=== PATIENT | female | born 1955 | race African-American/Black ===

== ENCOUNTER 2017-06-26 08:49 | Emergency (ER) | payer MEDICAID, OTHER ==
[~2017-06-26] VITALS: Ht 165.1 cm; Wt 100.0 kg
[2017-06-26] MEDS ORDERED: PREM625 PO (09:13)
[2017-06-26] MEDS ORDERED: ZOLP10 PO (09:13)
[2017-06-26] MEDS ORDERED: LORA2TAB2 PO (09:13)
[2017-06-26] MEDS ORDERED: RISP.5 PO (09:13)
[2017-06-26] MEDS ORDERED: FAMO20 PO (09:13)
[2017-06-26] MEDS ORDERED: METO25 PO (09:13)
[2017-06-26] MEDS ORDERED: TRAM50TA4 PO (09:13)
[2017-06-26] MEDS ORDERED: MET500 PO (09:13)
[2017-06-26] MEDS ORDERED: VERA80 PO (09:13)
[2017-06-26] MEDS ORDERED: GABA-529 PO (09:13)
[2017-06-26] MEDS ORDERED: ALBU8HFA4 IH (09:13)
[2017-06-26] MEDS ORDERED: CETI-260 PO (09:13)
[2017-06-26] MEDS ORDERED: FLUT16H NASAL (09:13)
[2017-06-26] MEDS ORDERED: CLON.1 PO (09:13)
[2017-06-26 10:01] LABS: BASOPHILS % (AUTO) 0.8 % (0.0-2.0); EOSINOPHILS % (AUTO) 2.3 % (1.0-6.0); HEMATOCRIT 42.9 % (36-46); HEMOGLOBIN 14.6 g/dL (12.0-16.0); LYMPHOCYTES # (AUTO) 1.9 K/uL (1.0-4.8); LYMPHOCYTES % (AUTO) 43.4 % (22.0-44.0); MEAN CORPUSCULAR HEMOGLOBIN 28.7 pg (26.0-34.0); MEAN CORPUSCULAR HGB CONC 33.9 G/dL (31.0-37.0); MEAN CORPUSCULAR VOLUME 85 fL (80-100); MONOCYTES # (AUTO) 0.6 K/uL (0.1-1.0); MONOCYTES % (AUTO) 13.7 % (2.0-9.0); NEUTROPHILS # (AUTO) 1.8 K/uL (1.8-7.7); NEUTROPHILS % (AUTO) 39.8 % (40.0-70.0); PLATELET COUNT (AUTO) 212 K/uL (150-450); RED BLOOD CELL COUNT(AUTO) 5.07 MIL/uL (4.00-5.20); RED CELL DISTRIBUTION WIDTH 15.1 % (11.5-14.5); WHITE BLOOD COUNT (AUTO) 4.5 K/uL (4.5-11.0)
[2017-06-26 10:13] LABS: ANION GAP 10 mmol/L (8-16); CALCIUM, TOTAL 9.4 mg/dL (8.8-10.5); CARBON DIOXIDE 27 mmol/L (22-29); CHLORIDE 107 mmol/L (98-107); CREATININE 0.69 mg/dL (0.60-1.30); GLOMERULAR FILTR. RATE CALC > 60 mL/min (>60); POTASSIUM 3.5 mmol/L (3.5-5.1); SODIUM SERUM 144 mmol/L (136-145); UREA NITROGEN, BLOOD 9 mg/dL (7-18)
[2017-06-26 10:17] LABS: ALANINE AMINOTRANSFERASE 70 U/L (12-78); ALBUMIN 3.3 g/dL (3.4-5.0); ASPARTATE AMINOTRANSFERASE 53 U/L (15-37); BILIRUBIN,TOTAL 0.9 mg/dL (0.1-1.0); TOTAL PROTEIN, SERUM 7.9 g/dL (6.4-8.2)
[2017-06-26] MEDS ORDERED: LORazepam 1 MG TABLET PO ONE ×2 (11:00→12:00)
[2017-06-26 12:17] VITALS: BP 142/81
== END 2017-06-26 13:11 | disposition home or self-care (01) ==
LOC: EMS 08:52
DX: F41.9 Anxiety disorder, unspecified (principal); K21.9 Gastro-esophageal reflux disease without esophagitis; I10 Essential (primary) hypertension; Z88.6 Allergy status to analgesic agent; Z88.1 Allergy status to other antibiotic agents; Z88.5 Allergy status to narcotic agent; Z88.8 Allergy status to other drugs, medicaments and biological substances
CPT/HCPCS: 36415; 80053; 80307; 85025; 99284; G0480

== ENCOUNTER 2017-10-21 17:40 | Inpatient (IN) | payer MEDICAID, OTHER ==
[~2017-10-21] VITALS: Ht 152.4 cm; Wt 101.6 kg
[~2017-10-21 17:40] MED LIST: ALBU8HFA4 IH; CETI-290 PO; CLON-570 PO; FAMO20 PO; FLUT16H NASAL; GABA-529 PO; LORA2TAB2 PO; MET500 PO; METO25 PO; PREM625 PO; RISP.5 PO; TRAM50TA4 PO; VERA80 PO; ZOLP10TA7 PO
[2017-10-21 18:35] LABS: BASOPHILS % (AUTO) 0.6 % (0.0-2.0); EOSINOPHILS % (AUTO) 1.4 % (1.0-6.0); HEMATOCRIT 43.7 % (36-46); HEMOGLOBIN 14.8 g/dL (12.0-16.0); LYMPHOCYTES # (AUTO) 3.9 K/uL (1.0-4.8); LYMPHOCYTES % (AUTO) 46.3 % (22.0-44.0); MEAN CORPUSCULAR HEMOGLOBIN 29.3 pg (26.0-34.0); MEAN CORPUSCULAR HGB CONC 33.7 G/dL (31.0-37.0); MEAN CORPUSCULAR VOLUME 87 fL (80-100); MONOCYTES # (AUTO) 0.9 K/uL (0.1-1.0); MONOCYTES % (AUTO) 10.3 % (2.0-9.0); NEUTROPHILS # (AUTO) 3.5 K/uL (1.8-7.7); NEUTROPHILS % (AUTO) 41.4 % (40.0-70.0); PLATELET COUNT (AUTO) 278 K/uL (150-450); RED BLOOD CELL COUNT(AUTO) 5.04 MIL/uL (4.00-5.20); RED CELL DISTRIBUTION WIDTH 13.7 % (11.5-14.5); WHITE BLOOD COUNT (AUTO) 8.4 K/uL (4.5-11.0)
[2017-10-21 18:51] LABS: ANION GAP 10 mmol/L (8-16); CALCIUM, TOTAL 9.3 mg/dL (8.8-10.5); CARBON DIOXIDE 29 mmol/L (22-29); CHLORIDE 97 mmol/L (98-107); CREATININE 0.87 mg/dL (0.60-1.30); GLOMERULAR FILTR. RATE CALC > 60 mL/min (>60); POTASSIUM 3.1 mmol/L (3.5-5.1); SODIUM SERUM 136 mmol/L (136-145); UREA NITROGEN, BLOOD 14 mg/dL (7-18)
[2017-10-21 18:57] LABS: ALANINE AMINOTRANSFERASE 72 U/L (12-78); ALBUMIN 3.7 g/dL (3.4-5.0); ASPARTATE AMINOTRANSFERASE 57 U/L (15-37); BILIRUBIN,TOTAL 0.6 mg/dL (0.1-1.0); TOTAL PROTEIN, SERUM 8.9 g/dL (6.4-8.2)
[2017-10-21] MEDS ORDERED: HydrOXYzine PAMOATE 50 MG CAPSULE PO ONE (19:00)
[2017-10-21] MEDS: LORazepam 2 MG TABLET PO PRN (20:23)
[2017-10-21] MEDS ORDERED: OLANZapine 10 MG TABLET PO SCH (21:00)
[2017-10-21] MEDS ORDERED: POTASSIUM CHLORIDE 20 MEQ ER TABLET PO ONE (21:15)
[2017-10-21 21:32] VITALS: BP 114/59
[2017-10-21 21:35] VITALS: BP 114/59
[2017-10-21] MEDS: ZOLPIDEM TARTRATE 10 MG TABLET PO PRN (21:57)
[2017-10-21] MEDS: OLANZapine 5 MG RAPDIS TABLET PO PRN (21:57)
[2017-10-21 22:35] VITALS: BP 122/73
[2017-10-21] MEDS ORDERED: PNEUMOCOCCAL VACCINE POLYVALENT 0.5 ML VIAL [PPSV23] IM ONE (23:00)
[2017-10-21] MEDS ORDERED: INFLUENZA VIRUS VACCINE QVS 2017-18 (3YR+)/PF 60 MCG/0.5 ML SYRINGE IM ONE (23:00)
[2017-10-21 23:39] VITALS: BP 108/63
[2017-10-22] VITALS (9 sets, daily range): BP systolic 93–127; BP diastolic 58–68
[2017-10-22] MEDS: LORazepam 2 MG TABLET PO PRN (01:51)
[2017-10-22 05:23] LABS: CHOL/HDL RATIO 2.8 (3.9-5.7)
[2017-10-22] MEDS ORDERED: LORazepam 2 MG TABLET PO PRN (07:00)
[2017-10-22] MEDS: OLANZapine 5 MG RAPDIS TABLET PO PRN ×2 (08:40→13:40)
[2017-10-22] MEDS ORDERED: LORazepam 2 MG TABLET PO SCH (09:00)
[2017-10-22] MEDS ORDERED: CYANOCOBALAMIN 1,000 MCG/ML VIAL IM ONE (13:30)
[2017-10-22] MEDS ORDERED: GuaiFENesin/D-METHORPHAN [SUGAR-FREE] 200-20MG/10 ML SYRUP UDCUP PO PRN (13:30)
[2017-10-22] MEDS ORDERED: HydrOXYzine PAMOATE 50 MG CAPSULE PO PRN (13:30)
[2017-10-22] MEDS ORDERED: MAGNESIUM HYDROXIDE SUSPENSION 30 ML UDCUP PO PRN (13:30)
[2017-10-22] MEDS ORDERED: PROMETHAZINE HCL 25 MG TABLET PO PRN (13:30)
[2017-10-22] MEDS ORDERED: TUBERCULIN, PURIFIED PROTEIN DERIVATIVE 5 TU/0.1 ML SYG ID ONE (13:30)
[2017-10-22] MEDS ORDERED: LOPERAMIDE HCL 2 MG CAPSULE PO PRN (13:30)
[2017-10-22] MEDS: DIAZEPAM 10 MG TABLET PO PRN ×3 (13:40→20:17)
[2017-10-22] MEDS: GABAPENTIN 100 MG CAPSULE PO SCH ×2 (15:41→21:55)
[2017-10-22] MEDS ORDERED: OLANZapine 10 MG TABLET PO SCH (21:00)
[2017-10-22] MEDS: ZOLPIDEM TARTRATE 10 MG TABLET PO PRN (21:55)
[2017-10-22] MEDS: THIAMINE HCL 100 MG TABLET PO SCH (21:55)
[2017-10-23] MEDS ORDERED: DIAZEPAM 10 MG TABLET PO PRN (07:00)
[2017-10-23] MEDS: FLUoxetine HCL 20 MG CAPSULE PO SCH ×2 (09:00→09:39)
[2017-10-23] MEDS: FLUTICASONE PROPIONATE 50 MCG/SPRAY 16 GM NASAL SPRAY NASAL SCH (09:00)
[2017-10-23] MEDS: THIAMINE HCL 100 MG TABLET PO SCH (09:38)
[2017-10-23] MEDS: DIAZEPAM 10 MG TABLET PO SCH ×4 (09:39→21:17)
[2017-10-23] MEDS: MULTIVITAMINS WITH MINERALS, THERAPEUTIC TABLET PO SCH (09:39)
[2017-10-23] MEDS: GABAPENTIN 100 MG CAPSULE PO SCH (09:40)
[2017-10-23] MEDS: FOLIC ACID 1 MG TABLET PO SCH (09:40)
[2017-10-23] MEDS ORDERED: QUEtiapine FUMARATE 100 MG TABLET PO PRN (12:30)
[2017-10-23 12:51] VITALS: BP 152/95
[2017-10-23] MEDS: AmLODIPine BESYLATE 5 MG TABLET PO SCH (13:58)
[2017-10-23] MEDS: GABAPENTIN 300 MG CAPSULE PO SCH ×3 (14:02→21:16)
[2017-10-23] MEDS: QUEtiapine FUMARATE 25 MG TABLET PO SCH (17:42)
[2017-10-23 18:30] VITALS: BP 156/94
[2017-10-23] MEDS ORDERED: QUEtiapine FUMARATE 100 MG TABLET PO SCH (21:00)
[2017-10-23] MEDS: ZOLPIDEM TARTRATE 10 MG TABLET PO PRN (23:49)
[2017-10-24 03:33] VITALS: BP 141/83
[2017-10-24] MEDS ORDERED: LORazepam 1 MG TABLET PO PRN (07:00)
[2017-10-24 08:00] VITALS: BP 142/85
[2017-10-24] MEDS: DIAZEPAM 10 MG TABLET PO SCH ×2 (09:00→13:00)
[2017-10-24] MEDS: FOLIC ACID 1 MG TABLET PO SCH (09:00)
[2017-10-24] MEDS ORDERED: LORazepam 1 MG TABLET PO SCH (09:00)
[2017-10-24] MEDS: THIAMINE HCL 100 MG TABLET PO SCH ×2 (09:00→16:28)
[2017-10-24] MEDS: MULTIVITAMINS WITH MINERALS, THERAPEUTIC TABLET PO SCH (09:00)
[2017-10-24] MEDS: AmLODIPine BESYLATE 5 MG TABLET PO SCH (10:39)
[2017-10-24] MEDS: GABAPENTIN 300 MG CAPSULE PO SCH ×2 (10:39→14:05)
[2017-10-24] MEDS: FLUTICASONE PROPIONATE 50 MCG/SPRAY 16 GM NASAL SPRAY NASAL SCH ×2 (10:39→16:29)
[2017-10-24] MEDS: QUEtiapine FUMARATE 25 MG TABLET PO SCH ×3 (10:39→16:28)
[2017-10-24] MEDS: LORazepam 2 MG TABLET PO PRN (16:32)
[2017-10-24] MEDS ORDERED: GABAPENTIN 300 MG CAPSULE PO SCH (17:00)
[2017-10-24 17:12] VITALS: BP 145/94
[2017-10-24] MEDS: GABAPENTIN 400 MG CAPSULE PO SCH (21:17)
[2017-10-24] MEDS: QUEtiapine FUMARATE 100 MG TABLET PO SCH (21:19)
[2017-10-24] MEDS ORDERED: ALBUTEROL SULFATE HFA 90 MCG/PUFF 8 GM INHALER IH PRN (21:30)
[2017-10-24] MEDS: ZOLPIDEM TARTRATE 10 MG TABLET PO PRN (21:33)
[2017-10-25] VITALS: BP 116/72
[2017-10-25 04:00] VITALS: BP 113/62
[2017-10-25] MEDS: LORazepam 2 MG TABLET PO PRN (04:50)
[2017-10-25] MEDS ORDERED: LORazepam 1 MG TABLET PO PRN (07:00)
[2017-10-25] MEDS ORDERED: DIAZEPAM 5 MG TABLET PO PRN (07:00)
[2017-10-25 08:00] VITALS: BP_SYST 111; BP_SYST 118; BP_DIAS 77
[2017-10-25] MEDS: THIAMINE HCL 100 MG TABLET PO SCH ×2 (09:00→16:12)
[2017-10-25] MEDS: FOLIC ACID 1 MG TABLET PO SCH (09:00)
[2017-10-25] MEDS: MULTIVITAMINS WITH MINERALS, THERAPEUTIC TABLET PO SCH (09:00)
[2017-10-25] MEDS ORDERED: DIAZEPAM 5 MG TABLET PO SCH (09:00)
[2017-10-25] MEDS: LORazepam 2 MG TABLET PO SCH ×4 (10:00→22:27)
[2017-10-25] MEDS: AmLODIPine BESYLATE 10 MG TABLET PO SCH (10:01)
[2017-10-25] MEDS: GABAPENTIN 400 MG CAPSULE PO SCH ×2 (10:01→13:50)
[2017-10-25] MEDS: FLUTICASONE PROPIONATE 50 MCG/SPRAY 16 GM NASAL SPRAY NASAL SCH ×2 (10:01→16:15)
[2017-10-25] MEDS: QUEtiapine FUMARATE 25 MG TABLET PO SCH ×3 (10:01→16:12)
[2017-10-25 12:00] VITALS: BP 130/75
[2017-10-25] MEDS ORDERED: LOPERAMIDE HCL 2 MG CAPSULE PO PRN (13:30)
[2017-10-25] MEDS: GABAPENTIN 300 MG CAPSULE PO SCH (17:10)
[2017-10-25 17:11] VITALS: BP 137/90
[2017-10-25] MEDS: HYPROMELLOSE 0.5% 15 ML OPHTHALMIC SOLUTION OU PRN (17:11)
[2017-10-25] MEDS: MAG HYDROX/AL HYDROX/SIMETH ES 30 ML SUSPENSION UDCUP PO PRN (20:39)
[2017-10-25] MEDS: QUEtiapine FUMARATE 100 MG TABLET PO SCH (22:27)
[2017-10-25 22:29] VITALS: BP 139/68
[2017-10-26 02:45] VITALS: BP 134/98
[2017-10-26] MEDS: LORazepam 2 MG TABLET PO PRN (02:50)
[2017-10-26] MEDS: HYPROMELLOSE 0.5% 15 ML OPHTHALMIC SOLUTION OU PRN (02:50)
[2017-10-26 04:30] VITALS: BP 127/74
[2017-10-26] MEDS ORDERED: DIAZEPAM 5 MG TABLET PO PRN (07:00)
[2017-10-26 08:30] VITALS: BP 157/78
[2017-10-26] MEDS: MULTIVITAMINS WITH MINERALS, THERAPEUTIC TABLET PO SCH (09:00)
[2017-10-26] MEDS: LORazepam 2 MG TABLET PO SCH ×4 (09:31→22:01)
[2017-10-26] MEDS: FOLIC ACID 1 MG TABLET PO SCH (09:31)
[2017-10-26] MEDS: AmLODIPine BESYLATE 10 MG TABLET PO SCH (09:31)
[2017-10-26] MEDS: QUEtiapine FUMARATE 25 MG TABLET PO SCH ×3 (09:31→16:25)
[2017-10-26] MEDS: GABAPENTIN 300 MG CAPSULE PO SCH ×3 (09:31→16:25)
[2017-10-26] MEDS: THIAMINE HCL 100 MG TABLET PO SCH ×2 (09:33→16:25)
[2017-10-26] MEDS: FLUTICASONE PROPIONATE 50 MCG/SPRAY 16 GM NASAL SPRAY NASAL SCH ×2 (09:36→16:24)
[2017-10-26 12:00] VITALS: BP 132/84
[2017-10-26] MEDS: CIPROFLOXACIN HCL 0.3% 3.5 GM OPHTHALMIC OINTMENT OU SCH ×2 (13:15→16:26)
[2017-10-26 16:00] VITALS: BP 118/69
[2017-10-26 20:05] VITALS: BP 115/63
[2017-10-26] MEDS: QUEtiapine FUMARATE 100 MG TABLET PO SCH (21:55)
[2017-10-27 00:10] VITALS: BP 122/92
[2017-10-27] MEDS: ZOLPIDEM TARTRATE 10 MG TABLET PO PRN ×2 (00:52→21:57)
[2017-10-27] MEDS: LORazepam 2 MG TABLET PO PRN (00:53)
[2017-10-27] MEDS: HYPROMELLOSE 0.5% 15 ML OPHTHALMIC SOLUTION OU PRN (00:55)
[2017-10-27 04:10] VITALS: BP 120/72
[2017-10-27] MEDS ORDERED: LORazepam 1 MG TABLET PO PRN (07:00)
[2017-10-27 08:30] VITALS: BP 134/81
[2017-10-27] MEDS: MULTIVITAMINS WITH MINERALS, THERAPEUTIC TABLET PO SCH ×2 (09:00→09:07)
[2017-10-27] MEDS: QUEtiapine FUMARATE 25 MG TABLET PO SCH ×3 (09:07→16:47)
[2017-10-27] MEDS: LORazepam 1 MG TABLET PO SCH ×4 (09:07→21:57)
[2017-10-27] MEDS: AmLODIPine BESYLATE 10 MG TABLET PO SCH (09:07)
[2017-10-27] MEDS: THIAMINE HCL 100 MG TABLET PO SCH ×2 (09:07→16:47)
[2017-10-27] MEDS: GABAPENTIN 300 MG CAPSULE PO SCH ×3 (09:08→16:47)
[2017-10-27] MEDS: CIPROFLOXACIN HCL 0.3% 3.5 GM OPHTHALMIC OINTMENT OU SCH ×2 (09:08→16:51)
[2017-10-27] MEDS: FLUTICASONE PROPIONATE 50 MCG/SPRAY 16 GM NASAL SPRAY NASAL SCH ×2 (09:08→16:51)
[2017-10-27] MEDS: FOLIC ACID 1 MG TABLET PO SCH (09:08)
[2017-10-27] MEDS: MAG HYDROX/AL HYDROX/SIMETH ES 30 ML SUSPENSION UDCUP PO PRN (11:49)
[2017-10-27 12:00] VITALS: BP 136/82
[2017-10-27 17:03] VITALS: BP 142/89
[2017-10-27 17:05] VITALS: BP 142/89
[2017-10-27] MEDS: QUEtiapine FUMARATE 100 MG TABLET PO SCH (21:57)
[2017-10-28 06:05] VITALS: BP 107/66
[2017-10-28] MEDS ORDERED: LORazepam 1 MG TABLET PO PRN (07:00)
[2017-10-28 08:45] VITALS: BP 145/95
[2017-10-28] MEDS: GABAPENTIN 300 MG CAPSULE PO SCH ×3 (09:05→16:16)
[2017-10-28] MEDS: FLUTICASONE PROPIONATE 50 MCG/SPRAY 16 GM NASAL SPRAY NASAL SCH ×2 (09:05→16:12)
[2017-10-28] MEDS: MULTIVITAMINS WITH MINERALS, THERAPEUTIC TABLET PO SCH (09:06)
[2017-10-28] MEDS: AmLODIPine BESYLATE 10 MG TABLET PO SCH (09:06)
[2017-10-28] MEDS: CIPROFLOXACIN HCL 0.3% 3.5 GM OPHTHALMIC OINTMENT OU SCH ×2 (09:06→16:18)
[2017-10-28] MEDS: QUEtiapine FUMARATE 25 MG TABLET PO SCH ×3 (09:06→16:15)
[2017-10-28] MEDS: THIAMINE HCL 100 MG TABLET PO SCH ×2 (09:06→16:15)
[2017-10-28] MEDS: FOLIC ACID 1 MG TABLET PO SCH (09:06)
[2017-10-28] MEDS: HYPROMELLOSE 0.5% 15 ML OPHTHALMIC SOLUTION OU PRN (09:07)
[2017-10-28] MEDS: MAG HYDROX/AL HYDROX/SIMETH ES 30 ML SUSPENSION UDCUP PO PRN (14:40)
[2017-10-28] MEDS ORDERED: GABA-531 PO (16:26)
[2017-10-28] MEDS ORDERED: QUET100T33 PO (16:26)
[2017-10-28] MEDS ORDERED: QUET25TA34 PO (16:26)
[2017-10-28] MEDS ORDERED: FLUT16H NASAL (17:50)
[2017-10-28] MEDS ORDERED: AMLO-512 PO (17:59)
[2017-10-28] MEDS ORDERED: CILOOO OU (18:01)
== END 2017-10-28 19:15 | disposition home or self-care (01) | DRG 750 ==
LOC: EMS 17:51 → AHU 21:14 → 3EI 10-23 17:06
PROVIDERS: ADMIT Psychiatry & Neurology Psychiatry; ATTEND Psychiatry & Neurology Psychiatry
DX: F25.0 Schizoaffective disorder, bipolar type (principal); R45.851 Suicidal ideations; K73.9 Chronic hepatitis, unspecified; F13.20 Sedative, hypnotic or anxiolytic dependence, uncomplicated; Z68.41 Body mass index [BMI] 40.0-44.9, adult; E66.9 Obesity, unspecified; J45.909 Unspecified asthma, uncomplicated; F17.200 Nicotine dependence, unspecified, uncomplicated; F41.9 Anxiety disorder, unspecified; F32.9 Major depressive disorder, single episode, unspecified; K21.9 Gastro-esophageal reflux disease without esophagitis; I10 Essential (primary) hypertension; F29 Unspecified psychosis not due to a substance or known physiological condition; Z88.5 Allergy status to narcotic agent; Z88.1 Allergy status to other antibiotic agents; Z88.8 Allergy status to other drugs, medicaments and biological substances; Z79.899 Other long term (current) drug therapy; Z65.3 Problems related to other legal circumstances; Z90.710 Acquired absence of both cervix and uterus
CPT/HCPCS: 84132; 99285; G0480; J3420

== ENCOUNTER 2018-07-11 18:49 | Emergency (ER) | payer SELFPAY ==
[~2018-07-11] VITALS: Ht 165.1 cm; Wt 88.6 kg
[~2018-07-11 18:49] MED LIST changes: -ALBU8HFA4 IH; +AMLO-512 PO; +ARIP15TA2 PO; +BUSP10TA23 PO; -CETI-290 PO; -CLON-570 PO; -FAMO20 PO; -GABA-529 PO; -LORA2TAB2 PO; -MET500 PO; -METO25 PO; -RISP.5 PO; +SERT50TA12 PO; -TRAM50TA4 PO; -VERA80 PO; -ZOLP10TA7 PO
[2018-07-11 18:59] VITALS: BP 86/63
== END 2018-07-11 20:32 | disposition left against medical advice (07) ==
LOC: EMS 18:50
DX: R06.02 Shortness of breath (principal); Z53.21 Procedure and treatment not carried out due to patient leaving prior to being seen by health care provider

== ENCOUNTER 2018-07-12 21:34 | Emergency (ER) | payer OTHER ==
[~2018-07-12] VITALS: Ht 170.2 cm; Wt 90.9 kg
[2018-07-13] MEDS ORDERED: LORazepam 1 MG TABLET PO ONE (00:45)
[2018-07-13 00:50] VITALS: BP 138/81
== END 2018-07-13 00:52 | disposition home or self-care (01) ==
LOC: EMS 21:35
DX: F41.9 Anxiety disorder, unspecified (principal); I10 Essential (primary) hypertension; F20.9 Schizophrenia, unspecified; F13.20 Sedative, hypnotic or anxiolytic dependence, uncomplicated; Z88.1 Allergy status to other antibiotic agents; Z88.6 Allergy status to analgesic agent; Z79.899 Other long term (current) drug therapy
CPT/HCPCS: 99284

== ENCOUNTER 2018-10-12 08:13 | Inpatient (IN) | payer MEDICARE, MEDICAID ==
[~2018-10-12] VITALS: Ht 165.1 cm; Wt 94.3 kg
[2018-10-12] MEDS ORDERED: LISI-662 PO (08:35)
[2018-10-12] MEDS ORDERED: LORA0.5T2 PO (08:35)
[2018-10-12] MEDS ORDERED: VERA240SR PO (08:35)
[2018-10-12] MEDS ORDERED: PROP10TA73 PO (08:35)
[2018-10-12] MEDS ORDERED: LORazepam 1 MG TABLET PO ONE (08:45)
[2018-10-12 09:02] LABS: BASOPHILS % (AUTO) 1.1 % (0.0-2.0); EOSINOPHILS % (AUTO) 0.7 % (1.0-6.0); HEMATOCRIT 37.1 % (36-46); HEMOGLOBIN 12.6 g/dL (12.0-16.0); LYMPHOCYTES # (AUTO) 1.9 K/uL (1.0-4.8); LYMPHOCYTES % (AUTO) 34.8 % (22.0-44.0); MEAN CORPUSCULAR HEMOGLOBIN 29.6 pg (26.0-34.0); MEAN CORPUSCULAR HGB CONC 34.1 G/dL (31.0-37.0); MEAN CORPUSCULAR VOLUME 87 fL (80-100); MONOCYTES # (AUTO) 0.6 K/uL (0.1-1.0); MONOCYTES % (AUTO) 11.7 % (2.0-9.0); NEUTROPHILS # (AUTO) 2.8 K/uL (1.8-7.7); NEUTROPHILS % (AUTO) 51.7 % (40.0-70.0); PLATELET COUNT (AUTO) 277 K/uL (150-450); RED BLOOD CELL COUNT(AUTO) 4.27 MIL/uL (4.00-5.20)
[2018-10-12 09:11] LABS: ANION GAP 7 mmol/L (8-16); CARBON DIOXIDE 29 mmol/L (22-29); CHLORIDE 103 mmol/L (98-107); CREATININE 0.71 mg/dL (0.60-1.30); GLOMERULAR FILTR. RATE CALC > 60 mL/min (>60); GLUCOSE,RANDOM 109 mg/dL (70-110); POTASSIUM 3.1 mmol/L (3.5-5.1); SODIUM SERUM 139 mmol/L (136-145); UREA NITROGEN, BLOOD 12 mg/dL (7-18)
[2018-10-12 09:17] LABS: ALANINE AMINOTRANSFERASE 50 U/L (12-78); ALBUMIN 3.2 g/dL (3.4-5.0); ALKALINE PHOSPHATASE 97 U/L (46-116); ASPARTATE AMINOTRANSFERASE 42 U/L (15-37); BILIRUBIN,TOTAL 0.6 mg/dL (0.1-1.0); TOTAL PROTEIN, SERUM 7.5 g/dL (6.4-8.2)
[2018-10-12] MEDS ORDERED: HALOPERIDOL 5 MG TABLET PO PRN (09:45)
[2018-10-12] MEDS ORDERED: POTASSIUM CHLORIDE 20 MEQ ER TABLET PO ONE (10:00)
[2018-10-12] MEDS ORDERED: DOCUSATE SODIUM 100 MG CAPSULE PO PRN (12:30)
[2018-10-12] MEDS ORDERED: LOPERAMIDE HCL 2 MG CAPSULE PO PRN (12:30)
[2018-10-12] MEDS ORDERED: MAG HYDROX/AL HYDROX/SIMETH ES 30 ML SUSPENSION UDCUP PO PRN (12:30)
[2018-10-12] MEDS ORDERED: ALBUTEROL SULFATE HFA 90 MCG/PUFF 8 GM INHALER IH PRN (12:30)
[2018-10-12] MEDS ORDERED: PETROLATUM,WHITE 71 GM JELLY TP PRN (12:30)
[2018-10-12] MEDS ORDERED: GuaiFENesin/D-METHORPHAN [SUGAR-FREE] 200-20MG/10 ML SYRUP UDCUP PO PRN (12:30)
[2018-10-12] MEDS ORDERED: ONDANSETRON HCL 4 MG TABLET PO PRN (12:30)
[2018-10-12] MEDS ORDERED: NICOTINE 14 MG/24 HOUR PATCH TD PRN (12:30)
[2018-10-12] MEDS ORDERED: MAGNESIUM HYDROXIDE SUSPENSION 30 ML UDCUP PO PRN (12:30)
[2018-10-12 13:02] VITALS: BP 128/77
[2018-10-12] MEDS: SERTRALINE HCL 50 MG TABLET PO SCH (15:45)
[2018-10-12] MEDS: FLUTICASONE PROPIONATE 50 MCG/SPRAY 16 GM NASAL SPRAY NASAL SCH (16:36)
[2018-10-12] MEDS: LORazepam 2 MG TABLET PO PRN (16:39)
[2018-10-12 16:56] VITALS: BP 127/72
[2018-10-12] MEDS: RisperiDONE 1 MG TABLET PO SCH (21:09)
[2018-10-12] MEDS: ZOLPIDEM TARTRATE 10 MG TABLET PO PRN (21:12)
[2018-10-13 04:05] VITALS: BP 143/81
[2018-10-13] MEDS: LORazepam 2 MG TABLET PO PRN ×4 (04:14→21:11)
[2018-10-13 08:00] VITALS: BP 158/100
[2018-10-13] MEDS: RisperiDONE 1 MG TABLET PO SCH ×2 (09:02→21:11)
[2018-10-13] MEDS: ESTROGENS,CONJUGATED 0.625 MG TABLET PO SCH (09:02)
[2018-10-13] MEDS: PROPRANOLOL HCL 10 MG TABLET PO SCH (09:02)
[2018-10-13] MEDS: SERTRALINE HCL 50 MG TABLET PO SCH (09:02)
[2018-10-13] MEDS: FLUTICASONE PROPIONATE 50 MCG/SPRAY 16 GM NASAL SPRAY NASAL SCH ×2 (09:02→17:25)
[2018-10-13] MEDS: VERAPAMIL HCL 240 MG ER TABLET PO SCH (09:02)
[2018-10-13 10:03] LABS: CHOL/HDL RATIO 2.5 (3.9-5.7); FREE T4 (FREE THYROXINE) 0.91 ng/dL (0.76-1.46); THYROID STIMULATING HORMONE 0.79 uIU/mL (0.36-3.74)
[2018-10-13 18:48] VITALS: BP 131/78
[2018-10-13] MEDS: ZOLPIDEM TARTRATE 10 MG TABLET PO PRN (21:11)
[2018-10-14 04:11] VITALS: BP 132/75
[2018-10-14] MEDS: IBUPROFEN 400 MG TABLET PO PRN ×2 (04:19→23:02)
[2018-10-14] MEDS: SERTRALINE HCL 50 MG TABLET PO SCH (08:11)
[2018-10-14] MEDS: ESTROGENS,CONJUGATED 0.625 MG TABLET PO SCH (08:11)
[2018-10-14] MEDS: VERAPAMIL HCL 240 MG ER TABLET PO SCH (08:11)
[2018-10-14] MEDS: RisperiDONE 1 MG TABLET PO SCH ×2 (08:11→21:17)
[2018-10-14] MEDS: PROPRANOLOL HCL 10 MG TABLET PO SCH (08:11)
[2018-10-14] MEDS: FLUTICASONE PROPIONATE 50 MCG/SPRAY 16 GM NASAL SPRAY NASAL SCH ×2 (08:11→17:24)
[2018-10-14] MEDS: LORazepam 2 MG TABLET PO PRN ×3 (08:30→23:01)
[2018-10-14 08:44] VITALS: BP 161/94
[2018-10-14 19:50] VITALS: BP 141/81
[2018-10-14 23:00] VITALS: BP 137/90
[2018-10-15] MEDS: ZOLPIDEM TARTRATE 10 MG TABLET PO PRN ×2 (01:05→23:05)
[2018-10-15 01:06] VITALS: BP 142/62
[2018-10-15 08:00] VITALS: BP 158/95
[2018-10-15] MEDS: VERAPAMIL HCL 240 MG ER TABLET PO SCH (08:27)
[2018-10-15] MEDS: ESTROGENS,CONJUGATED 0.625 MG TABLET PO SCH (08:28)
[2018-10-15] MEDS: SERTRALINE HCL 50 MG TABLET PO SCH (08:28)
[2018-10-15] MEDS: RisperiDONE 1 MG TABLET PO SCH ×2 (08:28→21:18)
[2018-10-15] MEDS: PROPRANOLOL HCL 10 MG TABLET PO SCH (08:28)
[2018-10-15] MEDS: LORazepam 2 MG TABLET PO PRN ×2 (08:31→13:55)
[2018-10-15] MEDS: FLUTICASONE PROPIONATE 50 MCG/SPRAY 16 GM NASAL SPRAY NASAL SCH ×2 (08:31→16:48)
[2018-10-15 09:30] VITALS: BP 142/86
[2018-10-15 17:08] VITALS: BP 133/72
[2018-10-16 00:35] VITALS: BP_SYST 130; BP_SYST 152; BP_DIAS 93; BP_DIAS 97
[2018-10-16] MEDS: LORazepam 2 MG TABLET PO PRN ×3 (00:41→10:59)
[2018-10-16 06:35] VITALS: BP 151/102
[2018-10-16 07:46] LABS: ALANINE AMINOTRANSFERASE 49 U/L (12-78); ALKALINE PHOSPHATASE 92 U/L (46-116); ANION GAP 9 mmol/L (8-16); ASPARTATE AMINOTRANSFERASE 43 U/L (15-37); BILIRUBIN,TOTAL 0.5 mg/dL (0.1-1.0); CALCIUM, TOTAL 8.8 mg/dL (8.8-10.5); CARBON DIOXIDE 27 mmol/L (22-29); CHLORIDE 107 mmol/L (98-107); CREATININE 0.52 mg/dL (0.60-1.30); GLOMERULAR FILTR. RATE CALC > 60 mL/min (>60); GLUCOSE,RANDOM 91 mg/dL (70-110); POTASSIUM 3.7 mmol/L (3.5-5.1); SODIUM SERUM 143 mmol/L (136-145); TOTAL PROTEIN, SERUM 7.6 g/dL (6.4-8.2); UREA NITROGEN, BLOOD 9 mg/dL (7-18)
[2018-10-16] MEDS: PROPRANOLOL HCL 10 MG TABLET PO SCH (08:35)
[2018-10-16] MEDS: VERAPAMIL HCL 240 MG ER TABLET PO SCH (08:36)
[2018-10-16] MEDS: ESTROGENS,CONJUGATED 0.625 MG TABLET PO SCH (08:36)
[2018-10-16] MEDS: RisperiDONE 1 MG TABLET PO SCH (08:36)
[2018-10-16] MEDS: SERTRALINE HCL 50 MG TABLET PO SCH (08:36)
[2018-10-16] MEDS: FLUTICASONE PROPIONATE 50 MCG/SPRAY 16 GM NASAL SPRAY NASAL SCH (08:38)
[2018-10-16 09:50] VITALS: BP 151/93
[2018-10-16] MEDS ORDERED: RISP1 PO (14:10)
[2018-10-16] MEDS ORDERED: SERT50TA12 PO (14:10)
== END 2018-10-16 14:55 | disposition home or self-care (01) | DRG 750 ==
LOC: EMS 08:14 → 3EI 10:18
DX: F25.1 Schizoaffective disorder, depressive type (principal); K75.9 Inflammatory liver disease, unspecified; R74.0 Nonspecific elevation of levels of transaminase and lactic acid dehydrogenase [LDH]; E87.6 Hypokalemia; F41.9 Anxiety disorder, unspecified; F11.90 Opioid use, unspecified, uncomplicated; Z60.2 Problems related to living alone; I10 Essential (primary) hypertension; Z79.899 Other long term (current) drug therapy; J45.909 Unspecified asthma, uncomplicated; K21.9 Gastro-esophageal reflux disease without esophagitis; Z91.5 Personal history of self-harm; Z88.6 Allergy status to analgesic agent; Z88.8 Allergy status to other drugs, medicaments and biological substances; Z88.1 Allergy status to other antibiotic agents; Z28.21 Immunization not carried out because of patient refusal
CPT/HCPCS: 83036; 84132; 84439; 84443; 93005; G0480

== ENCOUNTER 2018-10-26 13:02 | Emergency (ER) | payer MEDICARE, MEDICAID ==
[~2018-10-26] VITALS: Ht 165.1 cm; Wt 93.2 kg
[~2018-10-26 13:02] MED LIST changes: -AMLO-512 PO; -ARIP15TA2 PO; -BUSP10TA23 PO; +PROP10TA73 PO; +RISP1 PO; +VERA240SR PO
[2018-10-26] MEDS ORDERED: LORazepam 2 MG TABLET PO ONE (14:30)
[2018-10-26] MEDS ORDERED: LORazepam 1 MG TABLET PO ONE (14:30)
[2018-10-26 15:00] VITALS: BP 169/96
== END 2018-10-26 15:04 | disposition home or self-care (01) ==
LOC: EMS 13:03
DX: F41.9 Anxiety disorder, unspecified (principal); F20.9 Schizophrenia, unspecified; I10 Essential (primary) hypertension; F13.90 Sedative, hypnotic, or anxiolytic use, unspecified, uncomplicated; Z88.5 Allergy status to narcotic agent; Z88.6 Allergy status to analgesic agent; Z88.8 Allergy status to other drugs, medicaments and biological substances; Z79.899 Other long term (current) drug therapy

== ENCOUNTER 2018-10-28 04:16 | Emergency (ER) | payer MEDICARE, OTHER ==
[~2018-10-28] VITALS: Ht 165.1 cm; Wt 93.6 kg
[2018-10-28] MEDS ORDERED: LORA1TAB3 PO (04:29)
[2018-10-28] MEDS ORDERED: ZOLP10TA7 PO (04:29)
[2018-10-28 05:07] VITALS: BP 164/98
[2018-10-28] MEDS ORDERED: LORazepam 1 MG TABLET PO ONE (05:30)
== END 2018-10-28 05:52 | disposition home or self-care (01) ==
LOC: EMS 04:18
DX: F41.9 Anxiety disorder, unspecified (principal); G47.00 Insomnia, unspecified; F13.90 Sedative, hypnotic, or anxiolytic use, unspecified, uncomplicated; I10 Essential (primary) hypertension; F20.9 Schizophrenia, unspecified; Z79.899 Other long term (current) drug therapy; Z88.5 Allergy status to narcotic agent

== ENCOUNTER 2018-11-02 21:22 | Emergency (ER) | payer MEDICARE, OTHER ==
[~2018-11-02] VITALS: Ht 165.1 cm; Wt 93.6 kg
[~2018-11-02 21:22] MED LIST changes: +LORA1TAB3 PO; +ZOLP10TA7 PO
[2018-11-02] MEDS ORDERED: LORazepam 1 MG TABLET PO ONE (22:00)
[2018-11-02 22:39] VITALS: BP 139/75
== END 2018-11-02 23:10 | disposition home or self-care (01) ==
LOC: EMS 21:23
DX: F41.9 Anxiety disorder, unspecified (principal); F20.9 Schizophrenia, unspecified; I10 Essential (primary) hypertension; F13.90 Sedative, hypnotic, or anxiolytic use, unspecified, uncomplicated; Z88.6 Allergy status to analgesic agent; Z88.5 Allergy status to narcotic agent; Z88.1 Allergy status to other antibiotic agents; Z88.8 Allergy status to other drugs, medicaments and biological substances

== ENCOUNTER 2018-11-03 05:40 | Emergency (ER) | payer MEDICARE, OTHER ==
[~2018-11-03] VITALS: Ht 165.1 cm; Wt 104.5 kg
[2018-11-03 06:10] LABS: BASOPHILS % (AUTO) 0.9 % (0.0-2.0); EOSINOPHILS % (AUTO) 2.7 % (1.0-6.0); HEMATOCRIT 42.2 % (36-46); HEMOGLOBIN 14.1 g/dL (12.0-16.0); LYMPHOCYTES # (AUTO) 3.7 K/uL (1.0-4.8); LYMPHOCYTES % (AUTO) 54.6 % (22.0-44.0); MEAN CORPUSCULAR HEMOGLOBIN 29.3 pg (26.0-34.0); MEAN CORPUSCULAR HGB CONC 33.5 G/dL (31.0-37.0); MEAN CORPUSCULAR VOLUME 88 fL (80-100); MONOCYTES # (AUTO) 0.8 K/uL (0.1-1.0); MONOCYTES % (AUTO) 11.4 % (2.0-9.0); NEUTROPHILS # (AUTO) 2.1 K/uL (1.8-7.7); NEUTROPHILS % (AUTO) 30.4 % (40.0-70.0); PLATELET COUNT (AUTO) 277 K/uL (150-450); RED BLOOD CELL COUNT(AUTO) 4.82 MIL/uL (4.00-5.20); RED CELL DISTRIBUTION WIDTH 13.8 % (11.5-14.5)
[2018-11-03 06:19] LABS: ANION GAP 7 mmol/L (8-16); CALCIUM, TOTAL 9.1 mg/dL (8.8-10.5); CARBON DIOXIDE 30 mmol/L (22-29); CHLORIDE 105 mmol/L (98-107); CREATININE 0.64 mg/dL (0.60-1.30); GLOMERULAR FILTR. RATE CALC > 60 mL/min (>60); GLUCOSE,RANDOM 94 mg/dL (70-110); POTASSIUM 3.1 mmol/L (3.5-5.1); SODIUM SERUM 142 mmol/L (136-145); UREA NITROGEN, BLOOD 11 mg/dL (7-18)
[2018-11-03 06:25] LABS: ALANINE AMINOTRANSFERASE 59 U/L (12-78); ALBUMIN 3.5 g/dL (3.4-5.0); ALKALINE PHOSPHATASE 84 U/L (46-116); ASPARTATE AMINOTRANSFERASE 50 U/L (15-37); BILIRUBIN,TOTAL 0.6 mg/dL (0.1-1.0); TOTAL PROTEIN, SERUM 7.7 g/dL (6.4-8.2)
[2018-11-03 07:00] VITALS: BP 146/79
[2018-11-03] MEDS: LORazepam 1 MG TABLET PO ONE (08:03)
[2018-11-03] MEDS: POTASSIUM CHLORIDE 20 MEQ ER TABLET PO ONE (08:32)
== END 2018-11-03 10:12 | disposition home or self-care (01) ==
LOC: EMS 05:41
DX: F41.9 Anxiety disorder, unspecified (principal); E87.6 Hypokalemia; F20.9 Schizophrenia, unspecified; I10 Essential (primary) hypertension; F19.90 Other psychoactive substance use, unspecified, uncomplicated; Z88.1 Allergy status to other antibiotic agents; Z88.5 Allergy status to narcotic agent; Z88.8 Allergy status to other drugs, medicaments and biological substances; Z79.899 Other long term (current) drug therapy
CPT/HCPCS: 36415; 80053; 85025; 99284; G0480

== ENCOUNTER 2018-11-20 10:58 | Emergency (ER) | payer MEDICARE, OTHER ==
[~2018-11-20] VITALS: Ht 165.1 cm; Wt 90.9 kg
[~2018-11-20 10:58] MED LIST changes: +AMLO2.5T4 PO; +BUSP5TAB20 PO; +DOXE10 PO; -LORA1TAB3 PO; -ZOLP10TA7 PO
[2018-11-20] MEDS: HydrOXYzine PAMOATE 50 MG CAPSULE PO ONE ×2 (12:25→12:35)
[2018-11-20 13:12] VITALS: BP 139/56
== END 2018-11-20 13:12 | disposition home or self-care (01) ==
LOC: EMS 10:59
DX: F41.9 Anxiety disorder, unspecified (principal); G47.00 Insomnia, unspecified; R07.89 Other chest pain; F32.9 Major depressive disorder, single episode, unspecified; I10 Essential (primary) hypertension; F20.9 Schizophrenia, unspecified; F13.90 Sedative, hypnotic, or anxiolytic use, unspecified, uncomplicated; Z88.6 Allergy status to analgesic agent; Z88.1 Allergy status to other antibiotic agents; Z88.5 Allergy status to narcotic agent; Z88.8 Allergy status to other drugs, medicaments and biological substances

== ENCOUNTER 2018-11-23 09:18 | Emergency (ER) | payer MEDICARE, OTHER ==
[~2018-11-23] VITALS: Ht 165.1 cm; Wt 90.9 kg
[~2018-11-23 09:18] MED LIST changes: -FLUT16H NASAL
[2018-11-23] MEDS ORDERED: HydrOXYzine PAMOATE 50 MG CAPSULE PO ONE (10:00)
[2018-11-23 10:33] VITALS: BP 117/67
== END 2018-11-23 11:07 | disposition home or self-care (01) ==
LOC: EMS 09:19
DX: F41.9 Anxiety disorder, unspecified (principal); G47.00 Insomnia, unspecified; F32.9 Major depressive disorder, single episode, unspecified; I10 Essential (primary) hypertension; F20.9 Schizophrenia, unspecified; F13.90 Sedative, hypnotic, or anxiolytic use, unspecified, uncomplicated; Z88.6 Allergy status to analgesic agent; Z88.5 Allergy status to narcotic agent; Z88.1 Allergy status to other antibiotic agents; Z88.8 Allergy status to other drugs, medicaments and biological substances

== ENCOUNTER 2018-12-09 13:59 | Inpatient (IN) | payer MEDICARE, MEDICAID ==
[~2018-12-09] VITALS: Ht 152.4 cm; Wt 89.4 kg
[2018-12-09] MEDS ORDERED: HALOPERIDOL 5 MG TABLET PO PRN (16:45)
[2018-12-09] MEDS ORDERED: PNEUMOCOCCAL VACCINE POLYVALENT 0.5 ML VIAL [PPSV23] IM ONE (17:00)
[2018-12-09 17:56] VITALS: BP 121/79
[2018-12-09] MEDS ORDERED: DOCUSATE SODIUM 100 MG CAPSULE PO PRN (20:00)
[2018-12-09] MEDS ORDERED: LOPERAMIDE HCL 2 MG CAPSULE PO PRN (20:00)
[2018-12-09] MEDS ORDERED: NICOTINE 14 MG/24 HOUR PATCH TD PRN (20:00)
[2018-12-09] MEDS ORDERED: CloNIDine HCL 0.1 MG TABLET PO PRN (20:00)
[2018-12-09] MEDS ORDERED: PETROLATUM,WHITE 71 GM JELLY TP PRN (20:00)
[2018-12-09] MEDS ORDERED: ALBUTEROL SULFATE HFA 90 MCG/PUFF 8 GM INHALER IH PRN (20:00)
[2018-12-09] MEDS ORDERED: MAGNESIUM HYDROXIDE SUSPENSION 30 ML UDCUP PO PRN (20:00)
[2018-12-09] MEDS ORDERED: GuaiFENesin/D-METHORPHAN [SUGAR-FREE] 200-20MG/10 ML SYRUP UDCUP PO PRN (20:00)
[2018-12-09] MEDS ORDERED: ACETAMINOPHEN 325 MG TABLET PO PRN (20:00)
[2018-12-09] MEDS ORDERED: ONDANSETRON HCL 4 MG TABLET PO PRN (20:00)
[2018-12-09] MEDS: ZOLPIDEM TARTRATE 10 MG TABLET PO PRN (21:29)
[2018-12-10 00:21] VITALS: BP 122/68
[2018-12-10] MEDS ORDERED: VERAPAMIL HCL 120 MG ER TABLET PO SCH (05:00)
[2018-12-10] MEDS: ESTROGENS,CONJUGATED 0.625 MG TABLET PO SCH (09:05)
[2018-12-10 09:10] VITALS: BP 128/70
[2018-12-10] MEDS: LORazepam 2 MG TABLET PO PRN (09:17)
[2018-12-10 09:49] VITALS: BP 129/75
[2018-12-10] MEDS: VERAPAMIL HCL 120 MG ER TABLET PO SCH (09:49)
[2018-12-10] MEDS: AmLODIPine BESYLATE 2.5 MG TABLET PO SCH (09:50)
[2018-12-10] MEDS: PROPRANOLOL HCL 20 MG TABLET PO SCH (09:50)
[2018-12-10] MEDS: SERTRALINE HCL 50 MG TABLET PO SCH (12:42)
[2018-12-10] MEDS: BusPIRone HCL 5 MG TABLET PO SCH (16:25)
[2018-12-10] MEDS: DOXEPIN HCL 10 MG CAPSULE PO SCH (20:22)
[2018-12-10] MEDS: ZOLPIDEM TARTRATE 10 MG TABLET PO PRN (20:22)
[2018-12-10] MEDS: RisperiDONE 1 MG TABLET PO SCH (20:22)
[2018-12-11 00:40] VITALS: BP 134/74
[2018-12-11] MEDS: LORazepam 2 MG TABLET PO PRN ×2 (07:01→17:12)
[2018-12-11 08:15] LABS: BASOPHILS % (AUTO) 0.4 % (0.0-2.0); EOSINOPHILS % (AUTO) 2.2 % (1.0-6.0); HEMATOCRIT 39.2 % (36-46); HEMOGLOBIN 12.9 g/dL (12.0-16.0); LYMPHOCYTES # (AUTO) 3.5 K/uL (1.0-4.8); MEAN CORPUSCULAR HEMOGLOBIN 28.8 pg (26.0-34.0); MEAN CORPUSCULAR VOLUME 87 fL (80-100); MONOCYTES # (AUTO) 0.7 K/uL (0.1-1.0); MONOCYTES % (AUTO) 10.4 % (2.0-9.0); NEUTROPHILS # (AUTO) 1.9 K/uL (1.8-7.7); PLATELET COUNT (AUTO) 283 K/uL (150-450); RED BLOOD CELL COUNT(AUTO) 4.49 MIL/uL (4.00-5.20); RED CELL DISTRIBUTION WIDTH 13.6 % (11.5-14.5)
[2018-12-11 08:40] VITALS: BP 104/65
[2018-12-11 08:47] LABS: ALANINE AMINOTRANSFERASE 48 U/L (12-78); ALBUMIN 2.8 g/dL (3.4-5.0); ALKALINE PHOSPHATASE 79 U/L (46-116); ANION GAP 5 mmol/L (8-16); ASPARTATE AMINOTRANSFERASE 40 U/L (15-37); BILIRUBIN,TOTAL 0.5 mg/dL (0.1-1.0); CALCIUM, TOTAL 8.3 mg/dL (8.8-10.5); CARBON DIOXIDE 27 mmol/L (22-29); CHLORIDE 107 mmol/L (98-107); CHOL/HDL RATIO 2.8 (3.9-5.7); CHOLESTEROL 90 mg/dL (131-200); CREATININE 0.52 mg/dL (0.60-1.30); FREE T4 (FREE THYROXINE) 0.82 ng/dL (0.76-1.46); GLOMERULAR FILTR. RATE CALC > 60 mL/min (>60); GLUCOSE,RANDOM 86 mg/dL (70-110); HDL CHOLESTEROL 32 mg/dL (40-60); LDL CHOL (CALC.) 45 mg/dL (0-130); POTASSIUM 3.5 mmol/L (3.5-5.1); SODIUM SERUM 139 mmol/L (136-145); THYROID STIMULATING HORMONE 0.85 uIU/mL (0.36-3.74); TOTAL PROTEIN, SERUM 6.8 g/dL (6.4-8.2); TRIGLYCERIDES 67 mg/dL (15-150); UREA NITROGEN, BLOOD 13 mg/dL (7-18)
[2018-12-11] MEDS ORDERED: VERAPAMIL HCL 240 MG ER TABLET PO SCH (09:00)
[2018-12-11] MEDS ORDERED: PROPRANOLOL HCL 10 MG TABLET PO SCH (09:00)
[2018-12-11] MEDS ORDERED: ESTROGENS,CONJUGATED 0.625 MG TABLET PO SCH (09:00)
[2018-12-11] MEDS ORDERED: AmLODIPine BESYLATE 2.5 MG TABLET PO SCH (09:00)
[2018-12-11] MEDS: AmLODIPine BESYLATE 2.5 MG TABLET PO SCH (10:24)
[2018-12-11] MEDS: RisperiDONE 1 MG TABLET PO SCH ×2 (10:24→21:45)
[2018-12-11] MEDS: SERTRALINE HCL 50 MG TABLET PO SCH (10:24)
[2018-12-11] MEDS: VERAPAMIL HCL 120 MG ER TABLET PO SCH (10:25)
[2018-12-11] MEDS: BusPIRone HCL 5 MG TABLET PO SCH ×2 (10:25→16:59)
[2018-12-11] MEDS: PROPRANOLOL HCL 20 MG TABLET PO SCH (10:25)
[2018-12-11] MEDS: ESTROGENS,CONJUGATED 0.625 MG TABLET PO SCH (10:25)
[2018-12-11 16:24] VITALS: BP 121/71
[2018-12-11] MEDS: DOXEPIN HCL 10 MG CAPSULE PO SCH (21:00)
[2018-12-11] MEDS: ZOLPIDEM TARTRATE 10 MG TABLET PO PRN (22:23)
[2018-12-12 06:36] VITALS: BP 118/68
[2018-12-12 08:32] VITALS: BP 114/66
[2018-12-12 08:43] VITALS: BP 128/77
[2018-12-12] MEDS: RisperiDONE 1 MG TABLET PO SCH ×2 (08:43→20:25)
[2018-12-12] MEDS: SERTRALINE HCL 50 MG TABLET PO SCH (08:43)
[2018-12-12] MEDS: BusPIRone HCL 5 MG TABLET PO SCH ×2 (08:43→16:27)
[2018-12-12] MEDS: ESTROGENS,CONJUGATED 0.625 MG TABLET PO SCH (08:44)
[2018-12-12] MEDS: VERAPAMIL HCL 120 MG ER TABLET PO SCH (08:44)
[2018-12-12] MEDS: PROPRANOLOL HCL 20 MG TABLET PO SCH (08:44)
[2018-12-12] MEDS: AmLODIPine BESYLATE 2.5 MG TABLET PO SCH (08:44)
[2018-12-12] MEDS: IBUPROFEN 400 MG TABLET PO PRN (08:51)
[2018-12-12] MEDS: LORazepam 2 MG TABLET PO PRN ×2 (10:00→15:59)
[2018-12-12 16:19] VITALS: BP 105/63
[2018-12-12] MEDS: ZOLPIDEM TARTRATE 10 MG TABLET PO PRN (20:25)
[2018-12-12] MEDS: DOXEPIN HCL 10 MG CAPSULE PO SCH (20:25)
[2018-12-13 00:49] VITALS: BP 117/64
[2018-12-13 08:45] VITALS: BP 121/76
[2018-12-13] MEDS: SERTRALINE HCL 50 MG TABLET PO SCH (09:07)
[2018-12-13] MEDS: BusPIRone HCL 5 MG TABLET PO SCH ×2 (09:07→16:51)
[2018-12-13] MEDS: RisperiDONE 1 MG TABLET PO SCH ×2 (09:07→20:23)
[2018-12-13] MEDS: PROPRANOLOL HCL 20 MG TABLET PO SCH (09:07)
[2018-12-13] MEDS: VERAPAMIL HCL 120 MG ER TABLET PO SCH (09:07)
[2018-12-13] MEDS: AmLODIPine BESYLATE 2.5 MG TABLET PO SCH (09:08)
[2018-12-13] MEDS: ESTROGENS,CONJUGATED 0.625 MG TABLET PO SCH (09:08)
[2018-12-13] MEDS: LORazepam 2 MG TABLET PO PRN ×2 (10:20→17:14)
[2018-12-13 10:28] VITALS: BP 125/69
[2018-12-13] MEDS: IBUPROFEN 400 MG TABLET PO PRN (10:30)
[2018-12-13 16:19] VITALS: BP 106/54
[2018-12-13] MEDS: DOXEPIN HCL 10 MG CAPSULE PO SCH (20:23)
[2018-12-13] MEDS: ZOLPIDEM TARTRATE 10 MG TABLET PO PRN (20:23)
[2018-12-14 06:23] VITALS: BP 110/68
[2018-12-14 08:56] VITALS: BP 117/60
[2018-12-14] MEDS: BusPIRone HCL 5 MG TABLET PO SCH ×2 (09:15→16:29)
[2018-12-14] MEDS: RisperiDONE 1 MG TABLET PO SCH ×2 (09:15→21:01)
[2018-12-14] MEDS: SERTRALINE HCL 50 MG TABLET PO SCH (09:15)
[2018-12-14] MEDS: PROPRANOLOL HCL 20 MG TABLET PO SCH (09:15)
[2018-12-14 09:16] VITALS: BP 135/86
[2018-12-14] MEDS: AmLODIPine BESYLATE 2.5 MG TABLET PO SCH (09:16)
[2018-12-14] MEDS: ESTROGENS,CONJUGATED 0.625 MG TABLET PO SCH (09:16)
[2018-12-14] MEDS: VERAPAMIL HCL 120 MG ER TABLET PO SCH (09:16)
[2018-12-14] MEDS: IBUPROFEN 400 MG TABLET PO PRN (09:34)
[2018-12-14] MEDS: LORazepam 2 MG TABLET PO PRN (12:16)
[2018-12-14 18:03] VITALS: BP 102/65
[2018-12-14] MEDS: MAG HYDROX/AL HYDROX/SIMETH ES 30 ML SUSPENSION UDCUP PO PRN (19:28)
[2018-12-14] MEDS: DOXEPIN HCL 10 MG CAPSULE PO SCH (21:02)
[2018-12-14] MEDS: ZOLPIDEM TARTRATE 10 MG TABLET PO PRN (21:16)
[2018-12-15 05:41] VITALS: BP 110/71
[2018-12-15 08:30] VITALS: BP 148/79
[2018-12-15] MEDS: AmLODIPine BESYLATE 2.5 MG TABLET PO SCH (09:31)
[2018-12-15] MEDS: PROPRANOLOL HCL 20 MG TABLET PO SCH (09:31)
[2018-12-15] MEDS: LORazepam 2 MG TABLET PO PRN (09:32)
[2018-12-15] MEDS: RisperiDONE 1 MG TABLET PO SCH ×2 (09:33→20:40)
[2018-12-15] MEDS: ESTROGENS,CONJUGATED 0.625 MG TABLET PO SCH (09:33)
[2018-12-15] MEDS: VERAPAMIL HCL 120 MG ER TABLET PO SCH (09:33)
[2018-12-15] MEDS: SERTRALINE HCL 50 MG TABLET PO SCH (09:34)
[2018-12-15] MEDS: BusPIRone HCL 5 MG TABLET PO SCH ×2 (09:34→16:18)
[2018-12-15 16:23] VITALS: BP 130/76
[2018-12-15] MEDS: MAG HYDROX/AL HYDROX/SIMETH ES 30 ML SUSPENSION UDCUP PO PRN (17:29)
[2018-12-15] MEDS: DOXEPIN HCL 10 MG CAPSULE PO SCH (21:00)
[2018-12-15] MEDS: ZOLPIDEM TARTRATE 10 MG TABLET PO PRN (21:27)
[2018-12-16 05:43] VITALS: BP 126/68
[2018-12-16 09:25] VITALS: BP 123/76
[2018-12-16] MEDS: VERAPAMIL HCL 120 MG ER TABLET PO SCH (10:02)
[2018-12-16] MEDS: RisperiDONE 1 MG TABLET PO SCH ×2 (10:02→20:45)
[2018-12-16] MEDS: ESTROGENS,CONJUGATED 0.625 MG TABLET PO SCH (10:02)
[2018-12-16] MEDS: BusPIRone HCL 5 MG TABLET PO SCH ×2 (10:02→17:47)
[2018-12-16] MEDS: SERTRALINE HCL 50 MG TABLET PO SCH (10:02)
[2018-12-16] MEDS: PROPRANOLOL HCL 20 MG TABLET PO SCH (10:03)
[2018-12-16] MEDS: AmLODIPine BESYLATE 2.5 MG TABLET PO SCH (10:03)
[2018-12-16] MEDS: LORazepam 2 MG TABLET PO PRN ×2 (12:05→21:04)
[2018-12-16 16:56] VITALS: BP 94/51
[2018-12-16] MEDS: DOXEPIN HCL 10 MG CAPSULE PO SCH (20:45)
[2018-12-17 02:56] VITALS: BP 136/84
[2018-12-17] MEDS: ZOLPIDEM TARTRATE 10 MG TABLET PO PRN ×2 (03:00→22:11)
[2018-12-17 08:29] VITALS: BP 139/87
[2018-12-17 08:30] VITALS: BP 139/87
[2018-12-17] MEDS: BusPIRone HCL 5 MG TABLET PO SCH ×2 (08:45→16:57)
[2018-12-17] MEDS: PROPRANOLOL HCL 20 MG TABLET PO SCH (08:45)
[2018-12-17] MEDS: RisperiDONE 1 MG TABLET PO SCH ×2 (08:45→20:38)
[2018-12-17] MEDS: AmLODIPine BESYLATE 2.5 MG TABLET PO SCH (08:45)
[2018-12-17] MEDS: SERTRALINE HCL 50 MG TABLET PO SCH (08:45)
[2018-12-17] MEDS: VERAPAMIL HCL 120 MG ER TABLET PO SCH (08:45)
[2018-12-17] MEDS: ESTROGENS,CONJUGATED 0.625 MG TABLET PO SCH (08:45)
[2018-12-17] MEDS: LORazepam 2 MG TABLET PO PRN (09:31)
[2018-12-17 17:48] VITALS: BP 106/60
[2018-12-17] MEDS: DOXEPIN HCL 10 MG CAPSULE PO SCH (20:38)
[2018-12-18 00:10] VITALS: BP 108/64
[2018-12-18 08:39] VITALS: BP 111/62
[2018-12-18] MEDS: ESTROGENS,CONJUGATED 0.625 MG TABLET PO SCH (09:02)
[2018-12-18] MEDS: PROPRANOLOL HCL 20 MG TABLET PO SCH (09:02)
[2018-12-18] MEDS: RisperiDONE 1 MG TABLET PO SCH (09:02)
[2018-12-18] MEDS: SERTRALINE HCL 50 MG TABLET PO SCH (09:02)
[2018-12-18] MEDS: VERAPAMIL HCL 120 MG ER TABLET PO SCH (09:02)
[2018-12-18] MEDS: BusPIRone HCL 5 MG TABLET PO SCH (09:02)
[2018-12-18] MEDS: AmLODIPine BESYLATE 2.5 MG TABLET PO SCH (09:03)
[2018-12-18] MEDS: LORazepam 2 MG TABLET PO PRN (12:29)
== END 2018-12-18 13:00 | disposition home or self-care (01) | DRG 750 ==
LOC: B2S 16:48
PROVIDERS: ADMIT Psychiatry & Neurology Child & Adolescent Psychiatry
DX: F25.1 Schizoaffective disorder, depressive type (principal); R45.851 Suicidal ideations; B19.20 Unspecified viral hepatitis C without hepatic coma; I10 Essential (primary) hypertension; J45.909 Unspecified asthma, uncomplicated; K21.9 Gastro-esophageal reflux disease without esophagitis; F41.9 Anxiety disorder, unspecified; Z88.5 Allergy status to narcotic agent; Z88.8 Allergy status to other drugs, medicaments and biological substances; Z88.1 Allergy status to other antibiotic agents; Z91.012 Allergy to eggs; Z79.899 Other long term (current) drug therapy
CPT/HCPCS: 83036; 84439; 84443; 87081

== ENCOUNTER 2018-12-22 13:28 | Emergency (ER) | payer MEDICARE, OTHER ==
[~2018-12-22] VITALS: Ht 165.1 cm; Wt 90.9 kg
[2018-12-22 13:44] VITALS: BP 169/88
[2018-12-22] MEDS ORDERED: LORazepam 0.5 MG TABLET PO ONE (16:15)
== END 2018-12-22 18:17 | disposition home or self-care (01) ==
LOC: EMS 13:28
DX: F41.9 Anxiety disorder, unspecified (principal); I10 Essential (primary) hypertension; F32.9 Major depressive disorder, single episode, unspecified; F20.9 Schizophrenia, unspecified; F13.20 Sedative, hypnotic or anxiolytic dependence, uncomplicated; Z88.8 Allergy status to other drugs, medicaments and biological substances; Z79.899 Other long term (current) drug therapy; Z88.6 Allergy status to analgesic agent; Z88.5 Allergy status to narcotic agent; Z88.1 Allergy status to other antibiotic agents; Z91.012 Allergy to eggs
CPT/HCPCS: 93005

== ENCOUNTER 2018-12-22 22:09 | Emergency (ER) | payer MEDICARE, OTHER | END 2018-12-22 23:20 | disposition left against medical advice (07) | LOC: EMS 22:10 | DX: F41.9 Anxiety disorder, unspecified (principal); Z53.21 Procedure and treatment not carried out due to patient leaving prior to being seen by health care provider ==

== ENCOUNTER 2019-01-11 12:20 | Emergency (ER) | payer MEDICARE, OTHER ==
[~2019-01-11] VITALS: Ht 165.1 cm; Wt 90.9 kg
[2019-01-11] MEDS ORDERED: SODIUM CHLORIDE 0.9% 1,000 ML IV ONE (13:00)
[2019-01-11 13:30] LABS: BASOPHILS % (AUTO) 0.7 % (0.0-2.0); EOSINOPHILS % (AUTO) 3.5 % (1.0-6.0); HEMATOCRIT 42.9 % (36-46); HEMOGLOBIN 13.9 g/dL (12.0-16.0); LYMPHOCYTES # (AUTO) 2.5 K/uL (1.0-4.8); LYMPHOCYTES % (AUTO) 38.9 % (22.0-44.0); MEAN CORPUSCULAR HEMOGLOBIN 28.2 pg (26.0-34.0); MEAN CORPUSCULAR HGB CONC 32.5 G/dL (31.0-37.0); MEAN CORPUSCULAR VOLUME 87 fL (80-100); MONOCYTES # (AUTO) 0.6 K/uL (0.1-1.0); NEUTROPHILS # (AUTO) 3.1 K/uL (1.8-7.7); NEUTROPHILS % (AUTO) 47.9 % (40.0-70.0); PLATELET COUNT (AUTO) 275 K/uL (150-450); RED BLOOD CELL COUNT(AUTO) 4.95 MIL/uL (4.00-5.20); RED CELL DISTRIBUTION WIDTH 13.7 % (11.5-14.5)
[2019-01-11 13:40] LABS: ANION GAP 7 mmol/L (8-16); CALCIUM, TOTAL 9.1 mg/dL (8.8-10.5); CARBON DIOXIDE 27 mmol/L (22-29); CHLORIDE 104 mmol/L (98-107); GLOMERULAR FILTR. RATE CALC > 60 mL/min (>60); GLUCOSE,RANDOM 98 mg/dL (70-110); POTASSIUM 3.8 mmol/L (3.5-5.1); SODIUM SERUM 138 mmol/L (136-145); UREA NITROGEN, BLOOD 16 mg/dL (7-18)
[2019-01-11 13:54] LABS: ALANINE AMINOTRANSFERASE 67 U/L (12-78); ALKALINE PHOSPHATASE 106 U/L (46-116); ASPARTATE AMINOTRANSFERASE 63 U/L (15-37); BILIRUBIN,TOTAL 0.6 mg/dL (0.1-1.0); THYROID STIMULATING HORMONE 0.69 uIU/mL (0.36-3.74); TOTAL PROTEIN, SERUM 7.6 g/dL (6.4-8.2)
[2019-01-11 13:56] LABS: APPEARANCE,URINE CLEAR (CLEAR); BILIRUBIN,URINE NEGATIVE (NEGATIVE); GLUCOSE, URINE (UA) NEGATIVE (NEGATIVE); KETONES,URINE NEGATIVE (NEGATIVE); LEUKOCYTE ESTERASE ,URINE TRACE (NEGATIVE); NITRATE,URINE NEGATIVE (NEGATIVE); OCCULT BLOOD,URINE NEGATIVE (NEGATIVE); PH,URINE 6.5 (5.0-8.0); PROTEIN,URINE NEGATIVE (NEGATIVE); UROBILINOGEN,URINE 0.2 mg/dL (<=1.0)
[2019-01-11 13:59] LABS: AMPHET/METH SCREEN,URINE NEGATIVE (NEGATIVE); BARBITURATE SCREEN, URINE NEGATIVE (NEGATIVE); BENZODIAZEPINES SCREEN,URINE NEGATIVE (NEGATIVE); CANNABINOID SCREEN,URINE NEGATIVE (NEGATIVE); COCAINE SCREEN,URINE NEGATIVE (NEGATIVE); METHADONE SCREEN, URINE NEGATIVE (NEGATIVE); OPIATE SCREEN,URINE NEGATIVE (NEGATIVE); PHENCYCLIDINE SCREEN,URINE NEGATIVE (NEGATIVE)
[2019-01-11 14:09] LABS: BACTERIA,URINE Rare /HPF (None Seen); RBC,URINE None Seen /HPF (0-2); SQUAMOUS EPITHELIAL CELL,UR Few /LPF (None Seen)
[2019-01-11] MEDS ORDERED: HydrOXYzine PAMOATE 25 MG CAPSULE PO ONE (16:00)
[2019-01-11 17:30] VITALS: BP 147/81
== END 2019-01-11 17:30 | disposition home or self-care (01) ==
LOC: EMS 12:53
DX: S80.211A Abrasion, right knee, initial encounter (principal); S80.212A Abrasion, left knee, initial encounter; F41.9 Anxiety disorder, unspecified; F32.9 Major depressive disorder, single episode, unspecified; F20.9 Schizophrenia, unspecified; I10 Essential (primary) hypertension; F13.10 Sedative, hypnotic or anxiolytic abuse, uncomplicated; Z88.6 Allergy status to analgesic agent; Z91.012 Allergy to eggs; Z88.5 Allergy status to narcotic agent; Z88.8 Allergy status to other drugs, medicaments and biological substances; Z91.018 Allergy to other foods; Z79.899 Other long term (current) drug therapy; W19.XXXA Unspecified fall, initial encounter; Y93.89 Activity, other specified; Y92.89 Other specified places as the place of occurrence of the external cause; Y99.8 Other external cause status
CPT/HCPCS: 36415; 80053; 80307; 81001; 84443; 84484; 85025; 93005; 96360; 99285; J7030

== ENCOUNTER 2019-04-16 14:08 | Inpatient (IN) | payer MEDICARE, MEDICAID ==
[~2019-04-16] VITALS: Ht 165.1 cm; Wt 89.4 kg
[~2019-04-16 14:08] MED LIST changes: -BUSP5TAB20 PO; -DOXE10 PO; -PREM625 PO; -PROP10TA73 PO; -RISP1 PO; -SERT50TA12 PO; -VERA240SR PO
[2019-04-16] MEDS ORDERED: VERA80 PO (14:36)
[2019-04-16] MEDS ORDERED: PROP10TA73 PO (14:36)
[2019-04-16] MEDS ORDERED: LISI-660 PO (14:36)
[2019-04-16 16:51] LABS: BASOPHILS % (AUTO) 1.3 % (0.0-2.0); EOSINOPHILS % (AUTO) 2.6 % (1.0-6.0); HEMATOCRIT 40.6 % (36-46); HEMOGLOBIN 13.4 g/dL (12.0-16.0); LYMPHOCYTES # (AUTO) 3.1 K/uL (1.0-4.8); LYMPHOCYTES % (AUTO) 51.6 % (22.0-44.0); MEAN CORPUSCULAR HEMOGLOBIN 27.8 pg (26.0-34.0); MEAN CORPUSCULAR HGB CONC 33.1 G/dL (31.0-37.0); MEAN CORPUSCULAR VOLUME 84 fL (80-100); MONOCYTES # (AUTO) 0.6 K/uL (0.1-1.0); MONOCYTES % (AUTO) 9.7 % (2.0-9.0); NEUTROPHILS # (AUTO) 2.1 K/uL (1.8-7.7); NEUTROPHILS % (AUTO) 34.8 % (40.0-70.0); PLATELET COUNT (AUTO) 302 K/uL (150-450); RED BLOOD CELL COUNT(AUTO) 4.83 MIL/uL (4.00-5.20); RED CELL DISTRIBUTION WIDTH 15.1 % (11.5-14.5)
[2019-04-16 17:08] LABS: ANION GAP 11 mmol/L (8-16); CALCIUM, TOTAL 9.2 mg/dL (8.8-10.5); CARBON DIOXIDE 27 mmol/L (22-29); CHLORIDE 106 mmol/L (98-107); CREATININE 0.84 mg/dL (0.60-1.30); GLOMERULAR FILTR. RATE CALC > 60 mL/min (>60); GLUCOSE,RANDOM 83 mg/dL (70-110); POTASSIUM 4.1 mmol/L (3.5-5.1); SODIUM SERUM 144 mmol/L (136-145); UREA NITROGEN, BLOOD 15 mg/dL (7-18)
[2019-04-16 17:13] LABS: ALANINE AMINOTRANSFERASE 45 U/L (12-78); ALBUMIN 3.3 g/dL (3.4-5.0); ALKALINE PHOSPHATASE 93 U/L (46-116); ASPARTATE AMINOTRANSFERASE 42 U/L (15-37); BILIRUBIN,TOTAL 0.5 mg/dL (0.1-1.0); TOTAL PROTEIN, SERUM 7.8 g/dL (6.4-8.2)
[2019-04-16] MEDS ORDERED: LORazepam 2 MG TABLET PO ONE (17:45)
[2019-04-16 19:04] LABS: APPEARANCE,URINE CLOUDY (CLEAR); BILIRUBIN,URINE NEGATIVE (NEGATIVE); GLUCOSE, URINE (UA) NEGATIVE (NEGATIVE); KETONES,URINE NEGATIVE (NEGATIVE); LEUKOCYTE ESTERASE ,URINE MODERATE (NEGATIVE); NITRATE,URINE NEGATIVE (NEGATIVE); OCCULT BLOOD,URINE NEGATIVE (NEGATIVE); PROTEIN,URINE NEGATIVE (NEGATIVE)
[2019-04-16 19:08] LABS: AMPHET/METH SCREEN,URINE NEGATIVE (NEGATIVE); BARBITURATE SCREEN, URINE NEGATIVE (NEGATIVE); BENZODIAZEPINES SCREEN,URINE NEGATIVE (NEGATIVE); CANNABINOID SCREEN,URINE NEGATIVE (NEGATIVE); COCAINE SCREEN,URINE NEGATIVE (NEGATIVE); METHADONE SCREEN, URINE NEGATIVE (NEGATIVE); OPIATE SCREEN,URINE NEGATIVE (NEGATIVE)
[2019-04-16 19:12] LABS: PHENCYCLIDINE SCREEN,URINE NEGATIVE (NEGATIVE)
[2019-04-16 19:15] LABS: RBC,URINE None Seen /HPF (0-2)
[2019-04-16 19:16] LABS: BACTERIA,URINE Few /HPF (None Seen); SQUAMOUS EPITHELIAL CELL,UR Many /LPF (None Seen); TRANSITIONAL EPI CELLS,URINE Few /LPF (None Seen)
[2019-04-16 19:17] LABS: RENAL EPITHELIAL CELLS,URINE Few /LPF (None Seen)
[2019-04-16] MEDS ORDERED: HALOPERIDOL 5 MG TABLET PO PRN (19:30)
[2019-04-16 22:29] VITALS: BP 101/60
[2019-04-16 22:49] VITALS: BP 135/79
[2019-04-17 04:10] VITALS: BP 130/92
[2019-04-17] MEDS: LORazepam 2 MG TABLET PO PRN ×3 (05:13→18:28)
[2019-04-17] MEDS ORDERED: ALBUTEROL SULFATE HFA 90 MCG/PUFF 8 GM INHALER IH PRN (09:15)
[2019-04-17] MEDS ORDERED: BENZOCAINE/MENTHOL LOZENGE MM PRN (09:15)
[2019-04-17] MEDS ORDERED: BACITRACIN 28.4 GM OINTMENT TP PRN (09:15)
[2019-04-17] MEDS ORDERED: IBUPROFEN 600 MG TABLET PO PRN (09:15)
[2019-04-17] MEDS ORDERED: MAG HYDROX/AL HYDROX/SIMETH ES 30 ML SUSPENSION UDCUP PO PRN (09:15)
[2019-04-17] MEDS ORDERED: PETROLATUM,WHITE 28 GM JELLY TP PRN (09:15)
[2019-04-17] MEDS: VERAPAMIL HCL 80 MG TABLET PO SCH ×2 (10:19→18:18)
[2019-04-17] MEDS: PROPRANOLOL HCL 10 MG TABLET PO SCH (10:19)
[2019-04-17] MEDS: LISINOPRIL 5 MG TABLET PO SCH (10:19)
[2019-04-17 10:21] VITALS: BP 128/74
[2019-04-17 16:04] VITALS: BP 131/77
[2019-04-17] MEDS: QUEtiapine FUMARATE 200 MG TABLET PO SCH (21:00)
[2019-04-17] MEDS: ZOLPIDEM TARTRATE 10 MG TABLET PO PRN (22:58)
[2019-04-18 01:12] VITALS: BP 140/85
[2019-04-18] MEDS: LORazepam 2 MG TABLET PO PRN ×4 (01:17→20:29)
[2019-04-18 08:15] VITALS: BP 133/74
[2019-04-18] MEDS: PROPRANOLOL HCL 10 MG TABLET PO SCH (09:12)
[2019-04-18] MEDS: DOCUSATE SODIUM 100 MG CAPSULE PO SCH (09:12)
[2019-04-18] MEDS: LISINOPRIL 5 MG TABLET PO SCH (09:13)
[2019-04-18] MEDS: VERAPAMIL HCL 80 MG TABLET PO SCH ×2 (09:15→16:48)
[2019-04-18] MEDS: OMEPRAZOLE 20 MG CAPSULE PO SCH (09:17)
[2019-04-18] MEDS: METHYL SALICYLATE/MENTHOL 85 GM CREAM TP PRN ×2 (09:18→18:37)
[2019-04-18 09:20] VITALS: BP 123/62
[2019-04-18 16:30] VITALS: BP 138/87
[2019-04-18] MEDS: QUEtiapine FUMARATE 200 MG TABLET PO SCH (20:09)
[2019-04-18] MEDS: DiphenhydrAMINE HCL 25 MG CAPSULE PO PRN (20:29)
[2019-04-19 06:58] VITALS: BP 127/74
[2019-04-19 08:38] VITALS: BP 130/72
[2019-04-19] MEDS: VERAPAMIL HCL 80 MG TABLET PO SCH ×2 (09:55→16:41)
[2019-04-19] MEDS: LISINOPRIL 5 MG TABLET PO SCH (09:55)
[2019-04-19] MEDS: PROPRANOLOL HCL 10 MG TABLET PO SCH (09:56)
[2019-04-19] MEDS: DOCUSATE SODIUM 100 MG CAPSULE PO SCH (09:56)
[2019-04-19] MEDS: OMEPRAZOLE 20 MG CAPSULE PO SCH (09:56)
[2019-04-19 16:24] VITALS: BP 101/60
[2019-04-19 16:30] VITALS: BP 125/83
[2019-04-19] MEDS: LORazepam 2 MG TABLET PO PRN (16:58)
[2019-04-19] MEDS: QUEtiapine FUMARATE 200 MG TABLET PO SCH (20:37)
[2019-04-19] MEDS: DiphenhydrAMINE HCL 25 MG CAPSULE PO PRN (20:42)
[2019-04-19] MEDS: METHYL SALICYLATE/MENTHOL 85 GM CREAM TP PRN (20:58)
[2019-04-19] MEDS: ZOLPIDEM TARTRATE 10 MG TABLET PO PRN (23:41)
[2019-04-20 00:05] VITALS: BP 132/75
[2019-04-20 08:21] VITALS: BP 137/82
[2019-04-20] MEDS: VERAPAMIL HCL 80 MG TABLET PO SCH ×2 (08:56→16:38)
[2019-04-20] MEDS: PROPRANOLOL HCL 10 MG TABLET PO SCH (08:57)
[2019-04-20] MEDS: DOCUSATE SODIUM 100 MG CAPSULE PO SCH (08:57)
[2019-04-20] MEDS: OMEPRAZOLE 20 MG CAPSULE PO SCH (08:57)
[2019-04-20] MEDS: LISINOPRIL 5 MG TABLET PO SCH (08:57)
[2019-04-20 16:38] VITALS: BP 146/91
[2019-04-20] MEDS: LORazepam 2 MG TABLET PO PRN (16:38)
[2019-04-20] MEDS: ZOLPIDEM TARTRATE 10 MG TABLET PO PRN (20:37)
[2019-04-20] MEDS: QUEtiapine FUMARATE 200 MG TABLET PO SCH (20:37)
[2019-04-21 01:17] VITALS: BP 111/72
[2019-04-21 08:16] VITALS: BP 115/70
[2019-04-21] MEDS: LORazepam 2 MG TABLET PO PRN ×3 (09:06→22:44)
[2019-04-21] MEDS: OMEPRAZOLE 20 MG CAPSULE PO SCH (09:07)
[2019-04-21] MEDS: DOCUSATE SODIUM 100 MG CAPSULE PO SCH (09:07)
[2019-04-21] MEDS: VERAPAMIL HCL 80 MG TABLET PO SCH ×2 (09:08→16:41)
[2019-04-21] MEDS: PROPRANOLOL HCL 10 MG TABLET PO SCH (09:08)
[2019-04-21] MEDS: LISINOPRIL 5 MG TABLET PO SCH (09:11)
[2019-04-21 16:16] VITALS: BP 131/93
[2019-04-21] MEDS: ZOLPIDEM TARTRATE 10 MG TABLET PO PRN (20:39)
[2019-04-21] MEDS: QUEtiapine FUMARATE 200 MG TABLET PO SCH (20:39)
[2019-04-21] MEDS: METHYL SALICYLATE/MENTHOL 85 GM CREAM TP PRN (20:39)
[2019-04-22 00:17] VITALS: BP 102/69
[2019-04-22] MEDS: DiphenhydrAMINE HCL 25 MG CAPSULE PO PRN (00:40)
[2019-04-22 09:15] VITALS: BP 152/121
[2019-04-22] MEDS: DOCUSATE SODIUM 100 MG CAPSULE PO SCH (09:22)
[2019-04-22] MEDS: LISINOPRIL 5 MG TABLET PO SCH (09:22)
[2019-04-22] MEDS: OMEPRAZOLE 20 MG CAPSULE PO SCH (09:22)
[2019-04-22] MEDS: VERAPAMIL HCL 80 MG TABLET PO SCH ×2 (09:22→16:28)
[2019-04-22] MEDS: PROPRANOLOL HCL 10 MG TABLET PO SCH (09:22)
[2019-04-22] MEDS: LORazepam 2 MG TABLET PO PRN ×2 (12:32→16:40)
[2019-04-22] MEDS: METHYL SALICYLATE/MENTHOL 85 GM CREAM TP PRN (13:06)
[2019-04-22 13:34] VITALS: BP 115/77
[2019-04-22 16:38] VITALS: BP 134/85
[2019-04-22] MEDS: MAGNESIUM HYDROXIDE SUSPENSION 30 ML UDCUP PO PRN (19:00)
[2019-04-22] MEDS: QUEtiapine FUMARATE 200 MG TABLET PO SCH (20:18)
[2019-04-22] MEDS: ZOLPIDEM TARTRATE 10 MG TABLET PO PRN (21:05)
[2019-04-23 01:42] VITALS: BP 110/68
[2019-04-23] MEDS: LORazepam 2 MG TABLET PO PRN ×2 (01:44→15:58)
[2019-04-23 09:00] VITALS: BP 128/61
[2019-04-23] MEDS: PROPRANOLOL HCL 10 MG TABLET PO SCH (09:06)
[2019-04-23] MEDS: DOCUSATE SODIUM 100 MG CAPSULE PO SCH (09:06)
[2019-04-23] MEDS: OMEPRAZOLE 20 MG CAPSULE PO SCH (09:06)
[2019-04-23] MEDS: LISINOPRIL 5 MG TABLET PO SCH (09:06)
[2019-04-23] MEDS: VERAPAMIL HCL 80 MG TABLET PO SCH ×2 (09:07→16:31)
[2019-04-23 16:29] VITALS: BP 139/84
[2019-04-23] MEDS: METHYL SALICYLATE/MENTHOL 85 GM CREAM TP PRN ×2 (16:31→21:35)
[2019-04-23] MEDS: QUEtiapine FUMARATE 200 MG TABLET PO SCH (20:58)
[2019-04-23] MEDS: ZOLPIDEM TARTRATE 10 MG TABLET PO PRN (21:02)
[2019-04-23] MEDS: DiphenhydrAMINE HCL 25 MG CAPSULE PO PRN (21:06)
[2019-04-24 00:21] VITALS: BP 109/59
[2019-04-24 08:32] VITALS: BP 117/67
[2019-04-24] MEDS: OMEPRAZOLE 20 MG CAPSULE PO SCH (08:56)
[2019-04-24] MEDS: VERAPAMIL HCL 80 MG TABLET PO SCH ×2 (08:56→16:18)
[2019-04-24] MEDS: DOCUSATE SODIUM 100 MG CAPSULE PO SCH (08:56)
[2019-04-24] MEDS: PROPRANOLOL HCL 10 MG TABLET PO SCH (08:56)
[2019-04-24] MEDS: LISINOPRIL 5 MG TABLET PO SCH (08:56)
[2019-04-24] MEDS: LORazepam 2 MG TABLET PO PRN ×2 (12:48→17:45)
[2019-04-24] MEDS: METHYL SALICYLATE/MENTHOL 85 GM CREAM TP PRN (13:24)
[2019-04-24 16:16] VITALS: BP 123/72
[2019-04-24] MEDS: DiphenhydrAMINE HCL 25 MG CAPSULE PO PRN (17:45)
[2019-04-24] MEDS: QUEtiapine FUMARATE 200 MG TABLET PO SCH (20:47)
[2019-04-24] MEDS: ZOLPIDEM TARTRATE 10 MG TABLET PO PRN (21:44)
[2019-04-25 00:03] VITALS: BP 127/72
[2019-04-25] MEDS: DiphenhydrAMINE HCL 25 MG CAPSULE PO PRN (00:08)
[2019-04-25] MEDS: LORazepam 2 MG TABLET PO PRN ×2 (00:08→17:12)
[2019-04-25 08:26] VITALS: BP 113/74
[2019-04-25] MEDS: DOCUSATE SODIUM 100 MG CAPSULE PO SCH (09:14)
[2019-04-25] MEDS: PROPRANOLOL HCL 10 MG TABLET PO SCH (09:15)
[2019-04-25] MEDS: LISINOPRIL 5 MG TABLET PO SCH (09:16)
[2019-04-25] MEDS: OMEPRAZOLE 20 MG CAPSULE PO SCH (09:16)
[2019-04-25] MEDS: VERAPAMIL HCL 80 MG TABLET PO SCH ×2 (09:16→17:12)
[2019-04-25] MEDS: METHYL SALICYLATE/MENTHOL 85 GM CREAM TP PRN (12:52)
[2019-04-25 16:15] VITALS: BP 137/92
[2019-04-25] MEDS: QUEtiapine FUMARATE 200 MG TABLET PO SCH (20:27)
[2019-04-25] MEDS: ZOLPIDEM TARTRATE 10 MG TABLET PO PRN (20:32)
[2019-04-26 04:50] VITALS: BP 118/75
[2019-04-26 08:14] VITALS: BP 113/71
[2019-04-26] MEDS: VERAPAMIL HCL 80 MG TABLET PO SCH ×2 (09:18→16:48)
[2019-04-26] MEDS: OMEPRAZOLE 20 MG CAPSULE PO SCH (09:18)
[2019-04-26] MEDS: DOCUSATE SODIUM 100 MG CAPSULE PO SCH (09:18)
[2019-04-26] MEDS: LISINOPRIL 5 MG TABLET PO SCH (09:18)
[2019-04-26] MEDS: PROPRANOLOL HCL 10 MG TABLET PO SCH (09:19)
[2019-04-26] MEDS: LORazepam 2 MG TABLET PO PRN ×2 (12:14→16:48)
[2019-04-26 16:47] VITALS: BP 111/70
[2019-04-26] MEDS: QUEtiapine FUMARATE 200 MG TABLET PO SCH (21:34)
[2019-04-27 01:49] VITALS: BP 110/68
[2019-04-27] MEDS: LORazepam 2 MG TABLET PO PRN ×2 (01:55→16:24)
[2019-04-27] MEDS: MAGNESIUM HYDROXIDE SUSPENSION 30 ML UDCUP PO PRN (01:55)
[2019-04-27] MEDS ORDERED: QUET200T PO (08:31)
[2019-04-27] MEDS: VERAPAMIL HCL 80 MG TABLET PO SCH ×2 (09:31→16:24)
[2019-04-27] MEDS: OMEPRAZOLE 20 MG CAPSULE PO SCH (09:31)
[2019-04-27] MEDS: LISINOPRIL 5 MG TABLET PO SCH (09:31)
[2019-04-27] MEDS: DOCUSATE SODIUM 100 MG CAPSULE PO SCH (09:31)
[2019-04-27] MEDS: PROPRANOLOL HCL 10 MG TABLET PO SCH (09:31)
[2019-04-27 16:11] VITALS: BP 124/72
[2019-04-27] MEDS: QUEtiapine FUMARATE 200 MG TABLET PO SCH (20:38)
[2019-04-27] MEDS: ZOLPIDEM TARTRATE 10 MG TABLET PO PRN (21:33)
[2019-04-28 06:23] VITALS: BP 105/62
[2019-04-28 08:48] VITALS: BP 127/85
[2019-04-28] MEDS: PROPRANOLOL HCL 10 MG TABLET PO SCH (08:50)
[2019-04-28] MEDS: DOCUSATE SODIUM 100 MG CAPSULE PO SCH (08:50)
[2019-04-28] MEDS: OMEPRAZOLE 20 MG CAPSULE PO SCH (08:50)
[2019-04-28] MEDS: LISINOPRIL 5 MG TABLET PO SCH (08:50)
[2019-04-28] MEDS: VERAPAMIL HCL 80 MG TABLET PO SCH (08:50)
== END 2019-04-28 13:30 | disposition home or self-care (01) | DRG 885 ==
LOC: EMS 14:08 → B3A 19:28
PROVIDERS: ADMIT Psychiatry & Neurology Psychiatry; ATTEND Psychiatry & Neurology Psychiatry
DX: F25.9 Schizoaffective disorder, unspecified (principal); R45.851 Suicidal ideations; F31.9 Bipolar disorder, unspecified; F41.9 Anxiety disorder, unspecified; G47.00 Insomnia, unspecified; G89.29 Other chronic pain; M25.559 Pain in unspecified hip; I10 Essential (primary) hypertension; J45.909 Unspecified asthma, uncomplicated; K21.9 Gastro-esophageal reflux disease without esophagitis; Z90.710 Acquired absence of both cervix and uterus; Z90.49 Acquired absence of other specified parts of digestive tract; Z56.0 Unemployment, unspecified; Z79.899 Other long term (current) drug therapy; Z88.1 Allergy status to other antibiotic agents; Z91.012 Allergy to eggs; Z88.5 Allergy status to narcotic agent; Z88.8 Allergy status to other drugs, medicaments and biological substances; Z91.018 Allergy to other foods
CPT/HCPCS: 87081; 87086; G0480

== ENCOUNTER 2019-05-02 23:44 | Emergency (ER) | payer MEDICARE, OTHER ==
[~2019-05-02] VITALS: Ht 165.1 cm; Wt 90.9 kg
[~2019-05-02 23:44] MED LIST changes: -AMLO2.5T4 PO; +LISI-660 PO; +PROP10TA73 PO; +QUET200T PO; +VERA80 PO
[2019-05-03 00:01] VITALS: BP 134/84
[2019-05-03] MEDS ORDERED: LORazepam 1 MG TABLET PO ONE (00:15)
[2019-05-03] MEDS ORDERED: LORazepam 2 MG TABLET PO ONE (00:15)
[2019-05-03] MEDS ORDERED: IBUPROFEN 600 MG TABLET PO ONE (00:15)
== END 2019-05-03 02:06 | disposition home or self-care (01) ==
LOC: EMS 23:59
DX: F41.9 Anxiety disorder, unspecified (principal); G89.29 Other chronic pain; M54.9 Dorsalgia, unspecified; I10 Essential (primary) hypertension; F31.9 Bipolar disorder, unspecified; F20.9 Schizophrenia, unspecified; Z90.49 Acquired absence of other specified parts of digestive tract; Z90.710 Acquired absence of both cervix and uterus; Z79.899 Other long term (current) drug therapy; Z88.6 Allergy status to analgesic agent; Z88.1 Allergy status to other antibiotic agents; Z88.8 Allergy status to other drugs, medicaments and biological substances; Z88.5 Allergy status to narcotic agent

== ENCOUNTER 2019-05-26 15:59 | Emergency (ER) | payer MEDICARE, OTHER ==
[~2019-05-26] VITALS: Ht 152.4 cm; Wt 90.0 kg
[2019-05-26] MEDS ORDERED: LORazepam 1 MG TABLET PO ONE (20:00)
[2019-05-26 20:11] VITALS: BP 123/61
== END 2019-05-26 20:19 | disposition home or self-care (01) ==
LOC: EMS 16:04
DX: F41.9 Anxiety disorder, unspecified (principal); F31.9 Bipolar disorder, unspecified; F20.9 Schizophrenia, unspecified; I10 Essential (primary) hypertension; Z88.6 Allergy status to analgesic agent; Z88.5 Allergy status to narcotic agent; Z88.1 Allergy status to other antibiotic agents; Z88.8 Allergy status to other drugs, medicaments and biological substances; Z79.899 Other long term (current) drug therapy; Z90.710 Acquired absence of both cervix and uterus

== ENCOUNTER 2019-06-10 14:44 | Inpatient (IN) | payer MEDICARE, MEDICAID ==
[~2019-06-10] VITALS: Ht 162.6 cm; Wt 94.3 kg
[2019-06-10] MEDS ORDERED: LORA0.5T2 PO (15:11)
[2019-06-10] MEDS ORDERED: ALPR0.5T8 PO (15:11)
[2019-06-10] MEDS ORDERED: LORazepam 2 MG TABLET PO ONE (16:15)
[2019-06-10 16:27] LABS: BASOPHILS % (AUTO) 1.4 % (0.0-2.0); EOSINOPHILS % (AUTO) 2.2 % (1.0-6.0); HEMATOCRIT 42.2 % (36-46); HEMOGLOBIN 13.7 g/dL (12.0-16.0); LYMPHOCYTES # (AUTO) 3.7 K/uL (1.0-4.8); LYMPHOCYTES % (AUTO) 57.5 % (22.0-44.0); MEAN CORPUSCULAR HEMOGLOBIN 28.2 pg (26.0-34.0); MEAN CORPUSCULAR HGB CONC 32.4 G/dL (31.0-37.0); MEAN CORPUSCULAR VOLUME 87 fL (80-100); MONOCYTES # (AUTO) 0.7 K/uL (0.1-1.0); MONOCYTES % (AUTO) 10.8 % (2.0-9.0); NEUTROPHILS # (AUTO) 1.8 K/uL (1.8-7.7); NEUTROPHILS % (AUTO) 28.1 % (40.0-70.0); PLATELET COUNT (AUTO) 282 K/uL (150-450); RED BLOOD CELL COUNT(AUTO) 4.85 MIL/uL (4.00-5.20); RED CELL DISTRIBUTION WIDTH 14.7 % (11.5-14.5)
[2019-06-10 16:43] LABS: ANION GAP 10 mmol/L (8-16); CARBON DIOXIDE 24 mmol/L (22-29); CHLORIDE 106 mmol/L (98-107); CREATININE 0.68 mg/dL (0.60-1.30); GLOMERULAR FILTR. RATE CALC > 60 mL/min (>60); GLUCOSE,RANDOM 118 mg/dL (70-110); POTASSIUM 3.6 mmol/L (3.5-5.1); SODIUM SERUM 140 mmol/L (136-145); UREA NITROGEN, BLOOD 9 mg/dL (7-18)
[2019-06-10 16:49] LABS: ALANINE AMINOTRANSFERASE 41 U/L (12-78); ALKALINE PHOSPHATASE 116 U/L (46-116); ASPARTATE AMINOTRANSFERASE 47 U/L (15-37); BILIRUBIN,TOTAL 0.2 mg/dL (0.1-1.0); TOTAL PROTEIN, SERUM 7.8 g/dL (6.4-8.2)
[2019-06-10] MEDS ORDERED: PNEUMOCOCCAL VACCINE POLYVALENT 0.5 ML VIAL [PPSV23] IM ONE (22:45)
[2019-06-10 22:54] VITALS: BP 126/80
[2019-06-10] MEDS ORDERED: ALBUTEROL SULFATE HFA 90 MCG/PUFF 8 GM INHALER IH PRN (23:00)
[2019-06-10] MEDS ORDERED: PETROLATUM,WHITE 28 GM JELLY TP PRN (23:00)
[2019-06-10] MEDS ORDERED: DOCUSATE SODIUM 100 MG CAPSULE PO PRN (23:00)
[2019-06-10] MEDS ORDERED: MAGNESIUM HYDROXIDE SUSPENSION 30 ML UDCUP PO PRN (23:00)
[2019-06-10] MEDS ORDERED: CloNIDine HCL 0.1 MG TABLET PO PRN (23:00)
[2019-06-10] MEDS ORDERED: IBUPROFEN 400 MG TABLET PO PRN (23:00)
[2019-06-10] MEDS ORDERED: LOPERAMIDE HCL 2 MG CAPSULE PO PRN (23:00)
[2019-06-10] MEDS ORDERED: MAG HYDROX/AL HYDROX/SIMETH ES 30 ML SUSPENSION UDCUP PO PRN (23:00)
[2019-06-11] MEDS: ZOLPIDEM TARTRATE 10 MG TABLET PO PRN ×2 (00:13→21:16)
[2019-06-11 06:51] VITALS: BP 119/77
[2019-06-11 08:19] VITALS: BP 135/75
[2019-06-11] MEDS: LORazepam 2 MG TABLET PO PRN ×4 (08:33→22:11)
[2019-06-11] MEDS ORDERED: ONDANSETRON HCL 4 MG TABLET PO PRN (09:15)
[2019-06-11] MEDS ORDERED: BACITRACIN 28.4 GM OINTMENT TP PRN (09:15)
[2019-06-11] MEDS ORDERED: BENZOCAINE/MENTHOL LOZENGE MM PRN (09:15)
[2019-06-11] MEDS ORDERED: LOPERAMIDE HCL 2 MG CAPSULE PO PRN (09:15)
[2019-06-11] MEDS ORDERED: OMEPRAZOLE 20 MG CAPSULE PO PRN (09:15)
[2019-06-11] MEDS: VERAPAMIL HCL 80 MG TABLET PO SCH (17:00)
[2019-06-11] MEDS: LISINOPRIL 5 MG TABLET PO SCH (17:16)
[2019-06-11 20:28] VITALS: BP 145/90
[2019-06-11 21:41] VITALS: BP 134/74
[2019-06-12] MEDS: HALOPERIDOL 5 MG TABLET PO PRN ×3 (01:07→11:59)
[2019-06-12 06:16] VITALS: BP 154/87
[2019-06-12] MEDS: LISINOPRIL 5 MG TABLET PO SCH (08:03)
[2019-06-12] MEDS: VERAPAMIL HCL 80 MG TABLET PO SCH ×2 (08:03→16:26)
[2019-06-12] MEDS: LORazepam 2 MG TABLET PO PRN ×3 (08:04→18:49)
[2019-06-12 08:14] LABS: HEMOGLOBIN A1C 5.2 % (4.5-6.2)
[2019-06-12 08:49] LABS: CHOL/HDL RATIO 3.1 (3.9-5.7); FREE T4 (FREE THYROXINE) 0.72 ng/dL (0.76-1.46); THYROID STIMULATING HORMONE 7.2 uIU/mL (0.36-3.74)
[2019-06-12] MEDS: PROPRANOLOL HCL 10 MG TABLET PO SCH (09:00)
[2019-06-12 10:45] VITALS: BP 171/100
[2019-06-12 11:46] VITALS: BP 132/77
[2019-06-12 16:22] VITALS: BP 132/82
[2019-06-12] MEDS ORDERED: LIDOCAINE 2% 30 ML JELLY TP PRN (20:00)
[2019-06-12] MEDS: QUEtiapine FUMARATE 200 MG TABLET PO SCH (20:08)
[2019-06-12] MEDS: ZOLPIDEM TARTRATE 10 MG TABLET PO PRN (20:17)
[2019-06-13 06:34] VITALS: BP 114/65
[2019-06-13 09:00] VITALS: BP 124/60
[2019-06-13] MEDS: PROPRANOLOL HCL 10 MG TABLET PO SCH (09:06)
[2019-06-13] MEDS: LISINOPRIL 5 MG TABLET PO SCH (09:06)
[2019-06-13] MEDS: VERAPAMIL HCL 80 MG TABLET PO SCH ×2 (09:08→16:04)
[2019-06-13] MEDS: LORazepam 2 MG TABLET PO PRN ×3 (09:15→20:29)
[2019-06-13 16:16] VITALS: BP 135/88
[2019-06-13] MEDS: QUEtiapine FUMARATE 200 MG TABLET PO SCH (20:10)
[2019-06-13] MEDS: ZOLPIDEM TARTRATE 10 MG TABLET PO PRN (21:12)
[2019-06-14 05:46] VITALS: BP 120/64
[2019-06-14] MEDS: LISINOPRIL 5 MG TABLET PO SCH (08:17)
[2019-06-14] MEDS: VERAPAMIL HCL 80 MG TABLET PO SCH (08:17)
[2019-06-14] MEDS: PROPRANOLOL HCL 10 MG TABLET PO SCH (08:18)
[2019-06-14] MEDS: LORazepam 2 MG TABLET PO PRN (08:19)
[2019-06-14 08:24] VITALS: BP 120/68
[2019-06-14] MEDS ORDERED: VERA80 PO (12:21)
[2019-06-14] MEDS ORDERED: LISI-660 PO (12:21)
== END 2019-06-14 15:46 | disposition home or self-care (01) | DRG 750 ==
LOC: EMS 14:46 → B2S 19:10 → EMS 20:17 → B2S 06-11 06:43
PROVIDERS: ADMIT Psychiatry & Neurology Psychiatry; ATTEND Psychiatry & Neurology Psychiatry
DX: F25.9 Schizoaffective disorder, unspecified (principal); K74.60 Unspecified cirrhosis of liver; F13.20 Sedative, hypnotic or anxiolytic dependence, uncomplicated; R45.851 Suicidal ideations; F31.9 Bipolar disorder, unspecified; F41.9 Anxiety disorder, unspecified; I10 Essential (primary) hypertension; J45.909 Unspecified asthma, uncomplicated; K21.9 Gastro-esophageal reflux disease without esophagitis; Z90.710 Acquired absence of both cervix and uterus; Z90.49 Acquired absence of other specified parts of digestive tract; Z88.6 Allergy status to analgesic agent; Z88.8 Allergy status to other drugs, medicaments and biological substances
CPT/HCPCS: 83036; 84439; 84443; 90732; G0480

== ENCOUNTER 2019-07-09 10:04 | Inpatient (IN) | payer MEDICARE, MEDICAID ==
[~2019-07-09] VITALS: Ht 165.1 cm; Wt 95.0 kg
[2019-07-09] MEDS ORDERED: QUEtiapine FUMARATE 100 MG TABLET PO ONE (10:45)
[2019-07-09] MEDS ORDERED: LORazepam 2 MG TABLET PO ONE (10:45)
[2019-07-09 11:29] LABS: BASOPHILS % (AUTO) 1.1 % (0.0-2.0); EOSINOPHILS % (AUTO) 2.5 % (1.0-6.0); HEMATOCRIT 42.4 % (36-46); HEMOGLOBIN 13.8 g/dL (12.0-16.0); LYMPHOCYTES # (AUTO) 3.1 K/uL (1.0-4.8); MEAN CORPUSCULAR HEMOGLOBIN 27.9 pg (26.0-34.0); MEAN CORPUSCULAR HGB CONC 32.4 G/dL (31.0-37.0); MEAN CORPUSCULAR VOLUME 86 fL (80-100); MONOCYTES # (AUTO) 0.6 K/uL (0.1-1.0); MONOCYTES % (AUTO) 10.3 % (2.0-9.0); NEUTROPHILS % (AUTO) 34.1 % (40.0-70.0); PLATELET COUNT (AUTO) 245 K/uL (150-450); RED BLOOD CELL COUNT(AUTO) 4.93 MIL/uL (4.00-5.20); RED CELL DISTRIBUTION WIDTH 14.1 % (11.5-14.5)
[2019-07-09 11:41] LABS: ANION GAP 8 mmol/L (8-16); CALCIUM, TOTAL 9.1 mg/dL (8.8-10.5); CARBON DIOXIDE 28 mmol/L (22-29); CHLORIDE 105 mmol/L (98-107); CREATININE 0.68 mg/dL (0.60-1.30); GLOMERULAR FILTR. RATE CALC > 60 mL/min (>60); GLUCOSE,RANDOM 107 mg/dL (70-110); POTASSIUM 3.5 mmol/L (3.5-5.1); SODIUM SERUM 141 mmol/L (136-145); UREA NITROGEN, BLOOD 7 mg/dL (7-18)
[2019-07-09 11:46] LABS: ALANINE AMINOTRANSFERASE 10 U/L (12-78); ALBUMIN 3.5 g/dL (3.4-5.0); ALKALINE PHOSPHATASE 101 U/L (46-116); ASPARTATE AMINOTRANSFERASE 23 U/L (15-37); BILIRUBIN,TOTAL 0.3 mg/dL (0.1-1.0); TOTAL PROTEIN, SERUM 8.2 g/dL (6.4-8.2)
[2019-07-09] MEDS ORDERED: HALOPERIDOL 5 MG TABLET PO PRN (12:30)
[2019-07-09] MEDS ORDERED: ZOLPIDEM TARTRATE 10 MG TABLET PO PRN (12:30)
[2019-07-09 14:32] LABS: AMPHET/METH SCREEN,URINE NEGATIVE (NEGATIVE); BARBITURATE SCREEN, URINE NEGATIVE (NEGATIVE); BENZODIAZEPINES SCREEN,URINE NEGATIVE (NEGATIVE); CANNABINOID SCREEN,URINE NEGATIVE (NEGATIVE); COCAINE SCREEN,URINE NEGATIVE (NEGATIVE); METHADONE SCREEN, URINE NEGATIVE (NEGATIVE); OPIATE SCREEN,URINE NEGATIVE (NEGATIVE)
[2019-07-09 14:33] LABS: PHENCYCLIDINE SCREEN,URINE NEGATIVE (NEGATIVE)
[2019-07-09 15:35] VITALS: BP 122/77
[2019-07-09 16:21] VITALS: BP 122/70
[2019-07-09] MEDS ORDERED: BACITRACIN 28.4 GM OINTMENT TP PRN (19:30)
[2019-07-09] MEDS ORDERED: MAG HYDROX/AL HYDROX/SIMETH ES 30 ML SUSPENSION UDCUP PO PRN (19:30)
[2019-07-09] MEDS ORDERED: ALBUTEROL SULFATE HFA 90 MCG/PUFF 8 GM INHALER IH PRN (19:30)
[2019-07-09] MEDS ORDERED: IBUPROFEN 600 MG TABLET PO PRN (19:30)
[2019-07-09] MEDS ORDERED: ONDANSETRON HCL 4 MG TABLET PO PRN (19:30)
[2019-07-09] MEDS ORDERED: MAGNESIUM HYDROXIDE SUSPENSION 30 ML UDCUP PO PRN (19:30)
[2019-07-09] MEDS ORDERED: LOPERAMIDE HCL 2 MG CAPSULE PO PRN (19:30)
[2019-07-09] MEDS ORDERED: BENZOCAINE/MENTHOL LOZENGE MM PRN (19:30)
[2019-07-09] MEDS ORDERED: CloNIDine HCL 0.1 MG TABLET PO PRN (19:30)
[2019-07-09] MEDS ORDERED: PETROLATUM,WHITE 28 GM JELLY TP PRN (19:30)
[2019-07-09] MEDS ORDERED: QUEtiapine FUMARATE 200 MG TABLET PO SCH (21:00)
[2019-07-09] MEDS: LORazepam 2 MG TABLET PO PRN (21:40)
[2019-07-10] MEDS: VERAPAMIL HCL 80 MG TABLET PO SCH ×2 (07:55→16:08)
[2019-07-10] MEDS: LORazepam 2 MG TABLET PO PRN (07:57)
[2019-07-10 08:16] VITALS: BP 109/81
[2019-07-10] MEDS ORDERED: DOCUSATE SODIUM 100 MG CAPSULE PO SCH (09:00)
[2019-07-10] MEDS ORDERED: LISINOPRIL 5 MG TABLET PO SCH (09:00)
[2019-07-10] MEDS ORDERED: OMEPRAZOLE 20 MG CAPSULE PO SCH (09:00)
[2019-07-10] MEDS ORDERED: PROPRANOLOL HCL 10 MG TABLET PO SCH (09:00)
[2019-07-10] MEDS ORDERED: TRAZ-220 PO (10:34)
[2019-07-10 16:06] VITALS: BP 129/85
== END 2019-07-10 18:16 | disposition home or self-care (01) | DRG 750 ==
LOC: EMS 10:07 → B2S 12:38
PROVIDERS: ADMIT Psychiatry & Neurology Child & Adolescent Psychiatry; ATTEND Psychiatry & Neurology Child & Adolescent Psychiatry
DX: F25.9 Schizoaffective disorder, unspecified (principal); K74.60 Unspecified cirrhosis of liver; F31.9 Bipolar disorder, unspecified; F41.9 Anxiety disorder, unspecified; I10 Essential (primary) hypertension; J45.909 Unspecified asthma, uncomplicated; K21.9 Gastro-esophageal reflux disease without esophagitis; Z90.710 Acquired absence of both cervix and uterus; Z90.49 Acquired absence of other specified parts of digestive tract
CPT/HCPCS: 87081; G0480

== ENCOUNTER 2019-07-16 11:10 | Inpatient (IN) | payer MEDICARE, MEDICAID ==
[~2019-07-16] VITALS: Ht 165.1 cm; Wt 93.9 kg
[~2019-07-16 11:10] MED LIST changes: +TRAZ-220 PO
[2019-07-16] MEDS ORDERED: DiphenhydrAMINE HCL 50 MG CAPSULE PO ONE (12:30)
[2019-07-16 14:27] LABS: BASOPHILS % (AUTO) 0.7 % (0.0-2.0); EOSINOPHILS % (AUTO) 2.1 % (1.0-6.0); HEMATOCRIT 46.7 % (36-46); LYMPHOCYTES # (AUTO) 3.8 K/uL (1.0-4.8); LYMPHOCYTES % (AUTO) 61.8 % (22.0-44.0); MEAN CORPUSCULAR HEMOGLOBIN 27.7 pg (26.0-34.0); MEAN CORPUSCULAR HGB CONC 32.1 G/dL (31.0-37.0); MEAN CORPUSCULAR VOLUME 86 fL (80-100); MONOCYTES # (AUTO) 0.4 K/uL (0.1-1.0); MONOCYTES % (AUTO) 6.5 % (2.0-9.0); NEUTROPHILS # (AUTO) 1.8 K/uL (1.8-7.7); NEUTROPHILS % (AUTO) 28.9 % (40.0-70.0); PLATELET COUNT (AUTO) 283 K/uL (150-450); RED BLOOD CELL COUNT(AUTO) 5.42 MIL/uL (4.00-5.20); RED CELL DISTRIBUTION WIDTH 13.9 % (11.5-14.5)
[2019-07-16 14:36] LABS: ANION GAP 9 mmol/L (8-16); CALCIUM, TOTAL 9.6 mg/dL (8.8-10.5); CARBON DIOXIDE 24 mmol/L (22-29); CHLORIDE 104 mmol/L (98-107); CREATININE 0.66 mg/dL (0.60-1.30); GLOMERULAR FILTR. RATE CALC > 60 mL/min (>60); GLUCOSE,RANDOM 85 mg/dL (70-110); POTASSIUM 3.7 mmol/L (3.5-5.1); SODIUM SERUM 137 mmol/L (136-145); UREA NITROGEN, BLOOD 6 mg/dL (7-18)
[2019-07-16 14:42] LABS: ALKALINE PHOSPHATASE 110 U/L (46-116); ASPARTATE AMINOTRANSFERASE 30 U/L (15-37); BILIRUBIN,TOTAL 0.5 mg/dL (0.1-1.0); TOTAL PROTEIN, SERUM 8.9 g/dL (6.4-8.2)
[2019-07-16] MEDS ORDERED: HALOPERIDOL 5 MG TABLET PO PRN (14:45)
[2019-07-16 14:54] LABS: ALANINE AMINOTRANSFERASE 17 U/L (12-78)
[2019-07-16] MEDS ORDERED: CloNIDine HCL 0.2 MG TABLET PO ONE (17:15)
[2019-07-16] MEDS: LORazepam 2 MG TABLET PO PRN (18:58)
[2019-07-16] MEDS ORDERED: BACITRACIN 28.4 GM OINTMENT TP PRN (19:45)
[2019-07-16] MEDS ORDERED: MAG HYDROX/AL HYDROX/SIMETH ES 30 ML SUSPENSION UDCUP PO PRN (19:45)
[2019-07-16] MEDS ORDERED: LOPERAMIDE HCL 2 MG CAPSULE PO PRN (19:45)
[2019-07-16] MEDS ORDERED: HYDROCORTISONE 1% 30 GM CREAM TP SCH (19:45)
[2019-07-16] MEDS ORDERED: PETROLATUM,WHITE 28 GM JELLY TP PRN (19:45)
[2019-07-16] MEDS ORDERED: ONDANSETRON HCL 4 MG TABLET PO PRN (19:45)
[2019-07-16] MEDS ORDERED: ACETAMINOPHEN 325 MG TABLET PO PRN (19:45)
[2019-07-16] MEDS ORDERED: BENZOCAINE/MENTHOL LOZENGE MM PRN (19:45)
[2019-07-16] MEDS ORDERED: CloNIDine HCL 0.1 MG TABLET PO PRN (19:45)
[2019-07-16] MEDS ORDERED: MAGNESIUM HYDROXIDE SUSPENSION 30 ML UDCUP PO PRN (19:45)
[2019-07-16] MEDS ORDERED: ALBUTEROL SULFATE HFA 90 MCG/PUFF 8 GM INHALER IH PRN (19:45)
[2019-07-16] MEDS: QUEtiapine FUMARATE 200 MG TABLET PO SCH (20:23)
[2019-07-16 20:40] VITALS: BP 135/96
[2019-07-16] MEDS: IBUPROFEN 600 MG TABLET PO PRN (20:47)
[2019-07-16] MEDS ORDERED: PNEUMOCOCCAL VACCINE POLYVALENT 0.5 ML VIAL [PPSV23] IM ONE (21:15)
[2019-07-16] MEDS: ZOLPIDEM TARTRATE 10 MG TABLET PO PRN (23:50)
[2019-07-17 06:30] VITALS: BP 102/61
[2019-07-17] MEDS: OMEPRAZOLE 20 MG CAPSULE PO SCH (08:03)
[2019-07-17] MEDS: DOCUSATE SODIUM 100 MG CAPSULE PO SCH (08:03)
[2019-07-17] MEDS: HYDROCORTISONE 1% 30 GM CREAM TP SCH ×2 (08:04→16:50)
[2019-07-17] MEDS: LORazepam 2 MG TABLET PO PRN ×3 (08:34→22:32)
[2019-07-17 08:58] VITALS: BP 132/71
[2019-07-17] MEDS ORDERED: HYDROCORTISONE 1% 30 GM CREAM TP SCH (09:00)
[2019-07-17] MEDS: QUEtiapine FUMARATE 25 MG TABLET PO SCH (10:42)
[2019-07-17 16:11] VITALS: BP 145/75
[2019-07-17] MEDS: QUEtiapine FUMARATE 200 MG TABLET PO SCH (20:13)
[2019-07-17] MEDS: ZOLPIDEM TARTRATE 10 MG TABLET PO PRN (21:10)
[2019-07-17 22:32] VITALS: BP 134/72
[2019-07-17] MEDS: IBUPROFEN 600 MG TABLET PO PRN (22:32)
[2019-07-18 00:32] VITALS: BP 128/70
[2019-07-18] MEDS: OMEPRAZOLE 20 MG CAPSULE PO SCH (08:05)
[2019-07-18] MEDS: DOCUSATE SODIUM 100 MG CAPSULE PO SCH (08:05)
[2019-07-18] MEDS: EPCLUSA PO SCH (08:05)
[2019-07-18] MEDS: QUEtiapine FUMARATE 25 MG TABLET PO SCH (08:05)
[2019-07-18] MEDS: HYDROCORTISONE 1% 30 GM CREAM TP SCH ×2 (08:06→16:11)
[2019-07-18] MEDS: LORazepam 2 MG TABLET PO PRN ×3 (08:33→21:02)
[2019-07-18 08:36] VITALS: BP 123/70
[2019-07-18] MEDS ORDERED: *NON-FORMULARY MED [ENTER DRUG, DOSE, FREQ IN COMMENTS] CLINICAL SCH (09:00)
[2019-07-18] MEDS ORDERED: COLLOIDAL OATMEAL/DIMETH 227 GM LOTION TP PRN (09:00)
[2019-07-18 16:11] VITALS: BP 158/73
[2019-07-18] MEDS: ZOLPIDEM TARTRATE 10 MG TABLET PO PRN (20:46)
[2019-07-18] MEDS: QUEtiapine FUMARATE 200 MG TABLET PO SCH (20:46)
[2019-07-19] VITALS: BP 163/102
[2019-07-19 00:01] VITALS: BP 154/109
[2019-07-19 00:03] VITALS: BP 155/94
[2019-07-19] MEDS: LORazepam 2 MG TABLET PO PRN ×4 (01:34→22:27)
[2019-07-19 06:46] VITALS: BP 124/80
[2019-07-19] MEDS: OMEPRAZOLE 20 MG CAPSULE PO SCH (07:59)
[2019-07-19] MEDS: DOCUSATE SODIUM 100 MG CAPSULE PO SCH (07:59)
[2019-07-19] MEDS: QUEtiapine FUMARATE 25 MG TABLET PO SCH ×4 (07:59→20:29)
[2019-07-19] MEDS: EPCLUSA PO SCH (08:00)
[2019-07-19 08:20] VITALS: BP 138/85
[2019-07-19] MEDS: HYDROCORTISONE 1% 30 GM CREAM TP SCH ×2 (09:01→19:37)
[2019-07-19] MEDS: BuPROPion HCL XL 150 MG ER TABLET PO SCH (13:29)
[2019-07-19 16:17] VITALS: BP 140/80
[2019-07-19] MEDS: QUEtiapine FUMARATE 200 MG TABLET PO SCH (20:34)
[2019-07-19] MEDS: ZOLPIDEM TARTRATE 10 MG TABLET PO PRN (21:38)
[2019-07-20 00:45] VITALS: BP 139/83
[2019-07-20] MEDS: OMEPRAZOLE 20 MG CAPSULE PO SCH (08:00)
[2019-07-20] MEDS: BuPROPion HCL XL 150 MG ER TABLET PO SCH (08:00)
[2019-07-20] MEDS: EPCLUSA PO SCH (08:00)
[2019-07-20] MEDS: DOCUSATE SODIUM 100 MG CAPSULE PO SCH (08:00)
[2019-07-20] MEDS: HYDROCORTISONE 1% 30 GM CREAM TP SCH ×2 (08:01→16:32)
[2019-07-20] MEDS: LORazepam 2 MG TABLET PO PRN ×3 (08:01→17:35)
[2019-07-20 08:44] VITALS: BP 148/76
[2019-07-20 17:15] VITALS: BP 165/108
[2019-07-20 17:45] VITALS: BP 155/90
[2019-07-20] MEDS: QUEtiapine FUMARATE 200 MG TABLET PO SCH (20:01)
[2019-07-20] MEDS ORDERED: BUPR-93 PO (20:30)
[2019-07-20] MEDS ORDERED: QUET50TA PO (20:30)
[2019-07-20] MEDS ORDERED: LISI-661 PO (20:40)
[2019-07-20] MEDS ORDERED: LISINOPRIL 10 MG TABLET PO SCH (20:45)
[2019-07-20] MEDS ORDERED: SOFO1TAB PO (20:51)
[2019-07-20 21:00] VITALS: BP 140/80
[2019-07-20 21:03] VITALS: BP 140/88
== END 2019-07-20 21:00 | disposition home or self-care (01) | DRG 750 ==
LOC: EMS 11:11 → B2S 15:36
PROVIDERS: ADMIT Psychiatry & Neurology Child & Adolescent Psychiatry; ATTEND Psychiatry & Neurology Psychiatry
DX: F25.0 Schizoaffective disorder, bipolar type (principal); F13.20 Sedative, hypnotic or anxiolytic dependence, uncomplicated; K74.60 Unspecified cirrhosis of liver; F41.9 Anxiety disorder, unspecified; G47.00 Insomnia, unspecified; I10 Essential (primary) hypertension; J45.909 Unspecified asthma, uncomplicated; K21.9 Gastro-esophageal reflux disease without esophagitis; L29.9 Pruritus, unspecified; Z90.710 Acquired absence of both cervix and uterus; Z91.5 Personal history of self-harm; Z90.49 Acquired absence of other specified parts of digestive tract; Z79.899 Other long term (current) drug therapy; Z88.6 Allergy status to analgesic agent; Z88.8 Allergy status to other drugs, medicaments and biological substances
CPT/HCPCS: 87081; G0480

== ENCOUNTER 2019-07-24 17:30 | Inpatient (IN) | payer MEDICARE, MEDICAID ==
[~2019-07-24] VITALS: Ht 165.1 cm; Wt 96.0 kg
[~2019-07-24 17:30] MED LIST changes: +BUPR-93 PO; -LISI-660 PO; +LISI-661 PO; -PROP10TA73 PO; +QUET50TA PO; +SOFO1TAB PO; -TRAZ-220 PO; -VERA80 PO
[2019-07-24 19:23] LABS: HEMATOCRIT 40.3 % (36-46); HEMOGLOBIN 13.1 g/dL (12.0-16.0); MEAN CORPUSCULAR HGB CONC 32.5 G/dL (31.0-37.0)
[2019-07-24 19:32] LABS: BASOPHILS % (AUTO) 1.6 % (0.0-2.0); LYMPHOCYTES # (AUTO) 4.3 K/uL (1.0-4.8); LYMPHOCYTES % (AUTO) 60.2 % (22.0-44.0); MEAN CORPUSCULAR HEMOGLOBIN 27.9 pg (26.0-34.0); MEAN CORPUSCULAR VOLUME 86 fL (80-100); MONOCYTES # (AUTO) 0.5 K/uL (0.1-1.0); MONOCYTES % (AUTO) 7.7 % (2.0-9.0); NEUTROPHILS # (AUTO) 1.9 K/uL (1.8-7.7); NEUTROPHILS % (AUTO) 26.5 % (40.0-70.0); PLATELET COUNT (AUTO) 241 K/uL (150-450); RED CELL DISTRIBUTION WIDTH 14.1 % (11.5-14.5)
[2019-07-24 19:40] LABS: ANION GAP 7 mmol/L (8-16); CALCIUM, TOTAL 9.3 mg/dL (8.8-10.5); CARBON DIOXIDE 26 mmol/L (22-29); CHLORIDE 107 mmol/L (98-107); CREATININE 0.71 mg/dL (0.60-1.30); GLOMERULAR FILTR. RATE CALC > 60 mL/min (>60); GLUCOSE,RANDOM 114 mg/dL (70-110); POTASSIUM 3.3 mmol/L (3.5-5.1); SODIUM SERUM 140 mmol/L (136-145); UREA NITROGEN, BLOOD 8 mg/dL (7-18)
[2019-07-24 19:45] LABS: ALANINE AMINOTRANSFERASE 19 U/L (12-78); ALBUMIN 3.4 g/dL (3.4-5.0); ALKALINE PHOSPHATASE 97 U/L (46-116); ASPARTATE AMINOTRANSFERASE 22 U/L (15-37); BILIRUBIN,TOTAL 0.2 mg/dL (0.1-1.0); TOTAL PROTEIN, SERUM 7.8 g/dL (6.4-8.2)
[2019-07-24] MEDS ORDERED: POTASSIUM CHLORIDE 20 MEQ ER TABLET PO ONE (20:00)
[2019-07-24] MEDS ORDERED: QUEtiapine FUMARATE 100 MG TABLET PO ONE (21:15)
[2019-07-24 21:44] LABS: AMPHET/METH SCREEN,URINE NEGATIVE (NEGATIVE); BARBITURATE SCREEN, URINE NEGATIVE (NEGATIVE); BENZODIAZEPINES SCREEN,URINE NEGATIVE (NEGATIVE); CANNABINOID SCREEN,URINE NEGATIVE (NEGATIVE); COCAINE SCREEN,URINE NEGATIVE (NEGATIVE); METHADONE SCREEN, URINE NEGATIVE (NEGATIVE); OPIATE SCREEN,URINE NEGATIVE (NEGATIVE)
[2019-07-24 21:52] LABS: PHENCYCLIDINE SCREEN,URINE NEGATIVE (NEGATIVE)
[2019-07-24] MEDS: ZOLPIDEM TARTRATE 10 MG TABLET PO PRN (22:03)
[2019-07-25 00:55] VITALS: BP 159/82
[2019-07-25 01:11] VITALS: BP 159/82
[2019-07-25] MEDS: QUEtiapine FUMARATE 100 MG TABLET PO PRN ×2 (03:13→10:16)
[2019-07-25] MEDS ORDERED: PNEUMOCOCCAL VACCINE POLYVALENT 0.5 ML VIAL [PPSV23] IM ONE (03:15)
[2019-07-25] MEDS ORDERED: *NON-FORMULARY MED [ENTER DRUG, DOSE, FREQ IN COMMENTS] CLINICAL ONE (09:00)
[2019-07-25 10:06] VITALS: BP 119/67
[2019-07-25] MEDS ORDERED: LOPERAMIDE HCL 2 MG CAPSULE PO PRN (10:30)
[2019-07-25] MEDS ORDERED: OMEPRAZOLE 20 MG CAPSULE PO PRN (10:30)
[2019-07-25] MEDS ORDERED: PETROLATUM,WHITE 28 GM JELLY TP PRN (10:30)
[2019-07-25] MEDS ORDERED: MAG HYDROX/AL HYDROX/SIMETH ES 30 ML SUSPENSION UDCUP PO PRN (10:30)
[2019-07-25] MEDS ORDERED: ALBUTEROL SULFATE HFA 90 MCG/PUFF 8 GM INHALER IH PRN (10:30)
[2019-07-25] MEDS ORDERED: MAGNESIUM HYDROXIDE SUSPENSION 30 ML UDCUP PO PRN (10:30)
[2019-07-25] MEDS ORDERED: DOCUSATE SODIUM 100 MG CAPSULE PO PRN (10:30)
[2019-07-25] MEDS ORDERED: CloNIDine HCL 0.1 MG TABLET PO PRN (10:30)
[2019-07-25] MEDS ORDERED: BACITRACIN 28.4 GM OINTMENT TP PRN (10:30)
[2019-07-25] MEDS ORDERED: ONDANSETRON HCL 4 MG TABLET PO PRN (10:30)
[2019-07-25] MEDS ORDERED: BENZOCAINE/MENTHOL LOZENGE MM PRN (10:30)
[2019-07-25 11:48] VITALS: BP 142/90
[2019-07-25] MEDS: IBUPROFEN 600 MG TABLET PO PRN (11:48)
[2019-07-25] MEDS: LORazepam 2 MG TABLET PO PRN (12:30)
[2019-07-25 16:23] VITALS: BP 139/90
[2019-07-25] MEDS: VELPATASVIR PO SCH (16:25)
[2019-07-25] MEDS: SOFOSBUVIR PO SCH (16:25)
[2019-07-25] MEDS ORDERED: QUEtiapine FUMARATE 200 MG TABLET PO SCH (21:00)
[2019-07-25] MEDS: ZOLPIDEM TARTRATE 10 MG TABLET PO PRN (22:18)
[2019-07-26] MEDS: SOFOSBUVIR PO SCH (08:23)
[2019-07-26] MEDS: QUEtiapine FUMARATE 25 MG TABLET PO SCH (08:23)
[2019-07-26] MEDS: LORazepam 2 MG TABLET PO PRN ×3 (08:23→21:41)
[2019-07-26] MEDS: BuPROPion HCL XL 150 MG ER TABLET PO SCH (08:23)
[2019-07-26] MEDS: VELPATASVIR PO SCH (08:23)
[2019-07-26 08:32] VITALS: BP 151/80
[2019-07-26 10:00] VITALS: BP 120/83
[2019-07-26] MEDS ORDERED: BENZOCAINE 10% 7 GM GEL TP PRN (15:30)
[2019-07-26 19:17] VITALS: BP 136/79
[2019-07-26] MEDS: ZOLPIDEM TARTRATE 10 MG TABLET PO SCH (20:24)
[2019-07-26] MEDS: QUEtiapine FUMARATE 300 MG TABLET PO SCH (20:24)
[2019-07-26 21:10] VITALS: BP 128/76
[2019-07-26] MEDS: IBUPROFEN 600 MG TABLET PO PRN (21:10)
[2019-07-26] MEDS: QUEtiapine FUMARATE 100 MG TABLET PO PRN (23:47)
[2019-07-27 00:07] VITALS: BP 140/90
[2019-07-27] MEDS: LORazepam 2 MG TABLET PO PRN ×3 (01:42→16:34)
[2019-07-27 08:15] VITALS: BP 116/75
[2019-07-27 08:35] LABS: ANION GAP 12 mmol/L (8-16); CALCIUM, TOTAL 9.4 mg/dL (8.8-10.5); CARBON DIOXIDE 23 mmol/L (22-29); CHLORIDE 107 mmol/L (98-107); CHOL/HDL RATIO 4.9 (3.9-5.7); CHOLESTEROL 148 mg/dL (131-200); CREATININE 0.59 mg/dL (0.60-1.30); GLOMERULAR FILTR. RATE CALC > 60 mL/min (>60); GLUCOSE,RANDOM 79 mg/dL (70-110); HDL CHOLESTEROL 30 mg/dL (40-60); LDL CHOL (CALC.) 99 mg/dL (0-130); POTASSIUM 3.9 mmol/L (3.5-5.1); SODIUM SERUM 142 mmol/L (136-145); TRIGLYCERIDES 96 mg/dL (15-150); UREA NITROGEN, BLOOD 12 mg/dL (7-18)
[2019-07-27] MEDS: VELPATASVIR PO SCH (08:46)
[2019-07-27] MEDS: BuPROPion HCL XL 150 MG ER TABLET PO SCH (08:46)
[2019-07-27] MEDS: QUEtiapine FUMARATE 25 MG TABLET PO SCH (08:46)
[2019-07-27] MEDS: SOFOSBUVIR PO SCH (08:46)
[2019-07-27 16:10] VITALS: BP 121/78
[2019-07-27] MEDS: QUEtiapine FUMARATE 100 MG TABLET PO PRN (16:34)
[2019-07-27] MEDS: IBUPROFEN 600 MG TABLET PO PRN (16:35)
[2019-07-27] MEDS: QUEtiapine FUMARATE 300 MG TABLET PO SCH (20:18)
[2019-07-27] MEDS: ZOLPIDEM TARTRATE 10 MG TABLET PO SCH (20:18)
[2019-07-28 06:43] VITALS: BP 146/83
[2019-07-28] MEDS: VELPATASVIR PO SCH (08:42)
[2019-07-28] MEDS: QUEtiapine FUMARATE 25 MG TABLET PO SCH (08:42)
[2019-07-28] MEDS: BuPROPion HCL XL 150 MG ER TABLET PO SCH (08:42)
[2019-07-28] MEDS: SOFOSBUVIR PO SCH (08:42)
[2019-07-28] MEDS: LORazepam 2 MG TABLET PO PRN ×3 (08:54→21:21)
[2019-07-28 09:00] VITALS: BP 157/105
[2019-07-28 09:40] VITALS: BP 155/95
[2019-07-28] MEDS: LISINOPRIL 10 MG TABLET PO SCH (10:24)
[2019-07-28 14:50] VITALS: BP 155/95
[2019-07-28] MEDS: VERAPAMIL HCL 80 MG TABLET PO SCH (16:13)
[2019-07-28] MEDS: QUEtiapine FUMARATE 300 MG TABLET PO SCH (20:31)
[2019-07-28] MEDS: ZOLPIDEM TARTRATE 10 MG TABLET PO SCH (20:32)
[2019-07-28 21:14] VITALS: BP 146/84
[2019-07-28] MEDS: QUEtiapine FUMARATE 100 MG TABLET PO PRN (22:36)
[2019-07-29 00:19] VITALS: BP 140/92
[2019-07-29] MEDS: LISINOPRIL 10 MG TABLET PO SCH (08:21)
[2019-07-29] MEDS: QUEtiapine FUMARATE 25 MG TABLET PO SCH (08:22)
[2019-07-29] MEDS: BuPROPion HCL XL 150 MG ER TABLET PO SCH (08:22)
[2019-07-29] MEDS: VERAPAMIL HCL 80 MG TABLET PO SCH ×2 (08:23→16:16)
[2019-07-29] MEDS: VELPATASVIR PO SCH (08:24)
[2019-07-29] MEDS: SOFOSBUVIR PO SCH (08:24)
[2019-07-29] MEDS: LORazepam 2 MG TABLET PO PRN ×3 (08:33→21:42)
[2019-07-29 09:10] VITALS: BP 144/96
[2019-07-29 12:40] VITALS: BP 148/91
[2019-07-29] MEDS: IBUPROFEN 600 MG TABLET PO PRN (12:40)
[2019-07-29 14:44] VITALS: BP 113/61
[2019-07-29 16:10] VITALS: BP 127/69
[2019-07-29] MEDS: ZOLPIDEM TARTRATE 10 MG TABLET PO SCH (21:03)
[2019-07-29] MEDS: QUEtiapine FUMARATE 300 MG TABLET PO SCH (21:03)
[2019-07-30] MEDS: QUEtiapine FUMARATE 25 MG TABLET PO SCH (08:24)
[2019-07-30] MEDS: LISINOPRIL 10 MG TABLET PO SCH (08:24)
[2019-07-30] MEDS: BuPROPion HCL XL 150 MG ER TABLET PO SCH (08:24)
[2019-07-30] MEDS: VERAPAMIL HCL 80 MG TABLET PO SCH ×2 (08:25→16:19)
[2019-07-30] MEDS: SOFOSBUVIR PO SCH (08:25)
[2019-07-30] MEDS: VELPATASVIR PO SCH (08:25)
[2019-07-30 08:30] VITALS: BP 117/68
[2019-07-30] MEDS: LORazepam 2 MG TABLET PO PRN ×2 (12:41→17:40)
[2019-07-30 16:10] VITALS: BP 127/77
[2019-07-30] MEDS: ZOLPIDEM TARTRATE 10 MG TABLET PO SCH (20:54)
[2019-07-30] MEDS ORDERED: QUEtiapine FUMARATE 200 MG TABLET PO SCH (21:00)
[2019-07-30] MEDS ORDERED: QUEtiapine FUMARATE 300 MG TABLET PO SCH (21:00)
[2019-07-30] MEDS: LORazepam 1 MG TABLET PO PRN (22:48)
[2019-07-31 00:02] VITALS: BP 144/88
[2019-07-31] MEDS: QUEtiapine FUMARATE 100 MG TABLET PO PRN (00:32)
[2019-07-31 08:52] VITALS: BP 126/76
[2019-07-31] MEDS: BuPROPion HCL XL 150 MG ER TABLET PO SCH (08:53)
[2019-07-31] MEDS: LISINOPRIL 10 MG TABLET PO SCH (08:53)
[2019-07-31] MEDS: QUEtiapine FUMARATE 25 MG TABLET PO SCH (08:53)
[2019-07-31] MEDS: VERAPAMIL HCL 80 MG TABLET PO SCH (08:53)
[2019-07-31] MEDS: SOFOSBUVIR PO SCH (08:55)
[2019-07-31] MEDS: VELPATASVIR PO SCH (08:55)
[2019-07-31] MEDS ORDERED: LORA1TAB3 PO (09:26)
[2019-07-31] MEDS ORDERED: VERA80 PO (09:26)
[2019-07-31] MEDS ORDERED: QUET200T PO (09:26)
[2019-07-31] MEDS: LORazepam 1 MG TABLET PO PRN (09:54)
[2019-07-31] MEDS ORDERED: QUEtiapine FUMARATE 200 MG TABLET PO SCH (21:00)
== END 2019-07-31 13:20 | disposition home or self-care (01) | DRG 750 ==
LOC: EMS 17:33 → B2S 23:00
PROVIDERS: ADMIT Psychiatry & Neurology Psychiatry; ATTEND Psychiatry & Neurology Psychiatry
DX: F25.9 Schizoaffective disorder, unspecified (principal); R45.851 Suicidal ideations; K74.60 Unspecified cirrhosis of liver; B19.20 Unspecified viral hepatitis C without hepatic coma; F41.9 Anxiety disorder, unspecified; G47.00 Insomnia, unspecified; I10 Essential (primary) hypertension; J45.909 Unspecified asthma, uncomplicated; K21.9 Gastro-esophageal reflux disease without esophagitis; Z79.899 Other long term (current) drug therapy; Z90.710 Acquired absence of both cervix and uterus; Z91.5 Personal history of self-harm; Z90.49 Acquired absence of other specified parts of digestive tract
CPT/HCPCS: 87081; G0480

== ENCOUNTER 2019-08-28 03:30 | Emergency (ER) | payer MEDICARE, OTHER ==
[~2019-08-28] VITALS: Ht 165.1 cm; Wt 97.7 kg
[~2019-08-28 03:30] MED LIST changes: +LORA-1000 PO; +VERA80 PO
[2019-08-28] MEDS ORDERED: LORazepam 1 MG TABLET PO ONE ×2 (04:00→04:45)
[2019-08-28 04:27] LABS: EOSINOPHILS % (AUTO) 2.8 % (1.0-6.0); HEMATOCRIT 41.8 % (36-46); HEMOGLOBIN 13.9 g/dL (12.0-16.0); LYMPHOCYTES # (AUTO) 4.1 K/uL (1.0-4.8); LYMPHOCYTES % (AUTO) 61.8 % (22.0-44.0); MEAN CORPUSCULAR HEMOGLOBIN 27.8 pg (26.0-34.0); MEAN CORPUSCULAR HGB CONC 33.3 G/dL (31.0-37.0); MEAN CORPUSCULAR VOLUME 84 fL (80-100); MONOCYTES # (AUTO) 0.5 K/uL (0.1-1.0); MONOCYTES % (AUTO) 8.3 % (2.0-9.0); NEUTROPHILS # (AUTO) 1.7 K/uL (1.8-7.7); NEUTROPHILS % (AUTO) 26.1 % (40.0-70.0); PLATELET COUNT (AUTO) 237 K/uL (150-450); RED BLOOD CELL COUNT(AUTO) 5.01 MIL/uL (4.00-5.20); RED CELL DISTRIBUTION WIDTH 14.5 % (11.5-14.5)
[2019-08-28 04:30] LABS: APPEARANCE,URINE CLOUDY (CLEAR); BILIRUBIN,URINE NEGATIVE (NEGATIVE); GLUCOSE, URINE (UA) NEGATIVE (NEGATIVE); KETONES,URINE NEGATIVE (NEGATIVE); LEUKOCYTE ESTERASE ,URINE SMALL (NEGATIVE); NITRATE,URINE NEGATIVE (NEGATIVE); OCCULT BLOOD,URINE NEGATIVE (NEGATIVE); PH,URINE 6.5 (5.0-8.0); PROTEIN,URINE NEGATIVE (NEGATIVE)
[2019-08-28 04:35] LABS: AMPHET/METH SCREEN,URINE NEGATIVE (NEGATIVE); BARBITURATE SCREEN, URINE NEGATIVE (NEGATIVE); BENZODIAZEPINES SCREEN,URINE NEGATIVE (NEGATIVE); CANNABINOID SCREEN,URINE NEGATIVE (NEGATIVE); COCAINE SCREEN,URINE NEGATIVE (NEGATIVE); METHADONE SCREEN, URINE NEGATIVE (NEGATIVE); OPIATE SCREEN,URINE NEGATIVE (NEGATIVE); PHENCYCLIDINE SCREEN,URINE NEGATIVE (NEGATIVE)
[2019-08-28 04:42] LABS: ALANINE AMINOTRANSFERASE 22 U/L (12-78); ALBUMIN 3.5 g/dL (3.4-5.0); ALKALINE PHOSPHATASE 110 U/L (46-116); ANION GAP 13 mmol/L (8-16); ASPARTATE AMINOTRANSFERASE 23 U/L (15-37); BILIRUBIN,TOTAL 0.3 mg/dL (0.1-1.0); CALCIUM, TOTAL 9.4 mg/dL (8.8-10.5); CARBON DIOXIDE 25 mmol/L (22-29); CHLORIDE 106 mmol/L (98-107); CREATININE 0.78 mg/dL (0.60-1.30); GLOMERULAR FILTR. RATE CALC > 60 mL/min (>60); GLUCOSE,RANDOM 103 mg/dL (70-110); POTASSIUM 3.5 mmol/L (3.5-5.1); SODIUM SERUM 144 mmol/L (136-145); TOTAL PROTEIN, SERUM 8.2 g/dL (6.4-8.2)
[2019-08-28 04:47] LABS: BACTERIA,URINE Rare /HPF (None Seen); RBC,URINE 0-2 /HPF (0-2); SQUAMOUS EPITHELIAL CELL,UR Moderate /LPF (None Seen)
[2019-08-28 04:49] LABS: UREA NITROGEN, BLOOD 11 mg/dL (7-18)
[2019-08-28 04:50] VITALS: BP 142/75
== END 2019-08-28 05:00 | disposition home or self-care (01) ==
LOC: EMS 03:30
DX: F41.9 Anxiety disorder, unspecified (principal); I10 Essential (primary) hypertension; F31.9 Bipolar disorder, unspecified; F20.9 Schizophrenia, unspecified; Z88.1 Allergy status to other antibiotic agents; Z88.5 Allergy status to narcotic agent; Z88.6 Allergy status to analgesic agent; Z79.899 Other long term (current) drug therapy
CPT/HCPCS: 36415; 80053; 80307; 81001; 85025; 87086; 99284; G0480; 99406

== ENCOUNTER 2019-09-11 16:54 | Emergency (ER) | payer MEDICARE, OTHER ==
[~2019-09-11] VITALS: Ht 165.1 cm; Wt 97.3 kg
[2019-09-11 17:25] VITALS: BP 145/95
[2019-09-11] MEDS ORDERED: LORazepam 1 MG TABLET PO ONE (18:15)
== END 2019-09-11 18:44 | disposition home or self-care (01) ==
LOC: EMS 16:55
DX: F41.9 Anxiety disorder, unspecified (principal); I10 Essential (primary) hypertension; K74.60 Unspecified cirrhosis of liver; F10.20 Alcohol dependence, uncomplicated; F31.9 Bipolar disorder, unspecified; F20.9 Schizophrenia, unspecified; Z76.0 Encounter for issue of repeat prescription; Z86.19 Personal history of other infectious and parasitic diseases; Z90.49 Acquired absence of other specified parts of digestive tract; Z90.710 Acquired absence of both cervix and uterus; Z98.890 Other specified postprocedural states; Z79.899 Other long term (current) drug therapy; Z88.8 Allergy status to other drugs, medicaments and biological substances; Z88.5 Allergy status to narcotic agent; Z88.1 Allergy status to other antibiotic agents; Z88.6 Allergy status to analgesic agent

== ENCOUNTER 2019-09-25 12:20 | Emergency (ER) | payer MEDICARE, OTHER ==
[~2019-09-25] VITALS: Ht 162.6 cm; Wt 103.3 kg
[~2019-09-25 12:20] MED LIST changes: -BUPR-93 PO; -QUET50TA PO; -SOFO1TAB PO
[2019-09-25 12:25] VITALS: BP 134/71
[2019-09-25 13:38] LABS: BASOPHILS % (AUTO) 0.8 % (0.0-2.0); HEMATOCRIT 38.7 % (36-46); HEMOGLOBIN 12.8 g/dL (12.0-16.0); LYMPHOCYTES # (AUTO) 3.4 K/uL (1.0-4.8); MEAN CORPUSCULAR HGB CONC 33.1 G/dL (31.0-37.0); MEAN CORPUSCULAR VOLUME 85 fL (80-100); MONOCYTES # (AUTO) 0.4 K/uL (0.1-1.0); MONOCYTES % (AUTO) 6.7 % (2.0-9.0); NEUTROPHILS # (AUTO) 2.3 K/uL (1.8-7.7); NEUTROPHILS % (AUTO) 36.5 % (40.0-70.0); PLATELET COUNT (AUTO) 239 K/uL (150-450); RED BLOOD CELL COUNT(AUTO) 4.58 MIL/uL (4.00-5.20); RED CELL DISTRIBUTION WIDTH 15.5 % (11.5-14.5)
[2019-09-25] MEDS ORDERED: LORazepam 2 MG TABLET PO ONE ×2 (13:45)
[2019-09-25 13:51] LABS: ANION GAP 10 mmol/L (8-16); CALCIUM, TOTAL 8.6 mg/dL (8.8-10.5); CARBON DIOXIDE 23 mmol/L (22-29); CHLORIDE 109 mmol/L (98-107); CREATININE 0.67 mg/dL (0.60-1.30); GLOMERULAR FILTR. RATE CALC > 60 mL/min (>60); GLUCOSE,RANDOM 83 mg/dL (70-110); POTASSIUM 3.6 mmol/L (3.5-5.1); SODIUM SERUM 142 mmol/L (136-145); UREA NITROGEN, BLOOD 12 mg/dL (7-18)
[2019-09-25 14:05] LABS: ALANINE AMINOTRANSFERASE 22 U/L (12-78); ALBUMIN 3.2 g/dL (3.4-5.0); ALKALINE PHOSPHATASE 91 U/L (46-116); ASPARTATE AMINOTRANSFERASE 24 U/L (15-37); BILIRUBIN,TOTAL 0.2 mg/dL (0.1-1.0); TOTAL PROTEIN, SERUM 7.6 g/dL (6.4-8.2)
[2019-09-25] MEDS ORDERED: IBUPROFEN 600 MG TABLET PO ONE (14:45)
[2019-09-25] MEDS ORDERED: QUEtiapine FUMARATE 100 MG TABLET PO PRN (15:30)
[2019-09-25] MEDS ORDERED: LORazepam 1 MG TABLET PO PRN (15:30)
[2019-09-25] MEDS ORDERED: ZOLPIDEM TARTRATE 10 MG TABLET PO PRN (15:30)
[2019-09-25] MEDS ORDERED: QUEtiapine FUMARATE 300 MG TABLET PO SCH (21:00)
[2019-09-26] MEDS ORDERED: BuPROPion HCL XL 150 MG ER TABLET PO SCH (09:00)
== END 2019-09-25 15:43 | disposition left against medical advice (07) ==
LOC: EMS 12:22
DX: F25.9 Schizoaffective disorder, unspecified (principal); I10 Essential (primary) hypertension; K74.60 Unspecified cirrhosis of liver; F11.90 Opioid use, unspecified, uncomplicated; F10.20 Alcohol dependence, uncomplicated; F31.9 Bipolar disorder, unspecified; Z86.19 Personal history of other infectious and parasitic diseases; Z88.1 Allergy status to other antibiotic agents; Z88.6 Allergy status to analgesic agent; Z88.5 Allergy status to narcotic agent; Z88.8 Allergy status to other drugs, medicaments and biological substances; Z90.49 Acquired absence of other specified parts of digestive tract; Z90.710 Acquired absence of both cervix and uterus; Z98.890 Other specified postprocedural states; Z79.899 Other long term (current) drug therapy
CPT/HCPCS: 36415; 80053; 85025; 99285; G0480

== ENCOUNTER 2019-09-25 20:23 | Emergency (ER) | payer MEDICARE, OTHER ==
[~2019-09-25] VITALS: Ht 165.1 cm; Wt 95.9 kg
[2019-09-25] MEDS ORDERED: HydrOXYzine HCL 50 MG TABLET PO ONE (21:45)
[2019-09-25] MEDS ORDERED: HydrOXYzine HCL 25 MG TABLET PO ONE (22:00)
[2019-09-26 02:39] VITALS: BP 133/79
== END 2019-09-26 00:51 | disposition home or self-care (01) ==
LOC: EMS 20:25
DX: F41.9 Anxiety disorder, unspecified (principal); I10 Essential (primary) hypertension; K74.60 Unspecified cirrhosis of liver; F10.20 Alcohol dependence, uncomplicated; F31.9 Bipolar disorder, unspecified; F11.20 Opioid dependence, uncomplicated; F20.9 Schizophrenia, unspecified; Z90.49 Acquired absence of other specified parts of digestive tract; Z90.710 Acquired absence of both cervix and uterus; Z79.899 Other long term (current) drug therapy; Z98.890 Other specified postprocedural states; Z86.19 Personal history of other infectious and parasitic diseases; Z88.5 Allergy status to narcotic agent; Z88.6 Allergy status to analgesic agent; Z88.8 Allergy status to other drugs, medicaments and biological substances; Z88.1 Allergy status to other antibiotic agents

== ENCOUNTER 2019-09-27 08:18 | Inpatient (IN) | payer MEDICARE, MEDICAID ==
[~2019-09-27] VITALS: Ht 165.1 cm; Wt 98.5 kg
[2019-09-27] MEDS ORDERED: LORazepam 1 MG TABLET PO ONE (10:00)
[2019-09-27 10:17] LABS: BASOPHILS % (AUTO) 1.2 % (0.0-2.0); EOSINOPHILS % (AUTO) 2.9 % (1.0-6.0); HEMATOCRIT 43.3 % (36-46); HEMOGLOBIN 14.3 g/dL (12.0-16.0); LYMPHOCYTES # (AUTO) 3.4 K/uL (1.0-4.8); MEAN CORPUSCULAR HEMOGLOBIN 27.8 pg (26.0-34.0); MEAN CORPUSCULAR VOLUME 84 fL (80-100); MONOCYTES # (AUTO) 0.4 K/uL (0.1-1.0); MONOCYTES % (AUTO) 6.4 % (2.0-9.0); NEUTROPHILS # (AUTO) 2.4 K/uL (1.8-7.7); NEUTROPHILS % (AUTO) 36.5 % (40.0-70.0); PLATELET COUNT (AUTO) 279 K/uL (150-450); RED BLOOD CELL COUNT(AUTO) 5.14 MIL/uL (4.00-5.20); RED CELL DISTRIBUTION WIDTH 15.4 % (11.5-14.5)
[2019-09-27 10:28] LABS: ANION GAP 8 mmol/L (8-16); CALCIUM, TOTAL 9.7 mg/dL (8.8-10.5); CARBON DIOXIDE 29 mmol/L (22-29); CHLORIDE 107 mmol/L (98-107); CREATININE 0.69 mg/dL (0.60-1.30); GLOMERULAR FILTR. RATE CALC > 60 mL/min (>60); GLUCOSE,RANDOM 92 mg/dL (70-110); POTASSIUM 3.8 mmol/L (3.5-5.1); SODIUM SERUM 144 mmol/L (136-145); UREA NITROGEN, BLOOD 11 mg/dL (7-18)
[2019-09-27 10:33] LABS: ALANINE AMINOTRANSFERASE 21 U/L (12-78); ALBUMIN 3.9 g/dL (3.4-5.0); ALKALINE PHOSPHATASE 113 U/L (46-116); ASPARTATE AMINOTRANSFERASE 24 U/L (15-37); BILIRUBIN,TOTAL 0.3 mg/dL (0.1-1.0); TOTAL PROTEIN, SERUM 8.9 g/dL (6.4-8.2)
[2019-09-27 10:53] LABS: APPEARANCE,URINE CLEAR (CLEAR); BILIRUBIN,URINE NEGATIVE (NEGATIVE); GLUCOSE, URINE (UA) NEGATIVE (NEGATIVE); KETONES,URINE NEGATIVE (NEGATIVE); LEUKOCYTE ESTERASE ,URINE SMALL (NEGATIVE); NITRATE,URINE NEGATIVE (NEGATIVE); OCCULT BLOOD,URINE NEGATIVE (NEGATIVE); PROTEIN,URINE NEGATIVE (NEGATIVE); UROBILINOGEN,URINE 0.2 mg/dL (<=1.0)
[2019-09-27 10:58] LABS: AMPHET/METH SCREEN,URINE NEGATIVE (NEGATIVE); BARBITURATE SCREEN, URINE NEGATIVE (NEGATIVE); BENZODIAZEPINES SCREEN,URINE NEGATIVE (NEGATIVE); CANNABINOID SCREEN,URINE POSITIVE (NEGATIVE); COCAINE SCREEN,URINE NEGATIVE (NEGATIVE); METHADONE SCREEN, URINE NEGATIVE (NEGATIVE); OPIATE SCREEN,URINE NEGATIVE (NEGATIVE)
[2019-09-27 11:00] LABS: BACTERIA,URINE None Seen /HPF (None Seen); RBC,URINE None Seen /HPF (0-2); SQUAMOUS EPITHELIAL CELL,UR Few /LPF (None Seen)
[2019-09-27 11:01] LABS: PHENCYCLIDINE SCREEN,URINE NEGATIVE (NEGATIVE)
[2019-09-27] MEDS ORDERED: IBUPROFEN 600 MG TABLET PO ONE (12:00)
[2019-09-27] MEDS ORDERED: INFLUENZA VIRUS VACCINE QVS 2019-20 (3YR+)/PF 60 MCG/0.5 ML SYRINGE IM ONE (13:30)
[2019-09-27 14:14] VITALS: BP 107/61
[2019-09-27 14:18] VITALS: BP 107/61
[2019-09-27] MEDS ORDERED: LOPERAMIDE HCL 2 MG CAPSULE PO PRN (15:00)
[2019-09-27] MEDS ORDERED: BACITRACIN 28.4 GM OINTMENT TP PRN (15:00)
[2019-09-27] MEDS ORDERED: BENZOCAINE/MENTHOL LOZENGE MM PRN (15:00)
[2019-09-27] MEDS ORDERED: ALBUTEROL SULFATE HFA 90 MCG/PUFF 8 GM INHALER IH PRN (15:00)
[2019-09-27] MEDS ORDERED: MAG HYDROX/AL HYDROX/SIMETH ES 30 ML SUSPENSION UDCUP PO PRN (15:00)
[2019-09-27] MEDS ORDERED: PETROLATUM,WHITE 28 GM JELLY TP PRN (15:00)
[2019-09-27] MEDS ORDERED: MAGNESIUM HYDROXIDE SUSPENSION 30 ML UDCUP PO PRN (15:00)
[2019-09-27] MEDS ORDERED: CloNIDine HCL 0.1 MG TABLET PO PRN (15:00)
[2019-09-27] MEDS ORDERED: ACETAMINOPHEN 325 MG TABLET PO PRN (15:00)
[2019-09-27] MEDS ORDERED: ONDANSETRON HCL 4 MG TABLET PO PRN (15:00)
[2019-09-27] MEDS: HALOPERIDOL 5 MG TABLET PO PRN (16:41)
[2019-09-27] MEDS: LORazepam 2 MG TABLET PO PRN (16:41)
[2019-09-27] MEDS: IBUPROFEN 600 MG TABLET PO PRN (17:42)
[2019-09-27 17:49] VITALS: BP 119/89
[2019-09-28] MEDS: HALOPERIDOL 5 MG TABLET PO PRN (03:17)
[2019-09-28] MEDS: LORazepam 2 MG TABLET PO PRN ×3 (03:17→18:49)
[2019-09-28 04:17] VITALS: BP 118/64
[2019-09-28 06:39] LABS: CHOL/HDL RATIO 3.9 (3.9-5.7); FREE T4 (FREE THYROXINE) 0.65 ng/dL (0.76-1.46)
[2019-09-28] MEDS ORDERED: DOCUSATE SODIUM 100 MG CAPSULE PO SCH (09:00)
[2019-09-28] MEDS ORDERED: OMEPRAZOLE 20 MG CAPSULE PO SCH (09:00)
[2019-09-28 09:23] VITALS: BP 149/100
[2019-09-28 19:04] VITALS: BP 130/89
[2019-09-28] MEDS: IBUPROFEN 600 MG TABLET PO PRN (19:10)
[2019-09-28] MEDS: QUEtiapine FUMARATE 200 MG TABLET PO SCH (20:29)
[2019-09-28] MEDS ORDERED: DOCUSATE SODIUM 100 MG CAPSULE PO PRN (22:15)
[2019-09-28] MEDS ORDERED: OMEPRAZOLE 20 MG CAPSULE PO PRN (22:15)
[2019-09-29] MEDS: QUEtiapine FUMARATE 25 MG TABLET PO SCH (08:52)
[2019-09-29] MEDS: LISINOPRIL 10 MG TABLET PO SCH (08:53)
[2019-09-29] MEDS: BuPROPion HCL XL 150 MG ER TABLET PO SCH (08:53)
[2019-09-29] MEDS: VERAPAMIL HCL 80 MG TABLET PO SCH ×2 (08:54→16:32)
[2019-09-29] MEDS: LORazepam 2 MG TABLET PO PRN ×2 (08:55→13:33)
[2019-09-29 09:58] VITALS: BP 131/78
[2019-09-29] MEDS: IBUPROFEN 600 MG TABLET PO PRN (15:18)
[2019-09-29] MEDS: QUEtiapine FUMARATE 200 MG TABLET PO SCH (20:14)
[2019-09-29] MEDS: ZOLPIDEM TARTRATE 10 MG TABLET PO PRN (21:46)
[2019-09-30] MEDS: LORazepam 2 MG TABLET PO PRN ×3 (01:34→17:18)
[2019-09-30 01:35] VITALS: BP 100/62
[2019-09-30] MEDS: IBUPROFEN 600 MG TABLET PO PRN (01:35)
[2019-09-30 08:25] VITALS: BP 108/63
[2019-09-30] MEDS: BuPROPion HCL XL 150 MG ER TABLET PO SCH (09:28)
[2019-09-30] MEDS: VERAPAMIL HCL 80 MG TABLET PO SCH ×2 (09:29→16:04)
[2019-09-30] MEDS: QUEtiapine FUMARATE 25 MG TABLET PO SCH (09:29)
[2019-09-30] MEDS: LISINOPRIL 10 MG TABLET PO SCH (09:29)
[2019-09-30 16:05] VITALS: BP 156/85
[2019-09-30 17:16] VITALS: BP 151/88
[2019-09-30] MEDS: QUEtiapine FUMARATE 200 MG TABLET PO SCH (20:41)
[2019-09-30] MEDS: ZOLPIDEM TARTRATE 10 MG TABLET PO PRN (21:44)
[2019-10-01 02:10] VITALS: BP 146/84
[2019-10-01] MEDS: LORazepam 2 MG TABLET PO PRN ×3 (02:16→17:18)
[2019-10-01] MEDS: IBUPROFEN 600 MG TABLET PO PRN ×2 (02:16→10:17)
[2019-10-01 08:00] VITALS: BP 131/75
[2019-10-01] MEDS: VERAPAMIL HCL 80 MG TABLET PO SCH ×2 (10:15→16:38)
[2019-10-01] MEDS: BuPROPion HCL XL 150 MG ER TABLET PO SCH (10:15)
[2019-10-01] MEDS: QUEtiapine FUMARATE 25 MG TABLET PO SCH (10:15)
[2019-10-01] MEDS: LISINOPRIL 20 MG TABLET PO SCH (10:16)
[2019-10-01 10:17] VITALS: BP 123/68
[2019-10-01 11:18] VITALS: BP 120/67
[2019-10-01 17:32] VITALS: BP 148/99
[2019-10-01] MEDS: QUEtiapine FUMARATE 200 MG TABLET PO SCH (20:06)
[2019-10-01] MEDS: ZOLPIDEM TARTRATE 10 MG TABLET PO PRN (20:07)
[2019-10-02] MEDS: VERAPAMIL HCL 80 MG TABLET PO SCH ×2 (08:11→16:11)
[2019-10-02] MEDS: LORazepam 2 MG TABLET PO PRN ×2 (08:18→12:23)
[2019-10-02] MEDS: LISINOPRIL 20 MG TABLET PO SCH (08:19)
[2019-10-02] MEDS: QUEtiapine FUMARATE 25 MG TABLET PO SCH (08:19)
[2019-10-02] MEDS: BuPROPion HCL XL 150 MG ER TABLET PO SCH (08:19)
[2019-10-02 08:25] VITALS: BP 155/98
[2019-10-02] MEDS ORDERED: QUET25TA PO (08:47)
[2019-10-02] MEDS ORDERED: BUPR-93 PO (08:47)
[2019-10-02] MEDS ORDERED: LISI-662 PO (08:56)
[2019-10-02] MEDS ORDERED: VERA40TA5 PO (09:40)
== END 2019-10-02 18:30 | disposition home or self-care (01) | DRG 750 ==
LOC: EMS 08:19 → 3EI 12:50
PROVIDERS: ADMIT Psychiatry & Neurology Psychiatry; ATTEND Psychiatry & Neurology Psychiatry
DX: F25.9 Schizoaffective disorder, unspecified (principal); R45.851 Suicidal ideations; K74.60 Unspecified cirrhosis of liver; E78.5 Hyperlipidemia, unspecified; Z53.20 Procedure and treatment not carried out because of patient's decision for unspecified reasons; Z88.6 Allergy status to analgesic agent; Z88.8 Allergy status to other drugs, medicaments and biological substances; F31.9 Bipolar disorder, unspecified; F41.9 Anxiety disorder, unspecified; I10 Essential (primary) hypertension; J45.909 Unspecified asthma, uncomplicated; K21.9 Gastro-esophageal reflux disease without esophagitis; Z90.710 Acquired absence of both cervix and uterus; Z79.899 Other long term (current) drug therapy
CPT/HCPCS: 84439; 84443; G0480

== ENCOUNTER 2019-10-10 09:33 | Emergency (ER) | payer MEDICARE, MEDICAID ==
[~2019-10-10] VITALS: Ht 165.1 cm; Wt 90.9 kg
[~2019-10-10 09:33] MED LIST changes: +BUPR-93 PO; -LISI-661 PO; +LISI-662 PO; -LORA-1000 PO; +QUET25TA PO; +VERA40TA5 PO; -VERA80 PO
[2019-10-10] MEDS ORDERED: LORA-1000 PO (09:53)
[2019-10-10] MEDS ORDERED: IBUPROFEN 600 MG TABLET PO ONE (13:15)
[2019-10-10 13:31] VITALS: BP 147/62
== END 2019-10-10 13:47 | disposition home or self-care (01) ==
LOC: EMS 09:36
DX: F29 Unspecified psychosis not due to a substance or known physiological condition (principal); F20.9 Schizophrenia, unspecified; G89.29 Other chronic pain; M54.5 Low back pain; I10 Essential (primary) hypertension; K74.60 Unspecified cirrhosis of liver; F11.10 Opioid abuse, uncomplicated; F10.20 Alcohol dependence, uncomplicated; F41.9 Anxiety disorder, unspecified; F31.9 Bipolar disorder, unspecified; Z90.49 Acquired absence of other specified parts of digestive tract; Z86.19 Personal history of other infectious and parasitic diseases; Z90.710 Acquired absence of both cervix and uterus

== ENCOUNTER 2019-10-12 14:15 | Emergency (ER) | payer MEDICARE, OTHER ==
[~2019-10-12] VITALS: Ht 165.1 cm; Wt 100.0 kg
[~2019-10-12 14:15] MED LIST changes: +LORA-1000 PO
[2019-10-12 16:22] LABS: BASOPHILS % (AUTO) 1.3 % (0.0-2.0); EOSINOPHILS % (AUTO) 2.7 % (1.0-6.0); HEMATOCRIT 38.4 % (36-46); HEMOGLOBIN 12.9 g/dL (12.0-16.0); LYMPHOCYTES # (AUTO) 4.2 K/uL (1.0-4.8); LYMPHOCYTES % (AUTO) 53.7 % (22.0-44.0); MEAN CORPUSCULAR HEMOGLOBIN 28.5 pg (26.0-34.0); MEAN CORPUSCULAR HGB CONC 33.7 G/dL (31.0-37.0); MEAN CORPUSCULAR VOLUME 85 fL (80-100); MONOCYTES # (AUTO) 0.5 K/uL (0.1-1.0); MONOCYTES % (AUTO) 6.7 % (2.0-9.0); NEUTROPHILS # (AUTO) 2.8 K/uL (1.8-7.7); NEUTROPHILS % (AUTO) 35.6 % (40.0-70.0); PLATELET COUNT (AUTO) 252 K/uL (150-450); RED BLOOD CELL COUNT(AUTO) 4.54 MIL/uL (4.00-5.20); RED CELL DISTRIBUTION WIDTH 15.3 % (11.5-14.5)
[2019-10-12 16:43] LABS: ANION GAP 6 mmol/L (8-16); CALCIUM, TOTAL 8.9 mg/dL (8.8-10.5); CARBON DIOXIDE 29 mmol/L (22-29); CHLORIDE 107 mmol/L (98-107); CREATININE 0.75 mg/dL (0.60-1.30); GLOMERULAR FILTR. RATE CALC > 60 mL/min (>60); GLUCOSE,RANDOM 95 mg/dL (70-110); POTASSIUM 3.7 mmol/L (3.5-5.1); SODIUM SERUM 142 mmol/L (136-145); UREA NITROGEN, BLOOD 11 mg/dL (7-18)
[2019-10-12 16:48] LABS: ALANINE AMINOTRANSFERASE 19 U/L (12-78); ALBUMIN 3.6 g/dL (3.4-5.0); ALKALINE PHOSPHATASE 99 U/L (46-116); ASPARTATE AMINOTRANSFERASE 20 U/L (15-37); BILIRUBIN,TOTAL 0.3 mg/dL (0.1-1.0); TOTAL PROTEIN, SERUM 8.2 g/dL (6.4-8.2)
[2019-10-12 19:16] LABS: APPEARANCE,URINE CLEAR (CLEAR); BILIRUBIN,URINE NEGATIVE (NEGATIVE); GLUCOSE, URINE (UA) NEGATIVE (NEGATIVE); KETONES,URINE NEGATIVE (NEGATIVE); LEUKOCYTE ESTERASE ,URINE SMALL (NEGATIVE); NITRATE,URINE NEGATIVE (NEGATIVE); OCCULT BLOOD,URINE NEGATIVE (NEGATIVE); PROTEIN,URINE NEGATIVE (NEGATIVE)
[2019-10-12 19:27] LABS: AMPHET/METH SCREEN,URINE NEGATIVE (NEGATIVE); BARBITURATE SCREEN, URINE NEGATIVE (NEGATIVE); BENZODIAZEPINES SCREEN,URINE NEGATIVE (NEGATIVE); CANNABINOID SCREEN,URINE POSITIVE (NEGATIVE); COCAINE SCREEN,URINE NEGATIVE (NEGATIVE); METHADONE SCREEN, URINE NEGATIVE (NEGATIVE); OPIATE SCREEN,URINE NEGATIVE (NEGATIVE)
[2019-10-12 19:28] LABS: PHENCYCLIDINE SCREEN,URINE NEGATIVE (NEGATIVE)
[2019-10-12 19:40] LABS: BACTERIA,URINE Rare /HPF (None Seen); CALCIUM OXALATE CRYSTALS,UR Rare /LPF (None Seen); RBC,URINE None Seen /HPF (0-2); SQUAMOUS EPITHELIAL CELL,UR Moderate /LPF (None Seen)
[2019-10-12] MEDS ORDERED: HALOPERIDOL 5 MG TABLET PO PRN (20:00)
[2019-10-12] MEDS ORDERED: ZOLPIDEM TARTRATE 10 MG TABLET PO PRN (20:00)
[2019-10-12] MEDS ORDERED: LORazepam 2 MG TABLET PO PRN (20:00)
[2019-10-12] MEDS ORDERED: QUEtiapine FUMARATE 200 MG TABLET PO SCH (21:00)
[2019-10-13 01:12] VITALS: BP 129/80
[2019-10-13] MEDS ORDERED: BuPROPion HCL XL 150 MG ER TABLET PO SCH (09:00)
[2019-10-13] MEDS ORDERED: QUEtiapine FUMARATE 25 MG TABLET PO SCH (09:00)
== END 2019-10-13 03:19 | disposition short-term general hospital (02) ==
LOC: EMS 14:18
DX: F25.9 Schizoaffective disorder, unspecified (principal); F19.90 Other psychoactive substance use, unspecified, uncomplicated; I10 Essential (primary) hypertension; Z90.49 Acquired absence of other specified parts of digestive tract; Z90.710 Acquired absence of both cervix and uterus; Z88.5 Allergy status to narcotic agent; Z88.6 Allergy status to analgesic agent; Z88.8 Allergy status to other drugs, medicaments and biological substances
CPT/HCPCS: 36415; 80053; 80307; 81001; 85025; 99285; G0480

== ENCOUNTER 2019-11-18 13:19 | Emergency (ER) | payer MEDICARE, OTHER ==
[~2019-11-18] VITALS: Ht 165.1 cm; Wt 106.8 kg
[2019-11-18] MEDS ORDERED: LORazepam 1 MG TABLET PO ONE ×2 (15:00→15:45)
[2019-11-18 15:02] LABS: BASOPHILS % (AUTO) 0.7 % (0.0-2.0); EOSINOPHILS % (AUTO) 2.5 % (1.0-6.0); HEMATOCRIT 39.3 % (36-46); HEMOGLOBIN 13.2 g/dL (12.0-16.0); LYMPHOCYTES # (AUTO) 3.6 K/uL (1.0-4.8); LYMPHOCYTES % (AUTO) 53.5 % (22.0-44.0); MEAN CORPUSCULAR HEMOGLOBIN 28.5 pg (26.0-34.0); MEAN CORPUSCULAR HGB CONC 33.5 G/dL (31.0-37.0); MEAN CORPUSCULAR VOLUME 85 fL (80-100); MONOCYTES # (AUTO) 0.5 K/uL (0.1-1.0); MONOCYTES % (AUTO) 7.4 % (2.0-9.0); NEUTROPHILS # (AUTO) 2.4 K/uL (1.8-7.7); NEUTROPHILS % (AUTO) 35.9 % (40.0-70.0); PLATELET COUNT (AUTO) 246 K/uL (150-450); RED BLOOD CELL COUNT(AUTO) 4.62 MIL/uL (4.00-5.20); RED CELL DISTRIBUTION WIDTH 15.1 % (11.5-14.5)
[2019-11-18 15:14] LABS: ANION GAP 9 mmol/L (8-16); CALCIUM, TOTAL 9.1 mg/dL (8.8-10.5); CARBON DIOXIDE 27 mmol/L (22-29); CHLORIDE 105 mmol/L (98-107); CREATININE 0.75 mg/dL (0.60-1.30); GLOMERULAR FILTR. RATE CALC > 60 mL/min (>60); GLUCOSE,RANDOM 92 mg/dL (70-110); POTASSIUM 3.6 mmol/L (3.5-5.1); SODIUM SERUM 141 mmol/L (136-145); UREA NITROGEN, BLOOD 14 mg/dL (7-18)
[2019-11-18 15:19] LABS: ALANINE AMINOTRANSFERASE 19 U/L (12-78); ALBUMIN 3.7 g/dL (3.4-5.0); ALKALINE PHOSPHATASE 104 U/L (46-116); ASPARTATE AMINOTRANSFERASE 23 U/L (15-37); BILIRUBIN,TOTAL 0.2 mg/dL (0.1-1.0); TOTAL PROTEIN, SERUM 8.2 g/dL (6.4-8.2)
[2019-11-18 15:56] VITALS: BP 150/102
== END 2019-11-18 16:23 | disposition home or self-care (01) ==
LOC: EMS 13:21
DX: F41.9 Anxiety disorder, unspecified (principal); I10 Essential (primary) hypertension; K74.60 Unspecified cirrhosis of liver; F31.9 Bipolar disorder, unspecified; F10.20 Alcohol dependence, uncomplicated; F20.9 Schizophrenia, unspecified; F11.10 Opioid abuse, uncomplicated; Z79.899 Other long term (current) drug therapy; Z86.19 Personal history of other infectious and parasitic diseases; Z90.49 Acquired absence of other specified parts of digestive tract; Z90.710 Acquired absence of both cervix and uterus; Z98.890 Other specified postprocedural states; Z88.1 Allergy status to other antibiotic agents; Z88.5 Allergy status to narcotic agent; Z88.6 Allergy status to analgesic agent; Z88.8 Allergy status to other drugs, medicaments and biological substances

== ENCOUNTER 2019-11-19 14:29 | Emergency (ER) | payer MEDICARE, OTHER ==
[~2019-11-19] VITALS: Ht 165.1 cm; Wt 100.0 kg
[2019-11-19 17:15] VITALS: BP 140/96
[2019-11-19] MEDS ORDERED: HALOPERIDOL 5 MG TABLET PO PRN ×2 (19:45→20:45)
[2019-11-19] MEDS ORDERED: LORazepam 2 MG TABLET PO PRN ×2 (19:45→20:45)
[2019-11-19] MEDS ORDERED: ZOLPIDEM TARTRATE 10 MG TABLET PO PRN ×2 (19:45→20:45)
[2019-11-19] MEDS ORDERED: VERAPAMIL HCL 80 MG TABLET PO SCH (21:11)
[2019-11-19] MEDS ORDERED: NICOTINE 14 MG/24 HOUR PATCH TD PRN (21:15)
[2019-11-19] MEDS ORDERED: CloNIDine HCL 0.1 MG TABLET PO PRN (21:15)
[2019-11-19] MEDS ORDERED: DOCUSATE SODIUM 100 MG CAPSULE PO PRN (21:15)
[2019-11-19] MEDS ORDERED: GuaiFENesin/D-METHORPHAN [SUGAR-FREE] 200-20MG/10 ML SYRUP UDCUP PO PRN (21:15)
[2019-11-19] MEDS ORDERED: MAG HYDROX/AL HYDROX/SIMETH ES 30 ML SUSPENSION UDCUP PO PRN (21:15)
[2019-11-19] MEDS ORDERED: MAGNESIUM HYDROXIDE SUSPENSION 30 ML UDCUP PO PRN (21:15)
[2019-11-19] MEDS ORDERED: IBUPROFEN 400 MG TABLET PO PRN (21:15)
[2019-11-19] MEDS ORDERED: ONDANSETRON HCL 4 MG TABLET PO PRN (21:15)
[2019-11-19] MEDS ORDERED: LOPERAMIDE HCL 2 MG CAPSULE PO PRN (21:15)
[2019-11-19] MEDS ORDERED: PETROLATUM,WHITE 28 GM JELLY TP PRN (21:15)
[2019-11-19] MEDS ORDERED: ALBUTEROL SULFATE HFA 90 MCG/PUFF 8 GM INHALER IH PRN (21:15)
[2019-11-20] MEDS ORDERED: LISINOPRIL 20 MG TABLET PO SCH (09:00)
[2019-11-20] MEDS ORDERED: VERAPAMIL HCL 80 MG TABLET PO SCH (09:00)
== END 2019-11-19 23:22 | disposition left against medical advice (07) ==
LOC: EMS 14:31
DX: F20.9 Schizophrenia, unspecified (principal); F10.20 Alcohol dependence, uncomplicated; F41.9 Anxiety disorder, unspecified; F31.9 Bipolar disorder, unspecified; I10 Essential (primary) hypertension; F11.10 Opioid abuse, uncomplicated; Z86.19 Personal history of other infectious and parasitic diseases; Z90.49 Acquired absence of other specified parts of digestive tract; Z90.710 Acquired absence of both cervix and uterus; Z98.890 Other specified postprocedural states; Z88.5 Allergy status to narcotic agent; Z88.1 Allergy status to other antibiotic agents; Z88.8 Allergy status to other drugs, medicaments and biological substances; Z88.6 Allergy status to analgesic agent

== ENCOUNTER 2020-02-11 09:59 | Emergency (ER) | payer MEDICARE, OTHER ==
[~2020-02-11] VITALS: Ht 165.1 cm; Wt 100.0 kg
[2020-02-11 10:18] VITALS: BP 122/82
[2020-02-11] MEDS ORDERED: LORazepam 1 MG TABLET PO ONE (10:30)
== END 2020-02-11 12:25 | disposition home or self-care (01) ==
LOC: EMS 10:00
DX: F41.9 Anxiety disorder, unspecified (principal); F31.9 Bipolar disorder, unspecified; J45.909 Unspecified asthma, uncomplicated; F20.9 Schizophrenia, unspecified; I10 Essential (primary) hypertension; F13.10 Sedative, hypnotic or anxiolytic abuse, uncomplicated; Z90.89 Acquired absence of other organs; Z90.710 Acquired absence of both cervix and uterus; Z88.6 Allergy status to analgesic agent; Z88.5 Allergy status to narcotic agent; Z88.8 Allergy status to other drugs, medicaments and biological substances

== ENCOUNTER 2020-02-29 15:29 | Emergency (ER) | payer MEDICARE, OTHER ==
[~2020-02-29] VITALS: Ht 165.1 cm; Wt 100.0 kg
[~2020-02-29 15:29] MED LIST changes: +ATEN-187 PO; -LORA-1000 PO
[2020-02-29 17:27] LABS: BASOPHILS % (AUTO) 0.6 % (0.0-2.0); EOSINOPHILS % (AUTO) 3.3 % (1.0-6.0); HEMOGLOBIN 12.5 g/dL (12.0-16.0); LYMPHOCYTES # (AUTO) 2.8 K/uL (1.0-4.8); LYMPHOCYTES % (AUTO) 48.3 % (22.0-44.0); MEAN CORPUSCULAR HEMOGLOBIN 27.8 pg (26.0-34.0); MEAN CORPUSCULAR HGB CONC 32.9 G/dL (31.0-37.0); MEAN CORPUSCULAR VOLUME 85 fL (80-100); MONOCYTES # (AUTO) 0.7 K/uL (0.1-1.0); MONOCYTES % (AUTO) 12.5 % (2.0-9.0); NEUTROPHILS % (AUTO) 35.3 % (40.0-70.0); PLATELET COUNT (AUTO) 227 K/uL (150-450); RED BLOOD CELL COUNT(AUTO) 4.49 MIL/uL (4.00-5.20); RED CELL DISTRIBUTION WIDTH 14.8 % (11.5-14.5)
[2020-02-29] MEDS ORDERED: SODIUM CHLORIDE 0.9% 500 ML IV ONE (17:30)
[2020-02-29 17:40] LABS: ANION GAP 14 mmol/L (8-16); CALCIUM, TOTAL 8.6 mg/dL (8.8-10.5); CARBON DIOXIDE 23 mmol/L (22-29); CHLORIDE 106 mmol/L (98-107); CREATININE 0.66 mg/dL (0.60-1.30); GLOMERULAR FILTR. RATE CALC > 60 mL/min (>60); GLUCOSE,RANDOM 91 mg/dL (70-110); POTASSIUM 3.7 mmol/L (3.5-5.1); SODIUM SERUM 143 mmol/L (136-145); UREA NITROGEN, BLOOD 8 mg/dL (7-18)
[2020-02-29 17:46] LABS: ALANINE AMINOTRANSFERASE 20 U/L (12-78); ALBUMIN 3.3 g/dL (3.4-5.0); ALKALINE PHOSPHATASE 111 U/L (46-116); ASPARTATE AMINOTRANSFERASE 18 U/L (15-37); BILIRUBIN,TOTAL 0.2 mg/dL (0.1-1.0); LIPASE 125 U/L (73-393); TOTAL PROTEIN, SERUM 7.8 g/dL (6.4-8.2)
[2020-02-29 17:59] LABS: APPEARANCE,URINE CLEAR (CLEAR); BILIRUBIN,URINE NEGATIVE (NEGATIVE); GLUCOSE, URINE (UA) NEGATIVE (NEGATIVE); KETONES,URINE NEGATIVE (NEGATIVE); LEUKOCYTE ESTERASE ,URINE TRACE (NEGATIVE); NITRATE,URINE NEGATIVE (NEGATIVE); OCCULT BLOOD,URINE NEGATIVE (NEGATIVE); PROTEIN,URINE NEGATIVE (NEGATIVE)
[2020-02-29 18:22] LABS: RBC,URINE None Seen /HPF (0-2)
[2020-02-29 18:23] LABS: BACTERIA,URINE None Seen /HPF (None Seen); SQUAMOUS EPITHELIAL CELL,UR Few /LPF (None Seen)
[2020-02-29 19:28] VITALS: BP 140/79
== END 2020-02-29 19:55 | disposition home or self-care (01) ==
LOC: EMS 15:32
DX: R19.7 Diarrhea, unspecified (principal); J45.909 Unspecified asthma, uncomplicated; F31.9 Bipolar disorder, unspecified; F20.9 Schizophrenia, unspecified; I10 Essential (primary) hypertension; F11.90 Opioid use, unspecified, uncomplicated; Z90.89 Acquired absence of other organs; Z90.710 Acquired absence of both cervix and uterus; Z88.6 Allergy status to analgesic agent; Z88.5 Allergy status to narcotic agent; Z88.1 Allergy status to other antibiotic agents; Z79.899 Other long term (current) drug therapy
CPT/HCPCS: 36415; 80053; 81001; 83690; 85025; 96360; 99284; J7040

== ENCOUNTER 2020-03-18 15:37 | Emergency (ER) | payer MEDICARE, OTHER ==
[~2020-03-18] VITALS: Ht 165.1 cm; Wt 97.7 kg
[2020-03-18 18:40] VITALS: BP 133/81
== END 2020-03-18 18:55 | disposition home or self-care (01) ==
LOC: EMS 15:37
DX: J02.9 Acute pharyngitis, unspecified (principal); F41.9 Anxiety disorder, unspecified; J45.909 Unspecified asthma, uncomplicated; F31.9 Bipolar disorder, unspecified; I10 Essential (primary) hypertension; F20.9 Schizophrenia, unspecified; F13.10 Sedative, hypnotic or anxiolytic abuse, uncomplicated; Z90.710 Acquired absence of both cervix and uterus; Z90.79 Acquired absence of other genital organ(s); Z88.6 Allergy status to analgesic agent; Z88.5 Allergy status to narcotic agent; Z88.1 Allergy status to other antibiotic agents; Z88.8 Allergy status to other drugs, medicaments and biological substances

== ENCOUNTER 2020-03-21 13:20 | Emergency (ER) | payer MEDICARE, OTHER ==
[~2020-03-21] VITALS: Ht 165.1 cm; Wt 105.0 kg
[2020-03-21 13:28] VITALS: BP 140/72
[2020-03-21 15:00] LABS: BASOPHILS % (AUTO) 0.9 % (0.0-2.0); EOSINOPHILS % (AUTO) 1.8 % (1.0-6.0); HEMATOCRIT 42.4 % (36-46); HEMOGLOBIN 14.1 g/dL (12.0-16.0); LYMPHOCYTES # (AUTO) 3.2 K/uL (1.0-4.8); LYMPHOCYTES % (AUTO) 44.9 % (22.0-44.0); MEAN CORPUSCULAR HEMOGLOBIN 28.1 pg (26.0-34.0); MEAN CORPUSCULAR HGB CONC 33.1 G/dL (31.0-37.0); MEAN CORPUSCULAR VOLUME 85 fL (80-100); MONOCYTES # (AUTO) 0.5 K/uL (0.1-1.0); MONOCYTES % (AUTO) 6.6 % (2.0-9.0); NEUTROPHILS # (AUTO) 3.3 K/uL (1.8-7.7); NEUTROPHILS % (AUTO) 45.8 % (40.0-70.0); PLATELET COUNT (AUTO) 319 K/uL (150-450); RED CELL DISTRIBUTION WIDTH 14.8 % (11.5-14.5)
[2020-03-21 15:28] LABS: ANION GAP 12 mmol/L (8-16); CALCIUM, TOTAL 9.9 mg/dL (8.8-10.5); CARBON DIOXIDE 26 mmol/L (22-29); CHLORIDE 105 mmol/L (98-107); GLOMERULAR FILTR. RATE CALC > 60 mL/min (>60); GLUCOSE,RANDOM 89 mg/dL (70-110); POTASSIUM 3.8 mmol/L (3.5-5.1); SODIUM SERUM 143 mmol/L (136-145); UREA NITROGEN, BLOOD 11 mg/dL (7-18)
[2020-03-21 15:32] LABS: ALANINE AMINOTRANSFERASE 25 U/L (12-78); ALKALINE PHOSPHATASE 115 U/L (46-116); ASPARTATE AMINOTRANSFERASE 26 U/L (15-37); BILIRUBIN,TOTAL 0.3 mg/dL (0.1-1.0); TOTAL PROTEIN, SERUM 9.1 g/dL (6.4-8.2)
[2020-03-21] MEDS ORDERED: LORazepam 2 MG TABLET PO ONE (17:45)
== END 2020-03-21 18:28 | disposition home or self-care (01) ==
LOC: EMS 13:23
DX: F41.9 Anxiety disorder, unspecified (principal); F19.90 Other psychoactive substance use, unspecified, uncomplicated; F32.9 Major depressive disorder, single episode, unspecified; I10 Essential (primary) hypertension; F20.9 Schizophrenia, unspecified; J45.909 Unspecified asthma, uncomplicated; Z88.5 Allergy status to narcotic agent; Z88.6 Allergy status to analgesic agent; Z88.8 Allergy status to other drugs, medicaments and biological substances; Z79.899 Other long term (current) drug therapy
CPT/HCPCS: 80053; 85025; 99283; G0480

== ENCOUNTER 2020-04-22 15:58 | Emergency (ER) | payer MEDICARE, OTHER ==
[~2020-04-22] VITALS: Ht 167.6 cm; Wt 104.5 kg
[2020-04-22] MEDS ORDERED: LORazepam 1 MG TABLET PO ONE ×2 (17:15→19:15)
[2020-04-22] MEDS ORDERED: IBUPROFEN 600 MG TABLET PO ONE (18:30)
[2020-04-22 19:23] VITALS: BP 132/80
== END 2020-04-22 19:23 | disposition home or self-care (01) ==
LOC: EMS 15:59
DX: F41.9 Anxiety disorder, unspecified (principal); F31.9 Bipolar disorder, unspecified; I10 Essential (primary) hypertension; F20.9 Schizophrenia, unspecified; J45.909 Unspecified asthma, uncomplicated; F13.10 Sedative, hypnotic or anxiolytic abuse, uncomplicated; Z90.710 Acquired absence of both cervix and uterus; Z90.79 Acquired absence of other genital organ(s); Z88.6 Allergy status to analgesic agent; Z88.5 Allergy status to narcotic agent; Z88.8 Allergy status to other drugs, medicaments and biological substances

== ENCOUNTER 2020-05-18 23:31 | Emergency (ER) | payer MEDICARE, OTHER ==
[~2020-05-18] VITALS: Ht 165.1 cm; Wt 90.9 kg
[~2020-05-18 23:31] MED LIST changes: +QUET400T12 PO; +RISP0.5T20 PO
[2020-05-18 23:54] VITALS: BP 123/58
== END 2020-05-19 03:10 | disposition left against medical advice (07) ==
LOC: EMS 23:32
DX: F41.9 Anxiety disorder, unspecified (principal); Z53.21 Procedure and treatment not carried out due to patient leaving prior to being seen by health care provider

== ENCOUNTER 2020-05-21 15:44 | Emergency (ER) | payer MEDICARE, OTHER ==
[~2020-05-21] VITALS: Ht 165.1 cm; Wt 104.5 kg
[~2020-05-21 15:44] MED LIST changes: -ATEN-187 PO; -QUET200T PO; -RISP0.5T20 PO
[2020-05-21 17:43] LABS: BASOPHILS % (AUTO) 0.7 % (0.0-2.0); EOSINOPHILS % (AUTO) 3.7 % (1.0-6.0); HEMATOCRIT 39.4 % (36-46); LYMPHOCYTES # (AUTO) 3.3 K/uL (1.0-4.8); LYMPHOCYTES % (AUTO) 48.6 % (22.0-44.0); MEAN CORPUSCULAR HGB CONC 33.1 G/dL (31.0-37.0); MEAN CORPUSCULAR VOLUME 85 fL (80-100); MONOCYTES # (AUTO) 0.6 K/uL (0.1-1.0); MONOCYTES % (AUTO) 8.6 % (2.0-9.0); NEUTROPHILS # (AUTO) 2.6 K/uL (1.8-7.7); NEUTROPHILS % (AUTO) 38.4 % (40.0-70.0); PLATELET COUNT (AUTO) 258 K/uL (150-450); RED BLOOD CELL COUNT(AUTO) 4.65 MIL/uL (4.00-5.20); RED CELL DISTRIBUTION WIDTH 14.9 % (11.5-14.5)
[2020-05-21 17:52] LABS: ANION GAP 8 mmol/L (8-16); CALCIUM, TOTAL 8.9 mg/dL (8.8-10.5); CARBON DIOXIDE 27 mmol/L (22-29); CHLORIDE 107 mmol/L (98-107); CREATININE 0.76 mg/dL (0.60-1.30); GLOMERULAR FILTR. RATE CALC > 60 mL/min (>60); GLUCOSE,RANDOM 103 mg/dL (70-110); SODIUM SERUM 142 mmol/L (136-145); UREA NITROGEN, BLOOD 12 mg/dL (7-18)
[2020-05-21 17:57] LABS: ALANINE AMINOTRANSFERASE 39 U/L (12-78); ALBUMIN 3.7 g/dL (3.4-5.0); ALKALINE PHOSPHATASE 119 U/L (46-116); ASPARTATE AMINOTRANSFERASE 34 U/L (15-37); BILIRUBIN,TOTAL 0.2 mg/dL (0.1-1.0); TOTAL PROTEIN, SERUM 8.8 g/dL (6.4-8.2)
[2020-05-21] MEDS ORDERED: LORazepam 1 MG TABLET PO ONE (18:15)
[2020-05-21 19:43] VITALS: BP 126/84
== END 2020-05-21 19:43 | disposition home or self-care (01) ==
LOC: EMS 15:45
DX: F41.9 Anxiety disorder, unspecified (principal); F31.9 Bipolar disorder, unspecified; J45.909 Unspecified asthma, uncomplicated; F20.9 Schizophrenia, unspecified; I10 Essential (primary) hypertension; F13.10 Sedative, hypnotic or anxiolytic abuse, uncomplicated; Z90.710 Acquired absence of both cervix and uterus; Z90.89 Acquired absence of other organs; Z79.899 Other long term (current) drug therapy; Z88.6 Allergy status to analgesic agent; Z88.1 Allergy status to other antibiotic agents; Z91.012 Allergy to eggs; Z91.011 Allergy to milk products; Z88.5 Allergy status to narcotic agent; Z91.013 Allergy to seafood
CPT/HCPCS: 36415; 80053; 85025; 99284; G0480

== ENCOUNTER 2020-05-28 15:26 | Emergency (ER) | payer MEDICARE, OTHER ==
[~2020-05-28] VITALS: Ht 165.1 cm; Wt 102.3 kg
[2020-05-28 15:34] VITALS: BP 125/82
[2020-05-28] MEDS ORDERED: LORazepam 1 MG TABLET PO ONE (17:00)
== END 2020-05-28 17:55 | disposition left against medical advice (07) ==
LOC: EMS 15:31
DX: F41.9 Anxiety disorder, unspecified (principal); J45.909 Unspecified asthma, uncomplicated; F31.9 Bipolar disorder, unspecified; I10 Essential (primary) hypertension; F20.9 Schizophrenia, unspecified; F13.10 Sedative, hypnotic or anxiolytic abuse, uncomplicated; Z76.0 Encounter for issue of repeat prescription; Z90.710 Acquired absence of both cervix and uterus; Z90.89 Acquired absence of other organs; Z88.8 Allergy status to other drugs, medicaments and biological substances; Z88.6 Allergy status to analgesic agent; Z88.1 Allergy status to other antibiotic agents; Z91.011 Allergy to milk products; Z88.5 Allergy status to narcotic agent; Z91.013 Allergy to seafood; Z79.899 Other long term (current) drug therapy

== ENCOUNTER 2020-07-23 10:36 | Emergency (ER) | payer MEDICARE, OTHER ==
[~2020-07-23] VITALS: Ht 165.1 cm; Wt 90.9 kg
[~2020-07-23 10:36] MED LIST changes: -BUPR-93 PO; +QUET200T29 PO; -QUET25TA PO; -QUET400T12 PO; -VERA40TA5 PO
[2020-07-23 11:44] VITALS: BP 141/76
[2020-07-23] MEDS ORDERED: ALBUTEROL SULFATE HFA 90 MCG/PUFF 8 GM INHALER IH ONE (11:45)
== END 2020-07-23 11:47 | disposition home or self-care (01) ==
LOC: EMS 10:38
DX: J45.909 Unspecified asthma, uncomplicated (principal); F41.9 Anxiety disorder, unspecified; F31.9 Bipolar disorder, unspecified; I10 Essential (primary) hypertension; F20.9 Schizophrenia, unspecified; F13.10 Sedative, hypnotic or anxiolytic abuse, uncomplicated; Z90.89 Acquired absence of other organs; Z90.710 Acquired absence of both cervix and uterus; Z88.8 Allergy status to other drugs, medicaments and biological substances; Z88.6 Allergy status to analgesic agent; Z88.1 Allergy status to other antibiotic agents; Z91.012 Allergy to eggs; Z91.011 Allergy to milk products; Z91.013 Allergy to seafood; Z79.899 Other long term (current) drug therapy
CPT/HCPCS: 94640; J3535

== ENCOUNTER 2020-08-06 12:23 | Inpatient (IN) | payer MEDICARE, MEDICAID ==
[~2020-08-06] VITALS: Ht 165.1 cm; Wt 104.4 kg
[2020-08-06 13:27] LABS: BASOPHILS % (AUTO) 0.9 % (0.0-2.0); EOSINOPHILS % (AUTO) 2.2 % (1.0-6.0); HEMATOCRIT 42.4 % (36-46); HEMOGLOBIN 14.3 g/dL (12.0-16.0); LYMPHOCYTES # (AUTO) 2.9 K/uL (1.0-4.8); MEAN CORPUSCULAR HEMOGLOBIN 28.5 pg (26.0-34.0); MEAN CORPUSCULAR HGB CONC 33.7 G/dL (31.0-37.0); MEAN CORPUSCULAR VOLUME 84 fL (80-100); MONOCYTES # (AUTO) 0.5 K/uL (0.1-1.0); NEUTROPHILS # (AUTO) 2.6 K/uL (1.8-7.7); NEUTROPHILS % (AUTO) 41.9 % (40.0-70.0); PLATELET COUNT (AUTO) 260 K/uL (150-450); RED BLOOD CELL COUNT(AUTO) 5.02 MIL/uL (4.00-5.20); RED CELL DISTRIBUTION WIDTH 14.8 % (11.5-14.5)
[2020-08-06 16:11] LABS: ANION GAP 12 mmol/L (8-16); CALCIUM, TOTAL 9.8 mg/dL (8.8-10.5); CARBON DIOXIDE 26 mmol/L (22-29); CHLORIDE 107 mmol/L (98-107); CREATININE 0.76 mg/dL (0.60-1.30); GLOMERULAR FILTR. RATE CALC > 60 mL/min (>60); GLUCOSE,RANDOM 103 mg/dL (70-110); POTASSIUM 3.3 mmol/L (3.5-5.1); SODIUM SERUM 145 mmol/L (136-145); UREA NITROGEN, BLOOD 9 mg/dL (7-18)
[2020-08-06 16:15] LABS: ALANINE AMINOTRANSFERASE 23 U/L (12-78); ALBUMIN 3.9 g/dL (3.4-5.0); ALKALINE PHOSPHATASE 114 U/L (46-116); ASPARTATE AMINOTRANSFERASE 22 U/L (15-37); BILIRUBIN,TOTAL 0.3 mg/dL (0.1-1.0); TOTAL PROTEIN, SERUM 7.8 g/dL (6.4-8.2)
[2020-08-06 16:46] LABS: COVID AG,FIA SOURCE NASOPHARYNGEAL
[2020-08-06] MEDS ORDERED: PNEUMOCOCCAL VACCINE POLYVALENT 0.5 ML VIAL [PPSV23] IM ONE (21:30)
[2020-08-06] MEDS: ZOLPIDEM TARTRATE 10 MG TABLET PO PRN (22:08)
[2020-08-06 22:33] VITALS: BP 139/81
[2020-08-06] MEDS ORDERED: POTASSIUM CHLORIDE 20 MEQ ER TABLET PO ONE (22:45)
[2020-08-06] MEDS: LORazepam 2 MG TABLET PO PRN (22:57)
[2020-08-07 06:10] VITALS: BP 118/60
[2020-08-07] MEDS ORDERED: OMEPRAZOLE 20 MG CAPSULE PO PRN (07:00)
[2020-08-07] MEDS ORDERED: BENZOCAINE/MENTHOL LOZENGE PO PRN (07:00)
[2020-08-07] MEDS ORDERED: CloNIDine HCL 0.1 MG TABLET PO PRN (07:00)
[2020-08-07] MEDS ORDERED: DOCUSATE SODIUM 100 MG CAPSULE PO PRN (07:00)
[2020-08-07] MEDS ORDERED: ALBUTEROL SULFATE HFA 90 MCG/PUFF 8 GM INHALER IH PRN (07:00)
[2020-08-07] MEDS ORDERED: PETROLATUM,WHITE 28 GM JELLY TP PRN (07:00)
[2020-08-07] MEDS ORDERED: BACITRACIN 28 GM OINTMENT TP PRN (07:00)
[2020-08-07] MEDS ORDERED: MAGNESIUM HYDROXIDE SUSPENSION 30 ML UDCUP PO PRN (07:00)
[2020-08-07 08:06] VITALS: BP 111/62
[2020-08-07] MEDS: LISINOPRIL 20 MG TABLET PO SCH (08:29)
[2020-08-07] MEDS: LORazepam 2 MG TABLET PO PRN ×3 (09:21→19:53)
[2020-08-07 16:13] VITALS: BP 143/90
[2020-08-07] MEDS: QUEtiapine FUMARATE 200 MG TABLET PO SCH (20:24)
[2020-08-07] MEDS: ZOLPIDEM TARTRATE 10 MG TABLET PO PRN (21:21)
[2020-08-08 05:16] VITALS: BP 116/72
[2020-08-08 08:29] VITALS: BP 148/93
[2020-08-08] MEDS: LORazepam 2 MG TABLET PO PRN ×3 (08:29→17:02)
[2020-08-08] MEDS: LISINOPRIL 20 MG TABLET PO SCH (08:29)
[2020-08-08 16:25] VITALS: BP 154/100
[2020-08-08 19:04] VITALS: BP 129/83
[2020-08-08] MEDS: ZOLPIDEM TARTRATE 10 MG TABLET PO PRN (20:17)
[2020-08-08] MEDS: QUEtiapine FUMARATE 200 MG TABLET PO SCH (20:17)
[2020-08-09] MEDS: LORazepam 2 MG TABLET PO PRN ×3 (01:32→16:10)
[2020-08-09 01:36] VITALS: BP 107/64
[2020-08-09 09:55] VITALS: BP 111/65
[2020-08-09] MEDS: LISINOPRIL 20 MG TABLET PO SCH (09:56)
[2020-08-09 16:28] VITALS: BP 140/90
[2020-08-09] MEDS: QUEtiapine FUMARATE 200 MG TABLET PO SCH (21:33)
[2020-08-09] MEDS: ZOLPIDEM TARTRATE 10 MG TABLET PO PRN (22:48)
[2020-08-10 00:50] VITALS: BP 146/92
[2020-08-10] MEDS: LORazepam 2 MG TABLET PO PRN ×4 (00:52→16:46)
[2020-08-10 06:47] VITALS: BP 146/92
[2020-08-10 07:59] LABS: BASOPHILS % (AUTO) 0.4 % (0.0-2.0); EOSINOPHILS % (AUTO) 3.3 % (1.0-6.0); HEMATOCRIT 38.5 % (36-46); HEMOGLOBIN 12.8 g/dL (12.0-16.0); LYMPHOCYTES # (AUTO) 3.6 K/uL (1.0-4.8); LYMPHOCYTES % (AUTO) 64.5 % (22.0-44.0); MEAN CORPUSCULAR HEMOGLOBIN 28.2 pg (26.0-34.0); MEAN CORPUSCULAR HGB CONC 33.3 G/dL (31.0-37.0); MEAN CORPUSCULAR VOLUME 85 fL (80-100); MONOCYTES # (AUTO) 0.6 K/uL (0.1-1.0); MONOCYTES % (AUTO) 9.9 % (2.0-9.0); NEUTROPHILS # (AUTO) 1.2 K/uL (1.8-7.7); NEUTROPHILS % (AUTO) 21.9 % (40.0-70.0); PLATELET COUNT (AUTO) 245 K/uL (150-450); RED BLOOD CELL COUNT(AUTO) 4.55 MIL/uL (4.00-5.20); RED CELL DISTRIBUTION WIDTH 14.8 % (11.5-14.5)
[2020-08-10 08:12] VITALS: BP 136/73
[2020-08-10 08:23] LABS: ALANINE AMINOTRANSFERASE 21 U/L (12-78); ALBUMIN 3.1 g/dL (3.4-5.0); ALKALINE PHOSPHATASE 92 U/L (46-116); ANION GAP 9 mmol/L (8-16); ASPARTATE AMINOTRANSFERASE 21 U/L (15-37); BILIRUBIN,TOTAL 0.3 mg/dL (0.1-1.0); CALCIUM, TOTAL 8.3 mg/dL (8.8-10.5); CARBON DIOXIDE 26 mmol/L (22-29); CHLORIDE 106 mmol/L (98-107); CHOL/HDL RATIO 5.1 (3.9-5.7); CHOLESTEROL 159 mg/dL (131-200); CREATININE 0.54 mg/dL (0.60-1.30); FREE T4 (FREE THYROXINE) 0.72 ng/dL (0.76-1.46); GLOMERULAR FILTR. RATE CALC > 60 mL/min (>60); GLUCOSE,RANDOM 87 mg/dL (70-110); HCG,QUANTITATIVE 2 mIU/mL (0-6); HDL CHOLESTEROL 31 mg/dL (40-60); LDL CHOL (CALC.) 114 mg/dL (0-130); POTASSIUM 3.6 mmol/L (3.5-5.1); SODIUM SERUM 141 mmol/L (136-145); TRIGLYCERIDES 71 mg/dL (15-150); UREA NITROGEN, BLOOD 9 mg/dL (7-18)
[2020-08-10] MEDS: LISINOPRIL 20 MG TABLET PO SCH (08:31)
[2020-08-10] MEDS: MAG HYDROX/AL HYDROX/SIMETH ES 30 ML SUSPENSION UDCUP PO PRN (08:44)
[2020-08-10 16:15] VITALS: BP 151/90
[2020-08-10] MEDS: QUEtiapine FUMARATE 200 MG TABLET PO SCH (20:28)
[2020-08-11 00:45] VITALS: BP 139/88
[2020-08-11] MEDS: ZOLPIDEM TARTRATE 10 MG TABLET PO PRN ×2 (00:54→20:34)
[2020-08-11] MEDS: LORazepam 2 MG TABLET PO PRN ×4 (01:56→21:36)
[2020-08-11] MEDS: HALOPERIDOL 5 MG TABLET PO PRN ×2 (03:32→22:30)
[2020-08-11 08:39] VITALS: BP 118/78
[2020-08-11] MEDS: LISINOPRIL 20 MG TABLET PO SCH (09:29)
[2020-08-11 16:09] VITALS: BP 140/81
[2020-08-11] MEDS: QUEtiapine FUMARATE 200 MG TABLET PO SCH (21:00)
[2020-08-12] MEDS: LORazepam 2 MG TABLET PO PRN ×4 (05:52→22:53)
[2020-08-12 05:54] VITALS: BP 131/80
[2020-08-12 09:02] VITALS: BP 141/74
[2020-08-12] MEDS: LISINOPRIL 20 MG TABLET PO SCH (09:06)
[2020-08-12] MEDS ORDERED: QUEtiapine FUMARATE 100 MG TABLET PO PRN (14:45)
[2020-08-12 16:06] VITALS: BP 148/86
[2020-08-12] MEDS: QUEtiapine FUMARATE 25 MG TABLET PO SCH (17:00)
[2020-08-12] MEDS: GABAPENTIN 100 MG CAPSULE PO SCH (17:00)
[2020-08-12] MEDS: MAG HYDROX/AL HYDROX/SIMETH ES 30 ML SUSPENSION UDCUP PO PRN (21:51)
[2020-08-12] MEDS: PRAZOSIN HCL 1 MG CAPSULE PO SCH (22:52)
[2020-08-12] MEDS: QUEtiapine FUMARATE 300 MG TABLET PO SCH (22:52)
[2020-08-13 00:48] VITALS: BP 109/73
[2020-08-13] MEDS: ZOLPIDEM TARTRATE 10 MG TABLET PO PRN (00:57)
[2020-08-13] MEDS: LORazepam 2 MG TABLET PO PRN ×2 (07:02→16:04)
[2020-08-13 08:54] VITALS: BP 106/69
[2020-08-13] MEDS: QUEtiapine FUMARATE 25 MG TABLET PO SCH ×3 (09:00→16:04)
[2020-08-13] MEDS: LISINOPRIL 20 MG TABLET PO SCH (09:22)
[2020-08-13] MEDS: GABAPENTIN 100 MG CAPSULE PO SCH ×3 (09:22→16:04)
[2020-08-13] MEDS: DULoxetine HCL 20 MG CAPSULE PO SCH (09:22)
[2020-08-13] MEDS: MAG HYDROX/AL HYDROX/SIMETH ES 30 ML SUSPENSION UDCUP PO PRN (16:04)
[2020-08-13 16:14] VITALS: BP 123/75
[2020-08-13] MEDS: PRAZOSIN HCL 1 MG CAPSULE PO SCH (20:19)
[2020-08-13] MEDS: QUEtiapine FUMARATE 300 MG TABLET PO SCH (20:19)
[2020-08-14] MEDS: LORazepam 2 MG TABLET PO PRN ×4 (03:21→22:47)
[2020-08-14 04:03] VITALS: BP 98/65
[2020-08-14] MEDS: QUEtiapine FUMARATE 25 MG TABLET PO SCH ×3 (09:38→16:11)
[2020-08-14] MEDS: DULoxetine HCL 20 MG CAPSULE PO SCH (09:38)
[2020-08-14] MEDS: GABAPENTIN 100 MG CAPSULE PO SCH ×3 (09:38→16:11)
[2020-08-14] MEDS: LISINOPRIL 20 MG TABLET PO SCH (09:38)
[2020-08-14 09:39] VITALS: BP 115/74
[2020-08-14 16:16] VITALS: BP 117/66
[2020-08-14 22:40] VITALS: BP 118/72
[2020-08-14] MEDS: QUEtiapine FUMARATE 300 MG TABLET PO SCH (22:43)
[2020-08-14] MEDS: PRAZOSIN HCL 1 MG CAPSULE PO SCH (22:43)
[2020-08-15 00:49] VITALS: BP 115/68
[2020-08-15] MEDS: ZOLPIDEM TARTRATE 10 MG TABLET PO PRN (02:26)
[2020-08-15 08:30] VITALS: BP 122/73
[2020-08-15] MEDS: LORazepam 2 MG TABLET PO PRN ×2 (10:48→15:52)
[2020-08-15] MEDS: GABAPENTIN 100 MG CAPSULE PO SCH ×2 (10:48→12:43)
[2020-08-15] MEDS: LISINOPRIL 20 MG TABLET PO SCH (10:48)
[2020-08-15] MEDS: DULoxetine HCL 20 MG CAPSULE PO SCH (10:48)
[2020-08-15] MEDS: QUEtiapine FUMARATE 25 MG TABLET PO SCH ×3 (10:48→15:52)
[2020-08-15] MEDS ORDERED: GABA-1216 PO (15:08)
[2020-08-15] MEDS ORDERED: GABA-1181 PO (15:08)
[2020-08-15] MEDS ORDERED: OMEG-135 PO (15:08)
[2020-08-15] MEDS ORDERED: QUET300T18 PO (15:08)
[2020-08-15] MEDS ORDERED: DULO20CA27 PO (15:08)
[2020-08-15] MEDS ORDERED: QUET25TA34 PO (15:08)
[2020-08-15] MEDS ORDERED: ZOLP10TA2 PO (15:08)
[2020-08-15] MEDS ORDERED: PRAZ1 PO (15:08)
[2020-08-15] MEDS ORDERED: GABAPENTIN 300 MG CAPSULE PO PRN (15:15)
[2020-08-15] MEDS ORDERED: ZOLPIDEM TARTRATE 5 MG TABLET PO PRN (15:15)
[2020-08-15] MEDS: GABAPENTIN 300 MG CAPSULE PO SCH (15:53)
[2020-08-15] MEDS: MAG HYDROX/AL HYDROX/SIMETH ES 30 ML SUSPENSION UDCUP PO PRN (15:57)
[2020-08-15 16:12] VITALS: BP 137/81
[2020-08-15] MEDS: QUEtiapine FUMARATE 300 MG TABLET PO SCH (20:30)
[2020-08-15] MEDS: PRAZOSIN HCL 1 MG CAPSULE PO SCH (20:31)
[2020-08-16] MEDS: LORazepam 2 MG TABLET PO PRN ×2 (00:08→09:55)
[2020-08-16 00:37] VITALS: BP 129/78
[2020-08-16 08:06] LABS: BASOPHILS % (AUTO) 0.8 % (0.0-2.0); EOSINOPHILS % (AUTO) 3.5 % (1.0-6.0); HEMATOCRIT 37.2 % (36-46); HEMOGLOBIN 12.3 g/dL (12.0-16.0); LYMPHOCYTES # (AUTO) 3.3 K/uL (1.0-4.8); LYMPHOCYTES % (AUTO) 63.8 % (22.0-44.0); MEAN CORPUSCULAR HEMOGLOBIN 28.1 pg (26.0-34.0); MEAN CORPUSCULAR VOLUME 85 fL (80-100); MONOCYTES # (AUTO) 0.5 K/uL (0.1-1.0); MONOCYTES % (AUTO) 9.3 % (2.0-9.0); NEUTROPHILS # (AUTO) 1.2 K/uL (1.8-7.7); NEUTROPHILS % (AUTO) 22.6 % (40.0-70.0); PLATELET COUNT (AUTO) 241 K/uL (150-450); RED BLOOD CELL COUNT(AUTO) 4.37 MIL/uL (4.00-5.20); RED CELL DISTRIBUTION WIDTH 15.2 % (11.5-14.5)
[2020-08-16 08:10] VITALS: BP 129/71
[2020-08-16 08:24] LABS: ALANINE AMINOTRANSFERASE 23 U/L (12-78); ALBUMIN 3.1 g/dL (3.4-5.0); ALKALINE PHOSPHATASE 92 U/L (46-116); ANION GAP 8 mmol/L (8-16); ASPARTATE AMINOTRANSFERASE 23 U/L (15-37); BILIRUBIN,TOTAL 0.2 mg/dL (0.1-1.0); CALCIUM, TOTAL 8.4 mg/dL (8.8-10.5); CARBON DIOXIDE 28 mmol/L (22-29); CHLORIDE 109 mmol/L (98-107); CREATININE 0.64 mg/dL (0.60-1.30); GLOMERULAR FILTR. RATE CALC > 60 mL/min (>60); GLUCOSE,RANDOM 84 mg/dL (70-110); PHOSPHORUS 3.5 mg/dL (2.5-4.9); POTASSIUM 4.3 mmol/L (3.5-5.1); SODIUM SERUM 145 mmol/L (136-145); TOTAL PROTEIN, SERUM 6.5 g/dL (6.4-8.2); UREA NITROGEN, BLOOD 8 mg/dL (7-18)
[2020-08-16] MEDS ORDERED: DULoxetine HCL 30 MG CAPSULE PO SCH (09:00)
[2020-08-16] MEDS: GABAPENTIN 300 MG CAPSULE PO SCH ×2 (09:04→13:00)
[2020-08-16] MEDS: LISINOPRIL 20 MG TABLET PO SCH (09:04)
[2020-08-16] MEDS: QUEtiapine FUMARATE 25 MG TABLET PO SCH ×2 (09:04→13:08)
[2020-08-16] MEDS ORDERED: LISI-662 PO (10:51)
[2020-08-16] MEDS ORDERED: DULO30CA96 PO (10:52)
[2020-08-16] MEDS ORDERED: GABA-1181 PO ×2 (10:54→11:09)
[2020-08-16] MEDS ORDERED: QUET25TA PO (10:55)
[2020-08-16] MEDS ORDERED: ZOLP-280 PO (10:55)
[2020-08-16] MEDS ORDERED: PRAZ1 PO (10:55)
[2020-08-16] MEDS ORDERED: QUET300T2 PO (10:55)
== END 2020-08-16 13:26 | disposition home or self-care (01) | DRG 753 ==
LOC: EMS 12:24 → B2X 16:35 → B2S 20:17
PROVIDERS: ADMIT Psychiatry & Neurology Psychiatry; ATTEND Psychiatry & Neurology Psychiatry
DX: F31.9 Bipolar disorder, unspecified (principal); F10.231 Alcohol dependence with withdrawal delirium; F20.9 Schizophrenia, unspecified; F41.9 Anxiety disorder, unspecified; G47.00 Insomnia, unspecified; I10 Essential (primary) hypertension; J45.909 Unspecified asthma, uncomplicated; R45.851 Suicidal ideations; E87.6 Hypokalemia; B19.20 Unspecified viral hepatitis C without hepatic coma; K59.00 Constipation, unspecified; Z20.828 Contact with and (suspected) exposure to other viral communicable diseases; F19.10 Other psychoactive substance abuse, uncomplicated; K21.9 Gastro-esophageal reflux disease without esophagitis; Z90.710 Acquired absence of both cervix and uterus; Z90.49 Acquired absence of other specified parts of digestive tract; Z88.1 Allergy status to other antibiotic agents; Z88.5 Allergy status to narcotic agent; Z88.6 Allergy status to analgesic agent; Z91.013 Allergy to seafood; Z91.011 Allergy to milk products; Z79.899 Other long term (current) drug therapy
CPT/HCPCS: 83735; 84100; 84436; 84439; 84443; 87081; 87426; G0480

== ENCOUNTER 2020-10-21 14:16 | Inpatient (IN) | payer MEDICARE, MEDICAID ==
[~2020-10-21] VITALS: Ht 165.1 cm; Wt 110.6 kg
[~2020-10-21 14:16] MED LIST changes: +DULO20CA27 PO; +GABA-1181 PO; +PRAZ1 PO; +QUET100T PO; -QUET200T29 PO; +QUET25TA PO; +VERA240SR PO
[2020-10-21 15:31] LABS: BASOPHILS % (AUTO) 0.8 % (0.0-2.0); EOSINOPHILS % (AUTO) 2.7 % (1.0-6.0); HEMATOCRIT 41.1 % (36-46); HEMOGLOBIN 13.7 g/dL (12.0-16.0); LYMPHOCYTES # (AUTO) 3.3 K/uL (1.0-4.8); LYMPHOCYTES % (AUTO) 48.4 % (22.0-44.0); MEAN CORPUSCULAR HEMOGLOBIN 28.3 pg (26.0-34.0); MEAN CORPUSCULAR HGB CONC 33.5 G/dL (31.0-37.0); MEAN CORPUSCULAR VOLUME 85 fL (80-100); MONOCYTES # (AUTO) 0.6 K/uL (0.1-1.0); MONOCYTES % (AUTO) 8.2 % (2.0-9.0); NEUTROPHILS # (AUTO) 2.7 K/uL (1.8-7.7); NEUTROPHILS % (AUTO) 39.9 % (40.0-70.0); PLATELET COUNT (AUTO) 257 K/uL (150-450); RED BLOOD CELL COUNT(AUTO) 4.86 MIL/uL (4.00-5.20); RED CELL DISTRIBUTION WIDTH 14.8 % (11.5-14.5)
[2020-10-21 15:40] LABS: ANION GAP 11 mmol/L (8-16); CALCIUM, TOTAL 8.8 mg/dL (8.8-10.5); CARBON DIOXIDE 25 mmol/L (22-29); CHLORIDE 107 mmol/L (98-107); CREATININE 0.89 mg/dL (0.60-1.30); GLOMERULAR FILTR. RATE CALC > 60 mL/min (>60); GLUCOSE,RANDOM 104 mg/dL (70-110); POTASSIUM 3.1 mmol/L (3.5-5.1); SODIUM SERUM 143 mmol/L (136-145); UREA NITROGEN, BLOOD 12 mg/dL (7-18)
[2020-10-21 15:46] LABS: ALANINE AMINOTRANSFERASE 20 U/L (12-78); ALBUMIN 3.6 g/dL (3.4-5.0); ALKALINE PHOSPHATASE 103 U/L (46-116); ASPARTATE AMINOTRANSFERASE 22 U/L (15-37); BILIRUBIN,TOTAL 0.3 mg/dL (0.1-1.0); TOTAL PROTEIN, SERUM 8.2 g/dL (6.4-8.2)
[2020-10-21] MEDS ORDERED: POTASSIUM CHLORIDE 20 MEQ ER TABLET PO ONE (16:45)
[2020-10-21] MEDS ORDERED: HydrOXYzine PAMOATE 50 MG CAPSULE PO ONE (17:00)
[2020-10-21 20:19] LABS: COVID AG,FIA SOURCE NASOPHARYNGEAL
[2020-10-21] MEDS: ZOLPIDEM TARTRATE 10 MG TABLET PO PRN (21:37)
[2020-10-21] MEDS: HALOPERIDOL 5 MG TABLET PO PRN (21:37)
[2020-10-21] MEDS: LORazepam 2 MG TABLET PO PRN (21:37)
[2020-10-21] MEDS ORDERED: PETROLATUM,WHITE 28 GM JELLY TP PRN (21:45)
[2020-10-21] MEDS ORDERED: ONDANSETRON HCL 4 MG TABLET PO PRN (21:45)
[2020-10-21] MEDS ORDERED: GuaiFENesin/D-METHORPHAN [SUGAR-FREE] 200-20MG/10 ML SYRUP UDCUP PO PRN (21:45)
[2020-10-21] MEDS ORDERED: DOCUSATE SODIUM 100 MG CAPSULE PO PRN (21:45)
[2020-10-21] MEDS ORDERED: ALBUTEROL SULFATE HFA 90 MCG/PUFF 8 GM INHALER IH PRN (21:45)
[2020-10-21] MEDS ORDERED: NICOTINE 14 MG/24 HOUR PATCH TD PRN (21:45)
[2020-10-21] MEDS ORDERED: CloNIDine HCL 0.1 MG TABLET PO PRN (21:45)
[2020-10-21] MEDS ORDERED: MAGNESIUM HYDROXIDE SUSPENSION 30 ML UDCUP PO PRN (21:45)
[2020-10-22] MEDS: LORazepam 2 MG TABLET PO PRN ×2 (01:54→16:30)
[2020-10-22] MEDS ORDERED: PNEUMOCOCCAL VACCINE POLYVALENT 0.5 ML VIAL [PPSV23] IM ONE (07:30)
[2020-10-22] MEDS ORDERED: INFLUENZA VIRUS VACCINE QVS 2020-21 (6MO+)/PF 60 MCG/0.5 ML SYRINGE IM ONE (07:30)
[2020-10-22] MEDS: VERAPAMIL HCL 240 MG ER TABLET PO SCH (08:26)
[2020-10-22] MEDS: LISINOPRIL 20 MG TABLET PO SCH (08:27)
[2020-10-22] MEDS: GABAPENTIN 300 MG CAPSULE PO SCH ×4 (08:27→20:06)
[2020-10-22 08:31] VITALS: BP 144/86
[2020-10-22] MEDS: DULoxetine HCL 20 MG CAPSULE PO SCH (12:37)
[2020-10-22] MEDS: QUEtiapine FUMARATE 25 MG TABLET PO SCH ×2 (12:37→16:20)
[2020-10-22] MEDS: MAG HYDROX/AL HYDROX/SIMETH ES 30 ML SUSPENSION UDCUP PO PRN (15:28)
[2020-10-22 16:04] VITALS: BP 133/83
[2020-10-22 20:05] VITALS: BP 128/82
[2020-10-22] MEDS: PRAZOSIN HCL 1 MG CAPSULE PO SCH (20:06)
[2020-10-22] MEDS: QUEtiapine FUMARATE 100 MG TABLET PO SCH (20:06)
[2020-10-23 05:43] VITALS: BP 105/65
[2020-10-23] MEDS: LORazepam 2 MG TABLET PO PRN ×3 (05:54→21:51)
[2020-10-23 08:14] VITALS: BP 140/72
[2020-10-23] MEDS: GABAPENTIN 300 MG CAPSULE PO SCH ×4 (08:20→20:31)
[2020-10-23] MEDS: LISINOPRIL 20 MG TABLET PO SCH (08:20)
[2020-10-23] MEDS: DULoxetine HCL 20 MG CAPSULE PO SCH (08:20)
[2020-10-23] MEDS: QUEtiapine FUMARATE 25 MG TABLET PO SCH ×3 (08:20→16:27)
[2020-10-23] MEDS: VERAPAMIL HCL 240 MG ER TABLET PO SCH (08:20)
[2020-10-23] MEDS: MAG HYDROX/AL HYDROX/SIMETH ES 30 ML SUSPENSION UDCUP PO PRN ×2 (10:20→23:34)
[2020-10-23 16:06] VITALS: BP 118/80
[2020-10-23] MEDS: QUEtiapine FUMARATE 100 MG TABLET PO SCH (20:31)
[2020-10-23] MEDS: PRAZOSIN HCL 1 MG CAPSULE PO SCH (20:31)
[2020-10-24 05:33] VITALS: BP 105/65
[2020-10-24 08:25] VITALS: BP 126/64
[2020-10-24] MEDS: VERAPAMIL HCL 240 MG ER TABLET PO SCH (09:18)
[2020-10-24] MEDS: LISINOPRIL 20 MG TABLET PO SCH (09:18)
[2020-10-24] MEDS: GABAPENTIN 300 MG CAPSULE PO SCH ×4 (09:18→20:21)
[2020-10-24] MEDS: DULoxetine HCL 20 MG CAPSULE PO SCH (09:18)
[2020-10-24] MEDS: QUEtiapine FUMARATE 25 MG TABLET PO SCH ×3 (09:18→17:35)
[2020-10-24] MEDS: LORazepam 2 MG TABLET PO PRN ×3 (09:19→17:47)
[2020-10-24] MEDS: MAG HYDROX/AL HYDROX/SIMETH ES 30 ML SUSPENSION UDCUP PO PRN ×2 (11:23→17:44)
[2020-10-24] MEDS: PANTOPRAZOLE SODIUM 40 MG DR TABLET PO SCH (17:35)
[2020-10-24 17:56] VITALS: BP 112/61
[2020-10-24] MEDS: PRAZOSIN HCL 1 MG CAPSULE PO SCH (20:21)
[2020-10-24] MEDS: QUEtiapine FUMARATE 100 MG TABLET PO SCH (20:22)
[2020-10-24] MEDS: ZOLPIDEM TARTRATE 10 MG TABLET PO PRN (20:26)
[2020-10-25 08:13] VITALS: BP 114/72
[2020-10-25] MEDS: GABAPENTIN 300 MG CAPSULE PO SCH ×4 (09:01→20:23)
[2020-10-25] MEDS: VERAPAMIL HCL 240 MG ER TABLET PO SCH (09:01)
[2020-10-25] MEDS: QUEtiapine FUMARATE 25 MG TABLET PO SCH ×3 (09:01→17:09)
[2020-10-25] MEDS: DULoxetine HCL 20 MG CAPSULE PO SCH (09:01)
[2020-10-25] MEDS: LISINOPRIL 20 MG TABLET PO SCH (09:01)
[2020-10-25] MEDS: PANTOPRAZOLE SODIUM 40 MG DR TABLET PO SCH ×2 (09:01→17:06)
[2020-10-25] MEDS: LORazepam 2 MG TABLET PO PRN ×2 (09:45→14:19)
[2020-10-25 16:07] VITALS: BP 110/68
[2020-10-25] MEDS: QUEtiapine FUMARATE 100 MG TABLET PO SCH (20:23)
[2020-10-25] MEDS: PRAZOSIN HCL 1 MG CAPSULE PO SCH (20:25)
[2020-10-25] MEDS: ZOLPIDEM TARTRATE 10 MG TABLET PO PRN (20:35)
[2020-10-26 00:24] VITALS: BP 103/62
[2020-10-26 08:05] LABS: COVID AG,FIA SOURCE NASAL SWAB
[2020-10-26 08:10] VITALS: BP 132/77
[2020-10-26] MEDS: PANTOPRAZOLE SODIUM 40 MG DR TABLET PO SCH ×2 (08:58→16:18)
[2020-10-26] MEDS: VERAPAMIL HCL 240 MG ER TABLET PO SCH (08:58)
[2020-10-26] MEDS: GABAPENTIN 300 MG CAPSULE PO SCH ×4 (08:58→20:47)
[2020-10-26] MEDS: DULoxetine HCL 20 MG CAPSULE PO SCH (08:58)
[2020-10-26] MEDS: QUEtiapine FUMARATE 25 MG TABLET PO SCH ×3 (08:58→16:19)
[2020-10-26] MEDS: LISINOPRIL 20 MG TABLET PO SCH (08:58)
[2020-10-26] MEDS: LORazepam 2 MG TABLET PO PRN ×2 (10:43→16:18)
[2020-10-26 16:13] VITALS: BP 107/69
[2020-10-26] MEDS: QUEtiapine FUMARATE 100 MG TABLET PO SCH (20:47)
[2020-10-26] MEDS: PRAZOSIN HCL 1 MG CAPSULE PO SCH (20:47)
[2020-10-27] MEDS: ZOLPIDEM TARTRATE 10 MG TABLET PO PRN ×2 (00:02→21:02)
[2020-10-27] MEDS: LORazepam 2 MG TABLET PO PRN ×4 (00:02→16:55)
[2020-10-27 00:42] VITALS: BP 109/67
[2020-10-27 08:11] VITALS: BP 119/78
[2020-10-27] MEDS: PANTOPRAZOLE SODIUM 40 MG DR TABLET PO SCH ×2 (08:50→16:50)
[2020-10-27] MEDS: VERAPAMIL HCL 240 MG ER TABLET PO SCH (08:50)
[2020-10-27] MEDS: DULoxetine HCL 20 MG CAPSULE PO SCH (08:50)
[2020-10-27] MEDS: QUEtiapine FUMARATE 25 MG TABLET PO SCH ×4 (08:50→17:00)
[2020-10-27] MEDS: LISINOPRIL 20 MG TABLET PO SCH (08:50)
[2020-10-27] MEDS: GABAPENTIN 300 MG CAPSULE PO SCH ×4 (08:51→20:35)
[2020-10-27] MEDS ORDERED: DULoxetine HCL 20 MG CAPSULE PO ONE (09:45)
[2020-10-27 16:03] VITALS: BP 110/70
[2020-10-27] MEDS: QUEtiapine FUMARATE 100 MG TABLET PO SCH ×2 (20:32→20:46)
[2020-10-27] MEDS: PRAZOSIN HCL 1 MG CAPSULE PO SCH (20:32)
[2020-10-28 03:03] VITALS: BP 140/72
[2020-10-28 06:28] VITALS: BP 143/83
[2020-10-28] MEDS: LORazepam 2 MG TABLET PO PRN ×3 (06:50→16:50)
[2020-10-28 08:03] VITALS: BP 146/85
[2020-10-28] MEDS: GABAPENTIN 300 MG CAPSULE PO SCH ×4 (08:07→21:52)
[2020-10-28] MEDS: VERAPAMIL HCL 240 MG ER TABLET PO SCH (08:07)
[2020-10-28] MEDS: QUEtiapine FUMARATE 25 MG TABLET PO SCH ×3 (08:07→16:50)
[2020-10-28] MEDS: LISINOPRIL 20 MG TABLET PO SCH (08:07)
[2020-10-28] MEDS: DULoxetine HCL 60 MG CAPSULE PO SCH (08:07)
[2020-10-28] MEDS: PANTOPRAZOLE SODIUM 40 MG DR TABLET PO SCH ×2 (08:07→16:50)
[2020-10-28 16:04] VITALS: BP 139/76
[2020-10-28] MEDS: PRAZOSIN HCL 1 MG CAPSULE PO SCH (21:00)
[2020-10-28] MEDS: QUEtiapine FUMARATE 100 MG TABLET PO SCH (21:00)
[2020-10-28] MEDS: ZOLPIDEM TARTRATE 10 MG TABLET PO PRN (21:53)
[2020-10-29] MEDS: LORazepam 2 MG TABLET PO PRN ×3 (00:31→13:08)
[2020-10-29] MEDS: HALOPERIDOL 5 MG TABLET PO PRN (00:41)
[2020-10-29 06:20] VITALS: BP 141/80
[2020-10-29 08:13] VITALS: BP 140/89
[2020-10-29] MEDS: LISINOPRIL 20 MG TABLET PO SCH (08:37)
[2020-10-29] MEDS: PANTOPRAZOLE SODIUM 40 MG DR TABLET PO SCH ×2 (08:37→16:01)
[2020-10-29] MEDS: GABAPENTIN 300 MG CAPSULE PO SCH ×4 (08:37→20:25)
[2020-10-29] MEDS: VERAPAMIL HCL 240 MG ER TABLET PO SCH (08:37)
[2020-10-29] MEDS: DULoxetine HCL 60 MG CAPSULE PO SCH (08:42)
[2020-10-29] MEDS: QUEtiapine FUMARATE 25 MG TABLET PO SCH (08:42)
[2020-10-29] MEDS: FLUoxetine HCL 20 MG CAPSULE PO SCH (09:15)
[2020-10-29 16:04] VITALS: BP 126/76
[2020-10-29] MEDS: OLANZapine 10 MG TABLET PO SCH (20:24)
[2020-10-29] MEDS: TraZODone HCL 50 MG TABLET PO SCH (20:25)
[2020-10-29] MEDS: PRAZOSIN HCL 1 MG CAPSULE PO SCH (20:35)
[2020-10-30] MEDS: ZOLPIDEM TARTRATE 10 MG TABLET PO PRN ×2 (03:08→22:27)
[2020-10-30 03:09] VITALS: BP 139/88
[2020-10-30 08:13] VITALS: BP 134/67
[2020-10-30] MEDS: PANTOPRAZOLE SODIUM 40 MG DR TABLET PO SCH ×2 (08:32→16:08)
[2020-10-30] MEDS: FLUoxetine HCL 20 MG CAPSULE PO SCH ×2 (08:32→08:38)
[2020-10-30] MEDS: LISINOPRIL 20 MG TABLET PO SCH (08:32)
[2020-10-30] MEDS: GABAPENTIN 300 MG CAPSULE PO SCH ×4 (08:32→20:01)
[2020-10-30] MEDS: VERAPAMIL HCL 240 MG ER TABLET PO SCH (08:33)
[2020-10-30] MEDS: LORazepam 2 MG TABLET PO PRN ×3 (08:41→20:21)
[2020-10-30 16:38] VITALS: BP 180/99
[2020-10-30 18:00] VITALS: BP 159/97
[2020-10-30] MEDS: OLANZapine 10 MG TABLET PO SCH (20:21)
[2020-10-30] MEDS: TraZODone HCL 50 MG TABLET PO SCH (20:21)
[2020-10-30] MEDS: PRAZOSIN HCL 1 MG CAPSULE PO SCH (20:21)
[2020-10-31 00:28] VITALS: BP 102/60
[2020-10-31] MEDS: LORazepam 2 MG TABLET PO PRN ×4 (06:45→21:06)
[2020-10-31 08:16] VITALS: BP 138/66
[2020-10-31] MEDS: GABAPENTIN 300 MG CAPSULE PO SCH ×4 (09:00→20:34)
[2020-10-31] MEDS: VERAPAMIL HCL 240 MG ER TABLET PO SCH (09:00)
[2020-10-31] MEDS: PANTOPRAZOLE SODIUM 40 MG DR TABLET PO SCH ×2 (09:00→16:53)
[2020-10-31] MEDS: LISINOPRIL 20 MG TABLET PO SCH (09:00)
[2020-10-31 16:08] VITALS: BP 144/84
[2020-10-31] MEDS: OLANZapine 10 MG TABLET PO SCH (20:34)
[2020-10-31] MEDS: TraZODone HCL 50 MG TABLET PO SCH (20:34)
[2020-10-31] MEDS: PRAZOSIN HCL 1 MG CAPSULE PO SCH (20:34)
[2020-10-31] MEDS: ZOLPIDEM TARTRATE 10 MG TABLET PO PRN (23:24)
[2020-11-01] MEDS: HALOPERIDOL 5 MG TABLET PO PRN (00:25)
[2020-11-01 00:41] VITALS: BP 141/82
[2020-11-01 08:21] VITALS: BP 108/64
[2020-11-01] MEDS: LISINOPRIL 20 MG TABLET PO SCH (09:15)
[2020-11-01] MEDS: PANTOPRAZOLE SODIUM 40 MG DR TABLET PO SCH ×2 (09:15→16:11)
[2020-11-01] MEDS: GABAPENTIN 300 MG CAPSULE PO SCH ×4 (09:15→20:12)
[2020-11-01] MEDS: VERAPAMIL HCL 240 MG ER TABLET PO SCH (09:15)
[2020-11-01] MEDS: LORazepam 2 MG TABLET PO PRN ×2 (10:15→16:12)
[2020-11-01 16:03] VITALS: BP 138/77
[2020-11-01] MEDS: IBUPROFEN 400 MG TABLET PO PRN (16:59)
[2020-11-01] MEDS ORDERED: IBUPROFEN 400 MG TABLET PO SCH (18:00)
[2020-11-01] MEDS: PRAZOSIN HCL 1 MG CAPSULE PO SCH (20:11)
[2020-11-01] MEDS: TraZODone HCL 50 MG TABLET PO SCH (20:11)
[2020-11-01] MEDS: OLANZapine 10 MG TABLET PO SCH (20:12)
[2020-11-01] MEDS: ZOLPIDEM TARTRATE 10 MG TABLET PO PRN (20:19)
[2020-11-02 00:36] VITALS: BP 139/81
[2020-11-02 08:06] VITALS: BP 153/92
[2020-11-02] MEDS: GABAPENTIN 300 MG CAPSULE PO SCH ×4 (08:55→20:25)
[2020-11-02] MEDS: VERAPAMIL HCL 240 MG ER TABLET PO SCH (08:55)
[2020-11-02] MEDS: LORazepam 2 MG TABLET PO PRN ×4 (08:56→22:40)
[2020-11-02] MEDS: LISINOPRIL 20 MG TABLET PO SCH (08:56)
[2020-11-02] MEDS: PANTOPRAZOLE SODIUM 40 MG DR TABLET PO SCH ×2 (08:56→17:11)
[2020-11-02] MEDS: HALOPERIDOL 5 MG TABLET PO PRN ×3 (13:00→22:40)
[2020-11-02 16:05] VITALS: BP 140/74
[2020-11-02] MEDS: OLANZapine 10 MG TABLET PO SCH (20:25)
[2020-11-02] MEDS: TraZODone HCL 50 MG TABLET PO SCH (20:25)
[2020-11-02] MEDS: PRAZOSIN HCL 1 MG CAPSULE PO SCH (20:25)
[2020-11-02] MEDS: ZOLPIDEM TARTRATE 10 MG TABLET PO PRN (20:32)
[2020-11-03 06:35] VITALS: BP 136/82
[2020-11-03 08:17] VITALS: BP 129/80
[2020-11-03 09:36] LABS: COVID AG,FIA SOURCE NASOPHARYNGEAL
[2020-11-03] MEDS: VERAPAMIL HCL 240 MG ER TABLET PO SCH (09:36)
[2020-11-03] MEDS: LISINOPRIL 20 MG TABLET PO SCH (09:37)
[2020-11-03] MEDS: PANTOPRAZOLE SODIUM 40 MG DR TABLET PO SCH ×2 (09:37→15:55)
[2020-11-03] MEDS: GABAPENTIN 300 MG CAPSULE PO SCH ×4 (09:37→20:41)
[2020-11-03] MEDS: LORazepam 2 MG TABLET PO PRN ×3 (11:44→21:16)
[2020-11-03 16:06] VITALS: BP 136/87
[2020-11-03] MEDS: IBUPROFEN 400 MG TABLET PO PRN (16:07)
[2020-11-03] MEDS: ZOLPIDEM TARTRATE 10 MG TABLET PO PRN (20:41)
[2020-11-03] MEDS: TraZODone HCL 50 MG TABLET PO SCH (20:41)
[2020-11-03] MEDS: PRAZOSIN HCL 1 MG CAPSULE PO SCH (20:41)
[2020-11-03] MEDS: OLANZapine 10 MG TABLET PO SCH (20:41)
[2020-11-03] MEDS: HALOPERIDOL 5 MG TABLET PO PRN (23:59)
[2020-11-04 00:24] VITALS: BP 142/80
[2020-11-04] MEDS: LORazepam 2 MG TABLET PO PRN ×3 (01:16→16:44)
[2020-11-04 08:41] VITALS: BP 116/61
[2020-11-04] MEDS: VERAPAMIL HCL 240 MG ER TABLET PO SCH (09:47)
[2020-11-04] MEDS: GABAPENTIN 300 MG CAPSULE PO SCH ×4 (09:48→21:01)
[2020-11-04] MEDS: PANTOPRAZOLE SODIUM 40 MG DR TABLET PO SCH ×2 (09:48→16:44)
[2020-11-04] MEDS: LISINOPRIL 20 MG TABLET PO SCH (09:48)
[2020-11-04] MEDS: IBUPROFEN 400 MG TABLET PO PRN (11:32)
[2020-11-04 16:28] VITALS: BP 128/75
[2020-11-04] MEDS: PRAZOSIN HCL 1 MG CAPSULE PO SCH (21:02)
[2020-11-04] MEDS: TraZODone HCL 50 MG TABLET PO SCH (21:02)
[2020-11-04] MEDS: ZOLPIDEM TARTRATE 10 MG TABLET PO PRN (21:02)
[2020-11-04] MEDS: OLANZapine 10 MG TABLET PO SCH (21:02)
[2020-11-04] MEDS: MAG HYDROX/AL HYDROX/SIMETH ES 30 ML SUSPENSION UDCUP PO PRN (21:08)
[2020-11-05 06:44] VITALS: BP 149/78
[2020-11-05 08:11] VITALS: BP 135/99
[2020-11-05] MEDS: GABAPENTIN 300 MG CAPSULE PO SCH ×4 (08:25→20:38)
[2020-11-05] MEDS: LORazepam 2 MG TABLET PO PRN ×4 (08:25→22:09)
[2020-11-05] MEDS: VERAPAMIL HCL 240 MG ER TABLET PO SCH (08:25)
[2020-11-05] MEDS: LISINOPRIL 20 MG TABLET PO SCH (08:25)
[2020-11-05] MEDS: PANTOPRAZOLE SODIUM 40 MG DR TABLET PO SCH ×2 (08:25→16:27)
[2020-11-05] MEDS: IBUPROFEN 400 MG TABLET PO PRN (13:38)
[2020-11-05 16:11] VITALS: BP 145/77
[2020-11-05 20:35] VITALS: BP 132/78
[2020-11-05] MEDS: PRAZOSIN HCL 1 MG CAPSULE PO SCH (20:38)
[2020-11-05] MEDS: TraZODone HCL 50 MG TABLET PO SCH (20:38)
[2020-11-05] MEDS: OLANZapine 10 MG TABLET PO SCH (20:38)
[2020-11-05] MEDS: ZOLPIDEM TARTRATE 10 MG TABLET PO PRN (21:02)
[2020-11-06 00:21] VITALS: BP 143/76
[2020-11-06 08:48] VITALS: BP 147/78
[2020-11-06] MEDS: LISINOPRIL 20 MG TABLET PO SCH (09:49)
[2020-11-06] MEDS: GABAPENTIN 300 MG CAPSULE PO SCH (09:50)
[2020-11-06] MEDS: PANTOPRAZOLE SODIUM 40 MG DR TABLET PO SCH (09:50)
[2020-11-06] MEDS: VERAPAMIL HCL 240 MG ER TABLET PO SCH (09:50)
[2020-11-06] MEDS ORDERED: OLAN10TA3 PO (10:24)
[2020-11-06] MEDS ORDERED: TRAZ-252 PO (10:25)
[2020-11-06] MEDS: IBUPROFEN 400 MG TABLET PO PRN (10:28)
[2020-11-06] MEDS ORDERED: PANT-31 PO (10:30)
== END 2020-11-06 13:22 | disposition home or self-care (01) | DRG 750 ==
LOC: EMS 14:22 → B2S 20:55
DX: F25.0 Schizoaffective disorder, bipolar type (principal); F43.12 Post-traumatic stress disorder, chronic; J45.909 Unspecified asthma, uncomplicated; I10 Essential (primary) hypertension; G62.9 Polyneuropathy, unspecified; B19.20 Unspecified viral hepatitis C without hepatic coma; E87.6 Hypokalemia; F13.20 Sedative, hypnotic or anxiolytic dependence, uncomplicated; F25.1 Schizoaffective disorder, depressive type; G47.00 Insomnia, unspecified; K21.9 Gastro-esophageal reflux disease without esophagitis; K74.60 Unspecified cirrhosis of liver; Z20.828 Contact with and (suspected) exposure to other viral communicable diseases; F99 Mental disorder, not otherwise specified; R45.851 Suicidal ideations; F32.9 Major depressive disorder, single episode, unspecified; Z79.899 Other long term (current) drug therapy; Z90.710 Acquired absence of both cervix and uterus; Z88.8 Allergy status to other drugs, medicaments and biological substances; Z88.5 Allergy status to narcotic agent; Z91.013 Allergy to seafood; Z91.011 Allergy to milk products; Z88.6 Allergy status to analgesic agent; Z28.82 Immunization not carried out because of caregiver refusal
CPT/HCPCS: 87426; G0480

== ENCOUNTER 2020-11-09 14:07 | Emergency (ER) | payer MEDICARE, OTHER ==
[~2020-11-09] VITALS: Ht 165.1 cm; Wt 100.0 kg
[~2020-11-09 14:07] MED LIST changes: -DULO20CA27 PO; +OLAN10TA3 PO; +PANT-31 PO; -QUET100T PO; -QUET25TA PO; +TRAZ-252 PO
[2020-11-09 16:59] VITALS: BP 158/76
[2020-11-09] MEDS ORDERED: LORazepam 2 MG TABLET PO ONE (17:00)
== END 2020-11-09 17:45 | disposition home or self-care (01) ==
LOC: EMS 14:07
DX: F41.9 Anxiety disorder, unspecified (principal); F32.9 Major depressive disorder, single episode, unspecified; I10 Essential (primary) hypertension; F20.9 Schizophrenia, unspecified; F19.90 Other psychoactive substance use, unspecified, uncomplicated; Z90.49 Acquired absence of other specified parts of digestive tract

== ENCOUNTER 2020-11-09 19:12 | Emergency (ER) | payer MEDICARE, OTHER ==
[~2020-11-09] VITALS: Ht 165.1 cm; Wt 100.0 kg
[2020-11-09 20:14] VITALS: BP 149/75
== END 2020-11-09 20:42 | disposition home or self-care (01) ==
LOC: EMS 19:12
DX: F41.9 Anxiety disorder, unspecified (principal); I10 Essential (primary) hypertension; F32.9 Major depressive disorder, single episode, unspecified; Z76.0 Encounter for issue of repeat prescription; Z79.899 Other long term (current) drug therapy
CPT/HCPCS: 99283; Z7502

== ENCOUNTER 2020-11-15 10:43 | Emergency (ER) | payer MEDICARE, OTHER ==
[~2020-11-15] VITALS: Ht 165.1 cm; Wt 104.5 kg
[2020-11-15 10:52] VITALS: BP 132/74
== END 2020-11-15 14:24 | disposition home or self-care (01) ==
LOC: EMS 10:43
DX: F41.9 Anxiety disorder, unspecified (principal); F25.9 Schizoaffective disorder, unspecified; F32.9 Major depressive disorder, single episode, unspecified; J45.909 Unspecified asthma, uncomplicated; I10 Essential (primary) hypertension; F14.90 Cocaine use, unspecified, uncomplicated; Z90.89 Acquired absence of other organs; Z90.710 Acquired absence of both cervix and uterus; Z79.899 Other long term (current) drug therapy; Z88.8 Allergy status to other drugs, medicaments and biological substances; Z88.6 Allergy status to analgesic agent; Z88.1 Allergy status to other antibiotic agents; Z91.011 Allergy to milk products; Z88.5 Allergy status to narcotic agent; Z91.013 Allergy to seafood
CPT/HCPCS: Z7502

== ENCOUNTER 2020-11-20 19:14 | Emergency (ER) | payer MEDICARE, OTHER | END 2020-11-20 20:53 | disposition home or self-care (01) | LOC: EMS 19:14 | DX: F41.9 Anxiety disorder, unspecified (principal); F25.1 Schizoaffective disorder, depressive type; I10 Essential (primary) hypertension; F31.9 Bipolar disorder, unspecified; J45.909 Unspecified asthma, uncomplicated; F19.90 Other psychoactive substance use, unspecified, uncomplicated; Z79.899 Other long term (current) drug therapy; Z76.0 Encounter for issue of repeat prescription ==

== ENCOUNTER 2020-11-21 10:51 | Inpatient (IN) | payer MEDICARE, MEDICAID ==
[~2020-11-21] VITALS: Ht 165.1 cm; Wt 106.7 kg
[2020-11-21 13:15] LABS: BASOPHILS % (AUTO) 0.9 % (0.0-2.0); EOSINOPHILS % (AUTO) 1.5 % (1.0-6.0); HEMATOCRIT 39.3 % (36-46); HEMOGLOBIN 12.8 g/dL (12.0-16.0); LYMPHOCYTES # (AUTO) 3.2 K/uL (1.0-4.8); LYMPHOCYTES % (AUTO) 43.9 % (22.0-44.0); MEAN CORPUSCULAR HEMOGLOBIN 27.5 pg (26.0-34.0); MEAN CORPUSCULAR HGB CONC 32.6 G/dL (31.0-37.0); MEAN CORPUSCULAR VOLUME 84 fL (80-100); MONOCYTES # (AUTO) 0.6 K/uL (0.1-1.0); MONOCYTES % (AUTO) 8.2 % (2.0-9.0); NEUTROPHILS # (AUTO) 3.3 K/uL (1.8-7.7); NEUTROPHILS % (AUTO) 45.5 % (40.0-70.0); PLATELET COUNT (AUTO) 273 K/uL (150-450); RED BLOOD CELL COUNT(AUTO) 4.66 MIL/uL (4.00-5.20); RED CELL DISTRIBUTION WIDTH 15.2 % (11.5-14.5)
[2020-11-21 13:30] LABS: ANION GAP 7 mmol/L (8-16); CALCIUM, TOTAL 9.1 mg/dL (8.8-10.5); CARBON DIOXIDE 25 mmol/L (22-29); CHLORIDE 106 mmol/L (98-107); CREATININE 0.84 mg/dL (0.60-1.30); GLOMERULAR FILTR. RATE CALC > 60 mL/min (>60); GLUCOSE,RANDOM 99 mg/dL (70-110); POTASSIUM 3.5 mmol/L (3.5-5.1); SODIUM SERUM 138 mmol/L (136-145); UREA NITROGEN, BLOOD 11 mg/dL (7-18)
[2020-11-21 13:37] LABS: ALANINE AMINOTRANSFERASE 22 U/L (12-78); ALBUMIN 3.4 g/dL (3.4-5.0); ALKALINE PHOSPHATASE 109 U/L (46-116); ASPARTATE AMINOTRANSFERASE 20 U/L (15-37); BILIRUBIN,TOTAL 0.4 mg/dL (0.1-1.0); TOTAL PROTEIN, SERUM 8.2 g/dL (6.4-8.2)
[2020-11-21] MEDS ORDERED: HALOPERIDOL 5 MG TABLET PO PRN (13:45)
[2020-11-21 16:54] LABS: COVID AG,FIA SOURCE NASOPHARYNGEAL
[2020-11-21 21:22] VITALS: BP 127/86
[2020-11-21] MEDS: LORazepam 2 MG TABLET PO PRN (21:27)
[2020-11-21] MEDS: ZOLPIDEM TARTRATE 10 MG TABLET PO PRN (22:41)
[2020-11-22 01:20] VITALS: BP 147/81
[2020-11-22] MEDS ORDERED: INFLUENZA VIRUS VACCINE QVS 2020-21 (6MO+)/PF 60 MCG/0.5 ML SYRINGE IM ONE (05:30)
[2020-11-22] MEDS ORDERED: PNEUMOCOCCAL VACCINE POLYVALENT 0.5 ML VIAL [PPSV23] IM ONE (05:30)
[2020-11-22] MEDS ORDERED: PETROLATUM,WHITE 28 GM JELLY TP PRN (07:15)
[2020-11-22] MEDS ORDERED: DOCUSATE SODIUM 100 MG CAPSULE PO PRN (07:15)
[2020-11-22] MEDS ORDERED: NICOTINE 14 MG/24 HOUR PATCH TD PRN (07:15)
[2020-11-22] MEDS ORDERED: ONDANSETRON HCL 4 MG TABLET PO PRN (07:15)
[2020-11-22] MEDS ORDERED: GuaiFENesin/D-METHORPHAN [SUGAR-FREE] 200-20MG/10 ML SYRUP UDCUP PO PRN (07:15)
[2020-11-22] MEDS ORDERED: LOPERAMIDE HCL 2 MG CAPSULE PO PRN (07:15)
[2020-11-22] MEDS ORDERED: MAGNESIUM HYDROXIDE SUSPENSION 30 ML UDCUP PO PRN (07:15)
[2020-11-22] MEDS ORDERED: CloNIDine HCL 0.1 MG TABLET PO PRN (07:15)
[2020-11-22] MEDS ORDERED: ALBUTEROL SULFATE HFA 90 MCG/PUFF 8 GM INHALER IH PRN (07:15)
[2020-11-22] MEDS ORDERED: MAG HYDROX/AL HYDROX/SIMETH ES 30 ML SUSPENSION UDCUP PO PRN (07:15)
[2020-11-22] MEDS: LISINOPRIL 20 MG TABLET PO SCH (08:37)
[2020-11-22] MEDS: VERAPAMIL HCL 240 MG ER TABLET PO SCH (08:37)
[2020-11-22 08:44] VITALS: BP 129/68
[2020-11-22] MEDS: LORazepam 2 MG TABLET PO PRN ×2 (08:55→13:58)
[2020-11-22] MEDS: GABAPENTIN 300 MG CAPSULE PO SCH ×3 (12:46→21:01)
[2020-11-22 16:26] VITALS: BP 125/68
[2020-11-22] MEDS: TraZODone HCL 50 MG TABLET PO SCH (20:16)
[2020-11-22] MEDS: PRAZOSIN HCL 1 MG CAPSULE PO SCH (20:58)
[2020-11-22] MEDS: OLANZapine 10 MG TABLET PO SCH (21:01)
[2020-11-23 00:17] VITALS: BP 128/62
[2020-11-23 08:20] VITALS: BP 105/62
[2020-11-23 09:40] VITALS: BP 110/62
[2020-11-23] MEDS: GABAPENTIN 300 MG CAPSULE PO SCH ×4 (09:43→21:53)
[2020-11-23] MEDS: VERAPAMIL HCL 240 MG ER TABLET PO SCH (09:43)
[2020-11-23] MEDS: LISINOPRIL 20 MG TABLET PO SCH (09:43)
[2020-11-23] MEDS: LORazepam 2 MG TABLET PO PRN ×2 (14:13→18:18)
[2020-11-23 17:07] VITALS: BP 114/64
[2020-11-23] MEDS: OLANZapine 10 MG TABLET PO SCH (21:52)
[2020-11-23] MEDS: PRAZOSIN HCL 1 MG CAPSULE PO SCH (21:52)
[2020-11-23] MEDS: ZOLPIDEM TARTRATE 10 MG TABLET PO PRN (21:53)
[2020-11-23] MEDS: TraZODone HCL 50 MG TABLET PO SCH (21:53)
[2020-11-23 21:59] VITALS: BP 132/78
[2020-11-24 00:58] VITALS: BP 110/68
[2020-11-24] MEDS: LORazepam 2 MG TABLET PO PRN ×3 (06:53→16:37)
[2020-11-24 09:50] VITALS: BP 110/65
[2020-11-24] MEDS: VERAPAMIL HCL 240 MG ER TABLET PO SCH (09:51)
[2020-11-24] MEDS: GABAPENTIN 300 MG CAPSULE PO SCH ×4 (09:51→20:40)
[2020-11-24] MEDS: LISINOPRIL 20 MG TABLET PO SCH (09:51)
[2020-11-24 16:16] VITALS: BP 116/66
[2020-11-24] MEDS: TraZODone HCL 50 MG TABLET PO SCH (20:36)
[2020-11-24] MEDS: PRAZOSIN HCL 1 MG CAPSULE PO SCH (20:36)
[2020-11-24] MEDS: OLANZapine 10 MG TABLET PO SCH (20:36)
[2020-11-24] MEDS: ZOLPIDEM TARTRATE 10 MG TABLET PO PRN (20:36)
[2020-11-25] MEDS: LORazepam 2 MG TABLET PO PRN ×3 (00:41→16:29)
[2020-11-25 01:01] VITALS: BP 141/77
[2020-11-25 08:08] VITALS: BP 127/68
[2020-11-25] MEDS: GABAPENTIN 300 MG CAPSULE PO SCH ×5 (08:48→21:56)
[2020-11-25] MEDS: LISINOPRIL 20 MG TABLET PO SCH (08:48)
[2020-11-25] MEDS: VERAPAMIL HCL 240 MG ER TABLET PO SCH (12:54)
[2020-11-25 16:13] VITALS: BP 139/78
[2020-11-25] MEDS: MIRTAZAPINE 15 MG TABLET PO SCH ×2 (21:00→21:56)
[2020-11-25 21:45] VITALS: BP 126/72
[2020-11-25] MEDS: PRAZOSIN HCL 1 MG CAPSULE PO SCH (21:47)
[2020-11-25] MEDS: QUEtiapine FUMARATE 200 MG TABLET PO SCH (21:47)
[2020-11-25] MEDS: TraZODone HCL 100 MG TABLET PO SCH (21:47)
[2020-11-25] MEDS: ZOLPIDEM TARTRATE 10 MG TABLET PO PRN (22:50)
[2020-11-26 00:26] VITALS: BP 129/77
[2020-11-26] MEDS: GABAPENTIN 300 MG CAPSULE PO SCH ×4 (09:00→20:39)
[2020-11-26] MEDS: QUEtiapine FUMARATE 25 MG TABLET PO SCH ×3 (09:00→17:00)
[2020-11-26] MEDS: VERAPAMIL HCL 240 MG ER TABLET PO SCH (09:00)
[2020-11-26] MEDS: LISINOPRIL 20 MG TABLET PO SCH (09:00)
[2020-11-26] MEDS: LORazepam 2 MG TABLET PO PRN ×2 (12:49→17:00)
[2020-11-26 16:23] VITALS: BP 142/82
[2020-11-26] MEDS: PRAZOSIN HCL 1 MG CAPSULE PO SCH (20:38)
[2020-11-26] MEDS: TraZODone HCL 100 MG TABLET PO SCH (20:38)
[2020-11-26] MEDS: MIRTAZAPINE 15 MG TABLET PO SCH (20:39)
[2020-11-26] MEDS: QUEtiapine FUMARATE 200 MG TABLET PO SCH (20:42)
[2020-11-26] MEDS: ZOLPIDEM TARTRATE 10 MG TABLET PO PRN (21:18)
[2020-11-27 00:06] VITALS: BP 132/86
[2020-11-27] MEDS: LORazepam 2 MG TABLET PO PRN ×4 (00:12→16:40)
[2020-11-27 05:14] VITALS: BP 129/88
[2020-11-27 08:20] LABS: COVID AG,FIA SOURCE NASOPHARYNGEAL
[2020-11-27 08:23] VITALS: BP 130/83
[2020-11-27] MEDS: VERAPAMIL HCL 240 MG ER TABLET PO SCH (08:29)
[2020-11-27] MEDS: GABAPENTIN 300 MG CAPSULE PO SCH ×5 (08:29→21:35)
[2020-11-27] MEDS: QUEtiapine FUMARATE 25 MG TABLET PO SCH ×3 (08:29→17:00)
[2020-11-27] MEDS: LISINOPRIL 20 MG TABLET PO SCH (08:29)
[2020-11-27 16:09] VITALS: BP 132/78
[2020-11-27] MEDS: TraZODone HCL 100 MG TABLET PO SCH (20:35)
[2020-11-27] MEDS: ZOLPIDEM TARTRATE 10 MG TABLET PO PRN (20:38)
[2020-11-27] MEDS: QUEtiapine FUMARATE 200 MG TABLET PO SCH (20:38)
[2020-11-27] MEDS: PRAZOSIN HCL 1 MG CAPSULE PO SCH (20:40)
[2020-11-27] MEDS: MIRTAZAPINE 15 MG TABLET PO SCH (20:40)
[2020-11-28 00:19] VITALS: BP 136/92
[2020-11-28] MEDS: LORazepam 2 MG TABLET PO PRN ×4 (00:22→22:00)
[2020-11-28] MEDS: QUEtiapine FUMARATE 25 MG TABLET PO SCH ×3 (08:03→17:00)
[2020-11-28] MEDS: GABAPENTIN 300 MG CAPSULE PO SCH ×4 (08:03→21:59)
[2020-11-28] MEDS: LISINOPRIL 20 MG TABLET PO SCH (08:03)
[2020-11-28] MEDS: VERAPAMIL HCL 240 MG ER TABLET PO SCH (08:03)
[2020-11-28 08:31] VITALS: BP 147/93
[2020-11-28] MEDS ORDERED: GABA-1181 PO (15:38)
[2020-11-28] MEDS ORDERED: TRAZ-257 PO (15:38)
[2020-11-28] MEDS ORDERED: PRAZ1 PO (15:38)
[2020-11-28] MEDS ORDERED: MELA1TAB17 PO (15:38)
[2020-11-28] MEDS ORDERED: NALT50TA PO (15:38)
[2020-11-28] MEDS ORDERED: MIRT-89 PO (15:38)
[2020-11-28] MEDS ORDERED: QUET25TA34 PO (15:38)
[2020-11-28] MEDS ORDERED: QUET200T29 PO (15:38)
[2020-11-28] MEDS ORDERED: ZOLP10TA2 PO (15:52)
[2020-11-28 16:10] VITALS: BP 120/74
[2020-11-28 21:50] VITALS: BP 126/72
[2020-11-28] MEDS: QUEtiapine FUMARATE 200 MG TABLET PO SCH (21:59)
[2020-11-28] MEDS: MIRTAZAPINE 15 MG TABLET PO SCH (21:59)
[2020-11-28] MEDS: TraZODone HCL 100 MG TABLET PO SCH (21:59)
[2020-11-28] MEDS: PRAZOSIN HCL 1 MG CAPSULE PO SCH (22:00)
[2020-11-29 00:10] VITALS: BP 102/65
[2020-11-29] MEDS: ZOLPIDEM TARTRATE 10 MG TABLET PO PRN (01:50)
[2020-11-29] MEDS: LORazepam 2 MG TABLET PO PRN (07:51)
[2020-11-29 07:58] VITALS: BP 140/90
[2020-11-29] MEDS ORDERED: VERA240SR PO ×2 (08:07→08:18)
[2020-11-29] MEDS: QUEtiapine FUMARATE 25 MG TABLET PO SCH (08:10)
[2020-11-29] MEDS: GABAPENTIN 300 MG CAPSULE PO SCH (08:10)
[2020-11-29] MEDS: LISINOPRIL 20 MG TABLET PO SCH (08:10)
[2020-11-29] MEDS: VERAPAMIL HCL 240 MG ER TABLET PO SCH (08:10)
== END 2020-11-29 10:10 | disposition home or self-care (01) | DRG 750 ==
LOC: EMS 10:58 → B2S 13:34 → EMS 20:07 → B2S 11-23 18:13
PROVIDERS: ADMIT Psychiatry & Neurology Psychiatry; ATTEND Psychiatry & Neurology Psychiatry
DX: F25.0 Schizoaffective disorder, bipolar type (principal); R45.851 Suicidal ideations; B18.2 Chronic viral hepatitis C; E66.9 Obesity, unspecified; F13.20 Sedative, hypnotic or anxiolytic dependence, uncomplicated; I10 Essential (primary) hypertension; J44.9 Chronic obstructive pulmonary disease, unspecified; Z20.822 Contact with and (suspected) exposure to COVID-19; F41.9 Anxiety disorder, unspecified; K21.9 Gastro-esophageal reflux disease without esophagitis; Z79.899 Other long term (current) drug therapy; Z90.710 Acquired absence of both cervix and uterus; Z90.49 Acquired absence of other specified parts of digestive tract; Z28.21 Immunization not carried out because of patient refusal; Z88.8 Allergy status to other drugs, medicaments and biological substances; Z88.5 Allergy status to narcotic agent; Z88.1 Allergy status to other antibiotic agents; Z91.011 Allergy to milk products; Z91.013 Allergy to seafood; Z68.39 Body mass index [BMI] 39.0-39.9, adult
CPT/HCPCS: 87081; 87426; G0480

== ENCOUNTER 2021-01-08 22:42 | Emergency (ER) | payer MEDICARE, OTHER ==
[~2021-01-08] VITALS: Ht 165.1 cm; Wt 103.6 kg
[~2021-01-08 22:42] MED LIST changes: +CHLO100T31 PO; -GABA-1181 PO; +GABA-1201 PO; +HYD25 PO; -LISI-662 PO; +LISI-894 PO; +MELA5TAB3 PO; +NALT50TA PO; -OLAN10TA3 PO; +OMEP20 PO; -PANT-31 PO; +PARO-37 PO
[2021-01-08 22:44] VITALS: BP 140/80
[2021-01-08] MEDS ORDERED: LORazepam 1 MG TABLET PO ONE (23:00)
== END 2021-01-08 23:15 | disposition home or self-care (01) ==
LOC: EMS 22:42
DX: F41.1 Generalized anxiety disorder (principal); F19.90 Other psychoactive substance use, unspecified, uncomplicated; F31.9 Bipolar disorder, unspecified; F20.9 Schizophrenia, unspecified; I10 Essential (primary) hypertension; Z90.49 Acquired absence of other specified parts of digestive tract; Z79.899 Other long term (current) drug therapy
CPT/HCPCS: 99283

== ENCOUNTER 2021-01-09 07:42 | Emergency (ER) | payer MEDICARE, OTHER ==
[~2021-01-09] VITALS: Ht 165.1 cm; Wt 103.6 kg
[2021-01-09 07:52] VITALS: BP 126/79
== END 2021-01-09 08:38 | disposition left against medical advice (07) ==
LOC: EMS 07:42
DX: F41.9 Anxiety disorder, unspecified (principal); Z53.21 Procedure and treatment not carried out due to patient leaving prior to being seen by health care provider

== ENCOUNTER 2021-01-10 09:22 | Emergency (ER) | payer MEDICARE, OTHER ==
[~2021-01-10] VITALS: Ht 165.1 cm; Wt 100.0 kg
[2021-01-10 11:11] VITALS: BP 151/79
== END 2021-01-10 11:16 | disposition home or self-care (01) ==
LOC: EMS 09:30
DX: F41.9 Anxiety disorder, unspecified (principal); F13.20 Sedative, hypnotic or anxiolytic dependence, uncomplicated; J45.909 Unspecified asthma, uncomplicated; F10.239 Alcohol dependence with withdrawal, unspecified; I10 Essential (primary) hypertension; Z90.49 Acquired absence of other specified parts of digestive tract; Z90.710 Acquired absence of both cervix and uterus; Z79.899 Other long term (current) drug therapy; Z91.013 Allergy to seafood; Z88.6 Allergy status to analgesic agent; Z88.1 Allergy status to other antibiotic agents
CPT/HCPCS: 99283

== ENCOUNTER 2021-01-24 09:43 | Inpatient (IN) | payer MEDICAID, MEDICARE, OTHER ==
[~2021-01-24] VITALS: Ht 165.1 cm; Wt 107.2 kg
[2021-01-24 10:59] LABS: BASOPHILS % (AUTO) 0.8 % (0.0-2.0); EOSINOPHILS % (AUTO) 2.1 % (1.0-6.0); HEMATOCRIT 39.1 % (36-46); HEMOGLOBIN 13.2 g/dL (12.0-16.0); LYMPHOCYTES # (AUTO) 3.1 K/uL (1.0-4.8); LYMPHOCYTES % (AUTO) 47.6 % (22.0-44.0); MEAN CORPUSCULAR HEMOGLOBIN 27.8 pg (26.0-34.0); MEAN CORPUSCULAR HGB CONC 33.6 G/dL (31.0-37.0); MEAN CORPUSCULAR VOLUME 83 fL (80-100); MONOCYTES # (AUTO) 0.4 K/uL (0.1-1.0); MONOCYTES % (AUTO) 5.9 % (2.0-9.0); NEUTROPHILS # (AUTO) 2.9 K/uL (1.8-7.7); NEUTROPHILS % (AUTO) 43.6 % (40.0-70.0); PLATELET COUNT (AUTO) 287 K/uL (150-450); RED BLOOD CELL COUNT(AUTO) 4.73 MIL/uL (4.00-5.20); RED CELL DISTRIBUTION WIDTH 14.6 % (11.5-14.5)
[2021-01-24] MEDS: LORazepam 2 MG TABLET PO PRN ×2 (11:04→23:04)
[2021-01-24 11:11] LABS: ANION GAP 12 mmol/L (8-16); CALCIUM, TOTAL 9.3 mg/dL (8.8-10.5); CARBON DIOXIDE 25 mmol/L (22-29); CHLORIDE 105 mmol/L (98-107); CREATININE 0.77 mg/dL (0.60-1.30); GLOMERULAR FILTR. RATE CALC > 60 mL/min (>60); GLUCOSE,RANDOM 98 mg/dL (70-110); POTASSIUM 3.2 mmol/L (3.5-5.1); SODIUM SERUM 142 mmol/L (136-145); UREA NITROGEN, BLOOD 6 mg/dL (7-18)
[2021-01-24 11:24] LABS: ALANINE AMINOTRANSFERASE 30 U/L (12-78); ALBUMIN 3.5 g/dL (3.4-5.0); ALKALINE PHOSPHATASE 108 U/L (46-116); ASPARTATE AMINOTRANSFERASE 24 U/L (15-37); BILIRUBIN,TOTAL 0.3 mg/dL (0.1-1.0); TOTAL PROTEIN, SERUM 8.2 g/dL (6.4-8.2)
[2021-01-24] MEDS ORDERED: LISI-893 PO (11:56)
[2021-01-24] MEDS ORDERED: PARO10TA89 PO (11:56)
[2021-01-24] MEDS ORDERED: VERA120T33 PO (11:56)
[2021-01-24] MEDS ORDERED: LORazepam 1 MG TABLET PO ONE (12:00)
[2021-01-24] MEDS ORDERED: ONDANSETRON HCL 4 MG/2 ML VIAL IVP PRN (12:15)
[2021-01-24] MEDS ORDERED: 0.9% SODIUM CHLORIDE 10 ML SYRINGE IVP PRN (12:15)
[2021-01-24 13:38] LABS: COVID AG,FIA SOURCE NASOPHARYNGEAL
[2021-01-24] MEDS ORDERED: POTASSIUM CHLORIDE 20 MEQ ER TABLET PO ONE (14:15)
[2021-01-24 17:45] VITALS: BP 151/97
[2021-01-24] MEDS ORDERED: HALOPERIDOL 5 MG TABLET PO PRN (17:45)
[2021-01-24] MEDS ORDERED: PNEUMOCOCCAL VACCINE POLYVALENT 0.5 ML VIAL [PPSV23] IM ONE (18:45)
[2021-01-24] MEDS ORDERED: INFLUENZA VIRUS VACCINE QVS 2020-21 (6MO+)/PF 60 MCG/0.5 ML SYRINGE IM ONE (18:45)
[2021-01-24] MEDS: ZOLPIDEM TARTRATE 10 MG TABLET PO PRN (20:09)
[2021-01-24] MEDS: OMEPRAZOLE 20 MG CAPSULE PO SCH (20:10)
[2021-01-25 05:40] VITALS: BP 130/81
[2021-01-25] MEDS: LORazepam 2 MG TABLET PO PRN ×2 (05:56→13:31)
[2021-01-25] MEDS ORDERED: DOCUSATE SODIUM 100 MG CAPSULE PO PRN (07:00)
[2021-01-25] MEDS ORDERED: MAG HYDROX/AL HYDROX/SIMETH ES 30 ML SUSPENSION UDCUP PO PRN (07:00)
[2021-01-25] MEDS ORDERED: MAGNESIUM HYDROXIDE SUSPENSION 30 ML UDCUP PO PRN (07:00)
[2021-01-25] MEDS ORDERED: LOPERAMIDE HCL 2 MG CAPSULE PO PRN (07:00)
[2021-01-25] MEDS ORDERED: GuaiFENesin/D-METHORPHAN [SUGAR-FREE] 200-20MG/10 ML SYRUP UDCUP PO PRN (07:00)
[2021-01-25] MEDS ORDERED: CloNIDine HCL 0.1 MG TABLET PO PRN (07:00)
[2021-01-25] MEDS ORDERED: NICOTINE 14 MG/24 HOUR PATCH TD PRN (07:00)
[2021-01-25] MEDS ORDERED: ONDANSETRON HCL 4 MG TABLET PO PRN (07:00)
[2021-01-25] MEDS ORDERED: ALBUTEROL SULFATE HFA 90 MCG/PUFF 8 GM INHALER IH PRN (07:00)
[2021-01-25] MEDS ORDERED: PETROLATUM,WHITE 28 GM JELLY TP PRN (07:00)
[2021-01-25 08:21] VITALS: BP 118/72
[2021-01-25] MEDS: VERAPAMIL HCL 120 MG ER TABLET PO SCH (08:51)
[2021-01-25] MEDS: LISINOPRIL 10 MG TABLET PO SCH (08:51)
[2021-01-25] MEDS: PARoxetine HCL 10 MG TABLET PO SCH (13:51)
[2021-01-25 16:08] VITALS: BP 147/92
[2021-01-25] MEDS: QUEtiapine FUMARATE 200 MG TABLET PO SCH (20:37)
[2021-01-25] MEDS: OMEPRAZOLE 20 MG CAPSULE PO SCH (20:38)
[2021-01-25] MEDS: ZOLPIDEM TARTRATE 10 MG TABLET PO PRN (20:42)
[2021-01-25 21:42] VITALS: BP 120/61
[2021-01-26 01:30] VITALS: BP 116/69
[2021-01-26 09:00] VITALS: BP 126/77
[2021-01-26] MEDS: PARoxetine HCL 10 MG TABLET PO SCH ×2 (09:00→11:54)
[2021-01-26] MEDS: VERAPAMIL HCL 120 MG ER TABLET PO SCH (09:02)
[2021-01-26] MEDS: LISINOPRIL 10 MG TABLET PO SCH (09:02)
[2021-01-26] MEDS: LORazepam 2 MG TABLET PO PRN ×2 (11:51→16:55)
[2021-01-26 16:24] VITALS: BP 140/92
[2021-01-26] MEDS: QUEtiapine FUMARATE 200 MG TABLET PO SCH (20:58)
[2021-01-26] MEDS: OMEPRAZOLE 20 MG CAPSULE PO SCH (20:58)
[2021-01-26] MEDS: ZOLPIDEM TARTRATE 10 MG TABLET PO PRN (20:58)
[2021-01-27 00:41] VITALS: BP 114/70
[2021-01-27] MEDS: LORazepam 2 MG TABLET PO PRN ×2 (00:44→12:42)
[2021-01-27] MEDS: VERAPAMIL HCL 120 MG ER TABLET PO SCH (08:19)
[2021-01-27] MEDS: PARoxetine HCL 10 MG TABLET PO SCH (08:20)
[2021-01-27 08:22] VITALS: BP 116/66
[2021-01-27] MEDS: LISINOPRIL 10 MG TABLET PO SCH (08:22)
[2021-01-27 16:10] VITALS: BP 130/88
[2021-01-27] MEDS: OMEPRAZOLE 20 MG CAPSULE PO SCH (20:26)
[2021-01-27] MEDS: QUEtiapine FUMARATE 200 MG TABLET PO SCH (20:27)
[2021-01-27] MEDS: ZOLPIDEM TARTRATE 10 MG TABLET PO PRN (20:30)
[2021-01-28 01:08] VITALS: BP 120/77
[2021-01-28] MEDS: LORazepam 2 MG TABLET PO PRN ×4 (06:00→20:05)
[2021-01-28 08:07] VITALS: BP 116/84
[2021-01-28] MEDS: LISINOPRIL 10 MG TABLET PO SCH (08:40)
[2021-01-28] MEDS: PARoxetine HCL 10 MG TABLET PO SCH (08:40)
[2021-01-28] MEDS: VERAPAMIL HCL 120 MG ER TABLET PO SCH (08:40)
[2021-01-28 16:17] VITALS: BP 139/92
[2021-01-28] MEDS: QUEtiapine FUMARATE 200 MG TABLET PO SCH (20:04)
[2021-01-28] MEDS: OMEPRAZOLE 20 MG CAPSULE PO SCH (20:04)
[2021-01-28] MEDS: ZOLPIDEM TARTRATE 10 MG TABLET PO PRN (20:05)
[2021-01-29 00:51] VITALS: BP 124/82
[2021-01-29] MEDS: LORazepam 2 MG TABLET PO PRN ×2 (06:29→13:59)
[2021-01-29 08:11] VITALS: BP 130/79
[2021-01-29] MEDS: VERAPAMIL HCL 120 MG ER TABLET PO SCH (09:07)
[2021-01-29] MEDS: PARoxetine HCL 10 MG TABLET PO SCH (09:07)
[2021-01-29] MEDS: LISINOPRIL 10 MG TABLET PO SCH (09:07)
[2021-01-29 16:07] VITALS: BP 144/89
[2021-01-29 17:41] VITALS: BP 133/69
[2021-01-29] MEDS: QUEtiapine FUMARATE 200 MG TABLET PO SCH (20:13)
[2021-01-29] MEDS: OMEPRAZOLE 20 MG CAPSULE PO SCH (20:13)
[2021-01-29] MEDS: ZOLPIDEM TARTRATE 10 MG TABLET PO PRN (20:13)
[2021-01-30 03:26] VITALS: BP 136/78
[2021-01-30 08:17] VITALS: BP 130/73
[2021-01-30] MEDS: LISINOPRIL 10 MG TABLET PO SCH (08:42)
[2021-01-30] MEDS: VERAPAMIL HCL 120 MG ER TABLET PO SCH (08:42)
[2021-01-30] MEDS: PARoxetine HCL 10 MG TABLET PO SCH (08:43)
[2021-01-30] MEDS: LORazepam 2 MG TABLET PO PRN ×2 (09:21→13:42)
[2021-01-30 16:11] VITALS: BP 125/62
[2021-01-30] MEDS: QUEtiapine FUMARATE 200 MG TABLET PO SCH (20:19)
[2021-01-30] MEDS: OMEPRAZOLE 20 MG CAPSULE PO SCH (20:19)
[2021-01-30] MEDS: ZOLPIDEM TARTRATE 10 MG TABLET PO PRN (20:20)
[2021-01-31 01:10] VITALS: BP 120/74
[2021-01-31] MEDS: LORazepam 2 MG TABLET PO PRN ×3 (05:50→16:40)
[2021-01-31 08:15] VITALS: BP 139/89
[2021-01-31 08:20] LABS: COVID AG,FIA SOURCE NASOPHARYNGEAL
[2021-01-31] MEDS: PARoxetine HCL 10 MG TABLET PO SCH (08:23)
[2021-01-31] MEDS: VERAPAMIL HCL 120 MG ER TABLET PO SCH (08:23)
[2021-01-31] MEDS: LISINOPRIL 10 MG TABLET PO SCH (08:23)
[2021-01-31 16:16] VITALS: BP 131/73
[2021-01-31] MEDS: QUEtiapine FUMARATE 200 MG TABLET PO SCH (20:36)
[2021-01-31] MEDS: OMEPRAZOLE 20 MG CAPSULE PO SCH (20:36)
[2021-01-31] MEDS: ZOLPIDEM TARTRATE 10 MG TABLET PO PRN (21:04)
[2021-02-01] MEDS: LORazepam 2 MG TABLET PO PRN ×2 (00:25→09:00)
[2021-02-01 00:38] VITALS: BP 122/78
[2021-02-01 08:19] VITALS: BP 112/71
[2021-02-01] MEDS: PARoxetine HCL 10 MG TABLET PO SCH (08:30)
[2021-02-01] MEDS: LISINOPRIL 10 MG TABLET PO SCH (08:30)
[2021-02-01] MEDS: VERAPAMIL HCL 120 MG ER TABLET PO SCH (08:30)
[2021-02-01] MEDS ORDERED: PARO10TA71 PO (14:02)
[2021-02-01] MEDS ORDERED: ZOLP10TA2 PO (14:02)
[2021-02-01] MEDS ORDERED: QUET200T29 PO (14:02)
[2021-02-01] MEDS ORDERED: ZOLP10TA8 PO ×5 (15:06→15:20)
[2021-02-01] MEDS ORDERED: PARO10TA89 PO (15:52)
[2021-02-01] MEDS ORDERED: QUET200T PO (15:54)
[2021-02-01 16:10] VITALS: BP 125/66
== END 2021-02-01 17:10 | disposition home or self-care (01) | DRG 750 ==
LOC: EMS 09:46 → B3A 17:58
DX: F25.0 Schizoaffective disorder, bipolar type (principal); R45.851 Suicidal ideations; Z91.5 Personal history of self-harm; G62.9 Polyneuropathy, unspecified; I10 Essential (primary) hypertension; J45.909 Unspecified asthma, uncomplicated; K74.60 Unspecified cirrhosis of liver; Z88.8 Allergy status to other drugs, medicaments and biological substances; F43.12 Post-traumatic stress disorder, chronic; K21.9 Gastro-esophageal reflux disease without esophagitis; Z90.49 Acquired absence of other specified parts of digestive tract; Z90.710 Acquired absence of both cervix and uterus; B18.2 Chronic viral hepatitis C; E87.6 Hypokalemia; G47.00 Insomnia, unspecified; F13.20 Sedative, hypnotic or anxiolytic dependence, uncomplicated; F10.20 Alcohol dependence, uncomplicated; Z79.899 Other long term (current) drug therapy; Y90.9 Presence of alcohol in blood, level not specified; Z20.822 Contact with and (suspected) exposure to COVID-19; Z28.21 Immunization not carried out because of patient refusal
CPT/HCPCS: 87426; 99285; G0480

== ENCOUNTER 2021-02-12 11:10 | Emergency (ER) | payer MEDICARE, MEDICAID, OTHER ==
[~2021-02-12] VITALS: Ht 165.1 cm; Wt 100.0 kg
[~2021-02-12 11:10] MED LIST changes: -CHLO100T31 PO; -GABA-1201 PO; -HYD25 PO; +LISI-893 PO; -LISI-894 PO; -MELA5TAB3 PO; -NALT50TA PO; -PARO-37 PO; +PARO10TA89 PO; -PRAZ1 PO; +QUET200T PO; -TRAZ-252 PO; +VERA120T33 PO; -VERA240SR PO; +ZOLP10TA8 PO
[2021-02-12 12:58] VITALS: BP 125/82
== END 2021-02-12 13:03 | disposition home or self-care (01) ==
LOC: EMS 11:13
DX: G47.00 Insomnia, unspecified (principal); F41.9 Anxiety disorder, unspecified; F31.9 Bipolar disorder, unspecified; J45.909 Unspecified asthma, uncomplicated; I10 Essential (primary) hypertension; Z90.710 Acquired absence of both cervix and uterus; Z79.899 Other long term (current) drug therapy; Z88.8 Allergy status to other drugs, medicaments and biological substances; Z88.6 Allergy status to analgesic agent; Z88.1 Allergy status to other antibiotic agents; Z91.011 Allergy to milk products; Z88.5 Allergy status to narcotic agent; Z91.013 Allergy to seafood
CPT/HCPCS: 99283; Z7502

== ENCOUNTER 2021-02-17 06:49 | Emergency (ER) | payer MEDICARE, OTHER ==
[~2021-02-17] VITALS: Ht 165.1 cm; Wt 100.0 kg
[2021-02-17] MEDS ORDERED: HydrOXYzine PAMOATE 25 MG CAPSULE PO ONE (08:30)
[2021-02-17 08:35] LABS: BASOPHILS % (AUTO) 0.9 % (0.0-2.0); HEMATOCRIT 41.1 % (36-46); HEMOGLOBIN 13.5 g/dL (12.0-16.0); LYMPHOCYTES # (AUTO) 3.2 K/uL (1.0-4.8); LYMPHOCYTES % (AUTO) 48.1 % (22.0-44.0); MEAN CORPUSCULAR HEMOGLOBIN 27.4 pg (26.0-34.0); MEAN CORPUSCULAR HGB CONC 32.7 G/dL (31.0-37.0); MEAN CORPUSCULAR VOLUME 84 fL (80-100); MONOCYTES # (AUTO) 0.4 K/uL (0.1-1.0); MONOCYTES % (AUTO) 5.8 % (2.0-9.0); NEUTROPHILS # (AUTO) 2.8 K/uL (1.8-7.7); NEUTROPHILS % (AUTO) 43.2 % (40.0-70.0); PLATELET COUNT (AUTO) 237 K/uL (150-450); RED BLOOD CELL COUNT(AUTO) 4.91 MIL/uL (4.00-5.20); RED CELL DISTRIBUTION WIDTH 15.6 % (11.5-14.5)
[2021-02-17 08:43] LABS: ANION GAP 10 mmol/L (8-16); CARBON DIOXIDE 24 mmol/L (22-29); CHLORIDE 107 mmol/L (98-107); CREATININE 0.71 mg/dL (0.60-1.30); GLOMERULAR FILTR. RATE CALC > 60 mL/min (>60); GLUCOSE,RANDOM 87 mg/dL (70-110); POTASSIUM 3.5 mmol/L (3.5-5.1); SODIUM SERUM 141 mmol/L (136-145); UREA NITROGEN, BLOOD 10 mg/dL (7-18)
[2021-02-17 08:49] LABS: ALANINE AMINOTRANSFERASE 23 U/L (12-78); ALBUMIN 3.7 g/dL (3.4-5.0); ALKALINE PHOSPHATASE 111 U/L (46-116); ASPARTATE AMINOTRANSFERASE 21 U/L (15-37); BILIRUBIN,TOTAL 0.5 mg/dL (0.1-1.0); TOTAL PROTEIN, SERUM 8.3 g/dL (6.4-8.2)
[2021-02-17 09:13] LABS: APPEARANCE,URINE CLEAR (CLEAR); BILIRUBIN,URINE NEGATIVE (NEGATIVE); GLUCOSE, URINE (UA) NEGATIVE (NEGATIVE); KETONES,URINE NEGATIVE (NEGATIVE); LEUKOCYTE ESTERASE ,URINE NEGATIVE (NEGATIVE); NITRATE,URINE NEGATIVE (NEGATIVE); OCCULT BLOOD,URINE NEGATIVE (NEGATIVE); PROTEIN,URINE NEGATIVE (NEGATIVE); UROBILINOGEN,URINE 0.2 mg/dL (<=1.0)
[2021-02-17 09:18] LABS: AMPHET/METH SCREEN,URINE NEGATIVE (NEGATIVE); BARBITURATE SCREEN, URINE NEGATIVE (NEGATIVE); BENZODIAZEPINES SCREEN,URINE NEGATIVE (NEGATIVE); CANNABINOID SCREEN,URINE NEGATIVE (NEGATIVE); COCAINE SCREEN,URINE NEGATIVE (NEGATIVE); METHADONE SCREEN, URINE NEGATIVE (NEGATIVE); OPIATE SCREEN,URINE NEGATIVE (NEGATIVE); PHENCYCLIDINE SCREEN,URINE NEGATIVE (NEGATIVE)
[2021-02-17 09:46] LABS: BACTERIA,URINE None Seen /HPF (None Seen); RBC,URINE None Seen /HPF (0-2); SQUAMOUS EPITHELIAL CELL,UR Few /LPF (None Seen); WBC,URINE 0-2 /HPF (0-5)
[2021-02-17] MEDS ORDERED: LORazepam 1 MG TABLET PO ONE (12:30)
[2021-02-17 13:59] LABS: COVID AG,FIA SOURCE NASAL SWAB
[2021-02-17] MEDS ORDERED: MAGNESIUM HYDROXIDE SUSPENSION 30 ML UDCUP PO PRN (14:45)
[2021-02-17] MEDS ORDERED: GuaiFENesin/D-METHORPHAN [SUGAR-FREE] 200-20MG/10 ML SYRUP UDCUP PO PRN (14:45)
[2021-02-17] MEDS ORDERED: MAG HYDROX/AL HYDROX/SIMETH ES 30 ML SUSPENSION UDCUP PO PRN (14:45)
[2021-02-17] MEDS ORDERED: LOPERAMIDE HCL 2 MG CAPSULE PO PRN (14:45)
[2021-02-17] MEDS ORDERED: HydrOXYzine PAMOATE 50 MG CAPSULE PO PRN (14:45)
[2021-02-17] MEDS ORDERED: ZOLPIDEM TARTRATE 10 MG TABLET PO PRN (14:45)
[2021-02-17] MEDS ORDERED: GABAPENTIN 300 MG CAPSULE PO PRN (14:45)
[2021-02-17] MEDS ORDERED: QUEtiapine FUMARATE 100 MG TABLET PO PRN (14:45)
[2021-02-17] MEDS ORDERED: PROMETHAZINE HCL 25 MG TABLET PO PRN (14:45)
[2021-02-17] MEDS ORDERED: GABAPENTIN 400 MG CAPSULE PO SCH (16:00)
[2021-02-17 16:01] VITALS: BP 148/89
[2021-02-17] MEDS ORDERED: THIAMINE 100 MG TABLET PO SCH (21:00)
[2021-02-17] MEDS ORDERED: MELATONIN 5 MG TABLET PO SCH (21:00)
[2021-02-17] MEDS ORDERED: QUEtiapine FUMARATE 200 MG TABLET PO SCH (21:00)
[2021-02-18] MEDS ORDERED: NALTREXONE HCL 50 MG TABLET PO SCH (09:00)
[2021-02-18] MEDS ORDERED: FOLIC ACID 1 MG TABLET PO SCH (09:00)
[2021-02-18] MEDS ORDERED: DULoxetine HCL 20 MG CAPSULE PO SCH (09:00)
[2021-02-18] MEDS ORDERED: MULTIVITAMINS WITH MINERALS, THERAPEUTIC TABLET PO SCH (09:00)
[2021-02-18] MEDS ORDERED: OMEGA-3/DHA/EPA/FISH OIL 1,000 MG CAPSULE PO SCH (09:00)
== END 2021-02-17 16:23 | disposition home or self-care (01) ==
LOC: EMS 06:51
DX: F32.9 Major depressive disorder, single episode, unspecified (principal); R45.851 Suicidal ideations; F41.9 Anxiety disorder, unspecified; I10 Essential (primary) hypertension; J45.909 Unspecified asthma, uncomplicated; F11.90 Opioid use, unspecified, uncomplicated; Z20.822 Contact with and (suspected) exposure to COVID-19; Z90.89 Acquired absence of other organs; Z90.710 Acquired absence of both cervix and uterus; Z88.6 Allergy status to analgesic agent; Z88.1 Allergy status to other antibiotic agents; Z91.011 Allergy to milk products; Z88.5 Allergy status to narcotic agent; Z91.013 Allergy to seafood; Z79.899 Other long term (current) drug therapy
CPT/HCPCS: 36415; 80053; 80307; 81001; 85025; 87426; 99285; G0480

== ENCOUNTER 2021-02-19 17:42 | Inpatient (IN) | payer MEDICAID, MEDICARE ==
[~2021-02-19] VITALS: Ht 165.1 cm; Wt 103.1 kg
[2021-02-19] MEDS ORDERED: HALOPERIDOL 5 MG TABLET PO PRN (20:15)
[2021-02-19 20:35] VITALS: BP 128/73
[2021-02-19] MEDS ORDERED: PNEUMOCOCCAL VACCINE POLYVALENT 0.5 ML VIAL [PPSV23] IM. ONE (21:15)
[2021-02-19] MEDS: LORazepam 2 MG TABLET PO PRN (21:45)
[2021-02-19] MEDS: MAG HYDROX/AL HYDROX/SIMETH ES 30 ML SUSPENSION UDCUP PO PRN (23:04)
[2021-02-19] MEDS: ZOLPIDEM TARTRATE 10 MG TABLET PO PRN (23:50)
[2021-02-20 00:13] VITALS: BP 122/76
[2021-02-20] MEDS ORDERED: DOCUSATE SODIUM 100 MG CAPSULE PO PRN (08:15)
[2021-02-20] MEDS ORDERED: LOPERAMIDE HCL 2 MG CAPSULE PO PRN (08:15)
[2021-02-20] MEDS ORDERED: ALBUTEROL SULFATE HFA 90 MCG/PUFF 8 GM INHALER IH PRN (08:15)
[2021-02-20] MEDS ORDERED: NICOTINE 14 MG/24 HOUR PATCH TD PRN (08:15)
[2021-02-20] MEDS ORDERED: MAGNESIUM HYDROXIDE SUSPENSION 30 ML UDCUP PO PRN (08:15)
[2021-02-20] MEDS ORDERED: GuaiFENesin/D-METHORPHAN [SUGAR-FREE] 200-20MG/10 ML SYRUP UDCUP PO PRN (08:15)
[2021-02-20] MEDS ORDERED: PETROLATUM,WHITE 28 GM JELLY TP PRN (08:15)
[2021-02-20] MEDS ORDERED: CloNIDine HCL 0.1 MG TABLET PO PRN (08:15)
[2021-02-20] MEDS ORDERED: MAG HYDROX/AL HYDROX/SIMETH ES 30 ML SUSPENSION UDCUP PO PRN (08:15)
[2021-02-20 08:30] VITALS: BP 143/66
[2021-02-20] MEDS: LISINOPRIL 10 MG TABLET PO SCH (08:53)
[2021-02-20] MEDS: LORazepam 2 MG TABLET PO PRN ×2 (08:56→13:49)
[2021-02-20] MEDS: QUEtiapine FUMARATE 25 MG TABLET PO SCH (12:14)
[2021-02-20] MEDS: VERAPAMIL HCL 120 MG ER TABLET PO SCH (12:15)
[2021-02-20] MEDS: MAG HYDROX/AL HYDROX/SIMETH ES 30 ML SUSPENSION UDCUP PO PRN (16:04)
[2021-02-20 16:09] VITALS: BP 133/73
[2021-02-20] MEDS: OMEPRAZOLE 20 MG CAPSULE PO SCH (20:38)
[2021-02-20] MEDS: QUEtiapine FUMARATE 200 MG TABLET PO SCH (20:39)
[2021-02-20] MEDS: ZOLPIDEM TARTRATE 10 MG TABLET PO PRN (22:06)
[2021-02-21 00:57] VITALS: BP 130/76
[2021-02-21 08:29] VITALS: BP 130/76
[2021-02-21] MEDS: VERAPAMIL HCL 120 MG ER TABLET PO SCH (09:33)
[2021-02-21] MEDS: LISINOPRIL 10 MG TABLET PO SCH (09:33)
[2021-02-21] MEDS: PARoxetine HCL 10 MG TABLET PO SCH (09:33)
[2021-02-21] MEDS: QUEtiapine FUMARATE 25 MG TABLET PO SCH (09:33)
[2021-02-21] MEDS: LORazepam 2 MG TABLET PO PRN ×2 (09:41→20:50)
[2021-02-21 16:54] VITALS: BP 126/60
[2021-02-21] MEDS: OMEPRAZOLE 20 MG CAPSULE PO SCH (20:40)
[2021-02-21] MEDS: QUEtiapine FUMARATE 200 MG TABLET PO SCH (20:40)
[2021-02-22] MEDS: ZOLPIDEM TARTRATE 10 MG TABLET PO PRN ×2 (00:02→20:12)
[2021-02-22] MEDS: LORazepam 2 MG TABLET PO PRN ×4 (02:02→23:22)
[2021-02-22 02:05] VITALS: BP 116/67
[2021-02-22 07:57] LABS: BASOPHILS % (AUTO) 0.5 % (0.0-2.0); EOSINOPHILS % (AUTO) 3.3 % (1.0-6.0); HEMATOCRIT 38.7 % (36-46); HEMOGLOBIN 12.9 g/dL (12.0-16.0); LYMPHOCYTES # (AUTO) 3.4 K/uL (1.0-4.8); LYMPHOCYTES % (AUTO) 61.7 % (22.0-44.0); MEAN CORPUSCULAR HEMOGLOBIN 27.7 pg (26.0-34.0); MEAN CORPUSCULAR HGB CONC 33.4 G/dL (31.0-37.0); MEAN CORPUSCULAR VOLUME 83 fL (80-100); MONOCYTES # (AUTO) 0.4 K/uL (0.1-1.0); MONOCYTES % (AUTO) 7.9 % (2.0-9.0); NEUTROPHILS # (AUTO) 1.5 K/uL (1.8-7.7); NEUTROPHILS % (AUTO) 26.6 % (40.0-70.0); PLATELET COUNT (AUTO) 226 K/uL (150-450); RED BLOOD CELL COUNT(AUTO) 4.67 MIL/uL (4.00-5.20); RED CELL DISTRIBUTION WIDTH 15.7 % (11.5-14.5)
[2021-02-22 08:01] LABS: HEMOGLOBIN A1C 5.2 % (3.8-5.6)
[2021-02-22] MEDS: LISINOPRIL 10 MG TABLET PO SCH (08:02)
[2021-02-22] MEDS: VERAPAMIL HCL 120 MG ER TABLET PO SCH (08:02)
[2021-02-22] MEDS: PARoxetine HCL 10 MG TABLET PO SCH (08:03)
[2021-02-22] MEDS: QUEtiapine FUMARATE 25 MG TABLET PO SCH (08:03)
[2021-02-22 08:28] LABS: ALANINE AMINOTRANSFERASE 21 U/L (12-78); ALBUMIN 3.2 g/dL (3.4-5.0); ALKALINE PHOSPHATASE 102 U/L (46-116); ANION GAP 10 mmol/L (8-16); ASPARTATE AMINOTRANSFERASE 20 U/L (15-37); BILIRUBIN,TOTAL 0.3 mg/dL (0.1-1.0); CALCIUM, TOTAL 8.8 mg/dL (8.8-10.5); CARBON DIOXIDE 25 mmol/L (22-29); CHLORIDE 107 mmol/L (98-107); CHOL/HDL RATIO 5.2 (3.9-5.7); CHOLESTEROL 156 mg/dL (131-200); CREATININE 0.76 mg/dL (0.60-1.30); FREE T4 (FREE THYROXINE) 0.69 ng/dL (0.76-1.46); GLOMERULAR FILTR. RATE CALC > 60 mL/min (>60); GLUCOSE,RANDOM 87 mg/dL (70-110); HDL CHOLESTEROL 30 mg/dL (40-60); LDL CHOL (CALC.) 108 mg/dL (0-130); POTASSIUM 3.8 mmol/L (3.5-5.1); SODIUM SERUM 142 mmol/L (136-145); THYROID STIMULATING HORMONE 1.07 uIU/mL (0.36-3.74); TOTAL PROTEIN, SERUM 7.6 g/dL (6.4-8.2); TRIGLYCERIDES 88 mg/dL (15-150); UREA NITROGEN, BLOOD 12 mg/dL (7-18)
[2021-02-22 12:16] VITALS: BP 112/74
[2021-02-22 16:32] VITALS: BP 100/72
[2021-02-22] MEDS: OMEPRAZOLE 20 MG CAPSULE PO SCH (20:12)
[2021-02-22] MEDS: QUEtiapine FUMARATE 200 MG TABLET PO SCH (20:12)
[2021-02-23] MEDS: PARoxetine HCL 10 MG TABLET PO SCH (07:58)
[2021-02-23] MEDS: VERAPAMIL HCL 120 MG ER TABLET PO SCH (07:58)
[2021-02-23] MEDS: LISINOPRIL 10 MG TABLET PO SCH (07:58)
[2021-02-23] MEDS: QUEtiapine FUMARATE 25 MG TABLET PO SCH (07:58)
[2021-02-23 08:17] VITALS: BP 130/66
[2021-02-23] MEDS: LORazepam 2 MG TABLET PO PRN (09:00)
[2021-02-23] MEDS ORDERED: QUET25TA PO (12:20)
== END 2021-02-23 13:15 | disposition home or self-care (01) | DRG 756 ==
LOC: B3A 20:13
PROVIDERS: ADMIT Psychiatry & Neurology Child & Adolescent Psychiatry; ATTEND Psychiatry & Neurology Child & Adolescent Psychiatry
DX: R45.851 Suicidal ideations (principal); B19.20 Unspecified viral hepatitis C without hepatic coma; F41.9 Anxiety disorder, unspecified; I10 Essential (primary) hypertension; J45.909 Unspecified asthma, uncomplicated; K21.9 Gastro-esophageal reflux disease without esophagitis; Z59.0 Homelessness; Z90.710 Acquired absence of both cervix and uterus; Z28.21 Immunization not carried out because of patient refusal; Z88.8 Allergy status to other drugs, medicaments and biological substances; Z88.1 Allergy status to other antibiotic agents; Z91.011 Allergy to milk products; Z91.013 Allergy to seafood
CPT/HCPCS: 83036; 84439; 84443; 87081; 90732

== ENCOUNTER 2021-02-24 14:39 | Emergency (ER) | payer MEDICARE, OTHER ==
[~2021-02-24] VITALS: Ht 165.1 cm; Wt 100.0 kg
[~2021-02-24 14:39] MED LIST changes: -OMEP20 PO; +QUET25TA PO
[2021-02-24 15:03] VITALS: BP 133/110
== END 2021-02-24 15:50 | disposition left against medical advice (07) ==
LOC: EMS 14:39
DX: I10 Essential (primary) hypertension (principal); F41.9 Anxiety disorder, unspecified; J45.909 Unspecified asthma, uncomplicated; F31.9 Bipolar disorder, unspecified; F20.9 Schizophrenia, unspecified; Z76.0 Encounter for issue of repeat prescription; Z90.89 Acquired absence of other organs; Z90.710 Acquired absence of both cervix and uterus; Z88.8 Allergy status to other drugs, medicaments and biological substances; Z88.6 Allergy status to analgesic agent; Z88.1 Allergy status to other antibiotic agents; Z91.011 Allergy to milk products; Z91.013 Allergy to seafood
CPT/HCPCS: 99281; Z7502

== ENCOUNTER 2021-04-07 20:09 | Inpatient (IN) | payer MEDICARE, MEDICAID ==
[~2021-04-07] VITALS: Ht 167.6 cm; Wt 105.1 kg
[2021-04-07 20:56] LABS: EOSINOPHILS % (AUTO) 2.2 % (1.0-6.0); HEMATOCRIT 41.6 % (36-46); HEMOGLOBIN 13.8 g/dL (12.0-16.0); LYMPHOCYTES # (AUTO) 3.6 K/uL (1.0-4.8); LYMPHOCYTES % (AUTO) 51.5 % (22.0-44.0); MEAN CORPUSCULAR HEMOGLOBIN 27.7 pg (26.0-34.0); MEAN CORPUSCULAR HGB CONC 33.2 G/dL (31.0-37.0); MEAN CORPUSCULAR VOLUME 83 fL (80-100); MONOCYTES # (AUTO) 0.4 K/uL (0.1-1.0); MONOCYTES % (AUTO) 5.6 % (2.0-9.0); NEUTROPHILS # (AUTO) 2.8 K/uL (1.8-7.7); NEUTROPHILS % (AUTO) 39.7 % (40.0-70.0); PLATELET COUNT (AUTO) 265 K/uL (150-450); RED BLOOD CELL COUNT(AUTO) 4.99 MIL/uL (4.00-5.20); RED CELL DISTRIBUTION WIDTH 15.6 % (11.5-14.5)
[2021-04-07 21:00] LABS: COVID AG,FIA SOURCE NASOPHARYNGEAL
[2021-04-07] MEDS ORDERED: HydrOXYzine PAMOATE 50 MG CAPSULE PO ONE (21:00)
[2021-04-07 21:09] LABS: ALANINE AMINOTRANSFERASE 25 U/L (12-78); ALKALINE PHOSPHATASE 129 U/L (46-116); ANION GAP 13 mmol/L (8-16); ASPARTATE AMINOTRANSFERASE 27 U/L (15-37); BILIRUBIN,TOTAL 0.5 mg/dL (0.1-1.0); CALCIUM, TOTAL 9.5 mg/dL (8.8-10.5); CARBON DIOXIDE 25 mmol/L (22-29); CHLORIDE 102 mmol/L (98-107); GLOMERULAR FILTR. RATE CALC > 60 mL/min (>60); GLUCOSE,RANDOM 97 mg/dL (70-110); SODIUM SERUM 140 mmol/L (136-145); TOTAL PROTEIN, SERUM 8.4 g/dL (6.4-8.2); UREA NITROGEN, BLOOD 5 mg/dL (7-18)
[2021-04-07] MEDS ORDERED: POTASSIUM CHLORIDE 20 MEQ ER TABLET PO ONE (22:00)
[2021-04-08] MEDS: ZOLPIDEM TARTRATE 10 MG TABLET PO PRN (00:33)
[2021-04-08] MEDS: LORazepam 2 MG TABLET PO PRN ×3 (00:33→16:20)
[2021-04-08 01:42] VITALS: BP 158/83
[2021-04-08] MEDS ORDERED: PNEUMOCOCCAL VACCINE POLYVALENT 0.5 ML VIAL [PPSV23] IM. ONE (02:15)
[2021-04-08] MEDS ORDERED: BACITRACIN 28 GM OINTMENT TP PRN (07:00)
[2021-04-08] MEDS ORDERED: DOCUSATE SODIUM 100 MG CAPSULE PO PRN (07:00)
[2021-04-08] MEDS ORDERED: POTASSIUM CHLORIDE 20 MEQ ER TABLET PO ONE (07:00)
[2021-04-08] MEDS ORDERED: BENZOCAINE/MENTHOL LOZENGE PO PRN (07:00)
[2021-04-08] MEDS ORDERED: ALBUTEROL SULFATE HFA 90 MCG/PUFF 8 GM INHALER IH PRN (07:00)
[2021-04-08] MEDS ORDERED: CloNIDine HCL 0.1 MG TABLET PO PRN (07:00)
[2021-04-08] MEDS ORDERED: PETROLATUM,WHITE 28 GM JELLY TP PRN (07:00)
[2021-04-08 07:06] LABS: CHOL/HDL RATIO 4.9 (3.9-5.7)
[2021-04-08 08:00] VITALS: BP 121/74
[2021-04-08] MEDS: VERAPAMIL HCL 120 MG ER TABLET PO SCH (08:39)
[2021-04-08] MEDS: LISINOPRIL 10 MG TABLET PO SCH (08:39)
[2021-04-08] MEDS: OLANZapine 5 MG TABLET PO PRN (08:55)
[2021-04-08 16:03] VITALS: BP 97/59
[2021-04-08] MEDS: MAG HYDROX/AL HYDROX/SIMETH ES 30 ML SUSPENSION UDCUP PO PRN (20:31)
[2021-04-09] MEDS: ZOLPIDEM TARTRATE 10 MG TABLET PO PRN ×3 (00:03→23:34)
[2021-04-09] MEDS: LORazepam 2 MG TABLET PO PRN ×4 (03:45→23:34)
[2021-04-09 08:00] VITALS: BP 131/63
[2021-04-09] MEDS: LISINOPRIL 10 MG TABLET PO SCH (10:05)
[2021-04-09] MEDS: VERAPAMIL HCL 120 MG ER TABLET PO SCH (10:05)
[2021-04-09] MEDS: OLANZapine 5 MG TABLET PO PRN ×2 (10:05→15:08)
[2021-04-09] MEDS: PARoxetine HCL 10 MG TABLET PO SCH (13:51)
[2021-04-09 16:46] VITALS: BP 102/69
[2021-04-09] MEDS: QUEtiapine FUMARATE 200 MG TABLET PO SCH (20:26)
[2021-04-09] MEDS: MAG HYDROX/AL HYDROX/SIMETH ES 30 ML SUSPENSION UDCUP PO PRN (22:11)
[2021-04-10 08:00] VITALS: BP 140/95
[2021-04-10] MEDS: VERAPAMIL HCL 120 MG ER TABLET PO SCH (08:57)
[2021-04-10] MEDS: LISINOPRIL 10 MG TABLET PO SCH (08:57)
[2021-04-10] MEDS: PARoxetine HCL 10 MG TABLET PO SCH (08:57)
[2021-04-10] MEDS: QUEtiapine FUMARATE 25 MG TABLET PO SCH (08:57)
[2021-04-10] MEDS: LORazepam 2 MG TABLET PO PRN ×2 (08:58→16:38)
[2021-04-10 16:50] VITALS: BP 131/76
[2021-04-10] MEDS: OMEPRAZOLE 20 MG CAPSULE PO PRN (20:44)
[2021-04-10] MEDS: QUEtiapine FUMARATE 200 MG TABLET PO SCH (20:44)
[2021-04-10] MEDS: ZOLPIDEM TARTRATE 10 MG TABLET PO PRN (22:18)
[2021-04-11] MEDS: LORazepam 2 MG TABLET PO PRN ×3 (01:59→16:03)
[2021-04-11] MEDS: VERAPAMIL HCL 120 MG ER TABLET PO SCH (08:30)
[2021-04-11] MEDS: LISINOPRIL 10 MG TABLET PO SCH (08:30)
[2021-04-11] MEDS: QUEtiapine FUMARATE 25 MG TABLET PO SCH (08:30)
[2021-04-11] MEDS: OLANZapine 5 MG TABLET PO PRN ×2 (08:30→16:03)
[2021-04-11] MEDS: OMEPRAZOLE 20 MG CAPSULE PO PRN (08:30)
[2021-04-11] MEDS: PARoxetine HCL 10 MG TABLET PO SCH (10:31)
[2021-04-11 12:32] VITALS: BP 129/108
[2021-04-11 16:25] VITALS: BP 107/60
[2021-04-11] MEDS: QUEtiapine FUMARATE 200 MG TABLET PO SCH (20:16)
[2021-04-11] MEDS: ZOLPIDEM TARTRATE 10 MG TABLET PO PRN (22:49)
[2021-04-12] MEDS: LORazepam 2 MG TABLET PO PRN ×3 (03:09→16:32)
[2021-04-12 08:00] VITALS: BP 118/79
[2021-04-12] MEDS: LISINOPRIL 10 MG TABLET PO SCH (10:21)
[2021-04-12] MEDS: QUEtiapine FUMARATE 25 MG TABLET PO SCH (10:22)
[2021-04-12] MEDS: VERAPAMIL HCL 120 MG ER TABLET PO SCH (10:23)
[2021-04-12] MEDS: PARoxetine HCL 10 MG TABLET PO SCH (10:23)
[2021-04-12 16:45] VITALS: BP 120/73
[2021-04-12] MEDS: QUEtiapine FUMARATE 200 MG TABLET PO SCH (21:04)
[2021-04-12] MEDS: ZOLPIDEM TARTRATE 10 MG TABLET PO PRN (21:59)
[2021-04-13] MEDS: LORazepam 2 MG TABLET PO PRN ×3 (03:23→15:53)
[2021-04-13] MEDS: VERAPAMIL HCL 120 MG ER TABLET PO SCH (10:26)
[2021-04-13] MEDS: LISINOPRIL 10 MG TABLET PO SCH (10:27)
[2021-04-13] MEDS: PARoxetine HCL 10 MG TABLET PO SCH (10:28)
[2021-04-13] MEDS: QUEtiapine FUMARATE 25 MG TABLET PO SCH (10:28)
[2021-04-13 16:47] VITALS: BP 136/82
[2021-04-13] MEDS: QUEtiapine FUMARATE 200 MG TABLET PO SCH (20:48)
[2021-04-14] MEDS: LORazepam 2 MG TABLET PO PRN ×3 (05:17→16:53)
[2021-04-14 05:18] VITALS: BP 140/96
[2021-04-14] MEDS: LISINOPRIL 10 MG TABLET PO SCH (08:11)
[2021-04-14] MEDS: QUEtiapine FUMARATE 25 MG TABLET PO SCH (08:11)
[2021-04-14 08:14] VITALS: BP 115/78
[2021-04-14] MEDS: PARoxetine HCL 10 MG TABLET PO SCH (08:15)
[2021-04-14] MEDS: VERAPAMIL HCL 120 MG ER TABLET PO SCH (08:15)
[2021-04-14 13:46] LABS: COVID AG,FIA SOURCE NASOPHARYNGEAL
[2021-04-14 16:00] VITALS: BP 107/64
[2021-04-14] MEDS: QUEtiapine FUMARATE 200 MG TABLET PO SCH (20:19)
[2021-04-14] MEDS: ZOLPIDEM TARTRATE 10 MG TABLET PO PRN (21:55)
[2021-04-15 01:57] VITALS: BP 138/83
[2021-04-15] MEDS: LORazepam 2 MG TABLET PO PRN ×3 (01:59→14:35)
[2021-04-15 08:35] VITALS: BP 122/74
[2021-04-15] MEDS: LISINOPRIL 10 MG TABLET PO SCH (08:50)
[2021-04-15] MEDS: VERAPAMIL HCL 120 MG ER TABLET PO SCH (08:50)
[2021-04-15] MEDS: PARoxetine HCL 10 MG TABLET PO SCH (08:50)
[2021-04-15] MEDS: QUEtiapine FUMARATE 25 MG TABLET PO SCH (08:52)
[2021-04-15 16:33] VITALS: BP 98/69
[2021-04-15] MEDS: QUEtiapine FUMARATE 200 MG TABLET PO SCH (20:17)
[2021-04-15] MEDS: ZOLPIDEM TARTRATE 10 MG TABLET PO PRN (21:44)
[2021-04-16 00:05] VITALS: BP 117/73
[2021-04-16] MEDS: LORazepam 2 MG TABLET PO PRN ×3 (00:11→13:14)
[2021-04-16 08:55] VITALS: BP 132/84
[2021-04-16] MEDS: QUEtiapine FUMARATE 25 MG TABLET PO SCH (09:33)
[2021-04-16] MEDS: PARoxetine HCL 10 MG TABLET PO SCH (09:33)
[2021-04-16] MEDS: VERAPAMIL HCL 120 MG ER TABLET PO SCH (09:33)
[2021-04-16] MEDS: LISINOPRIL 10 MG TABLET PO SCH (09:33)
[2021-04-16 16:00] VITALS: BP 115/70
[2021-04-16] MEDS: QUEtiapine FUMARATE 200 MG TABLET PO SCH (21:18)
[2021-04-16] MEDS: ZOLPIDEM TARTRATE 10 MG TABLET PO PRN (22:43)
[2021-04-16] MEDS: MAGNESIUM HYDROXIDE SUSPENSION 30 ML UDCUP PO PRN ×2 (23:14→23:16)
[2021-04-17 00:05] VITALS: BP 139/87
[2021-04-17] MEDS: LORazepam 2 MG TABLET PO PRN ×3 (00:07→12:33)
[2021-04-17] MEDS: QUEtiapine FUMARATE 25 MG TABLET PO SCH (08:31)
[2021-04-17] MEDS: LISINOPRIL 10 MG TABLET PO SCH (08:31)
[2021-04-17] MEDS: PARoxetine HCL 10 MG TABLET PO SCH (08:31)
[2021-04-17] MEDS: VERAPAMIL HCL 120 MG ER TABLET PO SCH (08:33)
[2021-04-17 08:43] VITALS: BP 118/62
== END 2021-04-17 14:15 | disposition home or self-care (01) | DRG 750 ==
LOC: EMS 20:15 → 3EC 20:58 → 3EI 04-13 20:41
PROVIDERS: ADMIT Psychiatry & Neurology Psychiatry; ATTEND Psychiatry & Neurology Psychiatry
DX: F25.1 Schizoaffective disorder, depressive type (principal); R45.851 Suicidal ideations; K74.60 Unspecified cirrhosis of liver; F10.10 Alcohol abuse, uncomplicated; F41.1 Generalized anxiety disorder; I10 Essential (primary) hypertension; J45.909 Unspecified asthma, uncomplicated; K21.9 Gastro-esophageal reflux disease without esophagitis; G47.00 Insomnia, unspecified; K59.00 Constipation, unspecified; B19.20 Unspecified viral hepatitis C without hepatic coma; F19.10 Other psychoactive substance abuse, uncomplicated; Z20.822 Contact with and (suspected) exposure to COVID-19
CPT/HCPCS: 80053; 80061; 84132; 85025; 99285; G0480

== ENCOUNTER 2021-04-28 11:41 | Emergency (ER) | payer MEDICARE, MEDICAID ==
[~2021-04-28] VITALS: Ht 162.6 cm; Wt 100.0 kg
[~2021-04-28 11:41] MED LIST changes: -ZOLP10TA8 PO
[2021-04-28 11:59] VITALS: BP 138/82
[2021-04-28] MEDS ORDERED: VERA240SR PO (12:39)
[2021-04-28] MEDS ORDERED: LORA-1000 PO (12:39)
== END 2021-04-28 14:10 | disposition home or self-care (01) ==
LOC: EMS 11:49
DX: F41.9 Anxiety disorder, unspecified (principal); F32.9 Major depressive disorder, single episode, unspecified; F25.9 Schizoaffective disorder, unspecified; J45.909 Unspecified asthma, uncomplicated; I10 Essential (primary) hypertension; Z90.89 Acquired absence of other organs; Z90.710 Acquired absence of both cervix and uterus; Z79.899 Other long term (current) drug therapy; Z88.8 Allergy status to other drugs, medicaments and biological substances; Z88.6 Allergy status to analgesic agent; Z88.1 Allergy status to other antibiotic agents; Z91.011 Allergy to milk products; Z88.5 Allergy status to narcotic agent; Z91.013 Allergy to seafood
CPT/HCPCS: 99281; 99283

== ENCOUNTER 2021-05-17 16:44 | Inpatient (IN) | payer MEDICARE, MEDICAID ==
[~2021-05-17] VITALS: Ht 165.1 cm; Wt 104.0 kg
[~2021-05-17 16:44] MED LIST changes: +LORA-1000 PO; -VERA120T33 PO; +VERA240SR PO
[2021-05-17 20:03] LABS: BASOPHILS % (AUTO) 1.1 % (0.0-2.0); EOSINOPHILS % (AUTO) 1.6 % (1.0-6.0); HEMATOCRIT 42.6 % (36-46); LYMPHOCYTES # (AUTO) 3.8 K/uL (1.0-4.8); LYMPHOCYTES % (AUTO) 45.1 % (22.0-44.0); MEAN CORPUSCULAR HEMOGLOBIN 27.6 pg (26.0-34.0); MEAN CORPUSCULAR HGB CONC 32.8 G/dL (31.0-37.0); MEAN CORPUSCULAR VOLUME 84 fL (80-100); MONOCYTES # (AUTO) 0.5 K/uL (0.1-1.0); MONOCYTES % (AUTO) 5.7 % (2.0-9.0); NEUTROPHILS % (AUTO) 46.5 % (40.0-70.0); PLATELET COUNT (AUTO) 270 K/uL (150-450); RED BLOOD CELL COUNT(AUTO) 5.07 MIL/uL (4.00-5.20); RED CELL DISTRIBUTION WIDTH 14.9 % (11.5-14.5)
[2021-05-17 20:11] LABS: ANION GAP 10 mmol/L (8-16); CALCIUM, TOTAL 9.4 mg/dL (8.8-10.5); CARBON DIOXIDE 29 mmol/L (22-29); CHLORIDE 102 mmol/L (98-107); CREATININE 0.76 mg/dL (0.60-1.30); GLOMERULAR FILTR. RATE CALC > 60 mL/min (>60); GLUCOSE,RANDOM 103 mg/dL (70-110); POTASSIUM 3.3 mmol/L (3.5-5.1); SODIUM SERUM 141 mmol/L (136-145); UREA NITROGEN, BLOOD 9 mg/dL (7-18)
[2021-05-17 20:17] LABS: ALANINE AMINOTRANSFERASE 19 U/L (12-78); ALBUMIN 3.7 g/dL (3.4-5.0); ALKALINE PHOSPHATASE 134 U/L (46-116); ASPARTATE AMINOTRANSFERASE 23 U/L (15-37); BILIRUBIN,TOTAL 0.2 mg/dL (0.1-1.0); TOTAL PROTEIN, SERUM 8.8 g/dL (6.4-8.2)
[2021-05-17 23:05] LABS: COVID AG,FIA SOURCE NASOPHARYNGEAL
[2021-05-17] MEDS ORDERED: POTASSIUM CHLORIDE 20 MEQ ER TABLET PO ONE (23:45)
[2021-05-18] MEDS ORDERED: LORazepam 2 MG TABLET PO ONE
[2021-05-18 00:14] LABS: ACETAMINOPHEN < 2 mcg/mL (10-30)
[2021-05-18] MEDS: ZOLPIDEM TARTRATE 10 MG TABLET PO PRN (01:09)
[2021-05-18 01:31] LABS: APPEARANCE,URINE CLEAR (CLEAR); BILIRUBIN,URINE NEGATIVE (NEGATIVE); GLUCOSE, URINE (UA) NEGATIVE (NEGATIVE); KETONES,URINE NEGATIVE (NEGATIVE); LEUKOCYTE ESTERASE ,URINE TRACE (NEGATIVE); NITRATE,URINE NEGATIVE (NEGATIVE); OCCULT BLOOD,URINE NEGATIVE (NEGATIVE); PH,URINE 6.5 (5.0-8.0); PROTEIN,URINE NEGATIVE (NEGATIVE); UROBILINOGEN,URINE 0.2 mg/dL (<=1.0)
[2021-05-18 01:37] LABS: AMPHET/METH SCREEN,URINE NEGATIVE (NEGATIVE); BARBITURATE SCREEN, URINE NEGATIVE (NEGATIVE); BENZODIAZEPINES SCREEN,URINE POSITIVE (NEGATIVE); CANNABINOID SCREEN,URINE POSITIVE (NEGATIVE); COCAINE SCREEN,URINE NEGATIVE (NEGATIVE); METHADONE SCREEN, URINE NEGATIVE (NEGATIVE); OPIATE SCREEN,URINE NEGATIVE (NEGATIVE)
[2021-05-18 01:40] LABS: PHENCYCLIDINE SCREEN,URINE NEGATIVE (NEGATIVE)
[2021-05-18 01:43] VITALS: BP 128/75
[2021-05-18 01:45] LABS: BACTERIA,URINE Few /HPF (None Seen); RBC,URINE 0-2 /HPF (0-2); SQUAMOUS EPITHELIAL CELL,UR Few /LPF (None Seen)
[2021-05-18] MEDS ORDERED: PNEUMOCOCCAL VACCINE POLYVALENT 0.5 ML VIAL [PPSV23] IM. ONE (02:45)
[2021-05-18 04:07] VITALS: BP 135/91
[2021-05-18] MEDS: LORazepam 2 MG TABLET PO PRN ×2 (04:09→19:24)
[2021-05-18] MEDS: HALOPERIDOL 5 MG TABLET PO PRN (05:19)
[2021-05-18] MEDS ORDERED: OMEPRAZOLE 20 MG CAPSULE PO PRN (06:00)
[2021-05-18] MEDS ORDERED: MAG HYDROX/AL HYDROX/SIMETH ES 30 ML SUSPENSION UDCUP PO PRN (06:00)
[2021-05-18] MEDS ORDERED: PETROLATUM,WHITE 28 GM JELLY TP PRN (06:00)
[2021-05-18] MEDS ORDERED: DOCUSATE SODIUM 100 MG CAPSULE PO PRN (06:00)
[2021-05-18] MEDS ORDERED: BACITRACIN 28 GM OINTMENT TP PRN (06:00)
[2021-05-18] MEDS ORDERED: BENZOCAINE/MENTHOL LOZENGE PO PRN (06:00)
[2021-05-18] MEDS ORDERED: MAGNESIUM HYDROXIDE SUSPENSION 30 ML UDCUP PO PRN (06:00)
[2021-05-18] MEDS ORDERED: ALBUTEROL SULFATE HFA 90 MCG/PUFF 8 GM INHALER IH PRN (06:00)
[2021-05-18] MEDS ORDERED: POTASSIUM CHLORIDE 20 MEQ ER TABLET PO ONE (06:00)
[2021-05-18] MEDS ORDERED: CloNIDine HCL 0.1 MG TABLET PO PRN (06:00)
[2021-05-18 07:22] LABS: CHOL/HDL RATIO 4.5 (3.9-5.7)
[2021-05-18] MEDS: LISINOPRIL 10 MG TABLET PO SCH (08:47)
[2021-05-18] MEDS: VERAPAMIL HCL 240 MG ER TABLET PO SCH (08:48)
[2021-05-18 08:58] VITALS: BP 154/67
[2021-05-18] MEDS: QUEtiapine FUMARATE 200 MG TABLET PO SCH (20:56)
[2021-05-19 05:05] VITALS: BP 120/80
[2021-05-19] MEDS: LORazepam 2 MG TABLET PO PRN ×3 (05:06→20:52)
[2021-05-19] MEDS: HALOPERIDOL 5 MG TABLET PO PRN (05:06)
[2021-05-19 08:41] VITALS: BP 111/70
[2021-05-19] MEDS: VERAPAMIL HCL 240 MG ER TABLET PO SCH (12:20)
[2021-05-19] MEDS: LISINOPRIL 10 MG TABLET PO SCH (12:20)
[2021-05-19] MEDS: PARoxetine HCL 10 MG TABLET PO SCH (12:20)
[2021-05-19] MEDS: QUEtiapine FUMARATE 25 MG TABLET PO SCH (12:20)
[2021-05-19 16:21] VITALS: BP 146/70
[2021-05-19] MEDS: QUEtiapine FUMARATE 200 MG TABLET PO SCH (20:51)
[2021-05-20] MEDS: ZOLPIDEM TARTRATE 10 MG TABLET PO PRN ×2 (00:08→22:11)
[2021-05-20 01:24] VITALS: BP 122/67
[2021-05-20] MEDS: LORazepam 2 MG TABLET PO PRN ×2 (03:17→17:53)
[2021-05-20] MEDS: VERAPAMIL HCL 240 MG ER TABLET PO SCH ×2 (09:33→12:20)
[2021-05-20] MEDS: QUEtiapine FUMARATE 25 MG TABLET PO SCH (09:34)
[2021-05-20] MEDS: PARoxetine HCL 10 MG TABLET PO SCH (09:34)
[2021-05-20 10:02] VITALS: BP 109/58
[2021-05-20 12:20] VITALS: BP 124/73
[2021-05-20] MEDS: LISINOPRIL 10 MG TABLET PO SCH (12:20)
[2021-05-20 16:14] VITALS: BP 140/80
[2021-05-20] MEDS: QUEtiapine FUMARATE 200 MG TABLET PO SCH (20:40)
[2021-05-21 00:10] VITALS: BP 132/78
[2021-05-21] MEDS: LORazepam 2 MG TABLET PO PRN ×2 (00:15→21:09)
[2021-05-21 08:36] VITALS: BP 99/56
[2021-05-21] MEDS: LISINOPRIL 10 MG TABLET PO SCH (09:00)
[2021-05-21] MEDS: VERAPAMIL HCL 240 MG ER TABLET PO SCH (09:00)
[2021-05-21] MEDS: QUEtiapine FUMARATE 25 MG TABLET PO SCH (09:26)
[2021-05-21] MEDS: PARoxetine HCL 10 MG TABLET PO SCH (09:26)
[2021-05-21 16:04] VITALS: BP 126/74
[2021-05-21] MEDS: QUEtiapine FUMARATE 200 MG TABLET PO SCH (20:05)
[2021-05-21 21:09] VITALS: BP 136/83
[2021-05-21 22:09] VITALS: BP 125/65
[2021-05-22 01:00] VITALS: BP 119/70
[2021-05-22] MEDS: ZOLPIDEM TARTRATE 10 MG TABLET PO PRN (01:00)
[2021-05-22] MEDS: LORazepam 2 MG TABLET PO PRN ×4 (05:50→21:52)
[2021-05-22 05:53] VITALS: BP 120/74
[2021-05-22 11:21] VITALS: BP 120/76
[2021-05-22] MEDS: QUEtiapine FUMARATE 25 MG TABLET PO SCH (11:30)
[2021-05-22] MEDS: VERAPAMIL HCL 240 MG ER TABLET PO SCH (11:30)
[2021-05-22] MEDS: LISINOPRIL 10 MG TABLET PO SCH (11:30)
[2021-05-22] MEDS: PARoxetine HCL 10 MG TABLET PO SCH (11:31)
[2021-05-22 16:00] VITALS: BP 124/76
[2021-05-22] MEDS: QUEtiapine FUMARATE 200 MG TABLET PO SCH (20:13)
[2021-05-23] MEDS: ZOLPIDEM TARTRATE 10 MG TABLET PO PRN ×2 (02:33→21:13)
[2021-05-23 02:38] VITALS: BP 108/67
[2021-05-23] MEDS: LORazepam 2 MG TABLET PO PRN ×3 (10:14→19:02)
[2021-05-23] MEDS: LISINOPRIL 10 MG TABLET PO SCH (10:15)
[2021-05-23] MEDS: PARoxetine HCL 10 MG TABLET PO SCH (10:15)
[2021-05-23] MEDS: QUEtiapine FUMARATE 25 MG TABLET PO SCH (10:15)
[2021-05-23] MEDS: VERAPAMIL HCL 240 MG ER TABLET PO SCH (10:15)
[2021-05-23 14:41] LABS: COVID AG,FIA SOURCE NASOPHARYNGEAL
[2021-05-23 17:12] VITALS: BP 121/74
[2021-05-23] MEDS: HALOPERIDOL 5 MG TABLET PO PRN (17:20)
[2021-05-23] MEDS: QUEtiapine FUMARATE 200 MG TABLET PO SCH (20:46)
[2021-05-24] MEDS: LORazepam 2 MG TABLET PO PRN (01:10)
[2021-05-24 01:25] VITALS: BP 104/68
[2021-05-24] MEDS: VERAPAMIL HCL 240 MG ER TABLET PO SCH (08:50)
[2021-05-24] MEDS: LISINOPRIL 10 MG TABLET PO SCH (08:50)
[2021-05-24] MEDS: PARoxetine HCL 10 MG TABLET PO SCH (08:50)
[2021-05-24] MEDS: QUEtiapine FUMARATE 25 MG TABLET PO SCH (08:51)
[2021-05-24 10:14] VITALS: BP 112/65
== END 2021-05-24 12:45 | disposition home or self-care (01) | DRG 750 ==
LOC: EMS 17:36 → 3EI 21:00
PROVIDERS: ADMIT Psychiatry & Neurology Psychiatry; ATTEND Psychiatry & Neurology Psychiatry
DX: F20.9 Schizophrenia, unspecified (principal); R45.851 Suicidal ideations; J44.9 Chronic obstructive pulmonary disease, unspecified; F10.10 Alcohol abuse, uncomplicated; G47.00 Insomnia, unspecified; F41.9 Anxiety disorder, unspecified; I10 Essential (primary) hypertension; B19.20 Unspecified viral hepatitis C without hepatic coma; K21.9 Gastro-esophageal reflux disease without esophagitis; K59.00 Constipation, unspecified; Z20.822 Contact with and (suspected) exposure to COVID-19
CPT/HCPCS: 80053; 80061; 81001; 84132; 85025; 87081; 99285; G0480; G0481

== ENCOUNTER 2021-07-12 02:56 | Inpatient (IN) | payer MEDICARE, MEDICAID ==
[~2021-07-12] VITALS: Ht 165.1 cm; Wt 106.1 kg
[~2021-07-12 02:56] MED LIST changes: -LORA-1000 PO
[2021-07-12 05:00] LABS: BASOPHILS % (AUTO) 0.3 % (0.0-2.0); EOSINOPHILS % (AUTO) 2.3 % (1.0-6.0); HEMATOCRIT 38.6 % (36-46); HEMOGLOBIN 12.7 g/dL (12.0-16.0); LYMPHOCYTES # (AUTO) 3.6 K/uL (1.0-4.8); LYMPHOCYTES % (AUTO) 51.1 % (22.0-44.0); MEAN CORPUSCULAR HEMOGLOBIN 27.7 pg (26.0-34.0); MEAN CORPUSCULAR HGB CONC 32.9 G/dL (31.0-37.0); MEAN CORPUSCULAR VOLUME 84 fL (80-100); MONOCYTES # (AUTO) 0.6 K/uL (0.1-1.0); MONOCYTES % (AUTO) 8.9 % (2.0-9.0); NEUTROPHILS # (AUTO) 2.6 K/uL (1.8-7.7); NEUTROPHILS % (AUTO) 37.4 % (40.0-70.0); PLATELET COUNT (AUTO) 249 K/uL (150-450); RED BLOOD CELL COUNT(AUTO) 4.59 MIL/uL (4.00-5.20)
[2021-07-12 05:10] LABS: ANION GAP 10 mmol/L (8-16); CALCIUM, TOTAL 9.2 mg/dL (8.8-10.5); CARBON DIOXIDE 27 mmol/L (22-29); CHLORIDE 103 mmol/L (98-107); CREATININE 0.87 mg/dL (0.60-1.30); GLOMERULAR FILTR. RATE CALC > 60 mL/min (>60); GLUCOSE,RANDOM 94 mg/dL (70-110); POTASSIUM 3.4 mmol/L (3.5-5.1); SODIUM SERUM 140 mmol/L (136-145); UREA NITROGEN, BLOOD 14 mg/dL (7-18)
[2021-07-12 05:16] LABS: ALANINE AMINOTRANSFERASE 25 U/L (12-78); ALBUMIN 3.7 g/dL (3.4-5.0); ALKALINE PHOSPHATASE 108 U/L (46-116); ASPARTATE AMINOTRANSFERASE 19 U/L (15-37); BILIRUBIN,TOTAL 0.2 mg/dL (0.1-1.0); TOTAL PROTEIN, SERUM 8.5 g/dL (6.4-8.2)
[2021-07-12 05:21] LABS: ACETAMINOPHEN < 2 mcg/mL (10-30)
[2021-07-12 05:29] LABS: SALICYLATE < 2.8 mg/dL (2.8-20.0)
[2021-07-12] MEDS ORDERED: POTASSIUM CHLORIDE 20 MEQ ER TABLET PO ONE (05:30)
[2021-07-12 05:32] LABS: COVID AG,FIA SOURCE NASOPHARYNGEAL
[2021-07-12 05:45] LABS: AMPHET/METH SCREEN,URINE NEGATIVE (NEGATIVE); BARBITURATE SCREEN, URINE NEGATIVE (NEGATIVE); BENZODIAZEPINES SCREEN,URINE NEGATIVE (NEGATIVE); CANNABINOID SCREEN,URINE NEGATIVE (NEGATIVE); COCAINE SCREEN,URINE NEGATIVE (NEGATIVE); METHADONE SCREEN, URINE NEGATIVE (NEGATIVE); OPIATE SCREEN,URINE NEGATIVE (NEGATIVE)
[2021-07-12 05:48] LABS: PHENCYCLIDINE SCREEN,URINE NEGATIVE (NEGATIVE)
[2021-07-12] MEDS: HALOPERIDOL 5 MG TABLET PO PRN ×2 (10:12→14:25)
[2021-07-12] MEDS: LORazepam 1 MG TABLET PO PRN ×2 (10:12→13:52)
[2021-07-12 10:16] VITALS: BP 132/76
[2021-07-12 10:49] VITALS: BP 132/76
[2021-07-12] MEDS ORDERED: PNEUMOCOCCAL VACCINE POLYVALENT 0.5 ML VIAL [PPSV23] IM. ONE (11:30)
[2021-07-12 16:04] VITALS: BP 141/78
[2021-07-12] MEDS ORDERED: IBUPROFEN 600 MG TABLET PO PRN (16:30)
[2021-07-12] MEDS ORDERED: CloNIDine HCL 0.1 MG TABLET PO PRN (16:30)
[2021-07-12] MEDS ORDERED: ONDANSETRON HCL 4 MG TABLET PO PRN (16:30)
[2021-07-12] MEDS ORDERED: ALBUTEROL SULFATE HFA 90 MCG/PUFF 8 GM INHALER IH PRN (16:30)
[2021-07-12] MEDS ORDERED: BACITRACIN 28 GM OINTMENT TP PRN (16:30)
[2021-07-12] MEDS ORDERED: PETROLATUM,WHITE 28 GM JELLY TP PRN (16:30)
[2021-07-12] MEDS ORDERED: LOPERAMIDE HCL 2 MG CAPSULE PO PRN (16:30)
[2021-07-12] MEDS ORDERED: MAG HYDROX/AL HYDROX/SIMETH ES 30 ML SUSPENSION UDCUP PO PRN (16:30)
[2021-07-12] MEDS ORDERED: OMEPRAZOLE 20 MG CAPSULE PO PRN (16:30)
[2021-07-12] MEDS ORDERED: BENZOCAINE/MENTHOL LOZENGE PO PRN (16:30)
[2021-07-12] MEDS ORDERED: MAGNESIUM HYDROXIDE SUSPENSION 30 ML UDCUP PO PRN (16:30)
[2021-07-12] MEDS ORDERED: DOCUSATE SODIUM 100 MG CAPSULE PO PRN (16:30)
[2021-07-12] MEDS: QUEtiapine FUMARATE 200 MG TABLET PO SCH (20:19)
[2021-07-13 02:55] VITALS: BP 123/74
[2021-07-13] MEDS: LORazepam 1 MG TABLET PO PRN (03:06)
[2021-07-13] MEDS: HALOPERIDOL 5 MG TABLET PO PRN (03:06)
[2021-07-13] MEDS: QUEtiapine FUMARATE 25 MG TABLET PO SCH (08:55)
[2021-07-13] MEDS: LISINOPRIL 10 MG TABLET PO SCH (08:55)
[2021-07-13] MEDS: PARoxetine HCL 10 MG TABLET PO SCH (08:55)
[2021-07-13] MEDS: VERAPAMIL HCL 240 MG ER TABLET PO SCH (08:55)
[2021-07-13 10:16] VITALS: BP 142/76
[2021-07-13] MEDS: QUEtiapine FUMARATE 200 MG TABLET PO SCH (20:20)
[2021-07-13] MEDS: ZOLPIDEM TARTRATE 10 MG TABLET PO PRN (20:32)
[2021-07-14 08:28] VITALS: BP 152/87
[2021-07-14] MEDS: VERAPAMIL HCL 240 MG ER TABLET PO SCH (10:21)
[2021-07-14] MEDS: PARoxetine HCL 10 MG TABLET PO SCH (10:22)
[2021-07-14] MEDS: QUEtiapine FUMARATE 25 MG TABLET PO SCH (10:22)
[2021-07-14] MEDS: LISINOPRIL 10 MG TABLET PO SCH (10:22)
[2021-07-14] MEDS: LORazepam 1 MG TABLET PO PRN (10:39)
[2021-07-14] MEDS: HALOPERIDOL 5 MG TABLET PO PRN (10:40)
[2021-07-14 16:47] VITALS: BP 93/60
[2021-07-14] MEDS: QUEtiapine FUMARATE 200 MG TABLET PO SCH (21:05)
[2021-07-14] MEDS: ZOLPIDEM TARTRATE 10 MG TABLET PO PRN (21:06)
[2021-07-15 00:45] VITALS: BP 118/65
[2021-07-15] MEDS: LORazepam 1 MG TABLET PO PRN ×2 (00:49→14:40)
[2021-07-15] MEDS: HALOPERIDOL 5 MG TABLET PO PRN ×2 (00:49→14:40)
[2021-07-15] MEDS: VERAPAMIL HCL 240 MG ER TABLET PO SCH (10:26)
[2021-07-15] MEDS: PARoxetine HCL 10 MG TABLET PO SCH (10:26)
[2021-07-15] MEDS: QUEtiapine FUMARATE 25 MG TABLET PO SCH (10:26)
[2021-07-15] MEDS: LISINOPRIL 10 MG TABLET PO SCH (10:26)
[2021-07-15 16:45] VITALS: BP 131/88
[2021-07-15] MEDS: QUEtiapine FUMARATE 200 MG TABLET PO SCH (21:17)
[2021-07-15] MEDS: ZOLPIDEM TARTRATE 10 MG TABLET PO PRN (22:29)
[2021-07-16] MEDS: HALOPERIDOL 5 MG TABLET PO PRN ×3 (04:51→23:56)
[2021-07-16] MEDS: LORazepam 1 MG TABLET PO PRN ×3 (04:51→23:56)
[2021-07-16] MEDS: LISINOPRIL 10 MG TABLET PO SCH (10:47)
[2021-07-16] MEDS: QUEtiapine FUMARATE 25 MG TABLET PO SCH (10:47)
[2021-07-16] MEDS: VERAPAMIL HCL 240 MG ER TABLET PO SCH (10:47)
[2021-07-16] MEDS: PARoxetine HCL 10 MG TABLET PO SCH (10:48)
[2021-07-16] MEDS: QUEtiapine FUMARATE 200 MG TABLET PO SCH (20:10)
[2021-07-16] MEDS: ZOLPIDEM TARTRATE 10 MG TABLET PO PRN (21:00)
[2021-07-16 23:45] VITALS: BP 117/80
[2021-07-17] MEDS: PARoxetine HCL 10 MG TABLET PO SCH (09:21)
[2021-07-17] MEDS: LISINOPRIL 10 MG TABLET PO SCH (09:21)
[2021-07-17] MEDS: VERAPAMIL HCL 240 MG ER TABLET PO SCH (09:21)
[2021-07-17] MEDS: QUEtiapine FUMARATE 25 MG TABLET PO SCH (09:21)
[2021-07-17] MEDS: LORazepam 1 MG TABLET PO PRN ×2 (09:52→14:11)
[2021-07-17 09:53] VITALS: BP 118/77
[2021-07-17 10:54] VITALS: BP 122/80
[2021-07-17 13:25] VITALS: BP 116/68
[2021-07-17] MEDS: HALOPERIDOL 5 MG TABLET PO PRN (13:44)
[2021-07-17 15:02] VITALS: BP 117/73
[2021-07-17 17:41] VITALS: BP 121/81
[2021-07-17] MEDS: QUEtiapine FUMARATE 200 MG TABLET PO SCH (20:12)
[2021-07-17] MEDS: ZOLPIDEM TARTRATE 10 MG TABLET PO PRN (21:42)
[2021-07-18 04:23] VITALS: BP 103/77
[2021-07-18] MEDS: LORazepam 1 MG TABLET PO PRN ×2 (04:25→09:17)
[2021-07-18] MEDS: HALOPERIDOL 5 MG TABLET PO PRN ×2 (04:25→09:18)
[2021-07-18 08:30] VITALS: BP 115/64
[2021-07-18] MEDS: QUEtiapine FUMARATE 25 MG TABLET PO SCH (09:11)
[2021-07-18] MEDS: PARoxetine HCL 10 MG TABLET PO SCH (09:11)
[2021-07-18] MEDS: VERAPAMIL HCL 240 MG ER TABLET PO SCH (09:11)
[2021-07-18] MEDS: LISINOPRIL 10 MG TABLET PO SCH (09:11)
== END 2021-07-18 14:20 | disposition home or self-care (01) | DRG 750 ==
LOC: EMS 02:57 → 3EI 06:00
PROVIDERS: ADMIT Psychiatry & Neurology Psychiatry; ATTEND Psychiatry & Neurology Psychiatry
DX: F25.9 Schizoaffective disorder, unspecified (principal); R45.851 Suicidal ideations; K74.60 Unspecified cirrhosis of liver; F10.10 Alcohol abuse, uncomplicated; Z20.822 Contact with and (suspected) exposure to COVID-19; F32.9 Major depressive disorder, single episode, unspecified; I10 Essential (primary) hypertension; J44.9 Chronic obstructive pulmonary disease, unspecified; F41.9 Anxiety disorder, unspecified; K21.9 Gastro-esophageal reflux disease without esophagitis; G47.00 Insomnia, unspecified; B19.20 Unspecified viral hepatitis C without hepatic coma; K59.00 Constipation, unspecified; Z63.8 Other specified problems related to primary support group; Z72.0 Tobacco use; Z79.899 Other long term (current) drug therapy; Z88.8 Allergy status to other drugs, medicaments and biological substances; Z88.6 Allergy status to analgesic agent; Z88.1 Allergy status to other antibiotic agents; Z91.011 Allergy to milk products; Z88.5 Allergy status to narcotic agent; Z91.013 Allergy to seafood; Z90.49 Acquired absence of other specified parts of digestive tract; Z90.710 Acquired absence of both cervix and uterus
CPT/HCPCS: 80053; 85025; 87081; 99285; G0480; G0481

== ENCOUNTER 2021-08-17 16:04 | Inpatient (IN) | payer MEDICARE, MEDICAID ==
[~2021-08-17] VITALS: Ht 165.1 cm; Wt 108.0 kg
[~2021-08-17 16:04] MED LIST changes: -VERA240SR PO; +VERA240T96 PO
[2021-08-17 16:24] LABS: BASOPHILS % (AUTO) 1.3 % (0.0-2.0); EOSINOPHILS % (AUTO) 2.2 % (1.0-6.0); HEMOGLOBIN 12.9 g/dL (12.0-16.0); LYMPHOCYTES # (AUTO) 3.3 K/uL (1.0-4.8); LYMPHOCYTES % (AUTO) 49.9 % (22.0-44.0); MEAN CORPUSCULAR HEMOGLOBIN 27.3 pg (26.0-34.0); MEAN CORPUSCULAR VOLUME 83 fL (80-100); MONOCYTES # (AUTO) 0.5 K/uL (0.1-1.0); MONOCYTES % (AUTO) 7.6 % (2.0-9.0); NEUTROPHILS # (AUTO) 2.6 K/uL (1.8-7.7); PLATELET COUNT (AUTO) 275 K/uL (150-450); RED BLOOD CELL COUNT(AUTO) 4.71 MIL/uL (4.00-5.20); RED CELL DISTRIBUTION WIDTH 15.1 % (11.5-14.5)
[2021-08-17 16:45] LABS: COVID AG,FIA SOURCE NASOPHARYNGEAL
[2021-08-17 16:47] LABS: ALANINE AMINOTRANSFERASE 24 U/L (12-78); ALBUMIN 3.4 g/dL (3.4-5.0); ALKALINE PHOSPHATASE 112 U/L (46-116); ANION GAP 9 mmol/L (8-16); ASPARTATE AMINOTRANSFERASE 21 U/L (15-37); BILIRUBIN,TOTAL 0.3 mg/dL (0.1-1.0); CALCIUM, TOTAL 8.8 mg/dL (8.8-10.5); CARBON DIOXIDE 28 mmol/L (22-29); CHLORIDE 104 mmol/L (98-107); CREATININE 0.82 mg/dL (0.60-1.30); GLOMERULAR FILTR. RATE CALC > 60 mL/min (>60); GLUCOSE,RANDOM 104 mg/dL (70-110); POTASSIUM 3.7 mmol/L (3.5-5.1); SODIUM SERUM 141 mmol/L (136-145); TOTAL PROTEIN, SERUM 8.3 g/dL (6.4-8.2); UREA NITROGEN, BLOOD 15 mg/dL (7-18)
[2021-08-17 20:00] VITALS: BP 137/69
[2021-08-17] MEDS: ZOLPIDEM TARTRATE 10 MG TABLET PO PRN (22:59)
[2021-08-18 00:10] VITALS: BP 152/86
[2021-08-18] MEDS: LORazepam 2 MG TABLET PO PRN ×3 (00:10→11:16)
[2021-08-18] MEDS: HALOPERIDOL 5 MG TABLET PO PRN ×2 (00:10→04:13)
[2021-08-18] MEDS ORDERED: BACITRACIN 28 GM OINTMENT TP PRN (08:30)
[2021-08-18] MEDS ORDERED: PETROLATUM,WHITE 28 GM JELLY TP PRN (08:30)
[2021-08-18] MEDS ORDERED: OMEPRAZOLE 20 MG CAPSULE PO PRN (08:30)
[2021-08-18] MEDS ORDERED: BENZOCAINE/MENTHOL LOZENGE PO PRN (08:30)
[2021-08-18] MEDS ORDERED: CloNIDine HCL 0.1 MG TABLET PO PRN (08:30)
[2021-08-18] MEDS ORDERED: MAGNESIUM HYDROXIDE SUSPENSION 30 ML UDCUP PO PRN (08:30)
[2021-08-18] MEDS ORDERED: ALBUTEROL SULFATE HFA 90 MCG/PUFF 8 GM INHALER IH PRN (08:30)
[2021-08-18] MEDS ORDERED: DOCUSATE SODIUM 100 MG CAPSULE PO PRN (08:30)
[2021-08-18 08:51] VITALS: BP 145/83
[2021-08-18] MEDS: QUEtiapine FUMARATE 25 MG TABLET PO SCH (11:03)
[2021-08-18] MEDS: LISINOPRIL 10 MG TABLET PO SCH (11:03)
[2021-08-18] MEDS: VERAPAMIL HCL 240 MG ER TABLET PO SCH (11:05)
[2021-08-18] MEDS: PARoxetine HCL 10 MG TABLET PO SCH (11:13)
[2021-08-18] MEDS: QUEtiapine FUMARATE 200 MG TABLET PO SCH (20:35)
[2021-08-19 08:05] VITALS: BP 106/62
[2021-08-19] MEDS: QUEtiapine FUMARATE 25 MG TABLET PO SCH (08:42)
[2021-08-19] MEDS: LISINOPRIL 10 MG TABLET PO SCH (08:43)
[2021-08-19] MEDS: PARoxetine HCL 10 MG TABLET PO SCH (08:43)
[2021-08-19] MEDS: VERAPAMIL HCL 240 MG ER TABLET PO SCH (08:43)
[2021-08-19] MEDS: LORazepam 2 MG TABLET PO PRN (14:08)
[2021-08-19 16:44] VITALS: BP 146/65
[2021-08-19] MEDS: QUEtiapine FUMARATE 200 MG TABLET PO SCH (20:39)
[2021-08-19] MEDS: ZOLPIDEM TARTRATE 10 MG TABLET PO PRN (21:25)
[2021-08-20] MEDS: LORazepam 1 MG TABLET PO PRN ×2 (05:09→15:04)
[2021-08-20] MEDS: HALOPERIDOL 5 MG TABLET PO PRN ×2 (05:09→15:04)
[2021-08-20 05:16] VITALS: BP 124/81
[2021-08-20 08:39] VITALS: BP 136/87
[2021-08-20] MEDS: LISINOPRIL 10 MG TABLET PO SCH (08:39)
[2021-08-20] MEDS: VERAPAMIL HCL 240 MG ER TABLET PO SCH (08:40)
[2021-08-20] MEDS: QUEtiapine FUMARATE 25 MG TABLET PO SCH (08:40)
[2021-08-20] MEDS: PARoxetine HCL 10 MG TABLET PO SCH (08:40)
[2021-08-20 09:14] LABS: COVID AG,FIA SOURCE NASOPHARYNGEAL
[2021-08-20] MEDS: MAG HYDROX/AL HYDROX/SIMETH ES 30 ML SUSPENSION UDCUP PO PRN (11:37)
[2021-08-20 16:38] VITALS: BP 113/69
[2021-08-20] MEDS: QUEtiapine FUMARATE 200 MG TABLET PO SCH (20:11)
[2021-08-20] MEDS: ZOLPIDEM TARTRATE 10 MG TABLET PO PRN (23:41)
[2021-08-21] MEDS: MAG HYDROX/AL HYDROX/SIMETH ES 30 ML SUSPENSION UDCUP PO PRN (00:08)
[2021-08-21] MEDS: QUEtiapine FUMARATE 25 MG TABLET PO SCH (09:24)
[2021-08-21] MEDS: VERAPAMIL HCL 240 MG ER TABLET PO SCH (09:24)
[2021-08-21] MEDS: LISINOPRIL 10 MG TABLET PO SCH (09:24)
[2021-08-21] MEDS: PARoxetine HCL 10 MG TABLET PO SCH (09:25)
[2021-08-21 10:47] VITALS: BP 112/66
[2021-08-21] MEDS: LORazepam 1 MG TABLET PO PRN (14:28)
[2021-08-21] MEDS: HALOPERIDOL 5 MG TABLET PO PRN (14:28)
[2021-08-21 19:08] VITALS: BP 141/99
[2021-08-21] MEDS: QUEtiapine FUMARATE 200 MG TABLET PO SCH (20:34)
[2021-08-21] MEDS: ZOLPIDEM TARTRATE 10 MG TABLET PO PRN (21:14)
[2021-08-22 03:00] VITALS: BP 133/86
[2021-08-22] MEDS: LORazepam 1 MG TABLET PO PRN (03:07)
[2021-08-22] MEDS: HALOPERIDOL 5 MG TABLET PO PRN (03:07)
[2021-08-22 08:00] VITALS: BP 110/70
[2021-08-22] MEDS: PARoxetine HCL 10 MG TABLET PO SCH (11:33)
[2021-08-22] MEDS: VERAPAMIL HCL 240 MG ER TABLET PO SCH (11:33)
[2021-08-22] MEDS: QUEtiapine FUMARATE 25 MG TABLET PO SCH (11:33)
[2021-08-22] MEDS: LISINOPRIL 10 MG TABLET PO SCH (11:33)
[2021-08-22 16:32] VITALS: BP 107/65
[2021-08-22] MEDS: QUEtiapine FUMARATE 200 MG TABLET PO SCH (21:15)
[2021-08-22] MEDS: ZOLPIDEM TARTRATE 10 MG TABLET PO PRN (23:03)
[2021-08-23 01:01] VITALS: BP 126/78
[2021-08-23] MEDS: VERAPAMIL HCL 240 MG ER TABLET PO SCH (08:58)
[2021-08-23] MEDS: QUEtiapine FUMARATE 25 MG TABLET PO SCH (08:58)
[2021-08-23] MEDS: PARoxetine HCL 10 MG TABLET PO SCH (08:58)
[2021-08-23] MEDS: LISINOPRIL 10 MG TABLET PO SCH (08:58)
[2021-08-23 09:04] VITALS: BP 115/65
[2021-08-23] MEDS: LORazepam 1 MG TABLET PO PRN (14:02)
[2021-08-23] MEDS: HALOPERIDOL 5 MG TABLET PO PRN (14:02)
[2021-08-23 16:00] VITALS: BP 147/80
[2021-08-23] MEDS: QUEtiapine FUMARATE 200 MG TABLET PO SCH (20:21)
[2021-08-23] MEDS: ZOLPIDEM TARTRATE 10 MG TABLET PO PRN (22:42)
[2021-08-23] MEDS: MAG HYDROX/AL HYDROX/SIMETH ES 30 ML SUSPENSION UDCUP PO PRN (23:51)
[2021-08-24] MEDS: HALOPERIDOL 5 MG TABLET PO PRN (00:59)
[2021-08-24] MEDS: LORazepam 1 MG TABLET PO PRN (00:59)
[2021-08-24 01:04] VITALS: BP 145/75
[2021-08-24 08:14] VITALS: BP 108/61
[2021-08-24] MEDS: LISINOPRIL 10 MG TABLET PO SCH (09:00)
[2021-08-24] MEDS: QUEtiapine FUMARATE 25 MG TABLET PO SCH (09:00)
[2021-08-24] MEDS: PARoxetine HCL 10 MG TABLET PO SCH (09:00)
[2021-08-24] MEDS: VERAPAMIL HCL 240 MG ER TABLET PO SCH (09:00)
== END 2021-08-24 14:35 | disposition home or self-care (01) | DRG 885 ==
LOC: EMS 16:04 → 3EI 16:53
PROVIDERS: ADMIT Psychiatry & Neurology Psychiatry; ATTEND Psychiatry & Neurology Psychiatry
DX: F25.0 Schizoaffective disorder, bipolar type (principal); R45.851 Suicidal ideations; F41.9 Anxiety disorder, unspecified; I10 Essential (primary) hypertension; J44.9 Chronic obstructive pulmonary disease, unspecified; K74.60 Unspecified cirrhosis of liver; Z72.0 Tobacco use; Z20.822 Contact with and (suspected) exposure to COVID-19; K59.00 Constipation, unspecified; F10.20 Alcohol dependence, uncomplicated; K21.9 Gastro-esophageal reflux disease without esophagitis; Z88.8 Allergy status to other drugs, medicaments and biological substances; Z91.011 Allergy to milk products; Z91.013 Allergy to seafood; Z79.899 Other long term (current) drug therapy
CPT/HCPCS: 80053; 85025; 99285; G0480

== ENCOUNTER 2021-09-18 11:38 | Inpatient (IN) | payer MEDICARE, MEDICAID ==
[~2021-09-18] VITALS: Ht 165.1 cm; Wt 109.9 kg
[2021-09-18 13:10] LABS: BASOPHILS % (AUTO) 1.2 % (0.0-2.0); EOSINOPHILS % (AUTO) 1.6 % (1.0-6.0); HEMATOCRIT 37.5 % (36-46); HEMOGLOBIN 12.4 g/dL (12.0-16.0); LYMPHOCYTES # (AUTO) 2.8 K/uL (1.0-4.8); LYMPHOCYTES % (AUTO) 43.4 % (22.0-44.0); MEAN CORPUSCULAR HEMOGLOBIN 27.7 pg (26.0-34.0); MEAN CORPUSCULAR HGB CONC 33.1 G/dL (31.0-37.0); MEAN CORPUSCULAR VOLUME 84 fL (80-100); MONOCYTES # (AUTO) 0.5 K/uL (0.1-1.0); MONOCYTES % (AUTO) 7.8 % (2.0-9.0); PLATELET COUNT (AUTO) 260 K/uL (150-450); RED BLOOD CELL COUNT(AUTO) 4.48 MIL/uL (4.00-5.20); RED CELL DISTRIBUTION WIDTH 14.9 % (11.5-14.5)
[2021-09-18 13:10] LABS: COVID AG,FIA SOURCE NASOPHARYNGEAL
[2021-09-18 13:23] LABS: ANION GAP 4 mmol/L (8-16); CALCIUM, TOTAL 9.3 mg/dL (8.8-10.5); CARBON DIOXIDE 27 mmol/L (22-29); CHLORIDE 106 mmol/L (98-107); CREATININE 0.78 mg/dL (0.60-1.30); GLOMERULAR FILTR. RATE CALC > 60 mL/min (>60); GLUCOSE,RANDOM 120 mg/dL (70-110); POTASSIUM 3.7 mmol/L (3.5-5.1); SODIUM SERUM 137 mmol/L (136-145); UREA NITROGEN, BLOOD 8 mg/dL (7-18)
[2021-09-18 13:29] LABS: ALANINE AMINOTRANSFERASE 18 U/L (12-78); ALBUMIN 3.3 g/dL (3.4-5.0); ALKALINE PHOSPHATASE 106 U/L (46-116); ASPARTATE AMINOTRANSFERASE 15 U/L (15-37); BILIRUBIN,TOTAL 0.3 mg/dL (0.1-1.0)
[2021-09-18] MEDS: LORazepam 2 MG TABLET PO PRN (18:12)
[2021-09-18 18:52] VITALS: BP 116/76
[2021-09-18] MEDS ORDERED: CloNIDine HCL 0.1 MG TABLET PO PRN (21:15)
[2021-09-18] MEDS ORDERED: PETROLATUM,WHITE 28 GM JELLY TP PRN (21:15)
[2021-09-18] MEDS ORDERED: BENZOCAINE/MENTHOL LOZENGE PO PRN (21:15)
[2021-09-18] MEDS ORDERED: MAGNESIUM HYDROXIDE SUSPENSION 30 ML UDCUP PO PRN (21:15)
[2021-09-18] MEDS ORDERED: ONDANSETRON HCL 4 MG TABLET PO PRN (21:15)
[2021-09-18] MEDS ORDERED: BACITRACIN 28 GM OINTMENT TP PRN (21:15)
[2021-09-18] MEDS ORDERED: MAG HYDROX/AL HYDROX/SIMETH ES 30 ML SUSPENSION UDCUP PO PRN (21:15)
[2021-09-18] MEDS ORDERED: ALBUTEROL SULFATE HFA 90 MCG/PUFF 8 GM INHALER IH PRN (21:15)
[2021-09-18] MEDS: ZOLPIDEM TARTRATE 10 MG TABLET PO PRN (23:28)
[2021-09-19 08:19] VITALS: BP 124/74
[2021-09-19] MEDS: DOCUSATE SODIUM 100 MG CAPSULE PO SCH (09:00)
[2021-09-19] MEDS: OMEPRAZOLE 20 MG CAPSULE PO SCH (09:05)
[2021-09-19] MEDS: VERAPAMIL HCL 240 MG ER TABLET PO SCH (09:05)
[2021-09-19] MEDS: LISINOPRIL 10 MG TABLET PO SCH (09:05)
[2021-09-19] MEDS ORDERED: IBUPROFEN 600 MG TABLET PO PRN (10:45)
[2021-09-19] MEDS: LORazepam 2 MG TABLET PO PRN (11:02)
[2021-09-19 16:09] VITALS: BP 109/78
[2021-09-19] MEDS: QUEtiapine FUMARATE 200 MG TABLET PO SCH (21:13)
[2021-09-19] MEDS: ZOLPIDEM TARTRATE 10 MG TABLET PO PRN (21:13)
[2021-09-20 05:03] VITALS: BP 120/74
[2021-09-20 08:16] VITALS: BP 111/61
[2021-09-20] MEDS: OMEPRAZOLE 20 MG CAPSULE PO SCH (08:31)
[2021-09-20] MEDS: DOCUSATE SODIUM 100 MG CAPSULE PO SCH (08:31)
[2021-09-20] MEDS: VERAPAMIL HCL 240 MG ER TABLET PO SCH (08:31)
[2021-09-20] MEDS: QUEtiapine FUMARATE 25 MG TABLET PO SCH (08:31)
[2021-09-20] MEDS: LISINOPRIL 10 MG TABLET PO SCH (08:31)
[2021-09-20] MEDS: PARoxetine HCL 10 MG TABLET PO SCH (08:31)
[2021-09-20] MEDS: LORazepam 2 MG TABLET PO PRN (15:19)
[2021-09-20 16:17] VITALS: BP 121/79
[2021-09-20] MEDS: HALOPERIDOL 5 MG TABLET PO PRN (19:22)
[2021-09-20] MEDS: QUEtiapine FUMARATE 200 MG TABLET PO SCH (20:46)
[2021-09-20] MEDS: ZOLPIDEM TARTRATE 10 MG TABLET PO PRN (20:46)
[2021-09-21 00:55] VITALS: BP 118/77
[2021-09-21 08:18] VITALS: BP 121/64
[2021-09-21] MEDS: QUEtiapine FUMARATE 25 MG TABLET PO SCH (09:17)
[2021-09-21] MEDS: PARoxetine HCL 10 MG TABLET PO SCH (09:17)
[2021-09-21] MEDS: LISINOPRIL 10 MG TABLET PO SCH (09:17)
[2021-09-21] MEDS: DOCUSATE SODIUM 100 MG CAPSULE PO SCH (09:17)
[2021-09-21] MEDS: OMEPRAZOLE 20 MG CAPSULE PO SCH (09:17)
[2021-09-21] MEDS: VERAPAMIL HCL 240 MG ER TABLET PO SCH (09:17)
[2021-09-21] MEDS: LORazepam 2 MG TABLET PO PRN ×2 (09:57→14:43)
[2021-09-21] MEDS: HALOPERIDOL 5 MG TABLET PO PRN ×2 (09:58→14:45)
[2021-09-21 16:04] VITALS: BP 102/64
[2021-09-21] MEDS: QUEtiapine FUMARATE 200 MG TABLET PO SCH (20:12)
[2021-09-21] MEDS: ZOLPIDEM TARTRATE 10 MG TABLET PO PRN (20:31)
[2021-09-22 00:39] VITALS: BP 110/75
[2021-09-22 08:33] VITALS: BP 130/71
[2021-09-22] MEDS: DOCUSATE SODIUM 100 MG CAPSULE PO SCH (09:00)
[2021-09-22] MEDS: QUEtiapine FUMARATE 25 MG TABLET PO SCH (09:40)
[2021-09-22] MEDS: LISINOPRIL 10 MG TABLET PO SCH (09:40)
[2021-09-22] MEDS: PARoxetine HCL 10 MG TABLET PO SCH (09:40)
[2021-09-22] MEDS: VERAPAMIL HCL 240 MG ER TABLET PO SCH (09:40)
[2021-09-22] MEDS: OMEPRAZOLE 20 MG CAPSULE PO SCH (09:40)
[2021-09-22] MEDS: LORazepam 2 MG TABLET PO PRN (09:41)
[2021-09-22] MEDS: HALOPERIDOL 5 MG TABLET PO PRN (09:41)
[2021-09-22] MEDS ORDERED: DOCU-270 PO (14:30)
== END 2021-09-22 18:50 | disposition home or self-care (01) | DRG 750 ==
LOC: EMS 11:54 → B2S 15:22
PROVIDERS: ADMIT Psychiatry & Neurology Psychiatry; ATTEND Psychiatry & Neurology Psychiatry
DX: F25.0 Schizoaffective disorder, bipolar type (principal); R45.851 Suicidal ideations; K74.60 Unspecified cirrhosis of liver; F10.10 Alcohol abuse, uncomplicated; F41.9 Anxiety disorder, unspecified; I10 Essential (primary) hypertension; J44.9 Chronic obstructive pulmonary disease, unspecified; B19.20 Unspecified viral hepatitis C without hepatic coma; K21.9 Gastro-esophageal reflux disease without esophagitis; Z20.822 Contact with and (suspected) exposure to COVID-19
CPT/HCPCS: 80053; 85025; 99285; G0480

== ENCOUNTER 2021-12-01 18:29 | Inpatient (IN) | payer MEDICARE, MEDICAID ==
[~2021-12-01] VITALS: Ht 165.1 cm; Wt 108.5 kg
[2021-12-01 20:14] LABS: BASOPHILS % (AUTO) 0.9 % (0.0-2.0); EOSINOPHILS % (AUTO) 3.5 % (1.0-6.0); HEMATOCRIT 36.8 % (36-46); HEMOGLOBIN 12.4 g/dL (12.0-16.0); LYMPHOCYTES # (AUTO) 3.4 K/uL (1.0-4.8); LYMPHOCYTES % (AUTO) 47.4 % (22.0-44.0); MEAN CORPUSCULAR HEMOGLOBIN 27.5 pg (26.0-34.0); MEAN CORPUSCULAR HGB CONC 33.5 G/dL (31.0-37.0); MEAN CORPUSCULAR VOLUME 82 fL (80-100); MONOCYTES # (AUTO) 0.5 K/uL (0.1-1.0); MONOCYTES % (AUTO) 6.3 % (2.0-9.0); NEUTROPHILS # (AUTO) 3.1 K/uL (1.8-7.7); NEUTROPHILS % (AUTO) 41.9 % (40.0-70.0); PLATELET COUNT (AUTO) 293 K/uL (150-450); RED BLOOD CELL COUNT(AUTO) 4.49 MIL/uL (4.00-5.20); RED CELL DISTRIBUTION WIDTH 15.2 % (11.5-14.5)
[2021-12-01 20:43] LABS: COVID AG,FIA SOURCE NASOPHARYNGEAL
[2021-12-01 20:45] LABS: ANION GAP 11 mmol/L (8-16); CALCIUM, TOTAL 9.1 mg/dL (8.8-10.5); CARBON DIOXIDE 24 mmol/L (22-29); CHLORIDE 105 mmol/L (98-107); CREATININE 0.82 mg/dL (0.60-1.30); GLOMERULAR FILTR. RATE CALC > 60 mL/min (>60); GLUCOSE,RANDOM 128 mg/dL (70-110); POTASSIUM 3.3 mmol/L (3.5-5.1); SODIUM SERUM 140 mmol/L (136-145); UREA NITROGEN, BLOOD 9 mg/dL (7-18)
[2021-12-01 20:51] LABS: ALANINE AMINOTRANSFERASE 20 U/L (12-78); ALBUMIN 3.5 g/dL (3.4-5.0); ALKALINE PHOSPHATASE 103 U/L (46-116); ASPARTATE AMINOTRANSFERASE 17 U/L (15-37); BILIRUBIN,TOTAL 0.2 mg/dL (0.1-1.0); TOTAL PROTEIN, SERUM 8.5 g/dL (6.4-8.2)
[2021-12-01] MEDS ORDERED: POTASSIUM CHLORIDE 20 MEQ ER TABLET PO ONE (22:30)
[2021-12-02] MEDS: ZOLPIDEM TARTRATE 10 MG TABLET PO PRN ×2 (01:28→22:43)
[2021-12-02 02:14] VITALS: BP 144/78
[2021-12-02] MEDS: LORazepam 1 MG TABLET PO PRN ×3 (02:43→16:21)
[2021-12-02] MEDS: HALOPERIDOL 5 MG TABLET PO PRN (02:43)
[2021-12-02] MEDS: VERAPAMIL HCL 120 MG TABLET PO SCH (09:07)
[2021-12-02] MEDS: LISINOPRIL 10 MG TABLET PO SCH (09:07)
[2021-12-02 13:43] VITALS: BP 151/90
[2021-12-02 13:51] VITALS: BP 151/90
[2021-12-02 16:00] VITALS: BP 143/97
[2021-12-02] MEDS: QUEtiapine FUMARATE 200 MG TABLET PO SCH (20:41)
[2021-12-03] MEDS: VERAPAMIL HCL 120 MG TABLET PO SCH (08:19)
[2021-12-03] MEDS: FLUoxetine HCL 20 MG CAPSULE PO SCH ×2 (08:19→09:00)
[2021-12-03] MEDS: LISINOPRIL 10 MG TABLET PO SCH (08:19)
[2021-12-03] MEDS: QUEtiapine FUMARATE 25 MG TABLET PO SCH ×2 (09:00→10:06)
[2021-12-03 09:54] VITALS: BP 98/59
[2021-12-03 10:05] VITALS: BP 113/69
[2021-12-03] MEDS: LORazepam 1 MG TABLET PO PRN (10:10)
[2021-12-03 16:00] VITALS: BP 120/60
[2021-12-03] MEDS ORDERED: MAGNESIUM HYDROXIDE SUSPENSION 30 ML UDCUP PO PRN (16:15)
[2021-12-03] MEDS ORDERED: PETROLATUM,WHITE 28 GM JELLY TP PRN (16:15)
[2021-12-03] MEDS ORDERED: BENZOCAINE/MENTHOL LOZENGE PO PRN (16:15)
[2021-12-03] MEDS ORDERED: ONDANSETRON HCL 4 MG TABLET PO PRN (16:15)
[2021-12-03] MEDS ORDERED: LOPERAMIDE HCL 2 MG CAPSULE PO PRN (16:15)
[2021-12-03] MEDS ORDERED: MAG HYDROX/AL HYDROX/SIMETH ES 30 ML SUSPENSION UDCUP PO PRN (16:15)
[2021-12-03] MEDS ORDERED: CloNIDine HCL 0.1 MG TABLET PO PRN (16:15)
[2021-12-03] MEDS ORDERED: BACITRACIN 28 GM OINTMENT TP PRN (16:15)
[2021-12-03] MEDS: QUEtiapine FUMARATE 200 MG TABLET PO SCH (20:20)
[2021-12-03] MEDS: ZOLPIDEM TARTRATE 10 MG TABLET PO PRN (20:47)
[2021-12-04] MEDS: OMEPRAZOLE 20 MG CAPSULE PO SCH (09:00)
[2021-12-04] MEDS: FLUoxetine HCL 20 MG CAPSULE PO SCH (09:00)
[2021-12-04] MEDS: QUEtiapine FUMARATE 25 MG TABLET PO SCH (09:00)
[2021-12-04] MEDS: VERAPAMIL HCL 120 MG TABLET PO SCH (09:00)
[2021-12-04] MEDS: DOCUSATE SODIUM 100 MG CAPSULE PO SCH (09:00)
[2021-12-04] MEDS: LISINOPRIL 10 MG TABLET PO SCH (09:00)
[2021-12-04 09:06] VITALS: BP 97/52
[2021-12-04] MEDS: LORazepam 1 MG TABLET PO PRN (13:47)
[2021-12-04 16:00] VITALS: BP 135/91
[2021-12-04] MEDS: QUEtiapine FUMARATE 200 MG TABLET PO SCH (20:14)
[2021-12-04] MEDS: ZOLPIDEM TARTRATE 10 MG TABLET PO PRN (20:44)
[2021-12-05 00:15] VITALS: BP 132/82
[2021-12-05] MEDS: LORazepam 1 MG TABLET PO PRN ×4 (00:19→23:04)
[2021-12-05] MEDS: HALOPERIDOL 5 MG TABLET PO PRN ×2 (00:19→23:04)
[2021-12-05 08:36] VITALS: BP 148/81
[2021-12-05] MEDS: QUEtiapine FUMARATE 25 MG TABLET PO SCH (09:00)
[2021-12-05] MEDS: FLUoxetine HCL 20 MG CAPSULE PO SCH (09:00)
[2021-12-05] MEDS: OMEPRAZOLE 20 MG CAPSULE PO SCH (10:11)
[2021-12-05] MEDS: VERAPAMIL HCL 120 MG TABLET PO SCH (10:11)
[2021-12-05] MEDS: DOCUSATE SODIUM 100 MG CAPSULE PO SCH (10:11)
[2021-12-05] MEDS: LISINOPRIL 10 MG TABLET PO SCH (10:12)
[2021-12-05 16:04] VITALS: BP 120/79
[2021-12-05] MEDS: QUEtiapine FUMARATE 200 MG TABLET PO SCH (20:30)
[2021-12-05] MEDS: ZOLPIDEM TARTRATE 10 MG TABLET PO PRN (21:10)
[2021-12-06] MEDS: FLUoxetine HCL 20 MG CAPSULE PO SCH (09:06)
[2021-12-06] MEDS: DOCUSATE SODIUM 100 MG CAPSULE PO SCH (09:06)
[2021-12-06] MEDS: OMEPRAZOLE 20 MG CAPSULE PO SCH (09:07)
[2021-12-06] MEDS: LISINOPRIL 10 MG TABLET PO SCH (09:07)
[2021-12-06] MEDS: VERAPAMIL HCL 120 MG TABLET PO SCH (09:07)
[2021-12-06] MEDS: QUEtiapine FUMARATE 25 MG TABLET PO SCH (09:07)
[2021-12-06] MEDS: LORazepam 1 MG TABLET PO PRN ×3 (09:39→23:36)
[2021-12-06 16:14] VITALS: BP 167/75
[2021-12-06 18:30] VITALS: BP 156/89
[2021-12-06 19:15] LABS: COVID AG,FIA SOURCE NASAL SWAB
[2021-12-06 20:01] VITALS: BP 149/79
[2021-12-06] MEDS: QUEtiapine FUMARATE 200 MG TABLET PO SCH (21:00)
[2021-12-06] MEDS: IBUPROFEN 600 MG TABLET PO PRN (21:01)
[2021-12-06] MEDS: ZOLPIDEM TARTRATE 10 MG TABLET PO PRN (21:05)
[2021-12-06] MEDS: HALOPERIDOL 5 MG TABLET PO PRN (23:36)
[2021-12-07 06:26] VITALS: BP 128/81
[2021-12-07] MEDS: LISINOPRIL 10 MG TABLET PO SCH (09:13)
[2021-12-07] MEDS: FLUoxetine HCL 20 MG CAPSULE PO SCH (09:13)
[2021-12-07 09:14] VITALS: BP 145/77
[2021-12-07] MEDS: QUEtiapine FUMARATE 25 MG TABLET PO SCH (09:15)
[2021-12-07] MEDS: OMEPRAZOLE 20 MG CAPSULE PO SCH (09:15)
[2021-12-07] MEDS: DOCUSATE SODIUM 100 MG CAPSULE PO SCH (09:15)
[2021-12-07] MEDS: IBUPROFEN 600 MG TABLET PO PRN ×2 (10:22→18:24)
[2021-12-07] MEDS: VERAPAMIL HCL 120 MG TABLET PO SCH (10:57)
[2021-12-07] MEDS: LORazepam 1 MG TABLET PO PRN (12:57)
[2021-12-07 16:36] VITALS: BP 99/63
[2021-12-07] MEDS: QUEtiapine FUMARATE 200 MG TABLET PO SCH (20:31)
[2021-12-07] MEDS: ZOLPIDEM TARTRATE 10 MG TABLET PO PRN (21:59)
[2021-12-08 08:00] VITALS: BP 94/54
[2021-12-08] MEDS: LORazepam 1 MG TABLET PO PRN ×2 (08:33→13:23)
[2021-12-08] MEDS: QUEtiapine FUMARATE 25 MG TABLET PO SCH (08:33)
[2021-12-08] MEDS: LISINOPRIL 10 MG TABLET PO SCH (08:33)
[2021-12-08] MEDS: HALOPERIDOL 5 MG TABLET PO PRN ×2 (08:33→13:23)
[2021-12-08] MEDS: FLUoxetine HCL 20 MG CAPSULE PO SCH (08:33)
[2021-12-08] MEDS: VERAPAMIL HCL 120 MG TABLET PO SCH (08:34)
[2021-12-08] MEDS: OMEPRAZOLE 20 MG CAPSULE PO SCH (08:35)
[2021-12-08] MEDS: DOCUSATE SODIUM 100 MG CAPSULE PO SCH (08:35)
[2021-12-08] MEDS: IBUPROFEN 600 MG TABLET PO PRN (10:39)
[2021-12-08 12:37] VITALS: BP 97/62
[2021-12-08 16:19] VITALS: BP 125/74
[2021-12-08] MEDS: QUEtiapine FUMARATE 200 MG TABLET PO SCH (20:02)
[2021-12-08] MEDS: ZOLPIDEM TARTRATE 10 MG TABLET PO PRN (21:17)
[2021-12-09] MEDS: OMEPRAZOLE 20 MG CAPSULE PO SCH (07:59)
[2021-12-09] MEDS: FLUoxetine HCL 20 MG CAPSULE PO SCH (07:59)
[2021-12-09] MEDS: DOCUSATE SODIUM 100 MG CAPSULE PO SCH (07:59)
[2021-12-09 08:00] VITALS: BP 120/62
[2021-12-09] MEDS: QUEtiapine FUMARATE 25 MG TABLET PO SCH (08:00)
[2021-12-09] MEDS: LISINOPRIL 10 MG TABLET PO SCH (08:57)
[2021-12-09] MEDS: LORazepam 1 MG TABLET PO PRN (08:57)
[2021-12-09] MEDS: VERAPAMIL HCL 120 MG TABLET PO SCH (08:57)
[2021-12-09] MEDS: HALOPERIDOL 5 MG TABLET PO PRN (08:57)
[2021-12-09] MEDS: ACETAMINOPHEN 325 MG TABLET PO PRN (10:47)
[2021-12-09] MEDS: IBUPROFEN 600 MG TABLET PO PRN (10:53)
[2021-12-09 16:07] VITALS: BP 140/92
[2021-12-09] MEDS: ZOLPIDEM TARTRATE 10 MG TABLET PO PRN (20:26)
[2021-12-09] MEDS: QUEtiapine FUMARATE 200 MG TABLET PO SCH (20:26)
[2021-12-10] MEDS: LORazepam 1 MG TABLET PO PRN ×4 (02:15→23:18)
[2021-12-10] MEDS: HALOPERIDOL 5 MG TABLET PO PRN ×4 (02:15→23:18)
[2021-12-10] MEDS: OMEPRAZOLE 20 MG CAPSULE PO SCH (08:28)
[2021-12-10] MEDS: FLUoxetine HCL 20 MG CAPSULE PO SCH (08:28)
[2021-12-10] MEDS: QUEtiapine FUMARATE 25 MG TABLET PO SCH (08:28)
[2021-12-10] MEDS: DOCUSATE SODIUM 100 MG CAPSULE PO SCH (08:28)
[2021-12-10 08:32] VITALS: BP 156/99
[2021-12-10] MEDS: VERAPAMIL HCL 120 MG TABLET PO SCH (08:40)
[2021-12-10] MEDS: LISINOPRIL 10 MG TABLET PO SCH (08:40)
[2021-12-10] MEDS: IBUPROFEN 600 MG TABLET PO PRN (16:45)
[2021-12-10 16:52] VITALS: BP 151/76
[2021-12-10] MEDS: QUEtiapine FUMARATE 200 MG TABLET PO SCH (21:16)
[2021-12-10] MEDS: ZOLPIDEM TARTRATE 10 MG TABLET PO PRN (21:20)
[2021-12-11 08:52] VITALS: BP 166/80
[2021-12-11] MEDS: QUEtiapine FUMARATE 25 MG TABLET PO SCH (09:06)
[2021-12-11] MEDS: VERAPAMIL HCL 120 MG TABLET PO SCH (09:07)
[2021-12-11] MEDS: FLUoxetine HCL 20 MG CAPSULE PO SCH (09:07)
[2021-12-11] MEDS: LISINOPRIL 10 MG TABLET PO SCH (09:07)
[2021-12-11] MEDS: OMEPRAZOLE 20 MG CAPSULE PO SCH (09:09)
[2021-12-11] MEDS: DOCUSATE SODIUM 100 MG CAPSULE PO SCH (09:09)
[2021-12-11] MEDS: HALOPERIDOL 5 MG TABLET PO PRN (09:12)
[2021-12-11] MEDS: LORazepam 1 MG TABLET PO PRN (09:12)
[2021-12-11] MEDS: IBUPROFEN 600 MG TABLET PO PRN (16:17)
[2021-12-11 17:03] VITALS: BP 155/85
[2021-12-11] MEDS: QUEtiapine FUMARATE 200 MG TABLET PO SCH (20:16)
[2021-12-11] MEDS: ZOLPIDEM TARTRATE 10 MG TABLET PO PRN (22:33)
[2021-12-12 08:00] VITALS: BP 144/94
[2021-12-12] MEDS: VERAPAMIL HCL 120 MG TABLET PO SCH (08:31)
[2021-12-12] MEDS: QUEtiapine FUMARATE 25 MG TABLET PO SCH (08:36)
[2021-12-12] MEDS: LORazepam 1 MG TABLET PO PRN ×3 (08:36→22:53)
[2021-12-12] MEDS: LISINOPRIL 10 MG TABLET PO SCH (08:36)
[2021-12-12] MEDS: DOCUSATE SODIUM 100 MG CAPSULE PO SCH (08:37)
[2021-12-12] MEDS: FLUoxetine HCL 20 MG CAPSULE PO SCH (08:37)
[2021-12-12] MEDS: OMEPRAZOLE 20 MG CAPSULE PO SCH (08:37)
[2021-12-12] MEDS: HALOPERIDOL 5 MG TABLET PO PRN ×3 (08:37→22:53)
[2021-12-12] MEDS: IBUPROFEN 600 MG TABLET PO PRN (11:47)
[2021-12-12] MEDS: ALBUTEROL SULFATE HFA 90 MCG/PUFF 8 GM INHALER IH PRN (16:53)
[2021-12-12 17:02] VITALS: BP 128/78
[2021-12-12] MEDS: QUEtiapine FUMARATE 200 MG TABLET PO SCH (20:06)
[2021-12-12] MEDS: ZOLPIDEM TARTRATE 10 MG TABLET PO PRN (20:55)
[2021-12-12 22:50] VITALS: BP 140/81
[2021-12-13] MEDS: VERAPAMIL HCL 120 MG TABLET PO SCH (08:29)
[2021-12-13] MEDS: FLUoxetine HCL 20 MG CAPSULE PO SCH (08:30)
[2021-12-13] MEDS: LISINOPRIL 10 MG TABLET PO SCH (08:30)
[2021-12-13] MEDS: QUEtiapine FUMARATE 25 MG TABLET PO SCH (08:30)
[2021-12-13] MEDS: DOCUSATE SODIUM 100 MG CAPSULE PO SCH (08:30)
[2021-12-13] MEDS: OMEPRAZOLE 20 MG CAPSULE PO SCH (08:30)
[2021-12-13 08:40] VITALS: BP 141/92
[2021-12-13] MEDS: HALOPERIDOL 5 MG TABLET PO PRN (08:41)
[2021-12-13] MEDS: IBUPROFEN 600 MG TABLET PO PRN ×2 (08:41→16:57)
[2021-12-13] MEDS: LORazepam 1 MG TABLET PO PRN (08:41)
[2021-12-13 13:20] LABS: COVID AG,FIA SOURCE NASAL SWAB
[2021-12-13 16:57] VITALS: BP 129/84
[2021-12-13] MEDS: ALBUTEROL SULFATE HFA 90 MCG/PUFF 8 GM INHALER IH PRN (18:05)
[2021-12-13] MEDS: QUEtiapine FUMARATE 200 MG TABLET PO SCH (20:23)
[2021-12-13] MEDS: ZOLPIDEM TARTRATE 10 MG TABLET PO PRN (20:32)
[2021-12-14 08:00] VITALS: BP 138/87
[2021-12-14] MEDS: LISINOPRIL 10 MG TABLET PO SCH (08:13)
[2021-12-14] MEDS: OMEPRAZOLE 20 MG CAPSULE PO SCH (08:13)
[2021-12-14] MEDS: HALOPERIDOL 5 MG TABLET PO PRN ×2 (08:13→14:49)
[2021-12-14] MEDS: FLUoxetine HCL 20 MG CAPSULE PO SCH (08:13)
[2021-12-14] MEDS: DOCUSATE SODIUM 100 MG CAPSULE PO SCH (08:13)
[2021-12-14] MEDS: QUEtiapine FUMARATE 25 MG TABLET PO SCH (08:13)
[2021-12-14] MEDS: LORazepam 1 MG TABLET PO PRN ×2 (08:13→14:49)
[2021-12-14] MEDS: VERAPAMIL HCL 120 MG TABLET PO SCH (08:14)
[2021-12-14] MEDS: IBUPROFEN 600 MG TABLET PO PRN ×2 (08:16→19:39)
[2021-12-14 16:11] VITALS: BP 157/76
[2021-12-14] MEDS: QUEtiapine FUMARATE 200 MG TABLET PO SCH (20:26)
[2021-12-14] MEDS ORDERED: GuaiFENesin SR 600 MG ER TABLET PO PRN (21:00)
[2021-12-14] MEDS: ZOLPIDEM TARTRATE 10 MG TABLET PO PRN (21:32)
[2021-12-15 08:29] VITALS: BP 156/83
[2021-12-15] MEDS: QUEtiapine FUMARATE 25 MG TABLET PO SCH (08:38)
[2021-12-15] MEDS: LISINOPRIL 10 MG TABLET PO SCH (08:38)
[2021-12-15] MEDS: FLUoxetine HCL 20 MG CAPSULE PO SCH (08:38)
[2021-12-15] MEDS: HALOPERIDOL 5 MG TABLET PO PRN (08:39)
[2021-12-15] MEDS: VERAPAMIL HCL 120 MG TABLET PO SCH (08:39)
[2021-12-15] MEDS: LORazepam 1 MG TABLET PO PRN (08:39)
[2021-12-15] MEDS: OMEPRAZOLE 20 MG CAPSULE PO SCH (08:40)
[2021-12-15] MEDS: DOCUSATE SODIUM 100 MG CAPSULE PO SCH (08:40)
[2021-12-15 16:28] VITALS: BP 152/82
[2021-12-15] MEDS: QUEtiapine FUMARATE 200 MG TABLET PO SCH (20:10)
[2021-12-15 21:12] VITALS: BP 142/80
[2021-12-15] MEDS: IBUPROFEN 600 MG TABLET PO PRN (21:12)
[2021-12-16 08:12] VITALS: BP 96/62
[2021-12-16] MEDS: LISINOPRIL 10 MG TABLET PO SCH (10:44)
[2021-12-16] MEDS: FLUoxetine HCL 20 MG CAPSULE PO SCH (10:45)
[2021-12-16] MEDS: QUEtiapine FUMARATE 25 MG TABLET PO SCH (10:45)
[2021-12-16] MEDS: VERAPAMIL HCL 120 MG TABLET PO SCH (10:46)
[2021-12-16] MEDS: OMEPRAZOLE 20 MG CAPSULE PO SCH (10:48)
[2021-12-16] MEDS: DOCUSATE SODIUM 100 MG CAPSULE PO SCH (10:49)
[2021-12-16] MEDS: LORazepam 1 MG TABLET PO PRN (10:51)
[2021-12-16] MEDS: HALOPERIDOL 5 MG TABLET PO PRN (10:52)
[2021-12-16 17:32] VITALS: BP 119/74
[2021-12-16] MEDS: QUEtiapine FUMARATE 200 MG TABLET PO SCH (20:19)
[2021-12-16] MEDS: ZOLPIDEM TARTRATE 10 MG TABLET PO PRN (20:19)
[2021-12-16] MEDS: IBUPROFEN 600 MG TABLET PO PRN (20:34)
[2021-12-17 08:00] VITALS: BP 118/87
[2021-12-17] MEDS: DOCUSATE SODIUM 100 MG CAPSULE PO SCH (08:57)
[2021-12-17] MEDS: FLUoxetine HCL 20 MG CAPSULE PO SCH (08:57)
[2021-12-17] MEDS: VERAPAMIL HCL 120 MG TABLET PO SCH (08:58)
[2021-12-17] MEDS: QUEtiapine FUMARATE 25 MG TABLET PO SCH (08:58)
[2021-12-17] MEDS: LISINOPRIL 10 MG TABLET PO SCH (08:58)
[2021-12-17] MEDS: LORazepam 1 MG TABLET PO PRN (08:58)
[2021-12-17] MEDS: OMEPRAZOLE 20 MG CAPSULE PO SCH (08:58)
[2021-12-17] MEDS: HALOPERIDOL 5 MG TABLET PO PRN (08:58)
[2021-12-17] MEDS: ACETAMINOPHEN 325 MG TABLET PO PRN (14:41)
[2021-12-17 16:30] VITALS: BP 143/83
[2021-12-17] MEDS: ZOLPIDEM TARTRATE 10 MG TABLET PO PRN (20:25)
[2021-12-17] MEDS: QUEtiapine FUMARATE 200 MG TABLET PO SCH (20:25)
[2021-12-18] MEDS: VERAPAMIL HCL 120 MG TABLET PO SCH (07:45)
[2021-12-18] MEDS: IBUPROFEN 600 MG TABLET PO PRN (07:45)
[2021-12-18] MEDS: LISINOPRIL 10 MG TABLET PO SCH (07:46)
[2021-12-18] MEDS: LORazepam 1 MG TABLET PO PRN (07:46)
[2021-12-18] MEDS: FLUoxetine HCL 20 MG CAPSULE PO SCH (07:46)
[2021-12-18] MEDS: HALOPERIDOL 5 MG TABLET PO PRN (07:46)
[2021-12-18] MEDS: QUEtiapine FUMARATE 25 MG TABLET PO SCH (07:46)
[2021-12-18] MEDS: DOCUSATE SODIUM 100 MG CAPSULE PO SCH (07:46)
[2021-12-18] MEDS: OMEPRAZOLE 20 MG CAPSULE PO SCH (07:53)
[2021-12-18 08:13] VITALS: BP 158/96
[2021-12-18 09:24] LABS: COVID AG,FIA SOURCE NASAL SWAB
[2021-12-18] MEDS ORDERED: OMEP20 PO (11:43)
[2021-12-18] MEDS ORDERED: FLUO20CA36 PO (11:43)
[2021-12-18] MEDS ORDERED: DOCU-270 PO (11:43)
[2021-12-18] MEDS ORDERED: QUET200T30 PO (13:22)
[2021-12-18] MEDS ORDERED: PROZ20 PO (13:22)
== END 2021-12-18 14:50 | disposition home or self-care (01) | DRG 750 ==
LOC: EMS 18:31 → 3EI 23:10 → 3EC 12-06 22:02
PROVIDERS: ADMIT Psychiatry & Neurology Psychiatry; ATTEND Psychiatry & Neurology Psychiatry
DX: F25.9 Schizoaffective disorder, unspecified (principal); U07.1 COVID-19; R45.851 Suicidal ideations; K74.60 Unspecified cirrhosis of liver; F31.9 Bipolar disorder, unspecified; I10 Essential (primary) hypertension; J44.9 Chronic obstructive pulmonary disease, unspecified; F41.9 Anxiety disorder, unspecified; G47.00 Insomnia, unspecified; K59.00 Constipation, unspecified; F17.210 Nicotine dependence, cigarettes, uncomplicated; E66.9 Obesity, unspecified; B19.20 Unspecified viral hepatitis C without hepatic coma; K21.9 Gastro-esophageal reflux disease without esophagitis; Z91.014 Allergy to mammalian meats; Z91.013 Allergy to seafood; Z88.8 Allergy status to other drugs, medicaments and biological substances; Z88.5 Allergy status to narcotic agent; Z78.9 Other specified health status; Z79.899 Other long term (current) drug therapy; Z68.39 Body mass index [BMI] 39.0-39.9, adult
CPT/HCPCS: 80053; 84132; 85025; 99285; G0480; J3535

== ENCOUNTER 2022-01-07 04:42 | Inpatient (IN) | payer MEDICARE, MEDICAID ==
[~2022-01-07] VITALS: Ht 162.6 cm; Wt 106.6 kg
[~2022-01-07 04:42] MED LIST changes: +DOCU-270 PO; +OMEP20 PO; -PARO10TA89 PO; +PROZ20 PO; -QUET200T PO; +QUET200T30 PO; -QUET25TA PO
[2022-01-07] MEDS ORDERED: LORazepam 1 MG TABLET PO ONE (06:45)
[2022-01-07] MEDS ORDERED: QUEtiapine FUMARATE 100 MG TABLET PO ONE (06:45)
[2022-01-07 07:04] LABS: BASOPHILS % (AUTO) 1.3 % (0.0-2.0); EOSINOPHILS % (AUTO) 0.9 % (1.0-6.0); HEMATOCRIT 40.8 % (36-46); HEMOGLOBIN 13.7 g/dL (12.0-16.0); LYMPHOCYTES # (AUTO) 3.2 K/uL (1.0-4.8); LYMPHOCYTES % (AUTO) 30.8 % (22.0-44.0); MEAN CORPUSCULAR HEMOGLOBIN 27.1 pg (26.0-34.0); MEAN CORPUSCULAR HGB CONC 33.5 G/dL (31.0-37.0); MEAN CORPUSCULAR VOLUME 81 fL (80-100); MONOCYTES # (AUTO) 0.9 K/uL (0.1-1.0); MONOCYTES % (AUTO) 8.3 % (2.0-9.0); NEUTROPHILS # (AUTO) 6.2 K/uL (1.8-7.7); NEUTROPHILS % (AUTO) 58.7 % (40.0-70.0); PLATELET COUNT (AUTO) 388 K/uL (150-450); RED BLOOD CELL COUNT(AUTO) 5.05 MIL/uL (4.00-5.20); RED CELL DISTRIBUTION WIDTH 15.9 % (11.5-14.5)
[2022-01-07 07:11] LABS: ANION GAP 10 mmol/L (8-16); CALCIUM, TOTAL 9.4 mg/dL (8.8-10.5); CARBON DIOXIDE 25 mmol/L (22-29); CHLORIDE 101 mmol/L (98-107); CREATININE 0.67 mg/dL (0.60-1.30); GLOMERULAR FILTR. RATE CALC > 60 mL/min (>60); GLUCOSE,RANDOM 105 mg/dL (70-110); POTASSIUM 3.5 mmol/L (3.5-5.1); SODIUM SERUM 136 mmol/L (136-145); UREA NITROGEN, BLOOD 12 mg/dL (7-18)
[2022-01-07 07:17] LABS: ALANINE AMINOTRANSFERASE 18 U/L (12-78); ALBUMIN 3.7 g/dL (3.4-5.0); ALKALINE PHOSPHATASE 114 U/L (46-116); ASPARTATE AMINOTRANSFERASE 22 U/L (15-37); BILIRUBIN,TOTAL 0.4 mg/dL (0.1-1.0); TOTAL PROTEIN, SERUM 9.6 g/dL (6.4-8.2)
[2022-01-07] MEDS: ZOLPIDEM TARTRATE 10 MG TABLET PO PRN (20:02)
[2022-01-07 20:25] LABS: COVID AG,FIA SOURCE NASOPHARYNGEAL
[2022-01-08] MEDS: HALOPERIDOL 5 MG TABLET PO PRN (02:58)
[2022-01-08] MEDS: LORazepam 2 MG TABLET PO PRN ×2 (02:58→11:01)
[2022-01-08 03:31] LABS: APPEARANCE,URINE CLEAR (CLEAR); BILIRUBIN,URINE NEGATIVE (NEGATIVE); GLUCOSE, URINE (UA) NEGATIVE (NEGATIVE); KETONES,URINE NEGATIVE (NEGATIVE); LEUKOCYTE ESTERASE ,URINE MODERATE (NEGATIVE); NITRATE,URINE NEGATIVE (NEGATIVE); OCCULT BLOOD,URINE NEGATIVE (NEGATIVE); PROTEIN,URINE NEGATIVE (NEGATIVE); UROBILINOGEN,URINE 0.2 mg/dL (<=1.0)
[2022-01-08 03:36] LABS: AMPHET/METH SCREEN,URINE NEGATIVE (NEGATIVE); BARBITURATE SCREEN, URINE NEGATIVE (NEGATIVE); BENZODIAZEPINES SCREEN,URINE NEGATIVE (NEGATIVE); CANNABINOID SCREEN,URINE NEGATIVE (NEGATIVE); COCAINE SCREEN,URINE NEGATIVE (NEGATIVE); METHADONE SCREEN, URINE NEGATIVE (NEGATIVE); OPIATE SCREEN,URINE NEGATIVE (NEGATIVE)
[2022-01-08 03:37] LABS: PHENCYCLIDINE SCREEN,URINE NEGATIVE (NEGATIVE)
[2022-01-08 03:41] LABS: BACTERIA,URINE Few /HPF (None Seen); HYALINE CASTS, URINE 0-2 /LPF (None Seen); RBC,URINE 0-2 /HPF (0-2); SQUAMOUS EPITHELIAL CELL,UR Moderate /LPF (None Seen)
[2022-01-08 07:02] LABS: CHOL/HDL RATIO 5.2 (3.9-5.7)
[2022-01-08] MEDS ORDERED: INFLUENZA VIRUS VACCINE QVS 2021-22 (6MO+)/PF 60 MCG/0.5 ML SYRINGE IM. ONE (11:45)
[2022-01-08 12:00] VITALS: BP 160/90
[2022-01-08] MEDS ORDERED: IBUPROFEN 600 MG TABLET PO PRN (12:30)
[2022-01-08] MEDS ORDERED: PETROLATUM,WHITE 28 GM JELLY TP PRN (12:30)
[2022-01-08] MEDS ORDERED: DOCUSATE SODIUM 100 MG CAPSULE PO PRN (12:30)
[2022-01-08] MEDS ORDERED: MAG HYDROX/AL HYDROX/SIMETH ES 30 ML SUSPENSION UDCUP PO PRN (12:30)
[2022-01-08] MEDS ORDERED: BENZOCAINE/MENTHOL LOZENGE PO PRN (12:30)
[2022-01-08] MEDS ORDERED: MAGNESIUM HYDROXIDE SUSPENSION 30 ML UDCUP PO PRN (12:30)
[2022-01-08] MEDS ORDERED: BACITRACIN 28 GM OINTMENT TP PRN (12:30)
[2022-01-08] MEDS ORDERED: ALBUTEROL SULFATE HFA 90 MCG/PUFF 8 GM INHALER IH PRN (12:30)
[2022-01-08] MEDS ORDERED: OMEPRAZOLE 20 MG CAPSULE PO PRN (12:30)
[2022-01-08] MEDS ORDERED: CloNIDine HCL 0.1 MG TABLET PO PRN (12:30)
[2022-01-08] MEDS: LISINOPRIL 10 MG TABLET PO SCH (12:53)
[2022-01-08] MEDS: VERAPAMIL HCL 240 MG ER TABLET PO SCH (17:08)
[2022-01-08] MEDS: QUEtiapine FUMARATE 200 MG TABLET PO SCH (20:30)
[2022-01-08] MEDS: ZOLPIDEM TARTRATE 10 MG TABLET PO PRN (20:54)
[2022-01-08 20:58] VITALS: BP 123/59
[2022-01-09 02:10] VITALS: BP 132/77
[2022-01-09 08:43] VITALS: BP 150/61
[2022-01-09] MEDS: VERAPAMIL HCL 240 MG ER TABLET PO SCH (08:56)
[2022-01-09] MEDS: LISINOPRIL 10 MG TABLET PO SCH (08:56)
[2022-01-09] MEDS: FLUoxetine HCL 20 MG CAPSULE PO SCH (08:56)
[2022-01-09] MEDS ORDERED: OMEPRAZOLE 20 MG CAPSULE PO SCH (09:00)
[2022-01-09] MEDS ORDERED: DOCUSATE SODIUM 100 MG CAPSULE PO SCH (09:00)
[2022-01-09] MEDS: LORazepam 2 MG TABLET PO PRN ×2 (09:40→14:22)
[2022-01-09] MEDS: QUEtiapine FUMARATE 200 MG TABLET PO SCH (20:50)
[2022-01-09] MEDS: ZOLPIDEM TARTRATE 10 MG TABLET PO PRN (20:50)
[2022-01-10 00:01] VITALS: BP 121/75
[2022-01-10] MEDS: HALOPERIDOL 5 MG TABLET PO PRN ×2 (00:02→09:10)
[2022-01-10] MEDS: LORazepam 2 MG TABLET PO PRN ×2 (00:02→09:10)
[2022-01-10] MEDS: VERAPAMIL HCL 240 MG ER TABLET PO SCH (08:26)
[2022-01-10] MEDS: LISINOPRIL 10 MG TABLET PO SCH (08:26)
[2022-01-10 08:27] VITALS: BP 113/62
[2022-01-10] MEDS: FLUoxetine HCL 20 MG CAPSULE PO SCH (08:30)
[2022-01-10 16:22] VITALS: BP 134/69
[2022-01-10] MEDS: QUEtiapine FUMARATE 200 MG TABLET PO SCH (20:32)
[2022-01-10] MEDS: ZOLPIDEM TARTRATE 10 MG TABLET PO PRN (20:48)
[2022-01-11 01:22] VITALS: BP 125/70
[2022-01-11 05:16] VITALS: BP 143/87
[2022-01-11] MEDS: HALOPERIDOL 5 MG TABLET PO PRN ×2 (05:21→12:51)
[2022-01-11] MEDS: LORazepam 2 MG TABLET PO PRN ×2 (05:21→12:51)
[2022-01-11 08:37] VITALS: BP 109/64
[2022-01-11] MEDS: FLUoxetine HCL 20 MG CAPSULE PO SCH ×2 (08:40→08:57)
[2022-01-11] MEDS: VERAPAMIL HCL 240 MG ER TABLET PO SCH (08:40)
[2022-01-11] MEDS: LISINOPRIL 10 MG TABLET PO SCH (08:40)
[2022-01-11] MEDS: QUEtiapine FUMARATE 200 MG TABLET PO SCH ×2 (08:40→20:53)
[2022-01-11 16:14] VITALS: BP 101/63
[2022-01-11] MEDS: ZOLPIDEM TARTRATE 10 MG TABLET PO PRN (20:57)
[2022-01-12 00:48] VITALS: BP 110/63
[2022-01-12 03:51] VITALS: BP 133/76
[2022-01-12] MEDS: LORazepam 2 MG TABLET PO PRN ×2 (03:55→08:36)
[2022-01-12] MEDS: HALOPERIDOL 5 MG TABLET PO PRN ×2 (03:55→08:36)
[2022-01-12 08:23] VITALS: BP 131/58
[2022-01-12] MEDS: QUEtiapine FUMARATE 200 MG TABLET PO SCH ×2 (08:35→20:15)
[2022-01-12] MEDS: LISINOPRIL 10 MG TABLET PO SCH (08:35)
[2022-01-12] MEDS: FLUoxetine HCL 20 MG CAPSULE PO SCH ×2 (08:36→08:40)
[2022-01-12] MEDS: VERAPAMIL HCL 240 MG ER TABLET PO SCH (08:40)
[2022-01-12 16:45] VITALS: BP 111/59
[2022-01-12] MEDS: ZOLPIDEM TARTRATE 10 MG TABLET PO PRN (20:15)
[2022-01-13 05:05] VITALS: BP 110/62
[2022-01-13 07:21] LABS: GLUCOMETER DEV NAME(LOC) POC.BV
[2022-01-13 08:22] VITALS: BP 137/73
[2022-01-13] MEDS: FLUoxetine HCL 20 MG CAPSULE PO SCH (08:32)
[2022-01-13] MEDS: VERAPAMIL HCL 240 MG ER TABLET PO SCH (08:32)
[2022-01-13] MEDS: LISINOPRIL 10 MG TABLET PO SCH (08:32)
[2022-01-13] MEDS: QUEtiapine FUMARATE 200 MG TABLET PO SCH ×2 (08:32→20:22)
[2022-01-13] MEDS: LORazepam 2 MG TABLET PO PRN (08:32)
[2022-01-13 16:25] VITALS: BP 102/55
[2022-01-13] MEDS: ZOLPIDEM TARTRATE 10 MG TABLET PO PRN (20:22)
[2022-01-14 06:38] VITALS: BP 127/72
[2022-01-14] MEDS: FLUoxetine HCL 20 MG CAPSULE PO SCH (08:29)
[2022-01-14] MEDS: VERAPAMIL HCL 240 MG ER TABLET PO SCH (08:30)
[2022-01-14] MEDS: QUEtiapine FUMARATE 200 MG TABLET PO SCH ×2 (08:30→20:21)
[2022-01-14] MEDS: LISINOPRIL 10 MG TABLET PO SCH (08:30)
[2022-01-14 08:32] VITALS: BP 118/64
[2022-01-14] MEDS: LORazepam 2 MG TABLET PO PRN (09:07)
[2022-01-14 16:17] VITALS: BP 111/72
[2022-01-14] MEDS: ZOLPIDEM TARTRATE 10 MG TABLET PO PRN (20:21)
[2022-01-15] MEDS: HALOPERIDOL 5 MG TABLET PO PRN ×2 (00:04→08:34)
[2022-01-15] MEDS: LORazepam 2 MG TABLET PO PRN ×3 (00:05→12:34)
[2022-01-15 00:09] VITALS: BP 130/84
[2022-01-15 08:28] VITALS: BP 122/63
[2022-01-15] MEDS: LISINOPRIL 10 MG TABLET PO SCH (08:33)
[2022-01-15] MEDS: QUEtiapine FUMARATE 200 MG TABLET PO SCH (08:33)
[2022-01-15] MEDS: FLUoxetine HCL 20 MG CAPSULE PO SCH (08:34)
[2022-01-15] MEDS: VERAPAMIL HCL 240 MG ER TABLET PO SCH (08:34)
[2022-01-15] MEDS ORDERED: PROZ20 PO (12:02)
[2022-01-15] MEDS ORDERED: QUET200T30 PO (12:02)
== END 2022-01-15 16:03 | disposition home or self-care (01) | DRG 750 ==
LOC: EMS 04:47 → B2S 01-08 08:38
PROVIDERS: ADMIT Psychiatry & Neurology Psychiatry; ATTEND Psychiatry & Neurology Psychiatry
DX: F25.9 Schizoaffective disorder, unspecified (principal); B19.20 Unspecified viral hepatitis C without hepatic coma; F10.10 Alcohol abuse, uncomplicated; F19.10 Other psychoactive substance abuse, uncomplicated; F32.A Depression, unspecified; K21.9 Gastro-esophageal reflux disease without esophagitis; Y90.0 Blood alcohol level of less than 20 mg/100 ml; I10 Essential (primary) hypertension; J44.9 Chronic obstructive pulmonary disease, unspecified; E66.9 Obesity, unspecified; Z20.822 Contact with and (suspected) exposure to COVID-19; G47.00 Insomnia, unspecified; K59.00 Constipation, unspecified; F41.9 Anxiety disorder, unspecified; Z72.0 Tobacco use; Z68.41 Body mass index [BMI] 40.0-44.9, adult
CPT/HCPCS: 80053; 80061; 81001; 85025; 87081; 87086; 99285; G0480

== ENCOUNTER 2022-02-01 09:15 | Inpatient (IN) | payer MEDICARE, MEDICAID ==
[~2022-02-01] VITALS: Ht 162.6 cm; Wt 109.0 kg
[~2022-02-01 09:15] MED LIST changes: -DOCU-270 PO; -OMEP20 PO
[2022-02-01 10:46] LABS: BASOPHILS % (AUTO) 0.9 % (0.0-2.0); EOSINOPHILS % (AUTO) 3.5 % (1.0-6.0); HEMATOCRIT 39.1 % (36-46); LYMPHOCYTES # (AUTO) 3.4 K/uL (1.0-4.8); LYMPHOCYTES % (AUTO) 49.7 % (22.0-44.0); MEAN CORPUSCULAR HEMOGLOBIN 26.7 pg (26.0-34.0); MEAN CORPUSCULAR HGB CONC 33.3 G/dL (31.0-37.0); MEAN CORPUSCULAR VOLUME 80 fL (80-100); MONOCYTES # (AUTO) 0.6 K/uL (0.1-1.0); MONOCYTES % (AUTO) 8.2 % (2.0-9.0); NEUTROPHILS # (AUTO) 2.6 K/uL (1.8-7.7); NEUTROPHILS % (AUTO) 37.7 % (40.0-70.0); PLATELET COUNT (AUTO) 249 K/uL (150-450); RED BLOOD CELL COUNT(AUTO) 4.87 MIL/uL (4.00-5.20); RED CELL DISTRIBUTION WIDTH 16.5 % (11.5-14.5)
[2022-02-01 10:57] LABS: COVID AG,FIA SOURCE NASAL SWAB
[2022-02-01] MEDS ORDERED: LORazepam 2 MG TABLET PO ONE (11:00)
[2022-02-01 12:28] LABS: ANION GAP 9 mmol/L (8-16); CALCIUM, TOTAL 9.2 mg/dL (8.8-10.5); CARBON DIOXIDE 27 mmol/L (22-29); CHLORIDE 103 mmol/L (98-107); CREATININE 0.75 mg/dL (0.60-1.30); GLOMERULAR FILTR. RATE CALC > 60 mL/min (>60); GLUCOSE,RANDOM 87 mg/dL (70-110); POTASSIUM 4.2 mmol/L (3.5-5.1); SODIUM SERUM 139 mmol/L (136-145); UREA NITROGEN, BLOOD 12 mg/dL (7-18)
[2022-02-01 12:34] LABS: ALANINE AMINOTRANSFERASE 22 U/L (12-78); ALBUMIN 3.7 g/dL (3.4-5.0); ALKALINE PHOSPHATASE 103 U/L (46-116); ASPARTATE AMINOTRANSFERASE 22 U/L (15-37); BILIRUBIN,TOTAL 0.3 mg/dL (0.1-1.0); TOTAL PROTEIN, SERUM 8.4 g/dL (6.4-8.2)
[2022-02-01] MEDS: LORazepam 2 MG TABLET PO PRN (17:22)
[2022-02-01] MEDS ORDERED: CloNIDine HCL 0.1 MG TABLET PO PRN (22:00)
[2022-02-01] MEDS ORDERED: LOPERAMIDE HCL 2 MG CAPSULE PO PRN (22:00)
[2022-02-01] MEDS ORDERED: OMEPRAZOLE 20 MG CAPSULE PO PRN (22:00)
[2022-02-01] MEDS ORDERED: BACITRACIN 28 GM OINTMENT TP PRN (22:00)
[2022-02-01] MEDS ORDERED: ONDANSETRON HCL 4 MG TABLET PO PRN (22:00)
[2022-02-01] MEDS ORDERED: MAGNESIUM HYDROXIDE SUSPENSION 30 ML UDCUP PO PRN (22:00)
[2022-02-01] MEDS ORDERED: ALBUTEROL SULFATE HFA 90 MCG/PUFF 8 GM INHALER IH PRN (22:00)
[2022-02-01] MEDS ORDERED: ACETAMINOPHEN 325 MG TABLET PO PRN (22:00)
[2022-02-01] MEDS ORDERED: DOCUSATE SODIUM 100 MG CAPSULE PO PRN (22:00)
[2022-02-01] MEDS ORDERED: BENZOCAINE/MENTHOL LOZENGE PO PRN (22:00)
[2022-02-01] MEDS ORDERED: PETROLATUM,WHITE 28 GM JELLY TP PRN (22:00)
[2022-02-01] MEDS: ZOLPIDEM TARTRATE 10 MG TABLET PO PRN (22:20)
[2022-02-02 01:11] VITALS: BP 128/82
[2022-02-02] MEDS: HALOPERIDOL 5 MG TABLET PO PRN ×3 (08:50→12:53)
[2022-02-02] MEDS: LISINOPRIL 10 MG TABLET PO SCH (08:50)
[2022-02-02] MEDS: VERAPAMIL HCL 240 MG ER TABLET PO SCH (08:50)
[2022-02-02] MEDS: LORazepam 2 MG TABLET PO PRN ×3 (08:50→12:53)
[2022-02-02 14:21] VITALS: BP 131/85
[2022-02-02] MEDS: QUEtiapine FUMARATE 300 MG TABLET PO SCH ×2 (16:14→20:17)
[2022-02-02 16:32] VITALS: BP 132/76
[2022-02-02] MEDS: ZOLPIDEM TARTRATE 10 MG TABLET PO PRN (20:17)
[2022-02-03 06:25] VITALS: BP 128/72
[2022-02-03 07:52] LABS: HEMOGLOBIN A1C 5.2 % (3.8-5.6)
[2022-02-03 08:15] LABS: FREE T4 (FREE THYROXINE) 0.6 ng/dL (0.76-1.46)
[2022-02-03 08:32] VITALS: BP 128/79
[2022-02-03] MEDS: QUEtiapine FUMARATE 300 MG TABLET PO SCH ×3 (09:09→20:24)
[2022-02-03] MEDS: HALOPERIDOL 5 MG TABLET PO PRN ×2 (09:09→13:34)
[2022-02-03] MEDS: VERAPAMIL HCL 240 MG ER TABLET PO SCH (09:09)
[2022-02-03] MEDS: LORazepam 2 MG TABLET PO PRN ×2 (09:09→13:34)
[2022-02-03] MEDS: LISINOPRIL 10 MG TABLET PO SCH (09:10)
[2022-02-03 17:21] VITALS: BP 115/72
[2022-02-03] MEDS: ZOLPIDEM TARTRATE 10 MG TABLET PO PRN (22:00)
[2022-02-04 05:31] VITALS: BP 111/70
[2022-02-04 08:21] VITALS: BP 126/85
[2022-02-04] MEDS: HALOPERIDOL 5 MG TABLET PO PRN ×2 (08:26→13:17)
[2022-02-04] MEDS: VERAPAMIL HCL 240 MG ER TABLET PO SCH (08:26)
[2022-02-04] MEDS: QUEtiapine FUMARATE 300 MG TABLET PO SCH ×3 (08:26→22:05)
[2022-02-04] MEDS: LISINOPRIL 10 MG TABLET PO SCH (08:27)
[2022-02-04] MEDS: LORazepam 2 MG TABLET PO PRN ×2 (08:27→13:17)
[2022-02-04] MEDS: MAG HYDROX/AL HYDROX/SIMETH ES 30 ML SUSPENSION UDCUP PO PRN ×2 (16:31→22:32)
[2022-02-04 16:51] VITALS: BP 137/69
[2022-02-04] MEDS: ZOLPIDEM TARTRATE 10 MG TABLET PO PRN (22:05)
[2022-02-05] MEDS: HALOPERIDOL 5 MG TABLET PO PRN ×2 (00:29→10:08)
[2022-02-05] MEDS: LORazepam 2 MG TABLET PO PRN ×2 (00:29→10:08)
[2022-02-05 00:34] VITALS: BP 129/78
[2022-02-05 08:18] VITALS: BP 129/68
[2022-02-05] MEDS: QUEtiapine FUMARATE 300 MG TABLET PO SCH ×3 (09:18→20:44)
[2022-02-05] MEDS: LISINOPRIL 10 MG TABLET PO SCH (09:18)
[2022-02-05] MEDS: VERAPAMIL HCL 240 MG ER TABLET PO SCH (09:18)
[2022-02-05 09:22] LABS: GLUCOMETER DEV NAME(LOC) POC.BV
[2022-02-05 16:26] VITALS: BP 103/66
[2022-02-05] MEDS: ZOLPIDEM TARTRATE 10 MG TABLET PO PRN (20:44)
[2022-02-06 04:56] VITALS: BP 118/70
[2022-02-06] MEDS: VERAPAMIL HCL 240 MG ER TABLET PO SCH (09:27)
[2022-02-06] MEDS: QUEtiapine FUMARATE 300 MG TABLET PO SCH ×3 (09:28→20:34)
[2022-02-06] MEDS: LISINOPRIL 10 MG TABLET PO SCH (09:28)
[2022-02-06] MEDS: HALOPERIDOL 5 MG TABLET PO PRN ×3 (09:33→22:20)
[2022-02-06] MEDS: LORazepam 2 MG TABLET PO PRN ×3 (09:33→22:20)
[2022-02-06 13:04] VITALS: BP 102/70
[2022-02-06 16:22] VITALS: BP 142/87
[2022-02-06] MEDS ORDERED: QUET300T19 PO (20:29)
[2022-02-06] MEDS: ZOLPIDEM TARTRATE 10 MG TABLET PO PRN (20:35)
[2022-02-07 02:16] VITALS: BP 113/69
[2022-02-07] MEDS: HALOPERIDOL 5 MG TABLET PO PRN (02:31)
[2022-02-07] MEDS: LORazepam 2 MG TABLET PO PRN ×2 (02:31→10:50)
[2022-02-07] MEDS: LISINOPRIL 10 MG TABLET PO SCH (08:28)
[2022-02-07] MEDS: QUEtiapine FUMARATE 300 MG TABLET PO SCH (08:28)
[2022-02-07] MEDS: VERAPAMIL HCL 240 MG ER TABLET PO SCH (08:28)
[2022-02-07 08:34] VITALS: BP 124/74
[2022-02-07] MEDS ORDERED: VERA240T96 PO (19:04)
[2022-02-07] MEDS ORDERED: LISI-893 PO (19:04)
== END 2022-02-07 14:50 | disposition home or self-care (01) | DRG 750 ==
LOC: EMS 09:25 → B3A 13:21
PROVIDERS: ADMIT Psychiatry & Neurology Psychiatry; ATTEND Psychiatry & Neurology Psychiatry
DX: F25.9 Schizoaffective disorder, unspecified (principal); R45.851 Suicidal ideations; K74.60 Unspecified cirrhosis of liver; Z68.43 Body mass index [BMI] 50.0-59.9, adult; G47.00 Insomnia, unspecified; I10 Essential (primary) hypertension; J44.9 Chronic obstructive pulmonary disease, unspecified; B19.20 Unspecified viral hepatitis C without hepatic coma; F10.20 Alcohol dependence, uncomplicated; F32.A Depression, unspecified; F41.9 Anxiety disorder, unspecified; F17.200 Nicotine dependence, unspecified, uncomplicated; F19.10 Other psychoactive substance abuse, uncomplicated; E66.9 Obesity, unspecified; K59.00 Constipation, unspecified; K21.9 Gastro-esophageal reflux disease without esophagitis; Z20.822 Contact with and (suspected) exposure to COVID-19; Y90.9 Presence of alcohol in blood, level not specified; Z60.2 Problems related to living alone; Z90.710 Acquired absence of both cervix and uterus; Z88.6 Allergy status to analgesic agent; Z88.1 Allergy status to other antibiotic agents; Z91.012 Allergy to eggs; Z91.011 Allergy to milk products; Z88.5 Allergy status to narcotic agent; Z91.013 Allergy to seafood; Z90.49 Acquired absence of other specified parts of digestive tract
CPT/HCPCS: 80053; 80061; 83036; 84439; 84443; 84481; 85025; 87081; 99285; G0480

== ENCOUNTER 2022-02-26 12:07 | Inpatient (IN) | payer MEDICARE, MEDICAID ==
[~2022-02-26] VITALS: Ht 165.1 cm; Wt 110.2 kg
[~2022-02-26 12:07] MED LIST changes: -PROZ20 PO; -QUET200T30 PO; +QUET300T19 PO
[2022-02-26 14:20] LABS: BASOPHILS % (AUTO) 0.4 % (0.0-2.0); EOSINOPHILS % (AUTO) 1.4 % (1.0-6.0); HEMATOCRIT 39.4 % (36-46); HEMOGLOBIN 13.1 g/dL (12.0-16.0); LYMPHOCYTES # (AUTO) 2.1 K/uL (1.0-4.8); LYMPHOCYTES % (AUTO) 37.3 % (22.0-44.0); MEAN CORPUSCULAR HEMOGLOBIN 26.7 pg (26.0-34.0); MEAN CORPUSCULAR HGB CONC 33.2 G/dL (31.0-37.0); MEAN CORPUSCULAR VOLUME 80 fL (80-100); MONOCYTES # (AUTO) 0.4 K/uL (0.1-1.0); MONOCYTES % (AUTO) 7.7 % (2.0-9.0); NEUTROPHILS % (AUTO) 53.2 % (40.0-70.0); PLATELET COUNT (AUTO) 254 K/uL (150-450); RED BLOOD CELL COUNT(AUTO) 4.91 MIL/uL (4.00-5.20); RED CELL DISTRIBUTION WIDTH 16.6 % (11.5-14.5)
[2022-02-26 14:33] LABS: ANION GAP 9 mmol/L (8-16); CALCIUM, TOTAL 9.3 mg/dL (8.8-10.5); CARBON DIOXIDE 25 mmol/L (22-29); CHLORIDE 106 mmol/L (98-107); CREATININE 0.82 mg/dL (0.60-1.30); GLOMERULAR FILTR. RATE CALC > 60 mL/min (>60); GLUCOSE,RANDOM 93 mg/dL (70-110); POTASSIUM 3.8 mmol/L (3.5-5.1); SODIUM SERUM 140 mmol/L (136-145); UREA NITROGEN, BLOOD 10 mg/dL (7-18)
[2022-02-26 14:39] LABS: ALANINE AMINOTRANSFERASE 20 U/L (12-78); ALBUMIN 3.5 g/dL (3.4-5.0); ALKALINE PHOSPHATASE 112 U/L (46-116); ASPARTATE AMINOTRANSFERASE 21 U/L (15-37); BILIRUBIN,TOTAL 0.3 mg/dL (0.1-1.0); TOTAL PROTEIN, SERUM 8.4 g/dL (6.4-8.2)
[2022-02-26 15:10] LABS: COVID AG,FIA SOURCE NASOPHARYNGEAL
[2022-02-26 18:42] VITALS: BP 134/86
[2022-02-26 18:48] LABS: AMPHET/METH SCREEN,URINE NEGATIVE (NEGATIVE); BARBITURATE SCREEN, URINE NEGATIVE (NEGATIVE); BENZODIAZEPINES SCREEN,URINE NEGATIVE (NEGATIVE); CANNABINOID SCREEN,URINE NEGATIVE (NEGATIVE); COCAINE SCREEN,URINE NEGATIVE (NEGATIVE); METHADONE SCREEN, URINE NEGATIVE (NEGATIVE); OPIATE SCREEN,URINE NEGATIVE (NEGATIVE); PHENCYCLIDINE SCREEN,URINE NEGATIVE (NEGATIVE)
[2022-02-26] MEDS: LORazepam 2 MG TABLET PO PRN (19:14)
[2022-02-27 00:05] VITALS: BP 130/71
[2022-02-27] MEDS: ZOLPIDEM TARTRATE 10 MG TABLET PO PRN (00:06)
[2022-02-27] MEDS: HALOPERIDOL 5 MG TABLET PO PRN (01:04)
[2022-02-27] MEDS ORDERED: BACITRACIN 28 GM OINTMENT TP PRN (07:30)
[2022-02-27] MEDS ORDERED: MAGNESIUM HYDROXIDE SUSPENSION 30 ML UDCUP PO PRN (07:30)
[2022-02-27] MEDS ORDERED: DOCUSATE SODIUM 100 MG CAPSULE PO PRN (07:30)
[2022-02-27] MEDS ORDERED: IBUPROFEN 600 MG TABLET PO PRN (07:30)
[2022-02-27] MEDS ORDERED: PETROLATUM,WHITE 28 GM JELLY TP PRN (07:30)
[2022-02-27] MEDS ORDERED: ONDANSETRON HCL 4 MG TABLET PO PRN (07:30)
[2022-02-27] MEDS ORDERED: MAG HYDROX/AL HYDROX/SIMETH ES 30 ML SUSPENSION UDCUP PO PRN (07:30)
[2022-02-27] MEDS ORDERED: OMEPRAZOLE 20 MG CAPSULE PO PRN (07:30)
[2022-02-27] MEDS ORDERED: ALBUTEROL SULFATE HFA 90 MCG/PUFF 8 GM INHALER IH PRN (07:30)
[2022-02-27] MEDS ORDERED: LOPERAMIDE HCL 2 MG CAPSULE PO PRN (07:30)
[2022-02-27] MEDS ORDERED: BENZOCAINE/MENTHOL LOZENGE PO PRN (07:30)
[2022-02-27 08:34] VITALS: BP 119/77
[2022-02-27] MEDS: VERAPAMIL HCL 120 MG ER TABLET PO SCH (09:00)
[2022-02-27] MEDS: LORazepam 2 MG TABLET PO PRN ×2 (16:38→21:25)
[2022-02-27 16:50] VITALS: BP 150/90
[2022-02-28 02:40] VITALS: BP 139/89
[2022-02-28] MEDS: ZOLPIDEM TARTRATE 10 MG TABLET PO PRN ×2 (02:40→22:14)
[2022-02-28 08:00] VITALS: BP 135/85
[2022-02-28] MEDS: VERAPAMIL HCL 120 MG ER TABLET PO SCH (08:28)
[2022-02-28] MEDS: HALOPERIDOL 5 MG TABLET PO PRN (08:36)
[2022-02-28] MEDS: LORazepam 2 MG TABLET PO PRN (08:36)
[2022-02-28 16:00] VITALS: BP 151/88
[2022-02-28] MEDS: QUEtiapine FUMARATE 300 MG TABLET PO SCH (20:28)
[2022-03-01] MEDS: VERAPAMIL HCL 120 MG ER TABLET PO SCH (09:00)
[2022-03-01 09:16] VITALS: BP 112/75
[2022-03-01] MEDS: LORazepam 2 MG TABLET PO PRN (13:08)
[2022-03-01 17:46] VITALS: BP 132/74
[2022-03-01] MEDS: QUEtiapine FUMARATE 300 MG TABLET PO SCH (21:00)
[2022-03-01] MEDS: ZOLPIDEM TARTRATE 10 MG TABLET PO PRN (21:27)
[2022-03-01 23:50] VITALS: BP 132/79
[2022-03-01] MEDS: HALOPERIDOL 5 MG TABLET PO PRN (23:55)
[2022-03-02] MEDS: LORazepam 2 MG TABLET PO PRN ×3 (01:05→14:17)
[2022-03-02] MEDS: VERAPAMIL HCL 120 MG ER TABLET PO SCH (08:41)
[2022-03-02] MEDS: HALOPERIDOL 5 MG TABLET PO PRN ×2 (08:41→14:17)
[2022-03-02 09:42] VITALS: BP 154/98
[2022-03-02] MEDS: CloNIDine HCL 0.1 MG TABLET PO PRN (15:55)
[2022-03-02 16:00] VITALS: BP 152/79
[2022-03-02] MEDS: QUEtiapine FUMARATE 300 MG TABLET PO SCH (20:13)
[2022-03-02 23:50] VITALS: BP 148/99
[2022-03-02] MEDS: ZOLPIDEM TARTRATE 10 MG TABLET PO PRN (23:52)
[2022-03-03 08:00] VITALS: BP 126/99
[2022-03-03] MEDS: LORazepam 2 MG TABLET PO PRN ×2 (08:40→14:24)
[2022-03-03] MEDS: VERAPAMIL HCL 120 MG ER TABLET PO SCH (08:41)
[2022-03-03] MEDS: HALOPERIDOL 5 MG TABLET PO PRN ×3 (08:41→19:00)
[2022-03-03 17:19] VITALS: BP 152/85
[2022-03-03] MEDS: QUEtiapine FUMARATE 300 MG TABLET PO SCH (20:44)
[2022-03-04 08:00] VITALS: BP 148/95
[2022-03-04] MEDS: VERAPAMIL HCL 120 MG ER TABLET PO SCH (10:08)
[2022-03-04] MEDS: HALOPERIDOL 5 MG TABLET PO PRN ×2 (10:26→19:00)
[2022-03-04] MEDS: LORazepam 2 MG TABLET PO PRN (10:26)
[2022-03-04 14:28] LABS: COVID AG,FIA SOURCE NASOPHARYNGEAL
[2022-03-04 16:30] VITALS: BP 147/93
[2022-03-04] MEDS: ZOLPIDEM TARTRATE 10 MG TABLET PO PRN (20:00)
[2022-03-04] MEDS: LURASIDONE HCL 80 MG TABLET PO SCH (20:00)
[2022-03-05] MEDS: LORazepam 2 MG TABLET PO PRN ×3 (01:04→16:03)
[2022-03-05] MEDS: HALOPERIDOL 5 MG TABLET PO PRN ×4 (01:05→22:10)
[2022-03-05] MEDS: VERAPAMIL HCL 120 MG ER TABLET PO SCH (08:49)
[2022-03-05 16:59] VITALS: BP 158/89
[2022-03-05] MEDS: LURASIDONE HCL 80 MG TABLET PO SCH (20:40)
[2022-03-05] MEDS: ZOLPIDEM TARTRATE 10 MG TABLET PO PRN (20:40)
[2022-03-05] MEDS ORDERED: LURA80TA2 PO (22:03)
[2022-03-06 08:47] VITALS: BP 168/110
[2022-03-06] MEDS: LORazepam 2 MG TABLET PO PRN (08:51)
[2022-03-06] MEDS: HALOPERIDOL 5 MG TABLET PO PRN (08:51)
[2022-03-06] MEDS: VERAPAMIL HCL 120 MG ER TABLET PO SCH (08:51)
[2022-03-06] MEDS: CloNIDine HCL 0.1 MG TABLET PO PRN (08:51)
[2022-03-06 12:09] VITALS: BP 166/89
[2022-03-06] MEDS ORDERED: LISI-893 PO (21:52)
[2022-03-06] MEDS ORDERED: VERA120T92 PO (21:52)
== END 2022-03-06 14:20 | disposition home or self-care (01) | DRG 750 ==
LOC: EMS 12:11 → 3EI 15:04
PROVIDERS: ADMIT Psychiatry & Neurology Psychiatry; ATTEND Psychiatry & Neurology Psychiatry
DX: F25.1 Schizoaffective disorder, depressive type (principal); R45.851 Suicidal ideations; K74.60 Unspecified cirrhosis of liver; Z91.14 Patient's other noncompliance with medication regimen; Z20.822 Contact with and (suspected) exposure to COVID-19; F10.10 Alcohol abuse, uncomplicated; F41.9 Anxiety disorder, unspecified; K21.9 Gastro-esophageal reflux disease without esophagitis; I10 Essential (primary) hypertension; J44.9 Chronic obstructive pulmonary disease, unspecified; K59.00 Constipation, unspecified; G47.00 Insomnia, unspecified; E66.9 Obesity, unspecified; B19.20 Unspecified viral hepatitis C without hepatic coma; Z72.0 Tobacco use; Z90.710 Acquired absence of both cervix and uterus; Z91.011 Allergy to milk products; Z91.013 Allergy to seafood; Z88.5 Allergy status to narcotic agent; Z88.8 Allergy status to other drugs, medicaments and biological substances; Z91.012 Allergy to eggs; Z90.49 Acquired absence of other specified parts of digestive tract; Z68.41 Body mass index [BMI] 40.0-44.9, adult
CPT/HCPCS: 80053; 85025; 87081; 99285; G0480

== ENCOUNTER 2022-04-05 15:50 | Inpatient (IN) | payer MEDICARE, MEDICAID ==
[~2022-04-05] VITALS: Ht 165.1 cm; Wt 109.3 kg
[~2022-04-05 15:50] MED LIST changes: +LURA80TA2 PO; +VERA120T92 PO
[2022-04-05 16:38] LABS: BASOPHILS % (AUTO) 0.7 % (0.0-2.0); EOSINOPHILS % (AUTO) 4.2 % (1.0-6.0); HEMATOCRIT 35.1 % (36-46); HEMOGLOBIN 11.7 g/dL (12.0-16.0); LYMPHOCYTES # (AUTO) 3.5 K/uL (1.0-4.8); LYMPHOCYTES % (AUTO) 44.7 % (22.0-44.0); MEAN CORPUSCULAR HEMOGLOBIN 26.7 pg (26.0-34.0); MEAN CORPUSCULAR HGB CONC 33.3 G/dL (31.0-37.0); MEAN CORPUSCULAR VOLUME 80 fL (80-100); MONOCYTES # (AUTO) 0.7 K/uL (0.1-1.0); MONOCYTES % (AUTO) 8.8 % (2.0-9.0); NEUTROPHILS # (AUTO) 3.2 K/uL (1.8-7.7); NEUTROPHILS % (AUTO) 41.6 % (40.0-70.0); PLATELET COUNT (AUTO) 263 K/uL (150-450); RED BLOOD CELL COUNT(AUTO) 4.37 MIL/uL (4.00-5.20); RED CELL DISTRIBUTION WIDTH 15.4 % (11.5-14.5)
[2022-04-05 16:47] LABS: ANION GAP 8 mmol/L (8-16); CALCIUM, TOTAL 8.5 mg/dL (8.8-10.5); CARBON DIOXIDE 26 mmol/L (22-29); CHLORIDE 106 mmol/L (98-107); CREATININE 0.75 mg/dL (0.60-1.30); GLOMERULAR FILTR. RATE CALC > 60 mL/min (>60); GLUCOSE,RANDOM 112 mg/dL (70-110); POTASSIUM 3.4 mmol/L (3.5-5.1); SODIUM SERUM 140 mmol/L (136-145); UREA NITROGEN, BLOOD 14 mg/dL (7-18)
[2022-04-05 16:55] LABS: ALANINE AMINOTRANSFERASE 20 U/L (12-78); ALBUMIN 3.3 g/dL (3.4-5.0); ALKALINE PHOSPHATASE 110 U/L (46-116); ASPARTATE AMINOTRANSFERASE 21 U/L (15-37); BILIRUBIN,TOTAL 0.2 mg/dL (0.1-1.0); TOTAL PROTEIN, SERUM 7.7 g/dL (6.4-8.2)
[2022-04-05 18:03] LABS: COVID AG,FIA SOURCE NASOPHARYNGEAL
[2022-04-05] MEDS ORDERED: POLYETHYLENE GLYCOL 3350 17 GM PACKET PO ONE (18:15)
[2022-04-05] MEDS ORDERED: LORazepam 1 MG TABLET PO ONE (21:00)
[2022-04-05] MEDS ORDERED: QUEtiapine FUMARATE 100 MG TABLET PO ONE (21:00)
[2022-04-05] MEDS ORDERED: LORazepam 1 MG TABLET PO PRN (21:30)
[2022-04-05 21:48] VITALS: BP 167/95
[2022-04-05] MEDS: ZOLPIDEM TARTRATE 10 MG TABLET PO PRN (23:14)
[2022-04-06 01:10] VITALS: BP 148/80
[2022-04-06] MEDS: HALOPERIDOL 5 MG TABLET PO PRN ×3 (01:18→23:54)
[2022-04-06] MEDS ORDERED: POTASSIUM CHLORIDE 20 MEQ ER TABLET PO ONE (04:45)
[2022-04-06] MEDS ORDERED: ONDANSETRON HCL 4 MG TABLET PO PRN (04:45)
[2022-04-06] MEDS ORDERED: IBUPROFEN 600 MG TABLET PO PRN (04:45)
[2022-04-06] MEDS ORDERED: CloNIDine HCL 0.1 MG TABLET PO PRN (04:45)
[2022-04-06] MEDS ORDERED: PETROLATUM,WHITE 28 GM JELLY TP PRN (04:45)
[2022-04-06] MEDS ORDERED: BENZOCAINE/MENTHOL LOZENGE PO PRN (04:45)
[2022-04-06] MEDS ORDERED: BACITRACIN 28 GM OINTMENT TP PRN (04:45)
[2022-04-06] MEDS ORDERED: OMEPRAZOLE 20 MG CAPSULE PO PRN (04:45)
[2022-04-06] MEDS ORDERED: LOPERAMIDE HCL 2 MG CAPSULE PO PRN (04:45)
[2022-04-06] MEDS ORDERED: DOCUSATE SODIUM 100 MG CAPSULE PO PRN (04:45)
[2022-04-06] MEDS ORDERED: MAGNESIUM HYDROXIDE SUSPENSION 30 ML UDCUP PO PRN (04:45)
[2022-04-06] MEDS ORDERED: MAG HYDROX/AL HYDROX/SIMETH ES 30 ML SUSPENSION UDCUP PO PRN (04:45)
[2022-04-06] MEDS: LISINOPRIL 10 MG TABLET PO SCH (09:00)
[2022-04-06] MEDS: VERAPAMIL HCL 120 MG ER TABLET PO SCH (09:00)
[2022-04-06 17:16] VITALS: BP 188/99
[2022-04-06] MEDS ORDERED: VERAPAMIL HCL 120 MG ER TABLET PO ONE (18:00)
[2022-04-06] MEDS ORDERED: LISINOPRIL 10 MG TABLET PO ONE (18:00)
[2022-04-06] MEDS: ZOLPIDEM TARTRATE 10 MG TABLET PO PRN (22:04)
[2022-04-06 23:44] VITALS: BP 149/80
[2022-04-07 09:00] VITALS: BP 124/68
[2022-04-07] MEDS: LISINOPRIL 10 MG TABLET PO SCH (09:53)
[2022-04-07] MEDS: VERAPAMIL HCL 120 MG ER TABLET PO SCH (09:54)
[2022-04-07 16:52] VITALS: BP 14/74
[2022-04-07] MEDS: LURASIDONE HCL 80 MG TABLET PO SCH (20:38)
[2022-04-07] MEDS: QUEtiapine FUMARATE 300 MG TABLET PO SCH (20:38)
[2022-04-07] MEDS: ZOLPIDEM TARTRATE 10 MG TABLET PO PRN (22:02)
[2022-04-08] MEDS: VERAPAMIL HCL 120 MG ER TABLET PO SCH (09:29)
[2022-04-08] MEDS: LISINOPRIL 10 MG TABLET PO SCH (09:29)
[2022-04-08 16:00] VITALS: BP 156/96
[2022-04-08] MEDS: ZOLPIDEM TARTRATE 10 MG TABLET PO PRN (21:21)
[2022-04-08] MEDS: LURASIDONE HCL 80 MG TABLET PO SCH (21:22)
[2022-04-08] MEDS: QUEtiapine FUMARATE 300 MG TABLET PO SCH (21:57)
[2022-04-08] MEDS: ALBUTEROL SULFATE HFA 90 MCG/PUFF 8 GM INHALER IH PRN ×2 (22:27)
[2022-04-09 08:00] VITALS: BP 114/69
[2022-04-09] MEDS: VERAPAMIL HCL 120 MG ER TABLET PO SCH (09:00)
[2022-04-09] MEDS: LISINOPRIL 10 MG TABLET PO SCH (09:00)
[2022-04-09 16:00] VITALS: BP 158/81
[2022-04-09] MEDS: LURASIDONE HCL 80 MG TABLET PO SCH (21:14)
[2022-04-09] MEDS: QUEtiapine FUMARATE 300 MG TABLET PO SCH (21:14)
[2022-04-09] MEDS: ZOLPIDEM TARTRATE 10 MG TABLET PO PRN (21:23)
[2022-04-09] MEDS: ALBUTEROL SULFATE HFA 90 MCG/PUFF 8 GM INHALER IH PRN (22:35)
[2022-04-10 08:00] VITALS: BP 115/75
[2022-04-10] MEDS: LISINOPRIL 10 MG TABLET PO SCH (08:26)
[2022-04-10] MEDS: VERAPAMIL HCL 120 MG ER TABLET PO SCH (08:27)
== END 2022-04-10 15:00 | disposition home or self-care (01) | DRG 750 ==
LOC: EMS 15:50 → 3EI 21:24
PROVIDERS: ADMIT Psychiatry & Neurology Psychiatry; ATTEND Psychiatry & Neurology Psychiatry
DX: F25.1 Schizoaffective disorder, depressive type (principal); R45.851 Suicidal ideations; K74.60 Unspecified cirrhosis of liver; F10.10 Alcohol abuse, uncomplicated; I10 Essential (primary) hypertension; J44.9 Chronic obstructive pulmonary disease, unspecified; K59.00 Constipation, unspecified; G47.00 Insomnia, unspecified; E66.9 Obesity, unspecified; Z20.822 Contact with and (suspected) exposure to COVID-19; B19.20 Unspecified viral hepatitis C without hepatic coma; Z68.41 Body mass index [BMI] 40.0-44.9, adult; Z88.5 Allergy status to narcotic agent; Z91.013 Allergy to seafood; Z91.011 Allergy to milk products; Z72.0 Tobacco use; Z90.710 Acquired absence of both cervix and uterus; Z88.8 Allergy status to other drugs, medicaments and biological substances; Z91.012 Allergy to eggs; Z71.6 Tobacco abuse counseling
CPT/HCPCS: 74018; 80053; 84132; 85025; 87081; 99285; G0480; J3535; 36415-L1; 36415-TC

== ENCOUNTER 2022-05-15 10:32 | Inpatient (IN) | payer MEDICARE, MEDICAID ==
[~2022-05-15] VITALS: Ht 165.1 cm; Wt 111.0 kg
[2022-05-15 15:36] LABS: BASOPHILS % (AUTO) 0.8 % (0.0-2.0); EOSINOPHILS % (AUTO) 4.5 % (1.0-6.0); HEMATOCRIT 37.5 % (36-46); HEMOGLOBIN 12.5 g/dL (12.0-16.0); LYMPHOCYTES # (AUTO) 3.7 K/uL (1.0-4.8); LYMPHOCYTES % (AUTO) 51.5 % (22.0-44.0); MEAN CORPUSCULAR HGB CONC 33.3 G/dL (31.0-37.0); MEAN CORPUSCULAR VOLUME 81 fL (80-100); MONOCYTES # (AUTO) 0.6 K/uL (0.1-1.0); MONOCYTES % (AUTO) 7.8 % (2.0-9.0); NEUTROPHILS # (AUTO) 2.6 K/uL (1.8-7.7); NEUTROPHILS % (AUTO) 35.4 % (40.0-70.0); PLATELET COUNT (AUTO) 278 K/uL (150-450); RED BLOOD CELL COUNT(AUTO) 4.63 MIL/uL (4.00-5.20); RED CELL DISTRIBUTION WIDTH 15.6 % (11.5-14.5)
[2022-05-15 15:50] LABS: ANION GAP 8 mmol/L (8-16); CALCIUM, TOTAL 9.3 mg/dL (8.8-10.5); CARBON DIOXIDE 26 mmol/L (22-29); CHLORIDE 105 mmol/L (98-107); CREATININE 0.81 mg/dL (0.60-1.30); GLOMERULAR FILTR. RATE CALC > 60 mL/min (>60); GLUCOSE,RANDOM 90 mg/dL (70-110); POTASSIUM 3.8 mmol/L (3.5-5.1); SODIUM SERUM 139 mmol/L (136-145); UREA NITROGEN, BLOOD 12 mg/dL (7-18)
[2022-05-15 15:55] LABS: ALANINE AMINOTRANSFERASE 22 U/L (12-78); ALBUMIN 3.4 g/dL (3.4-5.0); ALKALINE PHOSPHATASE 130 U/L (46-116); ASPARTATE AMINOTRANSFERASE 18 U/L (15-37); BILIRUBIN,TOTAL 0.2 mg/dL (0.1-1.0); TOTAL PROTEIN, SERUM 8.3 g/dL (6.4-8.2)
[2022-05-15 16:28] LABS: COVID AG,FIA SOURCE NASAL SWAB
[2022-05-15] MEDS: LORazepam 2 MG TABLET PO PRN (23:45)
[2022-05-15] MEDS: ZOLPIDEM TARTRATE 10 MG TABLET PO PRN (23:45)
[2022-05-16 00:41] VITALS: BP 150/86
[2022-05-16] MEDS ORDERED: PNEUMOCOCCAL VACCINE POLYVALENT 0.5 ML VIAL [PPSV23] IM. ONE (05:00)
[2022-05-16] MEDS ORDERED: BENZOCAINE/MENTHOL LOZENGE PO PRN (07:15)
[2022-05-16] MEDS ORDERED: MAGNESIUM HYDROXIDE SUSPENSION 30 ML UDCUP PO PRN (07:15)
[2022-05-16] MEDS ORDERED: ONDANSETRON HCL 4 MG TABLET PO PRN (07:15)
[2022-05-16] MEDS ORDERED: ALBUTEROL SULFATE HFA 90 MCG/PUFF 8 GM INHALER IH PRN (07:15)
[2022-05-16] MEDS ORDERED: MAG HYDROX/AL HYDROX/SIMETH ES 30 ML SUSPENSION UDCUP PO PRN (07:15)
[2022-05-16] MEDS ORDERED: DOCUSATE SODIUM 100 MG CAPSULE PO PRN (07:15)
[2022-05-16] MEDS ORDERED: BACITRACIN 28 GM OINTMENT TP PRN (07:15)
[2022-05-16] MEDS ORDERED: CloNIDine HCL 0.1 MG TABLET PO PRN (07:15)
[2022-05-16] MEDS ORDERED: OMEPRAZOLE 20 MG CAPSULE PO PRN (07:15)
[2022-05-16] MEDS ORDERED: IBUPROFEN 600 MG TABLET PO PRN (07:15)
[2022-05-16] MEDS ORDERED: PETROLATUM,WHITE 28 GM JELLY TP PRN (07:15)
[2022-05-16 14:04] VITALS: BP 125/72
[2022-05-16] MEDS: VERAPAMIL HCL 240 MG ER TABLET PO SCH (14:05)
[2022-05-16] MEDS: LISINOPRIL 10 MG TABLET PO SCH (14:06)
[2022-05-16 16:34] VITALS: BP 144/81
[2022-05-16] MEDS: LORazepam 2 MG TABLET PO PRN (16:42)
[2022-05-16] MEDS: ZOLPIDEM TARTRATE 10 MG TABLET PO PRN (21:47)
[2022-05-16] MEDS: HALOPERIDOL 5 MG TABLET PO PRN (21:47)
[2022-05-17 00:50] VITALS: BP 155/87
[2022-05-17] MEDS: LORazepam 2 MG TABLET PO PRN ×2 (00:55→16:15)
[2022-05-17 08:00] VITALS: BP 127/58
[2022-05-17] MEDS: VERAPAMIL HCL 240 MG ER TABLET PO SCH (09:50)
[2022-05-17] MEDS: LISINOPRIL 10 MG TABLET PO SCH (09:50)
[2022-05-17] MEDS: HALOPERIDOL 5 MG TABLET PO PRN (16:14)
[2022-05-17 16:25] VITALS: BP 117/59
[2022-05-17] MEDS: QUEtiapine FUMARATE 300 MG TABLET PO SCH (20:15)
[2022-05-17] MEDS: ZOLPIDEM TARTRATE 10 MG TABLET PO PRN (22:04)
[2022-05-18 02:15] VITALS: BP 125/72
[2022-05-18] MEDS: HALOPERIDOL 5 MG TABLET PO PRN ×2 (02:17→20:43)
[2022-05-18] MEDS: LORazepam 2 MG TABLET PO PRN (02:17)
[2022-05-18 08:00] VITALS: BP 100/50
[2022-05-18] MEDS: LISINOPRIL 10 MG TABLET PO SCH (09:00)
[2022-05-18] MEDS: VERAPAMIL HCL 240 MG ER TABLET PO SCH (09:00)
[2022-05-18 16:00] VITALS: BP 122/76
[2022-05-18] MEDS: QUEtiapine FUMARATE 300 MG TABLET PO SCH (20:43)
[2022-05-18] MEDS: ZOLPIDEM TARTRATE 10 MG TABLET PO PRN (21:06)
[2022-05-19] MEDS: LISINOPRIL 10 MG TABLET PO SCH (08:50)
[2022-05-19] MEDS: VERAPAMIL HCL 240 MG ER TABLET PO SCH (08:51)
[2022-05-19 09:06] VITALS: BP 109/59
[2022-05-19 09:11] VITALS: BP 109/59
[2022-05-19 14:01] VITALS: BP 133/78
[2022-05-19] MEDS: LORazepam 1 MG TABLET PO PRN (14:01)
[2022-05-19] MEDS: HALOPERIDOL 5 MG TABLET PO PRN ×2 (14:02→20:15)
[2022-05-19 16:17] VITALS: BP 147/88
[2022-05-19] MEDS: QUEtiapine FUMARATE 300 MG TABLET PO SCH (20:15)
[2022-05-19 21:02] VITALS: BP 147/88
[2022-05-19] MEDS: ZOLPIDEM TARTRATE 10 MG TABLET PO PRN (21:25)
[2022-05-20] MEDS: HALOPERIDOL 5 MG TABLET PO PRN (00:42)
[2022-05-20] MEDS: LORazepam 1 MG TABLET PO PRN (00:42)
[2022-05-20 00:45] VITALS: BP 137/85
[2022-05-20 08:58] VITALS: BP 110/56
[2022-05-20] MEDS: LISINOPRIL 10 MG TABLET PO SCH (10:15)
[2022-05-20] MEDS: VERAPAMIL HCL 240 MG ER TABLET PO SCH (10:16)
[2022-05-20 16:21] VITALS: BP 148/84
[2022-05-20] MEDS: QUEtiapine FUMARATE 300 MG TABLET PO SCH (20:14)
[2022-05-20 20:44] VITALS: BP 145/94
[2022-05-20] MEDS: ZOLPIDEM TARTRATE 10 MG TABLET PO PRN (21:31)
[2022-05-21] MEDS: HALOPERIDOL 5 MG TABLET PO PRN (00:19)
[2022-05-21] MEDS: LORazepam 1 MG TABLET PO PRN (00:19)
[2022-05-21 07:02] LABS: COVID AG,FIA SOURCE NASAL SWAB
[2022-05-21 09:22] VITALS: BP 98/62
[2022-05-21 09:55] VITALS: BP 110/64
[2022-05-21] MEDS: LISINOPRIL 10 MG TABLET PO SCH (09:56)
[2022-05-21] MEDS: VERAPAMIL HCL 240 MG ER TABLET PO SCH (09:56)
[2022-05-21] MEDS: QUEtiapine FUMARATE 300 MG TABLET PO SCH (21:07)
[2022-05-21] MEDS: ZOLPIDEM TARTRATE 10 MG TABLET PO PRN (21:08)
[2022-05-22 01:25] VITALS: BP 130/73
[2022-05-22] MEDS: LORazepam 1 MG TABLET PO PRN ×2 (01:28→23:22)
[2022-05-22] MEDS: HALOPERIDOL 5 MG TABLET PO PRN ×2 (01:28→23:22)
[2022-05-22 08:00] VITALS: BP 133/68
[2022-05-22 08:40] LABS: CHOL/HDL RATIO 4.7 (3.9-5.7); THYROID STIMULATING HORMONE 1.13 uIU/mL (0.36-3.74)
[2022-05-22] MEDS: VERAPAMIL HCL 240 MG ER TABLET PO SCH (09:33)
[2022-05-22] MEDS: LISINOPRIL 10 MG TABLET PO SCH (09:33)
[2022-05-22 16:28] VITALS: BP 154/90
[2022-05-22] MEDS: QUEtiapine FUMARATE 300 MG TABLET PO SCH (21:14)
[2022-05-22] MEDS: ZOLPIDEM TARTRATE 10 MG TABLET PO PRN (21:14)
[2022-05-23] MEDS: HALOPERIDOL 5 MG TABLET PO PRN (04:08)
[2022-05-23] MEDS: LORazepam 1 MG TABLET PO PRN (04:08)
[2022-05-23 04:33] VITALS: BP 150/76
[2022-05-23 08:00] VITALS: BP 123/77
[2022-05-23] MEDS: VERAPAMIL HCL 240 MG ER TABLET PO SCH (11:33)
[2022-05-23] MEDS: LISINOPRIL 10 MG TABLET PO SCH (11:34)
[2022-05-23] MEDS: LOPERAMIDE HCL 2 MG CAPSULE PO PRN ×2 (15:39→19:12)
[2022-05-23 16:00] VITALS: BP 116/67
[2022-05-23 19:12] VITALS: BP 122/69
[2022-05-23] MEDS: QUEtiapine FUMARATE 300 MG TABLET PO SCH (21:00)
[2022-05-23] MEDS: ZOLPIDEM TARTRATE 10 MG TABLET PO PRN (21:00)
[2022-05-24] MEDS: VERAPAMIL HCL 240 MG ER TABLET PO SCH (09:00)
[2022-05-24] MEDS: LISINOPRIL 10 MG TABLET PO SCH (09:00)
[2022-05-24 11:33] VITALS: BP 101/53
[2022-05-24 16:00] VITALS: BP 140/83
[2022-05-24] MEDS: ZOLPIDEM TARTRATE 10 MG TABLET PO PRN (21:22)
[2022-05-24] MEDS: QUEtiapine FUMARATE 300 MG TABLET PO SCH (21:22)
[2022-05-25 02:29] VITALS: BP 148/78
[2022-05-25] MEDS: LORazepam 1 MG TABLET PO PRN ×2 (02:30→15:59)
[2022-05-25] MEDS: HALOPERIDOL 5 MG TABLET PO PRN (02:30)
[2022-05-25 09:46] VITALS: BP 135/78
[2022-05-25] MEDS: LISINOPRIL 10 MG TABLET PO SCH (09:51)
[2022-05-25] MEDS: VERAPAMIL HCL 240 MG ER TABLET PO SCH (09:51)
[2022-05-25 16:58] VITALS: BP 163/93
[2022-05-25] MEDS ORDERED: QUET300T19 PO (21:54)
== END 2022-05-25 19:00 | disposition home or self-care (01) | DRG 750 ==
LOC: EMS 10:32 → 3EI 21:47
PROVIDERS: ADMIT Psychiatry & Neurology Psychiatry; ATTEND Psychiatry & Neurology Psychiatry
DX: F25.0 Schizoaffective disorder, bipolar type (principal); R45.851 Suicidal ideations; F10.10 Alcohol abuse, uncomplicated; Z20.822 Contact with and (suspected) exposure to COVID-19; I10 Essential (primary) hypertension; G47.00 Insomnia, unspecified; K59.00 Constipation, unspecified; E66.01 Morbid (severe) obesity due to excess calories; B19.20 Unspecified viral hepatitis C without hepatic coma; F41.9 Anxiety disorder, unspecified; J44.9 Chronic obstructive pulmonary disease, unspecified; Z72.0 Tobacco use; Z91.013 Allergy to seafood; Z83.3 Family history of diabetes mellitus; Z82.5 Family history of asthma and other chronic lower respiratory diseases; Z82.49 Family history of ischemic heart disease and other diseases of the circulatory system; Z90.710 Acquired absence of both cervix and uterus; Z91.011 Allergy to milk products; Z88.5 Allergy status to narcotic agent; Z88.8 Allergy status to other drugs, medicaments and biological substances; Z90.49 Acquired absence of other specified parts of digestive tract; Z68.41 Body mass index [BMI] 40.0-44.9, adult; Z71.6 Tobacco abuse counseling
CPT/HCPCS: 80053; 80061; 84443; 85025; 87081; 99285; G0480; J3535

== ENCOUNTER 2022-06-06 12:45 | Inpatient (IN) | payer MEDICARE, MEDICAID ==
[~2022-06-06] VITALS: Ht 162.6 cm; Wt 109.3 kg
[~2022-06-06 12:45] MED LIST changes: -LURA80TA2 PO; -VERA120T92 PO
[2022-06-06 13:53] LABS: BASOPHILS % (AUTO) 0.6 % (0.0-2.0); EOSINOPHILS % (AUTO) 4.7 % (1.0-6.0); HEMATOCRIT 37.8 % (36-46); HEMOGLOBIN 12.6 g/dL (12.0-16.0); LYMPHOCYTES # (AUTO) 2.6 K/uL (1.0-4.8); LYMPHOCYTES % (AUTO) 49.7 % (22.0-44.0); MEAN CORPUSCULAR HEMOGLOBIN 27.3 pg (26.0-34.0); MEAN CORPUSCULAR HGB CONC 33.4 G/dL (31.0-37.0); MEAN CORPUSCULAR VOLUME 82 fL (80-100); MONOCYTES # (AUTO) 0.3 K/uL (0.1-1.0); MONOCYTES % (AUTO) 6.3 % (2.0-9.0); NEUTROPHILS % (AUTO) 38.7 % (40.0-70.0); PLATELET COUNT (AUTO) 294 K/uL (150-450); RED BLOOD CELL COUNT(AUTO) 4.63 MIL/uL (4.00-5.20); RED CELL DISTRIBUTION WIDTH 15.2 % (11.5-14.5)
[2022-06-06 14:02] LABS: ANION GAP 11 mmol/L (8-16); CALCIUM, TOTAL 9.2 mg/dL (8.8-10.5); CARBON DIOXIDE 26 mmol/L (22-29); CHLORIDE 105 mmol/L (98-107); CREATININE 0.77 mg/dL (0.60-1.30); GLOMERULAR FILTR. RATE CALC > 60 mL/min (>60); GLUCOSE,RANDOM 119 mg/dL (70-110); POTASSIUM 3.4 mmol/L (3.5-5.1); SODIUM SERUM 142 mmol/L (136-145); UREA NITROGEN, BLOOD 6 mg/dL (7-18)
[2022-06-06 14:07] LABS: ALANINE AMINOTRANSFERASE 22 U/L (12-78); ALBUMIN 3.5 g/dL (3.4-5.0); ALKALINE PHOSPHATASE 134 U/L (46-116); ASPARTATE AMINOTRANSFERASE 19 U/L (15-37); BILIRUBIN,TOTAL 0.4 mg/dL (0.1-1.0); TOTAL PROTEIN, SERUM 7.9 g/dL (6.4-8.2)
[2022-06-06 14:23] LABS: COVID AG,FIA SOURCE NASOPHARYNGEAL
[2022-06-06] MEDS: ZOLPIDEM TARTRATE 10 MG TABLET PO PRN (21:12)
[2022-06-07] MEDS: LORazepam 2 MG TABLET PO PRN ×3 (01:48→20:07)
[2022-06-07] MEDS: HALOPERIDOL 5 MG TABLET PO PRN ×3 (02:33→20:07)
[2022-06-07] MEDS ORDERED: ALBUTEROL SULFATE HFA 90 MCG/PUFF 8 GM INHALER IH PRN ×2 (06:00→20:15)
[2022-06-07] MEDS ORDERED: IBUPROFEN 400 MG TABLET PO PRN (06:00)
[2022-06-07 09:40] VITALS: BP 153/77
[2022-06-07 10:21] VITALS: BP 133/70
[2022-06-07 20:15] VITALS: BP 155/98
[2022-06-07] MEDS ORDERED: ONDANSETRON HCL 4 MG TABLET PO PRN (20:15)
[2022-06-07] MEDS ORDERED: PETROLATUM,WHITE 28 GM JELLY TP PRN (20:15)
[2022-06-07] MEDS ORDERED: MAGNESIUM HYDROXIDE SUSPENSION 30 ML UDCUP PO PRN (20:15)
[2022-06-07] MEDS ORDERED: BENZOCAINE/MENTHOL LOZENGE PO PRN (20:15)
[2022-06-07] MEDS ORDERED: BACITRACIN 28 GM OINTMENT TP PRN (20:15)
[2022-06-07] MEDS ORDERED: LOPERAMIDE HCL 2 MG CAPSULE PO PRN (20:15)
[2022-06-07] MEDS ORDERED: DOCUSATE SODIUM 100 MG CAPSULE PO PRN (20:15)
[2022-06-07] MEDS ORDERED: OMEPRAZOLE 20 MG CAPSULE PO PRN (20:15)
[2022-06-07] MEDS ORDERED: CloNIDine HCL 0.1 MG TABLET PO PRN (20:15)
[2022-06-07 21:11] VITALS: BP 137/85
[2022-06-08] MEDS: ZOLPIDEM TARTRATE 10 MG TABLET PO PRN ×2 (01:39→21:08)
[2022-06-08] MEDS: VERAPAMIL HCL 240 MG ER TABLET PO SCH (08:12)
[2022-06-08] MEDS: LISINOPRIL 10 MG TABLET PO SCH (08:12)
[2022-06-08 08:33] VITALS: BP 140/90
[2022-06-08] MEDS: LORazepam 2 MG TABLET PO PRN ×2 (09:59→14:55)
[2022-06-08] MEDS: HALOPERIDOL 5 MG TABLET PO PRN ×2 (09:59→14:55)
[2022-06-08] MEDS: QUEtiapine FUMARATE 300 MG TABLET PO SCH (20:09)
[2022-06-08 20:16] VITALS: BP 105/61
[2022-06-09 00:09] VITALS: BP 107/67
[2022-06-09] MEDS: LORazepam 2 MG TABLET PO PRN (00:13)
[2022-06-09] MEDS: MAG HYDROX/AL HYDROX/SIMETH ES 30 ML SUSPENSION UDCUP PO PRN ×3 (01:38→22:20)
[2022-06-09 08:06] VITALS: BP 109/69
[2022-06-09] MEDS: LISINOPRIL 10 MG TABLET PO SCH (08:17)
[2022-06-09] MEDS: VERAPAMIL HCL 240 MG ER TABLET PO SCH (08:17)
[2022-06-09 20:10] VITALS: BP 120/60
[2022-06-09] MEDS: QUEtiapine FUMARATE 300 MG TABLET PO SCH (20:11)
[2022-06-09] MEDS: ZOLPIDEM TARTRATE 10 MG TABLET PO PRN (21:28)
[2022-06-10 08:05] VITALS: BP 118/61
[2022-06-10] MEDS: VERAPAMIL HCL 240 MG ER TABLET PO SCH (09:11)
[2022-06-10] MEDS: LISINOPRIL 10 MG TABLET PO SCH (09:11)
[2022-06-10] MEDS: HALOPERIDOL 5 MG TABLET PO PRN (14:27)
[2022-06-10] MEDS: LORazepam 2 MG TABLET PO PRN (14:27)
[2022-06-10 20:14] VITALS: BP 118/67
[2022-06-10] MEDS: QUEtiapine FUMARATE 300 MG TABLET PO SCH (20:28)
[2022-06-10] MEDS: ZOLPIDEM TARTRATE 10 MG TABLET PO PRN (21:04)
[2022-06-11] MEDS: LORazepam 2 MG TABLET PO PRN (00:25)
[2022-06-11] MEDS: HALOPERIDOL 5 MG TABLET PO PRN (00:25)
[2022-06-11 08:24] VITALS: BP 127/76
[2022-06-11] MEDS: VERAPAMIL HCL 240 MG ER TABLET PO SCH (09:05)
[2022-06-11] MEDS: LISINOPRIL 10 MG TABLET PO SCH (09:05)
[2022-06-11] MEDS ORDERED: QUET300T19 PO (12:21)
[2022-06-12] MEDS ORDERED: LISI-893 PO (14:41)
[2022-06-12] MEDS ORDERED: VERA240T96 PO (14:41)
== END 2022-06-11 13:30 | disposition home or self-care (01) | DRG 750 ==
LOC: EMS 12:47 → B3A 06-07 06:49 → B2S 06-07 19:44
PROVIDERS: ADMIT Psychiatry & Neurology Psychiatry; ATTEND Psychiatry & Neurology Psychiatry
DX: F25.1 Schizoaffective disorder, depressive type (principal); B19.20 Unspecified viral hepatitis C without hepatic coma; E66.01 Morbid (severe) obesity due to excess calories; F10.10 Alcohol abuse, uncomplicated; I10 Essential (primary) hypertension; J44.9 Chronic obstructive pulmonary disease, unspecified; F32.A Depression, unspecified; F41.9 Anxiety disorder, unspecified; G47.00 Insomnia, unspecified; K21.9 Gastro-esophageal reflux disease without esophagitis; M25.571 Pain in right ankle and joints of right foot; Z20.822 Contact with and (suspected) exposure to COVID-19; K59.00 Constipation, unspecified; Z72.0 Tobacco use; Z90.710 Acquired absence of both cervix and uterus; Z86.19 Personal history of other infectious and parasitic diseases; Z68.41 Body mass index [BMI] 40.0-44.9, adult; Z71.6 Tobacco abuse counseling; Z90.49 Acquired absence of other specified parts of digestive tract; Z88.8 Allergy status to other drugs, medicaments and biological substances; Z88.6 Allergy status to analgesic agent; Z88.1 Allergy status to other antibiotic agents; Z91.012 Allergy to eggs; Z91.011 Allergy to milk products; Z88.5 Allergy status to narcotic agent; Z91.013 Allergy to seafood
CPT/HCPCS: 80053; 85025; 87081; 99285; G0480; J3535

== ENCOUNTER 2022-06-12 12:25 | Emergency (ER) | payer MEDICARE, OTHER ==
[~2022-06-12] VITALS: Ht 162.6 cm; Wt 106.8 kg
[2022-06-12 14:35] LABS: BASOPHILS % (AUTO) 0.9 % (0.0-2.0); EOSINOPHILS % (AUTO) 3.4 % (1.0-6.0); HEMATOCRIT 34.7 % (36-46); HEMOGLOBIN 11.7 g/dL (12.0-16.0); LYMPHOCYTES # (AUTO) 2.9 K/uL (1.0-4.8); LYMPHOCYTES % (AUTO) 44.6 % (22.0-44.0); MEAN CORPUSCULAR HEMOGLOBIN 27.2 pg (26.0-34.0); MEAN CORPUSCULAR HGB CONC 33.7 G/dL (31.0-37.0); MEAN CORPUSCULAR VOLUME 81 fL (80-100); MONOCYTES # (AUTO) 0.7 K/uL (0.1-1.0); MONOCYTES % (AUTO) 10.6 % (2.0-9.0); NEUTROPHILS # (AUTO) 2.7 K/uL (1.8-7.7); NEUTROPHILS % (AUTO) 40.5 % (40.0-70.0); PLATELET COUNT (AUTO) 258 K/uL (150-450); RED CELL DISTRIBUTION WIDTH 14.8 % (11.5-14.5)
[2022-06-12 14:40] LABS: COVID AG,FIA SOURCE NASOPHARYNGEAL
[2022-06-12] MEDS ORDERED: VERA240T96 PO (14:41)
[2022-06-12] MEDS ORDERED: LISI-893 PO (14:41)
[2022-06-12 14:42] LABS: ANION GAP 8 mmol/L (8-16); CALCIUM, TOTAL 9.1 mg/dL (8.8-10.5); CARBON DIOXIDE 29 mmol/L (22-29); CHLORIDE 104 mmol/L (98-107); CREATININE 0.88 mg/dL (0.60-1.30); GLUCOSE,RANDOM 91 mg/dL (70-110); POTASSIUM 3.8 mmol/L (3.5-5.1); SODIUM SERUM 141 mmol/L (136-145); UREA NITROGEN, BLOOD 9 mg/dL (7-18)
[2022-06-12 14:44] LABS: GLOMERULAR FILTR. RATE CALC > 60 mL/min (>60)
[2022-06-12 14:57] LABS: ALANINE AMINOTRANSFERASE 27 U/L (12-78); ALBUMIN 3.3 g/dL (3.4-5.0); ALKALINE PHOSPHATASE 124 U/L (46-116); ASPARTATE AMINOTRANSFERASE 26 U/L (15-37); BILIRUBIN,TOTAL 0.3 mg/dL (0.1-1.0); LIPASE 82 U/L (73-393); THYROID STIMULATING HORMONE 1.21 uIU/mL (0.36-3.74); TOTAL PROTEIN, SERUM 7.5 g/dL (6.4-8.2)
[2022-06-12 16:47] LABS: APPEARANCE,URINE CLEAR (CLEAR); BILIRUBIN,URINE NEGATIVE (NEGATIVE); GLUCOSE, URINE (UA) TRACE mg/dL (NEGATIVE); KETONES,URINE NEGATIVE (NEGATIVE); LEUKOCYTE ESTERASE ,URINE MODERATE (NEGATIVE); NITRATE,URINE NEGATIVE (NEGATIVE); OCCULT BLOOD,URINE NEGATIVE (NEGATIVE); PH,URINE 7.5 (5.0-8.0); PROTEIN,URINE TRACE mg/dL (NEGATIVE); SPECIFIC GRAVITIY, URINE 1.014 (1.003-1.030); UROBILINOGEN,URINE <=1.0 mg/dL (<=1.0)
[2022-06-12 17:14] LABS: RBC,URINE 0-2 /HPF (0-2)
[2022-06-12 17:15] LABS: BACTERIA,URINE None Seen /HPF (None Seen); SQUAMOUS EPITHELIAL CELL,UR Moderate /LPF (None Seen)
[2022-06-12 17:36] VITALS: BP 116/91
== END 2022-06-12 17:52 | disposition home or self-care (01) ==
LOC: EMS 12:27
DX: F41.9 Anxiety disorder, unspecified (principal); F31.9 Bipolar disorder, unspecified; F10.20 Alcohol dependence, uncomplicated; J45.909 Unspecified asthma, uncomplicated; I10 Essential (primary) hypertension; F20.9 Schizophrenia, unspecified; K74.60 Unspecified cirrhosis of liver; Z87.19 Personal history of other diseases of the digestive system; Z90.49 Acquired absence of other specified parts of digestive tract; Z90.710 Acquired absence of both cervix and uterus; Z88.6 Allergy status to analgesic agent; Z88.1 Allergy status to other antibiotic agents; Z91.012 Allergy to eggs; Z91.011 Allergy to milk products; Z88.5 Allergy status to narcotic agent; Z88.8 Allergy status to other drugs, medicaments and biological substances; Z91.018 Allergy to other foods; Z20.822 Contact with and (suspected) exposure to COVID-19
CPT/HCPCS: 99285; 71045; 87426; 80053; 81001; 83690; 83880; 84443; 84484; 85025; 36415; 93005; G0480

== ENCOUNTER 2022-06-16 11:52 | Inpatient (IN) | payer MEDICARE, MEDICAID ==
[~2022-06-16] VITALS: Ht 162.6 cm; Wt 106.6 kg
[2022-06-16] MEDS ORDERED: LORazepam 1 MG TABLET PO ONE (15:00)
[2022-06-16 17:25] LABS: COVID AG,FIA SOURCE NASOPHARYNGEAL
[2022-06-16 17:38] LABS: APPEARANCE,URINE CLEAR (CLEAR); BILIRUBIN,URINE NEGATIVE (NEGATIVE); GLUCOSE, URINE (UA) NEGATIVE (NEGATIVE); KETONES,URINE NEGATIVE (NEGATIVE); LEUKOCYTE ESTERASE ,URINE SMALL (NEGATIVE); NITRATE,URINE NEGATIVE (NEGATIVE); OCCULT BLOOD,URINE NEGATIVE (NEGATIVE); PROTEIN,URINE NEGATIVE (NEGATIVE); SPECIFIC GRAVITIY, URINE 1.012 (1.003-1.030); UROBILINOGEN,URINE <=1.0 mg/dL (<=1.0)
[2022-06-16 17:48] LABS: BACTERIA,URINE Few /HPF (None Seen); RBC,URINE 0-2 /HPF (0-2); SQUAMOUS EPITHELIAL CELL,UR Moderate /LPF (None Seen)
[2022-06-16] MEDS: ZOLPIDEM TARTRATE 10 MG TABLET PO PRN (22:09)
[2022-06-17] MEDS: LORazepam 2 MG TABLET PO PRN ×4 (00:49→17:40)
[2022-06-17] MEDS: HALOPERIDOL 5 MG TABLET PO PRN ×3 (02:47→17:40)
[2022-06-17 10:30] VITALS: BP 140/80
[2022-06-17] MEDS ORDERED: ONDANSETRON HCL 4 MG TABLET PO PRN (13:15)
[2022-06-17] MEDS ORDERED: DOCUSATE SODIUM 100 MG CAPSULE PO PRN (13:15)
[2022-06-17] MEDS ORDERED: BENZOCAINE/MENTHOL LOZENGE PO PRN (13:15)
[2022-06-17] MEDS ORDERED: OMEPRAZOLE 20 MG CAPSULE PO PRN (13:15)
[2022-06-17] MEDS ORDERED: BACITRACIN 28 GM OINTMENT TP PRN (13:15)
[2022-06-17] MEDS ORDERED: LOPERAMIDE HCL 2 MG CAPSULE PO PRN (13:15)
[2022-06-17] MEDS ORDERED: CloNIDine HCL 0.1 MG TABLET PO PRN (13:15)
[2022-06-17] MEDS ORDERED: MAGNESIUM HYDROXIDE SUSPENSION 30 ML UDCUP PO PRN (13:15)
[2022-06-17] MEDS ORDERED: PETROLATUM,WHITE 28 GM JELLY TP PRN (13:15)
[2022-06-17] MEDS ORDERED: ALBUTEROL SULFATE HFA 90 MCG/PUFF 8 GM INHALER IH PRN (13:15)
[2022-06-17 20:42] VITALS: BP 142/79
[2022-06-17] MEDS: ZOLPIDEM TARTRATE 10 MG TABLET PO PRN (22:11)
[2022-06-18] MEDS: HALOPERIDOL 5 MG TABLET PO PRN (01:11)
[2022-06-18 08:30] VITALS: BP 119/88
[2022-06-18] MEDS: LISINOPRIL 10 MG TABLET PO SCH (08:52)
[2022-06-18] MEDS: VERAPAMIL HCL 240 MG ER TABLET PO SCH (08:52)
[2022-06-18] MEDS: IBUPROFEN 600 MG TABLET PO PRN (16:14)
[2022-06-18 20:24] VITALS: BP 139/87
[2022-06-18] MEDS: QUEtiapine FUMARATE 300 MG TABLET PO SCH (21:09)
[2022-06-19] MEDS: ZOLPIDEM TARTRATE 10 MG TABLET PO PRN ×2 (00:07→22:47)
[2022-06-19 08:09] VITALS: BP 127/55
[2022-06-19] MEDS: VERAPAMIL HCL 240 MG ER TABLET PO SCH (09:08)
[2022-06-19] MEDS: LISINOPRIL 10 MG TABLET PO SCH (09:08)
[2022-06-19 20:17] VITALS: BP 128/65
[2022-06-19] MEDS: QUEtiapine FUMARATE 300 MG TABLET PO SCH (20:29)
[2022-06-20 08:20] VITALS: BP 120/73
[2022-06-20] MEDS: LISINOPRIL 10 MG TABLET PO SCH (08:46)
[2022-06-20] MEDS: VERAPAMIL HCL 240 MG ER TABLET PO SCH (08:46)
[2022-06-20 17:50] VITALS: BP 130/86
[2022-06-20] MEDS: LORazepam 2 MG TABLET PO PRN (17:50)
[2022-06-20] MEDS: HALOPERIDOL 5 MG TABLET PO PRN (19:25)
[2022-06-20] MEDS: QUEtiapine FUMARATE 300 MG TABLET PO SCH (20:31)
[2022-06-20 20:32] VITALS: BP 127/73
[2022-06-20] MEDS: ZOLPIDEM TARTRATE 10 MG TABLET PO PRN (21:18)
[2022-06-21] MEDS: VERAPAMIL HCL 240 MG ER TABLET PO SCH (08:08)
[2022-06-21] MEDS: LISINOPRIL 10 MG TABLET PO SCH (08:08)
[2022-06-21 08:18] VITALS: BP 119/69
[2022-06-21] MEDS: HALOPERIDOL 5 MG TABLET PO PRN (14:37)
[2022-06-21] MEDS: LORazepam 2 MG TABLET PO PRN (14:37)
[2022-06-21] MEDS: QUEtiapine FUMARATE 300 MG TABLET PO SCH (20:10)
[2022-06-21 20:43] VITALS: BP 123/69
[2022-06-21] MEDS: ZOLPIDEM TARTRATE 10 MG TABLET PO PRN (21:26)
[2022-06-22] MEDS: HALOPERIDOL 5 MG TABLET PO PRN ×2 (00:03→11:42)
[2022-06-22] MEDS: LORazepam 2 MG TABLET PO PRN ×3 (00:03→21:30)
[2022-06-22 08:25] VITALS: BP 129/74
[2022-06-22] MEDS: LISINOPRIL 10 MG TABLET PO SCH (08:39)
[2022-06-22] MEDS: VERAPAMIL HCL 240 MG ER TABLET PO SCH (08:39)
[2022-06-22 20:53] VITALS: BP 135/82
[2022-06-22] MEDS: LURASIDONE HCL 80 MG TABLET PO SCH (21:29)
[2022-06-22] MEDS: ZOLPIDEM TARTRATE 10 MG TABLET PO PRN (22:53)
[2022-06-23 07:10] LABS: ANION GAP 9 mmol/L (8-16); CARBON DIOXIDE 26 mmol/L (22-29); CHLORIDE 106 mmol/L (98-107); CREATININE 0.65 mg/dL (0.60-1.30); GLUCOSE,RANDOM 90 mg/dL (70-110); POTASSIUM 3.2 mmol/L (3.5-5.1); SODIUM SERUM 141 mmol/L (136-145); UREA NITROGEN, BLOOD 8 mg/dL (7-18)
[2022-06-23 07:18] LABS: GLOMERULAR FILTR. RATE CALC > 60 mL/min (>60)
[2022-06-23 08:21] VITALS: BP 140/90
[2022-06-23] MEDS: VERAPAMIL HCL 240 MG ER TABLET PO SCH (08:24)
[2022-06-23] MEDS: LISINOPRIL 10 MG TABLET PO SCH (08:24)
[2022-06-23] MEDS: IBUPROFEN 600 MG TABLET PO PRN (08:40)
[2022-06-23] MEDS ORDERED: POTASSIUM CHLORIDE 20 MEQ ER TABLET PO ONE (10:45)
[2022-06-23] MEDS: LORazepam 2 MG TABLET PO PRN ×2 (16:40→23:38)
[2022-06-23] MEDS: HALOPERIDOL 5 MG TABLET PO PRN ×2 (17:20→23:38)
[2022-06-23 18:56] LABS: GLUCOMETER DEV NAME(LOC) POC.BV
[2022-06-23 20:28] VITALS: BP 145/86
[2022-06-23] MEDS: MAG HYDROX/AL HYDROX/SIMETH ES 30 ML SUSPENSION UDCUP PO PRN (21:21)
[2022-06-23] MEDS: LURASIDONE HCL 80 MG TABLET PO SCH (21:57)
[2022-06-23] MEDS: ZOLPIDEM TARTRATE 10 MG TABLET PO PRN (21:57)
[2022-06-24] MEDS: LORazepam 2 MG TABLET PO PRN ×3 (09:09→22:23)
[2022-06-24] MEDS: HALOPERIDOL 5 MG TABLET PO PRN ×2 (09:09→16:54)
[2022-06-24] MEDS: VERAPAMIL HCL 240 MG ER TABLET PO SCH (09:10)
[2022-06-24] MEDS: LISINOPRIL 10 MG TABLET PO SCH (09:10)
[2022-06-24 09:22] VITALS: BP 140/88
[2022-06-24] MEDS: MAG HYDROX/AL HYDROX/SIMETH ES 30 ML SUSPENSION UDCUP PO PRN (14:07)
[2022-06-24 20:08] VITALS: BP 147/84
[2022-06-24] MEDS: LURASIDONE HCL 80 MG TABLET PO SCH (20:25)
[2022-06-24] MEDS ORDERED: TraZODone HCL 50 MG TABLET PO SCH (21:00)
[2022-06-24] MEDS: ZOLPIDEM TARTRATE 10 MG TABLET PO PRN (21:18)
[2022-06-25] MEDS: LORazepam 2 MG TABLET PO PRN (03:18)
[2022-06-25] MEDS: HALOPERIDOL 5 MG TABLET PO PRN (03:18)
[2022-06-25 08:29] VITALS: BP 139/85
[2022-06-25] MEDS: LISINOPRIL 10 MG TABLET PO SCH (08:49)
[2022-06-25] MEDS: VERAPAMIL HCL 240 MG ER TABLET PO SCH (08:49)
[2022-06-25] MEDS ORDERED: TRAZ-252 PO (12:48)
[2022-06-25] MEDS ORDERED: LURA80TA2 PO (12:48)
[2022-06-25] MEDS ORDERED: VERA240T96 PO (22:55)
[2022-06-25] MEDS ORDERED: LISI-893 PO (22:55)
== END 2022-06-25 18:09 | disposition home or self-care (01) | DRG 750 ==
LOC: EMS 11:54 → B2S 06-17 06:48 → EMS 06-17 10:15 → B2S 06-17 16:45
PROVIDERS: ADMIT Psychiatry & Neurology Psychiatry; ATTEND Psychiatry & Neurology Psychiatry
DX: F25.9 Schizoaffective disorder, unspecified (principal); R45.851 Suicidal ideations; K74.60 Unspecified cirrhosis of liver; F41.9 Anxiety disorder, unspecified; I10 Essential (primary) hypertension; E66.01 Morbid (severe) obesity due to excess calories; Z20.822 Contact with and (suspected) exposure to COVID-19; J44.9 Chronic obstructive pulmonary disease, unspecified; G47.00 Insomnia, unspecified; K59.00 Constipation, unspecified; B19.20 Unspecified viral hepatitis C without hepatic coma; F32.A Depression, unspecified; K21.9 Gastro-esophageal reflux disease without esophagitis; Z90.710 Acquired absence of both cervix and uterus; Z72.0 Tobacco use; Z88.8 Allergy status to other drugs, medicaments and biological substances; Z91.012 Allergy to eggs; Z91.011 Allergy to milk products; Z91.013 Allergy to seafood; Z79.899 Other long term (current) drug therapy; Z90.49 Acquired absence of other specified parts of digestive tract; Z68.41 Body mass index [BMI] 40.0-44.9, adult
CPT/HCPCS: 80048; 81001; 87081; 99285

== ENCOUNTER 2022-08-31 09:04 | Inpatient (IN) | payer MEDICARE, MEDICAID ==
[~2022-08-31] VITALS: Ht 162.6 cm; Wt 102.1 kg
[2022-08-31 09:34] LABS: BASOPHILS % (AUTO) 0.9 % (0.0-2.0); EOSINOPHILS % (AUTO) 3.1 % (1.0-6.0); HEMATOCRIT 39.7 % (36-46); HEMOGLOBIN 12.9 g/dL (12.0-16.0); LYMPHOCYTES # (AUTO) 3.4 K/uL (1.0-4.8); LYMPHOCYTES % (AUTO) 47.5 % (22.0-44.0); MEAN CORPUSCULAR HEMOGLOBIN 26.8 pg (26.0-34.0); MEAN CORPUSCULAR HGB CONC 32.5 G/dL (31.0-37.0); MEAN CORPUSCULAR VOLUME 83 fL (80-100); MONOCYTES # (AUTO) 0.6 K/uL (0.1-1.0); MONOCYTES % (AUTO) 8.2 % (2.0-9.0); NEUTROPHILS # (AUTO) 2.9 K/uL (1.8-7.7); NEUTROPHILS % (AUTO) 40.3 % (40.0-70.0); PLATELET COUNT (AUTO) 269 K/uL (150-450); RED BLOOD CELL COUNT(AUTO) 4.82 MIL/uL (4.00-5.20); RED CELL DISTRIBUTION WIDTH 15.2 % (11.5-14.5)
[2022-08-31 09:42] LABS: ANION GAP 7 mmol/L (8-16); CARBON DIOXIDE 27 mmol/L (22-29); CHLORIDE 103 mmol/L (98-107); CREATININE 0.68 mg/dL (0.60-1.30); GLUCOSE,RANDOM 97 mg/dL (70-110); POTASSIUM 3.1 mmol/L (3.5-5.1); SODIUM SERUM 137 mmol/L (136-145); UREA NITROGEN, BLOOD 3 mg/dL (7-18)
[2022-08-31 09:43] LABS: GLOMERULAR FILTR. RATE CALC > 60 mL/min (>60)
[2022-08-31 09:45] LABS: ALANINE AMINOTRANSFERASE 18 U/L (12-78); ALBUMIN 3.5 g/dL (3.4-5.0); ALKALINE PHOSPHATASE 113 U/L (46-116); ASPARTATE AMINOTRANSFERASE 20 U/L (15-37); BILIRUBIN,TOTAL 0.3 mg/dL (0.1-1.0); TOTAL PROTEIN, SERUM 8.1 g/dL (6.4-8.2)
[2022-08-31 10:12] LABS: AMPHET/METH SCREEN,URINE NEGATIVE (NEGATIVE); BARBITURATE SCREEN, URINE NEGATIVE (NEGATIVE); BENZODIAZEPINES SCREEN,URINE NEGATIVE (NEGATIVE); CANNABINOID SCREEN,URINE POSITIVE (NEGATIVE); COCAINE SCREEN,URINE NEGATIVE (NEGATIVE); METHADONE SCREEN, URINE NEGATIVE (NEGATIVE); OPIATE SCREEN,URINE NEGATIVE (NEGATIVE)
[2022-08-31 10:18] LABS: PHENCYCLIDINE SCREEN,URINE NEGATIVE (NEGATIVE)
[2022-08-31 10:40] LABS: COVID AG,FIA SOURCE NASAL SWAB
[2022-08-31 10:55] LABS: APPEARANCE,URINE CLEAR (CLEAR); BILIRUBIN,URINE NEGATIVE (NEGATIVE); GLUCOSE, URINE (UA) NEGATIVE (NEGATIVE); KETONES,URINE NEGATIVE (NEGATIVE); LEUKOCYTE ESTERASE ,URINE SMALL (NEGATIVE); NITRATE,URINE NEGATIVE (NEGATIVE); OCCULT BLOOD,URINE NEGATIVE (NEGATIVE); PROTEIN,URINE NEGATIVE (NEGATIVE); SPECIFIC GRAVITIY, URINE 1.004 (1.003-1.030); UROBILINOGEN,URINE <=1.0 mg/dL (<=1.0)
[2022-08-31 11:34] LABS: BACTERIA,URINE None Seen /HPF (None Seen); RBC,URINE None Seen /HPF (0-2); SQUAMOUS EPITHELIAL CELL,UR Few /LPF (None Seen); WBC,URINE 0-2 /HPF (0-5)
[2022-08-31 11:54] VITALS: BP 159/90
[2022-08-31] MEDS: VERAPAMIL HCL 240 MG ER TABLET PO SCH (15:23)
[2022-08-31] MEDS: LISINOPRIL 10 MG TABLET PO SCH (15:23)
[2022-08-31] MEDS: LORazepam 2 MG TABLET PO PRN (15:30)
[2022-08-31] MEDS: OLANZapine 5 MG RAPDIS TABLET PO PRN (15:30)
[2022-08-31 16:09] VITALS: BP 128/58
[2022-08-31] MEDS: ZOLPIDEM TARTRATE 10 MG TABLET PO PRN (21:57)
[2022-09-01] MEDS: OLANZapine 5 MG RAPDIS TABLET PO PRN (04:17)
[2022-09-01] MEDS: LORazepam 2 MG TABLET PO PRN (04:17)
[2022-09-01 08:30] VITALS: BP 123/72
[2022-09-01] MEDS: VERAPAMIL HCL 240 MG ER TABLET PO SCH (08:45)
[2022-09-01] MEDS: LISINOPRIL 10 MG TABLET PO SCH (08:45)
[2022-09-01 16:08] VITALS: BP 124/95
[2022-09-01] MEDS: QUEtiapine FUMARATE 300 MG TABLET PO SCH (21:27)
[2022-09-01] MEDS: ZOLPIDEM TARTRATE 10 MG TABLET PO PRN (21:28)
[2022-09-02] MEDS ORDERED: ONDANSETRON HCL 4 MG TABLET PO PRN (06:45)
[2022-09-02] MEDS ORDERED: DOCUSATE SODIUM 100 MG CAPSULE PO PRN (06:45)
[2022-09-02] MEDS ORDERED: BENZOCAINE/MENTHOL LOZENGE PO PRN (06:45)
[2022-09-02] MEDS ORDERED: LOPERAMIDE HCL 2 MG CAPSULE PO PRN (06:45)
[2022-09-02] MEDS ORDERED: OMEPRAZOLE 20 MG CAPSULE PO PRN (06:45)
[2022-09-02] MEDS ORDERED: PETROLATUM,WHITE 28 GM JELLY TP PRN (06:45)
[2022-09-02] MEDS ORDERED: ALBUTEROL SULFATE HFA 90 MCG/PUFF 8 GM INHALER IH PRN (06:45)
[2022-09-02] MEDS ORDERED: CloNIDine HCL 0.1 MG TABLET PO PRN (06:45)
[2022-09-02] MEDS ORDERED: MAGNESIUM HYDROXIDE SUSPENSION 30 ML UDCUP PO PRN (06:45)
[2022-09-02] MEDS ORDERED: BACITRACIN 28 GM OINTMENT TP PRN (06:45)
[2022-09-02] MEDS ORDERED: POTASSIUM CHLORIDE 20 MEQ ER TABLET PO ONE (06:45)
[2022-09-02] MEDS ORDERED: MAG HYDROX/AL HYDROX/SIMETH ES 30 ML SUSPENSION UDCUP PO PRN (06:45)
[2022-09-02 08:58] VITALS: BP 126/60
[2022-09-02] MEDS: LISINOPRIL 10 MG TABLET PO SCH (09:25)
[2022-09-02] MEDS: VERAPAMIL HCL 240 MG ER TABLET PO SCH (09:25)
[2022-09-02 16:22] VITALS: BP 139/89
[2022-09-02 16:29] VITALS: BP 139/89
[2022-09-02] MEDS: OLANZapine 5 MG RAPDIS TABLET PO PRN (16:29)
[2022-09-02] MEDS: IBUPROFEN 600 MG TABLET PO PRN ×2 (16:29→22:53)
[2022-09-02] MEDS: ZOLPIDEM TARTRATE 10 MG TABLET PO PRN (21:07)
[2022-09-02] MEDS: QUEtiapine FUMARATE 300 MG TABLET PO SCH (21:07)
[2022-09-02 22:50] VITALS: BP 135/85
[2022-09-03 08:48] VITALS: BP 105/68
[2022-09-03] MEDS: LISINOPRIL 10 MG TABLET PO SCH (09:14)
[2022-09-03] MEDS: VERAPAMIL HCL 240 MG ER TABLET PO SCH (09:15)
[2022-09-03 16:33] VITALS: BP 105/52
[2022-09-03 18:35] VITALS: BP 112/65
[2022-09-03] MEDS: IBUPROFEN 600 MG TABLET PO PRN (18:39)
[2022-09-03] MEDS: QUEtiapine FUMARATE 300 MG TABLET PO SCH (20:18)
[2022-09-03] MEDS: ZOLPIDEM TARTRATE 10 MG TABLET PO PRN (21:03)
[2022-09-04 08:00] VITALS: BP 114/69
[2022-09-04 08:44] VITALS: BP 114/69
[2022-09-04] MEDS: VERAPAMIL HCL 240 MG ER TABLET PO SCH (08:47)
[2022-09-04] MEDS: IBUPROFEN 600 MG TABLET PO PRN (08:47)
[2022-09-04] MEDS: LISINOPRIL 10 MG TABLET PO SCH (08:47)
[2022-09-04 16:35] VITALS: BP 128/69
[2022-09-04] MEDS: ZOLPIDEM TARTRATE 10 MG TABLET PO PRN (20:54)
[2022-09-04] MEDS: QUEtiapine FUMARATE 300 MG TABLET PO SCH (20:54)
[2022-09-05 09:00] VITALS: BP 107/67
[2022-09-05] MEDS: LISINOPRIL 10 MG TABLET PO SCH (09:00)
[2022-09-05] MEDS: VERAPAMIL HCL 240 MG ER TABLET PO SCH (10:53)
[2022-09-05 16:09] VITALS: BP 155/90
[2022-09-05] MEDS: ZOLPIDEM TARTRATE 10 MG TABLET PO PRN (20:41)
[2022-09-05] MEDS: QUEtiapine FUMARATE 300 MG TABLET PO SCH (20:41)
[2022-09-05] MEDS ORDERED: POTASSIUM CHLORIDE 20 MEQ ER TABLET PO ONE (21:00)
[2022-09-05] MEDS: GABAPENTIN 100 MG CAPSULE PO SCH (21:18)
[2022-09-06 08:30] VITALS: BP 118/67
[2022-09-06] MEDS: GABAPENTIN 100 MG CAPSULE PO SCH ×2 (08:48→16:48)
[2022-09-06] MEDS: VERAPAMIL HCL 240 MG ER TABLET PO SCH (08:48)
[2022-09-06] MEDS: LISINOPRIL 10 MG TABLET PO SCH (08:48)
[2022-09-06 16:27] VITALS: BP 112/63
[2022-09-06 16:31] VITALS: BP 112/63
[2022-09-06] MEDS: ZOLPIDEM TARTRATE 10 MG TABLET PO PRN (20:49)
[2022-09-06] MEDS: QUEtiapine FUMARATE 300 MG TABLET PO SCH (20:49)
[2022-09-07 07:46] LABS: COVID AG,FIA SOURCE NASAL SWAB
[2022-09-07 09:15] VITALS: BP 110/64
[2022-09-07] MEDS: LISINOPRIL 10 MG TABLET PO SCH (09:50)
[2022-09-07] MEDS: VERAPAMIL HCL 240 MG ER TABLET PO SCH (09:50)
[2022-09-07] MEDS: GABAPENTIN 100 MG CAPSULE PO SCH ×2 (09:50→16:20)
[2022-09-07 16:24] VITALS: BP 124/74
[2022-09-07] MEDS: QUEtiapine FUMARATE 300 MG TABLET PO SCH (20:58)
[2022-09-07] MEDS: ZOLPIDEM TARTRATE 10 MG TABLET PO PRN (20:58)
[2022-09-08 08:00] VITALS: BP 100/58
[2022-09-08] MEDS: LISINOPRIL 10 MG TABLET PO SCH (10:13)
[2022-09-08] MEDS: GABAPENTIN 100 MG CAPSULE PO SCH ×2 (10:14→17:14)
[2022-09-08] MEDS: VERAPAMIL HCL 240 MG ER TABLET PO SCH (11:29)
[2022-09-08 16:21] VITALS: BP 138/84
[2022-09-08] MEDS: QUEtiapine FUMARATE 300 MG TABLET PO SCH (21:00)
[2022-09-08] MEDS: ZOLPIDEM TARTRATE 10 MG TABLET PO PRN (21:00)
[2022-09-08] MEDS ORDERED: GABA-1216 PO (23:50)
[2022-09-08] MEDS ORDERED: QUET300T19 PO (23:50)
[2022-09-09] MEDS ORDERED: VERA240T95 PO (06:51)
[2022-09-09] MEDS ORDERED: LISI-893 PO (06:53)
[2022-09-09 08:00] VITALS: BP 97/60
[2022-09-09] MEDS: LISINOPRIL 10 MG TABLET PO SCH (08:16)
[2022-09-09] MEDS: GABAPENTIN 100 MG CAPSULE PO SCH (08:16)
[2022-09-09] MEDS: VERAPAMIL HCL 240 MG ER TABLET PO SCH (08:16)
== END 2022-09-09 10:35 | disposition home or self-care (01) | DRG 750 ==
LOC: EMS 09:06 → 3EI 10:27
PROVIDERS: ADMIT Psychiatry & Neurology Psychiatry; ATTEND Psychiatry & Neurology Psychiatry
DX: F25.1 Schizoaffective disorder, depressive type (principal); K74.60 Unspecified cirrhosis of liver; B19.20 Unspecified viral hepatitis C without hepatic coma; E66.9 Obesity, unspecified; F10.10 Alcohol abuse, uncomplicated; I10 Essential (primary) hypertension; Z20.822 Contact with and (suspected) exposure to COVID-19; K59.00 Constipation, unspecified; G47.00 Insomnia, unspecified; J44.9 Chronic obstructive pulmonary disease, unspecified; F41.9 Anxiety disorder, unspecified; K21.9 Gastro-esophageal reflux disease without esophagitis; Z72.0 Tobacco use; Z90.710 Acquired absence of both cervix and uterus; Z79.899 Other long term (current) drug therapy; Z88.8 Allergy status to other drugs, medicaments and biological substances; Z88.1 Allergy status to other antibiotic agents; Z91.012 Allergy to eggs; Z91.011 Allergy to milk products; Z91.013 Allergy to seafood; Z68.38 Body mass index [BMI] 38.0-38.9, adult
CPT/HCPCS: 80053; 81001; 83036; 84132; 85025; 87081; 99285; G0480

== ENCOUNTER 2022-09-20 12:53 | Emergency (ER) | payer MEDICARE, OTHER ==
[~2022-09-20] VITALS: Ht 165.1 cm; Wt 108.2 kg
[~2022-09-20 12:53] MED LIST changes: +GABA-1216 PO; +VERA240T95 PO; -VERA240T96 PO; +ZOLP10TA2 PO
[2022-09-20] MEDS ORDERED: DOXY-354 PO ×2 (16:04→17:33)
[2022-09-20] MEDS ORDERED: ZOLP-280 PO (16:04)
[2022-09-20 16:50] VITALS: BP 145/82
== END 2022-09-20 17:34 | disposition home or self-care (01) ==
LOC: EMS 12:58
DX: S71.101A Unspecified open wound, right thigh, initial encounter (principal); S71.001A Unspecified open wound, right hip, initial encounter; F20.9 Schizophrenia, unspecified; F31.9 Bipolar disorder, unspecified; I10 Essential (primary) hypertension; K74.60 Unspecified cirrhosis of liver; X58.XXXA Exposure to other specified factors, initial encounter; Y93.89 Activity, other specified; Y92.89 Other specified places as the place of occurrence of the external cause; Y99.8 Other external cause status
CPT/HCPCS: 99283; Z7502

== ENCOUNTER 2022-09-20 19:21 | Inpatient (IN) | payer MEDICARE, MEDICAID ==
[~2022-09-20] VITALS: Ht 165.1 cm; Wt 104.3 kg
[~2022-09-20 19:21] MED LIST changes: +DOXY-354 PO; +ZOLP-280 PO
[2022-09-20 21:30] LABS: BASOPHILS % (AUTO) 0.6 % (0.0-2.0); EOSINOPHILS % (AUTO) 3.5 % (1.0-6.0); HEMATOCRIT 38.6 % (36-46); HEMOGLOBIN 12.7 g/dL (12.0-16.0); LYMPHOCYTES # (AUTO) 2.7 K/uL (1.0-4.8); LYMPHOCYTES % (AUTO) 41.5 % (22.0-44.0); MEAN CORPUSCULAR HEMOGLOBIN 27.6 pg (26.0-34.0); MEAN CORPUSCULAR VOLUME 84 fL (80-100); MONOCYTES # (AUTO) 0.4 K/uL (0.1-1.0); MONOCYTES % (AUTO) 6.6 % (2.0-9.0); NEUTROPHILS # (AUTO) 3.1 K/uL (1.8-7.7); NEUTROPHILS % (AUTO) 47.8 % (40.0-70.0); PLATELET COUNT (AUTO) 259 K/uL (150-450); RED BLOOD CELL COUNT(AUTO) 4.62 MIL/uL (4.00-5.20); RED CELL DISTRIBUTION WIDTH 15.7 % (11.5-14.5)
[2022-09-20 21:45] LABS: ANION GAP 9 mmol/L (8-16); CALCIUM, TOTAL 9.4 mg/dL (8.8-10.5); CARBON DIOXIDE 27 mmol/L (22-29); CHLORIDE 105 mmol/L (98-107); CREATININE 0.75 mg/dL (0.60-1.30); GLUCOSE,RANDOM 101 mg/dL (70-110); POTASSIUM 3.2 mmol/L (3.5-5.1); SODIUM SERUM 141 mmol/L (136-145); UREA NITROGEN, BLOOD 10 mg/dL (7-18)
[2022-09-20 21:47] LABS: GLOMERULAR FILTR. RATE CALC > 60 mL/min (>60)
[2022-09-20 21:48] LABS: ALANINE AMINOTRANSFERASE 13 U/L (12-78); ALBUMIN 3.3 g/dL (3.4-5.0); ALKALINE PHOSPHATASE 100 U/L (46-116); ASPARTATE AMINOTRANSFERASE 18 U/L (15-37); BILIRUBIN,TOTAL 0.2 mg/dL (0.1-1.0); TOTAL PROTEIN, SERUM 7.9 g/dL (6.4-8.2)
[2022-09-20 21:52] LABS: COVID AG,FIA SOURCE NASOPHARYNGEAL
[2022-09-20] MEDS: ZOLPIDEM TARTRATE 10 MG TABLET PO PRN (22:20)
[2022-09-20] MEDS ORDERED: POTASSIUM CHLORIDE 20 MEQ ER TABLET PO ONE (22:45)
[2022-09-21 01:30] VITALS: BP 133/82
[2022-09-21] MEDS: HALOPERIDOL 5 MG TABLET PO PRN ×2 (02:04→09:53)
[2022-09-21] MEDS: LORazepam 2 MG TABLET PO PRN ×2 (02:04→09:52)
[2022-09-21] MEDS ORDERED: PNEUMOCOCCAL VACCINE POLYVALENT 0.5 ML VIAL [PPSV23] IM. ONE (03:00)
[2022-09-21] MEDS ORDERED: INFLUENZA VIRUS VACCINE QVS 2022-23 (6MO+)/PF 60 MCG/0.5 ML SYRINGE IM. ONE (03:00)
[2022-09-21 08:15] VITALS: BP 156/84
[2022-09-21] MEDS ORDERED: CloNIDine HCL 0.1 MG TABLET PO PRN (08:15)
[2022-09-21] MEDS ORDERED: MAGNESIUM HYDROXIDE SUSPENSION 30 ML UDCUP PO PRN (08:15)
[2022-09-21] MEDS ORDERED: DOCUSATE SODIUM 100 MG CAPSULE PO PRN (08:15)
[2022-09-21] MEDS ORDERED: BACITRACIN 28 GM OINTMENT TP PRN (08:15)
[2022-09-21] MEDS ORDERED: IBUPROFEN 600 MG TABLET PO PRN (08:15)
[2022-09-21] MEDS ORDERED: LOPERAMIDE HCL 2 MG CAPSULE PO PRN (08:15)
[2022-09-21] MEDS ORDERED: OMEPRAZOLE 20 MG CAPSULE PO PRN (08:15)
[2022-09-21] MEDS ORDERED: ONDANSETRON HCL 4 MG TABLET PO PRN (08:15)
[2022-09-21] MEDS ORDERED: ALBUTEROL SULFATE HFA 90 MCG/PUFF 8 GM INHALER IH PRN (08:15)
[2022-09-21] MEDS ORDERED: PETROLATUM,WHITE 28 GM JELLY TP PRN (08:15)
[2022-09-21] MEDS ORDERED: BENZOCAINE/MENTHOL LOZENGE PO PRN (08:15)
[2022-09-21] MEDS: VERAPAMIL HCL 240 MG ER TABLET PO SCH (09:00)
[2022-09-21] MEDS: DOXYCYCLINE HYCLATE 100 MG TABLET PO SCH ×2 (09:52→16:33)
[2022-09-21] MEDS: LISINOPRIL 10 MG TABLET PO SCH (09:53)
[2022-09-21 20:30] VITALS: BP 115/69
[2022-09-21] MEDS: ZOLPIDEM TARTRATE 10 MG TABLET PO PRN (23:33)
[2022-09-22 04:02] VITALS: BP 126/76
[2022-09-22] MEDS: LISINOPRIL 10 MG TABLET PO SCH (08:21)
[2022-09-22] MEDS: GABAPENTIN 100 MG CAPSULE PO SCH ×3 (08:21→16:29)
[2022-09-22] MEDS: DOXYCYCLINE HYCLATE 100 MG TABLET PO SCH ×2 (08:21→16:29)
[2022-09-22] MEDS: VERAPAMIL HCL 240 MG ER TABLET PO SCH (08:21)
[2022-09-22 08:43] VITALS: BP 131/71
[2022-09-22] MEDS: LORazepam 2 MG TABLET PO PRN (16:28)
[2022-09-22] MEDS: HALOPERIDOL 5 MG TABLET PO PRN (16:28)
[2022-09-22 20:41] VITALS: BP 139/85
[2022-09-22] MEDS: QUEtiapine FUMARATE 300 MG TABLET PO SCH (22:02)
[2022-09-22] MEDS: ZOLPIDEM TARTRATE 10 MG TABLET PO PRN (22:07)
[2022-09-23 08:07] VITALS: BP 116/70
[2022-09-23] MEDS: GABAPENTIN 100 MG CAPSULE PO SCH ×3 (09:27→18:02)
[2022-09-23] MEDS: VERAPAMIL HCL 240 MG ER TABLET PO SCH (09:27)
[2022-09-23] MEDS: DOXYCYCLINE HYCLATE 100 MG TABLET PO SCH ×2 (09:27→18:02)
[2022-09-23] MEDS: LISINOPRIL 10 MG TABLET PO SCH (09:27)
[2022-09-23] MEDS: LORazepam 2 MG TABLET PO PRN (18:03)
[2022-09-23] MEDS: QUEtiapine FUMARATE 300 MG TABLET PO SCH (21:05)
[2022-09-23] MEDS: ZOLPIDEM TARTRATE 10 MG TABLET PO PRN (21:05)
[2022-09-24 08:59] VITALS: BP 121/74
[2022-09-24] MEDS: DOXYCYCLINE HYCLATE 100 MG TABLET PO SCH ×2 (09:41→16:35)
[2022-09-24] MEDS: LISINOPRIL 10 MG TABLET PO SCH (09:41)
[2022-09-24] MEDS: GABAPENTIN 100 MG CAPSULE PO SCH ×3 (09:41→16:36)
[2022-09-24] MEDS: VERAPAMIL HCL 240 MG ER TABLET PO SCH (09:41)
[2022-09-24] MEDS: HALOPERIDOL 5 MG TABLET PO PRN (14:08)
[2022-09-24] MEDS: LORazepam 2 MG TABLET PO PRN (14:08)
[2022-09-24 20:34] VITALS: BP 115/63
[2022-09-24] MEDS: QUEtiapine FUMARATE 300 MG TABLET PO SCH (20:57)
[2022-09-24] MEDS: ZOLPIDEM TARTRATE 10 MG TABLET PO PRN (20:57)
[2022-09-25 08:10] VITALS: BP 124/71
[2022-09-25] MEDS: GABAPENTIN 100 MG CAPSULE PO SCH ×3 (08:20→16:07)
[2022-09-25] MEDS: LISINOPRIL 10 MG TABLET PO SCH (08:20)
[2022-09-25] MEDS: DOXYCYCLINE HYCLATE 100 MG TABLET PO SCH ×2 (08:20→16:06)
[2022-09-25] MEDS: VERAPAMIL HCL 240 MG ER TABLET PO SCH (08:21)
[2022-09-25] MEDS: LORazepam 2 MG TABLET PO PRN (13:34)
[2022-09-25] MEDS: HALOPERIDOL 5 MG TABLET PO PRN (16:06)
[2022-09-25 20:15] VITALS: BP 136/89
[2022-09-25] MEDS: ZOLPIDEM TARTRATE 10 MG TABLET PO PRN (21:05)
[2022-09-25] MEDS: QUEtiapine FUMARATE 300 MG TABLET PO SCH (21:05)
[2022-09-25] MEDS: MAG HYDROX/AL HYDROX/SIMETH ES 30 ML SUSPENSION UDCUP PO PRN (22:20)
[2022-09-26 08:04] VITALS: BP 123/73
[2022-09-26] MEDS: VERAPAMIL HCL 240 MG ER TABLET PO SCH (08:22)
[2022-09-26] MEDS: GABAPENTIN 100 MG CAPSULE PO SCH ×3 (08:22→16:06)
[2022-09-26] MEDS: DOXYCYCLINE HYCLATE 100 MG TABLET PO SCH (08:22)
[2022-09-26] MEDS: LISINOPRIL 10 MG TABLET PO SCH (08:22)
[2022-09-26] MEDS: HALOPERIDOL 5 MG TABLET PO PRN (16:06)
[2022-09-26] MEDS: LORazepam 2 MG TABLET PO PRN (16:06)
[2022-09-26 18:37] LABS: GLUCOMETER DEV NAME(LOC) POC.BV
[2022-09-26 20:06] VITALS: BP 110/71
[2022-09-26] MEDS: QUEtiapine FUMARATE 300 MG TABLET PO SCH (20:31)
[2022-09-26] MEDS: ZOLPIDEM TARTRATE 10 MG TABLET PO PRN (21:08)
[2022-09-27 04:08] VITALS: BP 118/73
[2022-09-27] MEDS: LORazepam 2 MG TABLET PO PRN ×2 (04:11→13:56)
[2022-09-27] MEDS: HALOPERIDOL 5 MG TABLET PO PRN ×2 (04:11→13:56)
[2022-09-27 08:05] VITALS: BP 126/77
[2022-09-27] MEDS: VERAPAMIL HCL 240 MG ER TABLET PO SCH (08:35)
[2022-09-27] MEDS: LISINOPRIL 10 MG TABLET PO SCH (08:35)
[2022-09-27] MEDS: GABAPENTIN 100 MG CAPSULE PO SCH ×3 (08:35→17:07)
[2022-09-27] MEDS: MAG HYDROX/AL HYDROX/SIMETH ES 30 ML SUSPENSION UDCUP PO PRN (20:15)
[2022-09-27] MEDS: QUEtiapine FUMARATE 300 MG TABLET PO SCH (20:15)
[2022-09-27 20:42] VITALS: BP 127/72
[2022-09-27] MEDS: ZOLPIDEM TARTRATE 10 MG TABLET PO PRN (21:24)
[2022-09-28] MEDS: LISINOPRIL 10 MG TABLET PO SCH (08:22)
[2022-09-28] MEDS: GABAPENTIN 100 MG CAPSULE PO SCH ×2 (08:22→12:04)
[2022-09-28] MEDS: VERAPAMIL HCL 240 MG ER TABLET PO SCH (08:22)
[2022-09-28 08:38] VITALS: BP 113/66
[2022-09-28] MEDS ORDERED: VERA240T95 PO (17:36)
[2022-09-28] MEDS ORDERED: DIPH25CA85 PO ×2 (20:12→20:54)
== END 2022-09-28 19:01 | disposition home or self-care (01) | DRG 750 ==
LOC: EMS 19:32 → UNDOADMIN 09-21 00:46 → B2S 09-21 00:46
PROVIDERS: ADMIT Psychiatry & Neurology Psychiatry; ATTEND Psychiatry & Neurology Psychiatry
DX: F25.9 Schizoaffective disorder, unspecified (principal); R45.851 Suicidal ideations; K74.60 Unspecified cirrhosis of liver; F10.10 Alcohol abuse, uncomplicated; Z20.822 Contact with and (suspected) exposure to COVID-19; I10 Essential (primary) hypertension; E66.01 Morbid (severe) obesity due to excess calories; G47.00 Insomnia, unspecified; K59.00 Constipation, unspecified; J44.9 Chronic obstructive pulmonary disease, unspecified; Z72.0 Tobacco use; Z88.8 Allergy status to other drugs, medicaments and biological substances; Z88.5 Allergy status to narcotic agent; Z91.011 Allergy to milk products; Z91.013 Allergy to seafood; Z68.38 Body mass index [BMI] 38.0-38.9, adult
CPT/HCPCS: 80053; 84132; 85025; 99285; G0480

== ENCOUNTER 2022-09-28 17:31 | Emergency (ER) | payer MEDICARE, OTHER ==
[~2022-09-28] VITALS: Ht 165.1 cm; Wt 100.0 kg
[~2022-09-28 17:31] MED LIST changes: -ZOLP-280 PO; -ZOLP10TA2 PO
[2022-09-28] MEDS ORDERED: VERA240T95 PO (17:36)
[2022-09-28] MEDS ORDERED: DIPH25CA85 PO ×2 (20:12→20:54)
[2022-09-28 20:54] VITALS: BP 141/93
== END 2022-09-28 21:04 | disposition home or self-care (01) ==
LOC: EMS 17:33
DX: G47.00 Insomnia, unspecified (principal); F20.9 Schizophrenia, unspecified; F31.9 Bipolar disorder, unspecified; I10 Essential (primary) hypertension; F17.210 Nicotine dependence, cigarettes, uncomplicated; Z91.013 Allergy to seafood; Z91.011 Allergy to milk products; Z88.5 Allergy status to narcotic agent; Z88.6 Allergy status to analgesic agent; Z91.012 Allergy to eggs; Z88.1 Allergy status to other antibiotic agents
CPT/HCPCS: 99282; Z7502

== ENCOUNTER 2022-10-06 09:03 | Inpatient (IN) | payer MEDICARE, MEDICAID ==
[~2022-10-06] VITALS: Ht 165.1 cm; Wt 102.1 kg
[~2022-10-06 09:03] MED LIST changes: +DIPH25CA85 PO; -DOXY-354 PO; -GABA-1216 PO; -LISI-893 PO
[2022-10-06 09:50] LABS: BASOPHILS % (AUTO) 1.2 % (0.0-2.0); HEMATOCRIT 41.9 % (36-46); LYMPHOCYTES # (AUTO) 2.9 K/uL (1.0-4.8); LYMPHOCYTES % (AUTO) 38.3 % (22.0-44.0); MEAN CORPUSCULAR HEMOGLOBIN 27.4 pg (26.0-34.0); MEAN CORPUSCULAR HGB CONC 33.4 G/dL (31.0-37.0); MEAN CORPUSCULAR VOLUME 82 fL (80-100); MONOCYTES # (AUTO) 0.5 K/uL (0.1-1.0); MONOCYTES % (AUTO) 6.4 % (2.0-9.0); NEUTROPHILS # (AUTO) 4.1 K/uL (1.8-7.7); NEUTROPHILS % (AUTO) 53.1 % (40.0-70.0); PLATELET COUNT (AUTO) 281 K/uL (150-450); RED BLOOD CELL COUNT(AUTO) 5.11 MIL/uL (4.00-5.20); RED CELL DISTRIBUTION WIDTH 15.5 % (11.5-14.5)
[2022-10-06 09:58] LABS: ANION GAP 10 mmol/L (8-16); CALCIUM, TOTAL 9.8 mg/dL (8.8-10.5); CARBON DIOXIDE 26 mmol/L (22-29); CHLORIDE 104 mmol/L (98-107); GLUCOSE,RANDOM 97 mg/dL (70-110); POTASSIUM 3.7 mmol/L (3.5-5.1); SODIUM SERUM 140 mmol/L (136-145); UREA NITROGEN, BLOOD 8 mg/dL (7-18)
[2022-10-06 09:59] LABS: GLOMERULAR FILTR. RATE CALC > 60 mL/min (>60)
[2022-10-06 10:15] LABS: ALANINE AMINOTRANSFERASE 18 U/L (12-78); ALBUMIN 3.8 g/dL (3.4-5.0); ALKALINE PHOSPHATASE 105 U/L (46-116); ASPARTATE AMINOTRANSFERASE 20 U/L (15-37); BILIRUBIN,TOTAL 0.4 mg/dL (0.1-1.0)
[2022-10-06 11:03] LABS: COVID AG,FIA SOURCE NASAL SWAB
[2022-10-06] MEDS: LORazepam 2 MG TABLET PO PRN (15:04)
[2022-10-06] MEDS: HALOPERIDOL 5 MG TABLET PO PRN (15:05)
[2022-10-06] MEDS: GABAPENTIN 100 MG CAPSULE PO SCH ×2 (15:05→22:12)
[2022-10-06] MEDS: ZOLPIDEM TARTRATE 10 MG TABLET PO PRN (21:32)
[2022-10-06] MEDS: QUEtiapine FUMARATE 300 MG TABLET PO SCH (21:32)
[2022-10-07] MEDS: GABAPENTIN 100 MG CAPSULE PO SCH ×3 (08:44→21:13)
[2022-10-07] MEDS: HALOPERIDOL 5 MG TABLET PO PRN (15:21)
[2022-10-07] MEDS: LORazepam 2 MG TABLET PO PRN (15:22)
[2022-10-07] MEDS: QUEtiapine FUMARATE 300 MG TABLET PO SCH (21:13)
[2022-10-07] MEDS: ZOLPIDEM TARTRATE 10 MG TABLET PO PRN (21:16)
[2022-10-08] MEDS: GABAPENTIN 100 MG CAPSULE PO SCH ×3 (08:09→16:52)
[2022-10-08] MEDS: HALOPERIDOL 5 MG TABLET PO PRN (10:04)
[2022-10-08] MEDS: LORazepam 2 MG TABLET PO PRN (10:04)
[2022-10-08] MEDS ORDERED: PETROLATUM,WHITE 28 GM JELLY TP PRN (20:15)
[2022-10-08] MEDS ORDERED: ALBUTEROL SULFATE HFA 90 MCG/PUFF 8 GM INHALER IH PRN (20:15)
[2022-10-08] MEDS ORDERED: IBUPROFEN 600 MG TABLET PO PRN (20:15)
[2022-10-08] MEDS ORDERED: OMEPRAZOLE 20 MG CAPSULE PO PRN (20:15)
[2022-10-08] MEDS ORDERED: MAGNESIUM HYDROXIDE SUSPENSION 30 ML UDCUP PO PRN (20:15)
[2022-10-08] MEDS ORDERED: CloNIDine HCL 0.1 MG TABLET PO PRN (20:15)
[2022-10-08] MEDS ORDERED: BACITRACIN 28 GM OINTMENT TP PRN (20:15)
[2022-10-08] MEDS ORDERED: ONDANSETRON HCL 4 MG TABLET PO PRN (20:15)
[2022-10-08] MEDS ORDERED: BENZOCAINE/MENTHOL LOZENGE PO PRN (20:15)
[2022-10-08] MEDS ORDERED: DOCUSATE SODIUM 100 MG CAPSULE PO PRN (20:15)
[2022-10-08] MEDS ORDERED: LOPERAMIDE HCL 2 MG CAPSULE PO PRN (20:15)
[2022-10-08] MEDS: MAG HYDROX/AL HYDROX/SIMETH ES 30 ML SUSPENSION UDCUP PO PRN (20:48)
[2022-10-08] MEDS: QUEtiapine FUMARATE 300 MG TABLET PO SCH (21:41)
[2022-10-08] MEDS: ZOLPIDEM TARTRATE 10 MG TABLET PO PRN (21:41)
[2022-10-08 22:44] VITALS: BP 103/83
[2022-10-09] MEDS: LORazepam 2 MG TABLET PO PRN ×2 (01:41→08:33)
[2022-10-09] MEDS: HALOPERIDOL 5 MG TABLET PO PRN ×2 (01:41→08:33)
[2022-10-09 01:42] VITALS: BP 120/76
[2022-10-09 08:29] VITALS: BP 126/79
[2022-10-09] MEDS: VERAPAMIL HCL 240 MG ER TABLET PO SCH (08:33)
[2022-10-09] MEDS: GABAPENTIN 100 MG CAPSULE PO SCH ×3 (08:37→17:00)
[2022-10-09 20:31] VITALS: BP 109/60
[2022-10-09] MEDS: QUEtiapine FUMARATE 300 MG TABLET PO SCH (21:50)
[2022-10-09] MEDS: ZOLPIDEM TARTRATE 10 MG TABLET PO PRN (21:50)
[2022-10-10] MEDS: MAG HYDROX/AL HYDROX/SIMETH ES 30 ML SUSPENSION UDCUP PO PRN ×2 (00:59→22:41)
[2022-10-10 08:24] VITALS: BP 120/70
[2022-10-10] MEDS: GABAPENTIN 100 MG CAPSULE PO SCH ×3 (09:00→17:00)
[2022-10-10] MEDS: VERAPAMIL HCL 240 MG ER TABLET PO SCH (09:30)
[2022-10-10] MEDS: LORazepam 2 MG TABLET PO PRN ×3 (10:06→23:28)
[2022-10-10] MEDS: HALOPERIDOL 5 MG TABLET PO PRN ×2 (10:06→16:03)
[2022-10-10 16:01] VITALS: BP 128/85
[2022-10-10 20:23] VITALS: BP 126/76
[2022-10-10 20:25] VITALS: BP 128/85
[2022-10-10] MEDS: ZOLPIDEM TARTRATE 10 MG TABLET PO PRN (20:47)
[2022-10-10] MEDS: QUEtiapine FUMARATE 300 MG TABLET PO SCH (20:48)
[2022-10-11] MEDS: HALOPERIDOL 5 MG TABLET PO PRN (00:36)
[2022-10-11 08:12] VITALS: BP 119/72
[2022-10-11] MEDS: GABAPENTIN 100 MG CAPSULE PO SCH ×4 (09:00→17:00)
[2022-10-11] MEDS: VERAPAMIL HCL 240 MG ER TABLET PO SCH (10:00)
[2022-10-11 20:39] VITALS: BP 110/62
[2022-10-11] MEDS: QUEtiapine FUMARATE 300 MG TABLET PO SCH (21:36)
[2022-10-11] MEDS: ZOLPIDEM TARTRATE 10 MG TABLET PO PRN (21:36)
[2022-10-12 08:11] LABS: GLUCOMETER DEV NAME(LOC) POC.BV
[2022-10-12] MEDS: GABAPENTIN 100 MG CAPSULE PO SCH ×2 (08:31→13:00)
[2022-10-12] MEDS: VERAPAMIL HCL 240 MG ER TABLET PO SCH (08:31)
[2022-10-12 08:45] VITALS: BP 128/74
[2022-10-12] MEDS ORDERED: GABA-1216 PO (16:05)
[2022-10-12] MEDS ORDERED: ZOLP10TA2 PO (16:05)
[2022-10-12] MEDS ORDERED: QUET300T19 PO (16:05)
[2022-10-12] MEDS ORDERED: VERA240T96 PO (16:26)
== END 2022-10-12 18:05 | disposition home or self-care (01) | DRG 750 ==
LOC: EMS 09:08 → B2S 10-08 07:26
PROVIDERS: ADMIT Psychiatry & Neurology Psychiatry; ATTEND Psychiatry & Neurology Psychiatry
DX: F25.1 Schizoaffective disorder, depressive type (principal); R45.851 Suicidal ideations; Z91.199 Patient's noncompliance with other medical treatment and regimen due to unspecified reason; F10.10 Alcohol abuse, uncomplicated; F41.9 Anxiety disorder, unspecified; I10 Essential (primary) hypertension; J44.9 Chronic obstructive pulmonary disease, unspecified; Z20.822 Contact with and (suspected) exposure to COVID-19; Z88.8 Allergy status to other drugs, medicaments and biological substances; Z72.0 Tobacco use; Z88.5 Allergy status to narcotic agent; Z91.013 Allergy to seafood; Z91.011 Allergy to milk products; E66.01 Morbid (severe) obesity due to excess calories; Z68.37 Body mass index [BMI] 37.0-37.9, adult
CPT/HCPCS: 80053; 85025; 87081; 99285; G0480

== ENCOUNTER 2022-11-03 11:53 | Inpatient (IN) | payer MEDICARE, MEDICAID ==
[~2022-11-03] VITALS: Ht 154.9 cm; Wt 99.8 kg
[~2022-11-03 11:53] MED LIST changes: -DIPH25CA85 PO; +GABA-1216 PO; -VERA240T95 PO; +VERA240T96 PO; +ZOLP10TA2 PO
[2022-11-03 13:29] LABS: BASOPHILS % (AUTO) 1.3 % (0.0-2.0); EOSINOPHILS % (AUTO) 1.6 % (1.0-6.0); HEMOGLOBIN 13.2 g/dL (12.0-16.0); LYMPHOCYTES # (AUTO) 3.8 K/uL (1.0-4.8); LYMPHOCYTES % (AUTO) 48.4 % (22.0-44.0); MEAN CORPUSCULAR HEMOGLOBIN 26.9 pg (26.0-34.0); MEAN CORPUSCULAR HGB CONC 32.9 G/dL (31.0-37.0); MEAN CORPUSCULAR VOLUME 82 fL (80-100); MONOCYTES # (AUTO) 0.6 K/uL (0.1-1.0); MONOCYTES % (AUTO) 7.8 % (2.0-9.0); NEUTROPHILS # (AUTO) 3.2 K/uL (1.8-7.7); NEUTROPHILS % (AUTO) 40.9 % (40.0-70.0); PLATELET COUNT (AUTO) 287 K/uL (150-450)
[2022-11-03 13:44] LABS: ANION GAP 14 mmol/L (8-16); CALCIUM, TOTAL 9.6 mg/dL (8.8-10.5); CARBON DIOXIDE 22 mmol/L (22-29); CHLORIDE 106 mmol/L (98-107); CREATININE 0.75 mg/dL (0.60-1.30); GLUCOSE,RANDOM 95 mg/dL (70-110); POTASSIUM 3.1 mmol/L (3.5-5.1); SODIUM SERUM 142 mmol/L (136-145); UREA NITROGEN, BLOOD 9 mg/dL (7-18)
[2022-11-03 13:46] LABS: GLOMERULAR FILTR. RATE CALC > 60 mL/min (>60)
[2022-11-03 13:50] LABS: ALANINE AMINOTRANSFERASE 23 U/L (12-78); ALBUMIN 3.6 g/dL (3.4-5.0); ALKALINE PHOSPHATASE 109 U/L (46-116); ASPARTATE AMINOTRANSFERASE 26 U/L (15-37); BILIRUBIN,TOTAL 0.4 mg/dL (0.1-1.0); TOTAL PROTEIN, SERUM 8.2 g/dL (6.4-8.2)
[2022-11-03] MEDS ORDERED: LORazepam 1 MG TABLET PO ONE (14:00)
[2022-11-03] MEDS ORDERED: POTASSIUM CHLORIDE 20 MEQ ER TABLET PO ONE (14:15)
[2022-11-03 14:45] LABS: COVID AG,FIA SOURCE NASAL SWAB
[2022-11-03] MEDS: HALOPERIDOL 5 MG TABLET PO PRN (15:08)
[2022-11-03 17:13] LABS: AMPHET/METH SCREEN,URINE NEGATIVE (NEGATIVE); BARBITURATE SCREEN, URINE NEGATIVE (NEGATIVE); BENZODIAZEPINES SCREEN,URINE NEGATIVE (NEGATIVE); CANNABINOID SCREEN,URINE NEGATIVE (NEGATIVE); COCAINE SCREEN,URINE NEGATIVE (NEGATIVE); METHADONE SCREEN, URINE NEGATIVE (NEGATIVE); OPIATE SCREEN,URINE NEGATIVE (NEGATIVE)
[2022-11-03 17:14] LABS: PHENCYCLIDINE SCREEN,URINE NEGATIVE (NEGATIVE)
[2022-11-03] MEDS: ZOLPIDEM TARTRATE 10 MG TABLET PO PRN (20:49)
[2022-11-03] MEDS: QUEtiapine FUMARATE 300 MG TABLET PO SCH (20:51)
[2022-11-04 03:08] VITALS: BP 141/93
[2022-11-04 03:09] VITALS: BP 141/93
[2022-11-04] MEDS ORDERED: PNEUMOCOCCAL VACCINE POLYVALENT 0.5 ML VIAL [PPSV23] IM. ONE (05:30)
[2022-11-04] MEDS ORDERED: DOCUSATE SODIUM 100 MG CAPSULE PO PRN (06:15)
[2022-11-04] MEDS ORDERED: BENZOCAINE/MENTHOL LOZENGE PO PRN (06:15)
[2022-11-04] MEDS ORDERED: PETROLATUM,WHITE 28 GM JELLY TP PRN (06:15)
[2022-11-04] MEDS ORDERED: CloNIDine HCL 0.1 MG TABLET PO PRN (06:15)
[2022-11-04] MEDS ORDERED: ALBUTEROL SULFATE HFA 90 MCG/PUFF 8 GM INHALER IH PRN (06:15)
[2022-11-04] MEDS ORDERED: OMEPRAZOLE 20 MG CAPSULE PO PRN (06:15)
[2022-11-04] MEDS ORDERED: ONDANSETRON HCL 4 MG TABLET PO PRN (06:15)
[2022-11-04] MEDS ORDERED: MAGNESIUM HYDROXIDE SUSPENSION 30 ML UDCUP PO PRN (06:15)
[2022-11-04] MEDS ORDERED: BACITRACIN 28 GM OINTMENT TP PRN (06:15)
[2022-11-04] MEDS ORDERED: LOPERAMIDE HCL 2 MG CAPSULE PO PRN (06:15)
[2022-11-04 08:30] VITALS: BP 119/63
[2022-11-04] MEDS: VERAPAMIL HCL 240 MG ER TABLET PO SCH (16:14)
[2022-11-04] MEDS: IBUPROFEN 600 MG TABLET PO PRN (18:46)
[2022-11-04] MEDS: LORazepam 2 MG TABLET PO PRN (18:50)
[2022-11-04] MEDS: HALOPERIDOL 5 MG TABLET PO PRN (18:51)
[2022-11-04] MEDS: QUEtiapine FUMARATE 300 MG TABLET PO SCH (20:22)
[2022-11-04 20:29] VITALS: BP 122/78
[2022-11-04] MEDS: ZOLPIDEM TARTRATE 10 MG TABLET PO PRN (22:41)
[2022-11-05 07:50] LABS: ANION GAP 8 mmol/L (8-16); CARBON DIOXIDE 27 mmol/L (22-29); CHLORIDE 108 mmol/L (98-107); CREATININE 0.65 mg/dL (0.60-1.30); GLUCOSE,RANDOM 83 mg/dL (70-110); POTASSIUM 3.2 mmol/L (3.5-5.1); SODIUM SERUM 143 mmol/L (136-145); UREA NITROGEN, BLOOD 12 mg/dL (7-18)
[2022-11-05 07:51] LABS: GLOMERULAR FILTR. RATE CALC > 60 mL/min (>60)
[2022-11-05 08:07] VITALS: BP 130/79
[2022-11-05] MEDS: VERAPAMIL HCL 240 MG ER TABLET PO SCH (10:02)
[2022-11-05 20:11] VITALS: BP 119/69
[2022-11-05] MEDS: QUEtiapine FUMARATE 300 MG TABLET PO SCH (20:27)
[2022-11-06] MEDS: ZOLPIDEM TARTRATE 10 MG TABLET PO PRN ×2 (02:08→21:57)
[2022-11-06] MEDS: VERAPAMIL HCL 240 MG ER TABLET PO SCH (08:33)
[2022-11-06] MEDS: LORazepam 2 MG TABLET PO PRN ×2 (08:36→13:24)
[2022-11-06] MEDS: HALOPERIDOL 5 MG TABLET PO PRN ×2 (08:36→13:24)
[2022-11-06 08:41] VITALS: BP 119/79
[2022-11-06] MEDS: NYSTATIN 30 GM CREAM TP SCH (17:03)
[2022-11-06 20:13] VITALS: BP 118/59
[2022-11-06] MEDS: QUEtiapine FUMARATE 300 MG TABLET PO SCH (20:20)
[2022-11-07] MEDS: LORazepam 2 MG TABLET PO PRN (04:41)
[2022-11-07] MEDS: HALOPERIDOL 5 MG TABLET PO PRN (04:41)
[2022-11-07 08:29] VITALS: BP 118/70
[2022-11-07] MEDS: VERAPAMIL HCL 240 MG ER TABLET PO SCH (09:38)
[2022-11-07] MEDS: FLUCONAZOLE 150 MG TABLET PO SCH (09:38)
[2022-11-07] MEDS: NYSTATIN 30 GM CREAM TP SCH ×2 (09:39→16:23)
[2022-11-07 20:22] VITALS: BP 146/61
[2022-11-07] MEDS: QUEtiapine FUMARATE 300 MG TABLET PO SCH (20:31)
[2022-11-08] MEDS: LORazepam 2 MG TABLET PO PRN ×2 (06:06→10:42)
[2022-11-08] MEDS: HALOPERIDOL 5 MG TABLET PO PRN ×2 (06:06→10:42)
[2022-11-08] MEDS: VERAPAMIL HCL 240 MG ER TABLET PO SCH (08:58)
[2022-11-08] MEDS: NYSTATIN 30 GM CREAM TP SCH ×2 (08:58→17:14)
[2022-11-08 20:03] VITALS: BP 117/65
[2022-11-08] MEDS: QUEtiapine FUMARATE 300 MG TABLET PO SCH (20:18)
[2022-11-09 01:55] VITALS: BP 117/76
[2022-11-09] MEDS: ZOLPIDEM TARTRATE 10 MG TABLET PO PRN ×2 (02:04→23:00)
[2022-11-09 08:35] VITALS: BP 107/75
[2022-11-09] MEDS: NYSTATIN 30 GM CREAM TP SCH ×2 (08:38→17:00)
[2022-11-09] MEDS: VERAPAMIL HCL 240 MG ER TABLET PO SCH (08:38)
[2022-11-09] MEDS: LORazepam 2 MG TABLET PO PRN (11:43)
[2022-11-09] MEDS: IBUPROFEN 600 MG TABLET PO PRN (14:21)
[2022-11-09 20:15] VITALS: BP 114/73
[2022-11-09] MEDS: QUEtiapine FUMARATE 300 MG TABLET PO SCH (20:31)
[2022-11-09] MEDS: MAG HYDROX/AL HYDROX/SIMETH ES 30 ML SUSPENSION UDCUP PO PRN (21:11)
[2022-11-10 07:23] LABS: CHOL/HDL RATIO 4.8 (3.9-5.7)
[2022-11-10 08:18] VITALS: BP 110/67
[2022-11-10] MEDS: FLUCONAZOLE 150 MG TABLET PO SCH (08:39)
[2022-11-10] MEDS: VERAPAMIL HCL 240 MG ER TABLET PO SCH (08:39)
[2022-11-10] MEDS: NYSTATIN 30 GM CREAM TP SCH ×2 (08:42→16:05)
[2022-11-10] MEDS: LORazepam 2 MG TABLET PO PRN ×2 (10:51→15:55)
[2022-11-10] MEDS ORDERED: POTASSIUM CHLORIDE 20 MEQ ER TABLET PO ONE (14:30)
[2022-11-10] MEDS: MAG HYDROX/AL HYDROX/SIMETH ES 30 ML SUSPENSION UDCUP PO PRN (15:57)
[2022-11-10 20:12] VITALS: BP 138/86
[2022-11-10] MEDS: QUEtiapine FUMARATE 300 MG TABLET PO SCH (20:28)
[2022-11-10] MEDS: ZOLPIDEM TARTRATE 10 MG TABLET PO PRN (21:46)
[2022-11-11 08:31] LABS: GLUCOMETER DEV NAME(LOC) POC.BV
[2022-11-11 08:34] VITALS: BP 132/77
[2022-11-11] MEDS: NYSTATIN 30 GM CREAM TP SCH ×2 (09:02→16:34)
[2022-11-11] MEDS: VERAPAMIL HCL 240 MG ER TABLET PO SCH (09:02)
[2022-11-11] MEDS: LORazepam 2 MG TABLET PO PRN ×2 (10:53→16:04)
[2022-11-11 20:21] VITALS: BP 113/66
[2022-11-11] MEDS: IBUPROFEN 600 MG TABLET PO PRN (20:34)
[2022-11-11] MEDS: QUEtiapine FUMARATE 300 MG TABLET PO SCH (21:28)
[2022-11-11] MEDS: ZOLPIDEM TARTRATE 10 MG TABLET PO PRN (22:00)
[2022-11-12] MEDS: VERAPAMIL HCL 240 MG ER TABLET PO SCH (09:04)
[2022-11-12] MEDS: NYSTATIN 30 GM CREAM TP SCH ×2 (09:05→16:51)
[2022-11-12] MEDS: LORazepam 2 MG TABLET PO PRN ×2 (11:57→16:52)
[2022-11-12 20:18] VITALS: BP 133/70
[2022-11-12] MEDS: QUEtiapine FUMARATE 300 MG TABLET PO SCH (21:18)
[2022-11-12] MEDS: ZOLPIDEM TARTRATE 10 MG TABLET PO PRN (21:48)
[2022-11-13 08:29] VITALS: BP 121/80
[2022-11-13] MEDS: VERAPAMIL HCL 240 MG ER TABLET PO SCH (08:47)
[2022-11-13] MEDS: NYSTATIN 30 GM CREAM TP SCH ×2 (08:47→16:44)
[2022-11-13] MEDS: LORazepam 2 MG TABLET PO PRN ×2 (09:29→15:20)
[2022-11-13 15:17] VITALS: BP 127/76
[2022-11-13 15:18] VITALS: BP 127/76
[2022-11-13] MEDS: QUEtiapine FUMARATE 300 MG TABLET PO SCH (20:13)
[2022-11-13] MEDS: ZOLPIDEM TARTRATE 10 MG TABLET PO PRN (20:19)
[2022-11-13 21:14] VITALS: BP 140/87
[2022-11-14] MEDS: VERAPAMIL HCL 240 MG ER TABLET PO SCH (09:11)
[2022-11-14 09:12] VITALS: BP 116/72
[2022-11-14] MEDS: NYSTATIN 30 GM CREAM TP SCH (09:12)
[2022-11-14] MEDS: LORazepam 2 MG TABLET PO PRN (10:23)
[2022-11-14] MEDS ORDERED: VERA240T96 PO (12:35)
== END 2022-11-14 14:50 | disposition home or self-care (01) | DRG 750 ==
LOC: EMS 12:02 → B2S 11-04 00:30
PROVIDERS: ADMIT Psychiatry & Neurology Psychiatry; ATTEND Psychiatry & Neurology Psychiatry
DX: F25.9 Schizoaffective disorder, unspecified (principal); R45.851 Suicidal ideations; K74.60 Unspecified cirrhosis of liver; B19.20 Unspecified viral hepatitis C without hepatic coma; F41.9 Anxiety disorder, unspecified; I10 Essential (primary) hypertension; Z20.822 Contact with and (suspected) exposure to COVID-19; J44.9 Chronic obstructive pulmonary disease, unspecified; K21.9 Gastro-esophageal reflux disease without esophagitis; E87.6 Hypokalemia; E66.01 Morbid (severe) obesity due to excess calories; K59.00 Constipation, unspecified; G47.00 Insomnia, unspecified; F10.10 Alcohol abuse, uncomplicated; Y90.9 Presence of alcohol in blood, level not specified; Z88.8 Allergy status to other drugs, medicaments and biological substances; Z91.011 Allergy to milk products; Z91.013 Allergy to seafood; Z88.5 Allergy status to narcotic agent; Z72.0 Tobacco use; Z68.41 Body mass index [BMI] 40.0-44.9, adult
CPT/HCPCS: 80048; 80053; 80061; 85025; 87081; 90732; 99285; G0480

== ENCOUNTER 2022-12-04 23:40 | Inpatient (IN) | payer MEDICARE, MEDICAID ==
[~2022-12-04] VITALS: Ht 165.1 cm; Wt 107.5 kg
[~2022-12-04 23:40] MED LIST changes: -GABA-1216 PO; -ZOLP10TA2 PO
[2022-12-05 01:08] LABS: EOSINOPHILS % (AUTO) 2.3 % (1.0-6.0); HEMATOCRIT 39.1 % (36-46); HEMOGLOBIN 12.7 g/dL (12.0-16.0); LYMPHOCYTES % (AUTO) 35.4 % (22.0-44.0); MEAN CORPUSCULAR HEMOGLOBIN 27.2 pg (26.0-34.0); MEAN CORPUSCULAR HGB CONC 32.5 G/dL (31.0-37.0); MEAN CORPUSCULAR VOLUME 84 fL (80-100); MONOCYTES # (AUTO) 0.8 K/uL (0.1-1.0); MONOCYTES % (AUTO) 9.1 % (2.0-9.0); NEUTROPHILS # (AUTO) 4.4 K/uL (1.8-7.7); NEUTROPHILS % (AUTO) 52.2 % (40.0-70.0); PLATELET COUNT (AUTO) 288 K/uL (150-450); RED BLOOD CELL COUNT(AUTO) 4.67 MIL/uL (4.00-5.20); RED CELL DISTRIBUTION WIDTH 15.9 % (11.5-14.5)
[2022-12-05 01:17] LABS: ANION GAP 9 mmol/L (8-16); CALCIUM, TOTAL 8.9 mg/dL (8.8-10.5); CARBON DIOXIDE 26 mmol/L (22-29); CHLORIDE 105 mmol/L (98-107); CREATININE 0.82 mg/dL (0.60-1.30); GLOMERULAR FILTR. RATE CALC > 60 mL/min (>60); GLUCOSE,RANDOM 104 mg/dL (70-110); POTASSIUM 3.2 mmol/L (3.5-5.1); SODIUM SERUM 140 mmol/L (136-145); UREA NITROGEN, BLOOD 10 mg/dL (7-18)
[2022-12-05 01:24] LABS: ALANINE AMINOTRANSFERASE 19 U/L (12-78); ALBUMIN 3.3 g/dL (3.4-5.0); ALKALINE PHOSPHATASE 106 U/L (46-116); ASPARTATE AMINOTRANSFERASE 21 U/L (15-37); BILIRUBIN,TOTAL 0.3 mg/dL (0.1-1.0); TOTAL PROTEIN, SERUM 8.3 g/dL (6.4-8.2)
[2022-12-05] MEDS: LORazepam 2 MG TABLET PO PRN ×2 (01:26→14:34)
[2022-12-05] MEDS: ZOLPIDEM TARTRATE 10 MG TABLET PO PRN ×2 (01:26→21:52)
[2022-12-05 01:36] LABS: COVID AG,FIA SOURCE NASOPHARYNGEAL
[2022-12-05] MEDS ORDERED: POTASSIUM CHLORIDE 20 MEQ ER TABLET PO ONE ×2 (01:45→05:00)
[2022-12-05] MEDS: HALOPERIDOL 5 MG TABLET PO PRN ×2 (04:49→14:34)
[2022-12-05] MEDS ORDERED: BENZOCAINE/MENTHOL LOZENGE PO PRN (05:00)
[2022-12-05] MEDS ORDERED: BACITRACIN 28 GM OINTMENT TP PRN (05:00)
[2022-12-05] MEDS ORDERED: PETROLATUM,WHITE 28 GM JELLY TP PRN (05:00)
[2022-12-05] MEDS ORDERED: ONDANSETRON HCL 4 MG TABLET PO PRN (05:00)
[2022-12-05] MEDS ORDERED: MAGNESIUM HYDROXIDE SUSPENSION 30 ML UDCUP PO PRN (05:00)
[2022-12-05] MEDS ORDERED: ALBUTEROL SULFATE HFA 90 MCG/PUFF 8 GM INHALER IH PRN (05:00)
[2022-12-05] MEDS ORDERED: LOPERAMIDE HCL 2 MG CAPSULE PO PRN (05:00)
[2022-12-05] MEDS ORDERED: CloNIDine HCL 0.1 MG TABLET PO PRN (05:00)
[2022-12-05] MEDS ORDERED: DOCUSATE SODIUM 100 MG CAPSULE PO PRN (05:00)
[2022-12-05] MEDS ORDERED: OMEPRAZOLE 20 MG CAPSULE PO PRN (05:00)
[2022-12-05 05:02] VITALS: BP 146/89
[2022-12-05] MEDS: VERAPAMIL HCL 240 MG ER TABLET PO SCH (09:29)
[2022-12-05 20:19] VITALS: BP 119/63
[2022-12-05] MEDS: QUEtiapine FUMARATE 300 MG TABLET PO SCH (21:48)
[2022-12-06] MEDS: VERAPAMIL HCL 240 MG ER TABLET PO SCH (08:10)
[2022-12-06 08:27] VITALS: BP 120/66
[2022-12-06] MEDS: LORazepam 2 MG TABLET PO PRN (14:02)
[2022-12-06] MEDS: HALOPERIDOL 5 MG TABLET PO PRN (15:28)
[2022-12-06 20:17] VITALS: BP 129/75
[2022-12-06] MEDS: QUEtiapine FUMARATE 300 MG TABLET PO SCH (20:32)
[2022-12-06] MEDS: ZOLPIDEM TARTRATE 10 MG TABLET PO PRN (21:49)
[2022-12-07 08:30] VITALS: BP 106/62
[2022-12-07] MEDS: VERAPAMIL HCL 240 MG ER TABLET PO SCH (08:40)
[2022-12-07] MEDS: CITALOPRAM HYDROBROMIDE 20 MG TABLET PO SCH (08:40)
[2022-12-07] MEDS: LORazepam 2 MG TABLET PO PRN (13:36)
[2022-12-07] MEDS: HALOPERIDOL 5 MG TABLET PO PRN (13:36)
[2022-12-07 20:27] VITALS: BP 122/73
[2022-12-07] MEDS: QUEtiapine FUMARATE 300 MG TABLET PO SCH (21:12)
[2022-12-07] MEDS: ZOLPIDEM TARTRATE 10 MG TABLET PO PRN (21:12)
[2022-12-08 08:29] VITALS: BP 110/70
[2022-12-08] MEDS: VERAPAMIL HCL 240 MG ER TABLET PO SCH (08:31)
[2022-12-08] MEDS: CITALOPRAM HYDROBROMIDE 20 MG TABLET PO SCH (08:31)
[2022-12-08] MEDS: HALOPERIDOL 5 MG TABLET PO PRN (14:59)
[2022-12-08] MEDS: LORazepam 2 MG TABLET PO PRN (14:59)
[2022-12-08 16:17] VITALS: BP 116/75
[2022-12-08] MEDS: ZOLPIDEM TARTRATE 10 MG TABLET PO PRN (20:37)
[2022-12-08] MEDS: QUEtiapine FUMARATE 300 MG TABLET PO SCH (20:37)
[2022-12-08 20:57] VITALS: BP 121/71
[2022-12-09] MEDS: VERAPAMIL HCL 240 MG ER TABLET PO SCH (09:25)
[2022-12-09] MEDS: CITALOPRAM HYDROBROMIDE 20 MG TABLET PO SCH (09:25)
[2022-12-09 09:27] VITALS: BP 105/67
[2022-12-09] MEDS: HALOPERIDOL 5 MG TABLET PO PRN (10:51)
[2022-12-09] MEDS: LORazepam 2 MG TABLET PO PRN (10:51)
[2022-12-09] MEDS: IBUPROFEN 600 MG TABLET PO PRN (14:36)
[2022-12-09] MEDS: GABAPENTIN 300 MG CAPSULE PO SCH (19:05)
[2022-12-09 20:46] VITALS: BP 146/72
[2022-12-09] MEDS: QUEtiapine FUMARATE 300 MG TABLET PO SCH (21:05)
[2022-12-10] MEDS: ZOLPIDEM TARTRATE 10 MG TABLET PO PRN ×2 (02:20→20:39)
[2022-12-10] MEDS: VERAPAMIL HCL 240 MG ER TABLET PO SCH (08:57)
[2022-12-10] MEDS: CITALOPRAM HYDROBROMIDE 20 MG TABLET PO SCH (08:58)
[2022-12-10] MEDS: GABAPENTIN 300 MG CAPSULE PO SCH ×3 (08:58→16:05)
[2022-12-10 09:10] VITALS: BP 121/66
[2022-12-10] MEDS: DOXYCYCLINE HYCLATE 100 MG TABLET PO SCH ×2 (09:53→16:05)
[2022-12-10] MEDS: NYSTATIN 30 GM CREAM TP SCH ×2 (13:56→16:05)
[2022-12-10] MEDS: LORazepam 2 MG TABLET PO PRN (16:05)
[2022-12-10 20:30] VITALS: BP 122/56
[2022-12-10] MEDS: QUEtiapine FUMARATE 300 MG TABLET PO SCH (20:35)
[2022-12-11 08:41] VITALS: BP 126/82
[2022-12-11] MEDS: VERAPAMIL HCL 240 MG ER TABLET PO SCH (09:07)
[2022-12-11] MEDS: DOXYCYCLINE HYCLATE 100 MG TABLET PO SCH ×2 (09:07→16:37)
[2022-12-11] MEDS: GABAPENTIN 300 MG CAPSULE PO SCH ×3 (09:08→16:37)
[2022-12-11] MEDS: NYSTATIN 30 GM CREAM TP SCH ×2 (09:08→16:37)
[2022-12-11] MEDS: CITALOPRAM HYDROBROMIDE 20 MG TABLET PO SCH (09:08)
[2022-12-11 16:21] VITALS: BP 137/86
[2022-12-11] MEDS: IBUPROFEN 600 MG TABLET PO PRN (16:23)
[2022-12-11] MEDS: LORazepam 2 MG TABLET PO PRN (16:23)
[2022-12-11 20:15] VITALS: BP 133/68
[2022-12-11] MEDS: QUEtiapine FUMARATE 300 MG TABLET PO SCH (20:18)
[2022-12-11] MEDS: ZOLPIDEM TARTRATE 10 MG TABLET PO PRN (20:32)
[2022-12-12 07:48] LABS: GLUCOMETER DEV NAME(LOC) POC.BV
[2022-12-12 08:37] VITALS: BP 112/67
[2022-12-12] MEDS: CITALOPRAM HYDROBROMIDE 20 MG TABLET PO SCH (08:48)
[2022-12-12] MEDS: DOXYCYCLINE HYCLATE 100 MG TABLET PO SCH ×2 (08:48→16:27)
[2022-12-12] MEDS: GABAPENTIN 300 MG CAPSULE PO SCH ×3 (08:48→16:27)
[2022-12-12] MEDS: NYSTATIN 30 GM CREAM TP SCH ×2 (08:48→17:12)
[2022-12-12] MEDS: VERAPAMIL HCL 240 MG ER TABLET PO SCH (08:48)
[2022-12-12] MEDS: IBUPROFEN 600 MG TABLET PO PRN (11:19)
[2022-12-12] MEDS: LORazepam 2 MG TABLET PO PRN ×2 (11:55→21:12)
[2022-12-12] MEDS: QUEtiapine FUMARATE 300 MG TABLET PO SCH (20:11)
[2022-12-12 20:21] VITALS: BP 125/72
[2022-12-12] MEDS: ZOLPIDEM TARTRATE 10 MG TABLET PO PRN (22:08)
[2022-12-13 08:35] VITALS: BP 126/78
[2022-12-13] MEDS: CITALOPRAM HYDROBROMIDE 20 MG TABLET PO SCH (08:49)
[2022-12-13] MEDS: GABAPENTIN 300 MG CAPSULE PO SCH ×3 (08:49→16:31)
[2022-12-13] MEDS: DOXYCYCLINE HYCLATE 100 MG TABLET PO SCH ×2 (08:50→16:31)
[2022-12-13] MEDS: VERAPAMIL HCL 240 MG ER TABLET PO SCH (08:50)
[2022-12-13] MEDS: NYSTATIN 30 GM CREAM TP SCH ×2 (08:51→17:07)
[2022-12-13] MEDS: LORazepam 2 MG TABLET PO PRN (17:07)
[2022-12-13] MEDS: HALOPERIDOL 5 MG TABLET PO PRN (17:08)
[2022-12-13 17:11] VITALS: BP 129/72
[2022-12-13] MEDS: IBUPROFEN 600 MG TABLET PO PRN (17:11)
[2022-12-13] MEDS: QUEtiapine FUMARATE 300 MG TABLET PO SCH (20:13)
[2022-12-13 21:42] VITALS: BP 119/64
[2022-12-14 08:24] VITALS: BP 108/63
[2022-12-14] MEDS: VERAPAMIL HCL 240 MG ER TABLET PO SCH (08:46)
[2022-12-14] MEDS: GABAPENTIN 300 MG CAPSULE PO SCH ×3 (08:46→16:50)
[2022-12-14] MEDS: DOXYCYCLINE HYCLATE 100 MG TABLET PO SCH ×2 (08:46→16:50)
[2022-12-14] MEDS: CITALOPRAM HYDROBROMIDE 20 MG TABLET PO SCH (08:46)
[2022-12-14] MEDS: NYSTATIN 30 GM CREAM TP SCH ×2 (08:47→16:51)
[2022-12-14] MEDS: LORazepam 2 MG TABLET PO PRN (14:05)
[2022-12-14 20:05] VITALS: BP 137/77
[2022-12-14] MEDS: QUEtiapine FUMARATE 300 MG TABLET PO SCH (21:15)
[2022-12-14] MEDS: ZOLPIDEM TARTRATE 10 MG TABLET PO PRN (21:43)
[2022-12-15 08:47] VITALS: BP 115/69
[2022-12-15] MEDS: CITALOPRAM HYDROBROMIDE 20 MG TABLET PO SCH (09:29)
[2022-12-15] MEDS: VERAPAMIL HCL 240 MG ER TABLET PO SCH (09:29)
[2022-12-15] MEDS: GABAPENTIN 300 MG CAPSULE PO SCH ×3 (09:29→16:56)
[2022-12-15] MEDS: DOXYCYCLINE HYCLATE 100 MG TABLET PO SCH ×2 (09:29→16:56)
[2022-12-15] MEDS: NYSTATIN 30 GM CREAM TP SCH ×2 (09:30→16:59)
[2022-12-15] MEDS: LORazepam 2 MG TABLET PO PRN (12:58)
[2022-12-15] MEDS: HALOPERIDOL 5 MG TABLET PO PRN (12:58)
[2022-12-15] MEDS: QUEtiapine FUMARATE 300 MG TABLET PO SCH (21:50)
[2022-12-15] MEDS: ZOLPIDEM TARTRATE 10 MG TABLET PO PRN (21:50)
[2022-12-15 22:04] VITALS: BP 138/81
[2022-12-15] MEDS: MAG HYDROX/AL HYDROX/SIMETH ES 30 ML SUSPENSION UDCUP PO PRN (22:31)
[2022-12-16 00:05] VITALS: BP 140/88
[2022-12-16 09:44] VITALS: BP 122/77
[2022-12-16] MEDS: DOXYCYCLINE HYCLATE 100 MG TABLET PO SCH ×2 (09:47→16:47)
[2022-12-16] MEDS: VERAPAMIL HCL 240 MG ER TABLET PO SCH (09:47)
[2022-12-16] MEDS: GABAPENTIN 300 MG CAPSULE PO SCH ×3 (09:47→16:47)
[2022-12-16] MEDS: NYSTATIN 30 GM CREAM TP SCH ×2 (09:48→16:48)
[2022-12-16] MEDS: CITALOPRAM HYDROBROMIDE 20 MG TABLET PO SCH (09:48)
[2022-12-16] MEDS: MAG HYDROX/AL HYDROX/SIMETH ES 30 ML SUSPENSION UDCUP PO PRN (18:37)
[2022-12-16] MEDS: QUEtiapine FUMARATE 300 MG TABLET PO SCH (20:02)
[2022-12-16 20:40] VITALS: BP 131/78
[2022-12-16] MEDS: ZOLPIDEM TARTRATE 10 MG TABLET PO PRN (21:51)
[2022-12-17 08:45] VITALS: BP 136/74
[2022-12-17] MEDS: CITALOPRAM HYDROBROMIDE 20 MG TABLET PO SCH (08:48)
[2022-12-17] MEDS: VERAPAMIL HCL 240 MG ER TABLET PO SCH (08:48)
[2022-12-17] MEDS: DOXYCYCLINE HYCLATE 100 MG TABLET PO SCH ×2 (08:48→16:20)
[2022-12-17] MEDS: GABAPENTIN 300 MG CAPSULE PO SCH ×3 (08:48→16:20)
[2022-12-17] MEDS: NYSTATIN 30 GM CREAM TP SCH ×2 (08:49→16:28)
[2022-12-17] MEDS: HALOPERIDOL 5 MG TABLET PO PRN (13:25)
[2022-12-17] MEDS: LORazepam 2 MG TABLET PO PRN (13:25)
[2022-12-17] MEDS: QUEtiapine FUMARATE 300 MG TABLET PO SCH (20:13)
[2022-12-17 20:53] VITALS: BP 125/67
[2022-12-17] MEDS: ZOLPIDEM TARTRATE 10 MG TABLET PO PRN (21:11)
[2022-12-18 08:30] VITALS: BP 130/76
[2022-12-18] MEDS: VERAPAMIL HCL 240 MG ER TABLET PO SCH (09:00)
[2022-12-18] MEDS: GABAPENTIN 300 MG CAPSULE PO SCH ×3 (09:00→16:14)
[2022-12-18] MEDS: DOXYCYCLINE HYCLATE 100 MG TABLET PO SCH ×2 (09:00→16:13)
[2022-12-18] MEDS: CITALOPRAM HYDROBROMIDE 20 MG TABLET PO SCH (09:00)
[2022-12-18] MEDS: NYSTATIN 30 GM CREAM TP SCH ×2 (09:01→16:14)
[2022-12-18] MEDS: MAG HYDROX/AL HYDROX/SIMETH ES 30 ML SUSPENSION UDCUP PO PRN (19:58)
[2022-12-18] MEDS: QUEtiapine FUMARATE 300 MG TABLET PO SCH (20:00)
[2022-12-18 21:10] VITALS: BP 135/86
[2022-12-18] MEDS: ZOLPIDEM TARTRATE 10 MG TABLET PO PRN (22:07)
[2022-12-18] MEDS ORDERED: CITA-144 PO (22:09)
[2022-12-18] MEDS ORDERED: GABA-1181 PO (22:09)
[2022-12-18] MEDS ORDERED: QUET300T19 PO (22:09)
[2022-12-19 07:30] LABS: GLUCOMETER DEV NAME(LOC) POC.BV
[2022-12-19 08:32] VITALS: BP 109/70
[2022-12-19] MEDS: NYSTATIN 30 GM CREAM TP SCH (09:44)
[2022-12-19] MEDS: VERAPAMIL HCL 240 MG ER TABLET PO SCH (09:44)
[2022-12-19] MEDS: GABAPENTIN 300 MG CAPSULE PO SCH (09:44)
[2022-12-19] MEDS: DOXYCYCLINE HYCLATE 100 MG TABLET PO SCH (09:44)
[2022-12-19] MEDS: CITALOPRAM HYDROBROMIDE 20 MG TABLET PO SCH (09:44)
== END 2022-12-19 10:30 | disposition home or self-care (01) | DRG 750 ==
LOC: EMS 23:41 → B2S 12-05 02:00
PROVIDERS: ADMIT Psychiatry & Neurology Psychiatry; ATTEND Psychiatry & Neurology Psychiatry
DX: F25.9 Schizoaffective disorder, unspecified (principal); R45.851 Suicidal ideations; F10.10 Alcohol abuse, uncomplicated; F41.9 Anxiety disorder, unspecified; I10 Essential (primary) hypertension; G47.00 Insomnia, unspecified; K59.00 Constipation, unspecified; E66.9 Obesity, unspecified; E87.6 Hypokalemia; J44.9 Chronic obstructive pulmonary disease, unspecified; Z91.013 Allergy to seafood; Z91.011 Allergy to milk products; Z88.5 Allergy status to narcotic agent; Z88.8 Allergy status to other drugs, medicaments and biological substances; Z72.0 Tobacco use; Z91.012 Allergy to eggs; Z68.39 Body mass index [BMI] 39.0-39.9, adult; Z71.6 Tobacco abuse counseling; B19.20 Unspecified viral hepatitis C without hepatic coma; K21.9 Gastro-esophageal reflux disease without esophagitis; Z53.20 Procedure and treatment not carried out because of patient's decision for unspecified reasons
CPT/HCPCS: 80053; 85025; 99285; G0480; Q0162

== ENCOUNTER 2023-01-24 18:50 | Inpatient (IN) | payer MEDICARE, MEDICAID ==
[~2023-01-24] VITALS: Ht 165.1 cm; Wt 108.0 kg
[~2023-01-24 18:50] MED LIST changes: +CITA-144 PO
[2023-01-24] MEDS ORDERED: GABA-1181 PO (19:04)
[2023-01-24] MEDS ORDERED: ZOLP10TA8 PO (19:04)
[2023-01-24 23:07] LABS: COVID AG,FIA SOURCE NASOPHARYNGEAL
[2023-01-24 23:10] LABS: BASOPHILS % (AUTO) 1.1 % (0.0-2.0); HEMATOCRIT 41.4 % (36-46); HEMOGLOBIN 13.6 g/dL (12.0-16.0); LYMPHOCYTES # (AUTO) 3.5 K/uL (1.0-4.8); LYMPHOCYTES % (AUTO) 48.6 % (22.0-44.0); MEAN CORPUSCULAR HEMOGLOBIN 27.2 pg (26.0-34.0); MEAN CORPUSCULAR VOLUME 83 fL (80-100); MONOCYTES # (AUTO) 0.5 K/uL (0.1-1.0); MONOCYTES % (AUTO) 7.6 % (2.0-9.0); NEUTROPHILS # (AUTO) 2.9 K/uL (1.8-7.7); NEUTROPHILS % (AUTO) 39.7 % (40.0-70.0); PLATELET COUNT (AUTO) 308 K/uL (150-450); RED BLOOD CELL COUNT(AUTO) 5.01 MIL/uL (4.00-5.20); RED CELL DISTRIBUTION WIDTH 15.8 % (11.5-14.5)
[2023-01-24 23:21] LABS: ANION GAP 9 mmol/L (8-16); CALCIUM, TOTAL 9.9 mg/dL (8.8-10.5); CARBON DIOXIDE 27 mmol/L (22-29); CHLORIDE 105 mmol/L (98-107); CREATININE 0.71 mg/dL (0.60-1.30); GLOMERULAR FILTR. RATE CALC > 60 mL/min (>60); GLUCOSE,RANDOM 83 mg/dL (70-110); POTASSIUM 3.8 mmol/L (3.5-5.1); SODIUM SERUM 141 mmol/L (136-145); UREA NITROGEN, BLOOD 8 mg/dL (7-18)
[2023-01-24 23:27] LABS: ALANINE AMINOTRANSFERASE 17 U/L (12-78); ALBUMIN 3.8 g/dL (3.4-5.0); ALKALINE PHOSPHATASE 117 U/L (46-116); ASPARTATE AMINOTRANSFERASE 21 U/L (15-37); BILIRUBIN,TOTAL 0.2 mg/dL (0.1-1.0); TOTAL PROTEIN, SERUM 8.7 g/dL (6.4-8.2)
[2023-01-25 01:15] LABS: AMPHET/METH SCREEN,URINE NEGATIVE (NEGATIVE); BARBITURATE SCREEN, URINE NEGATIVE (NEGATIVE); BENZODIAZEPINES SCREEN,URINE NEGATIVE (NEGATIVE); CANNABINOID SCREEN,URINE NEGATIVE (NEGATIVE); COCAINE SCREEN,URINE NEGATIVE (NEGATIVE); METHADONE SCREEN, URINE NEGATIVE (NEGATIVE); OPIATE SCREEN,URINE NEGATIVE (NEGATIVE); PHENCYCLIDINE SCREEN,URINE NEGATIVE (NEGATIVE)
[2023-01-25] MEDS: LORazepam 2 MG TABLET PO PRN (03:21)
[2023-01-25] MEDS: HALOPERIDOL 5 MG TABLET PO PRN (03:21)
[2023-01-25 03:34] VITALS: BP 151/96
[2023-01-25 08:00] VITALS: BP 117/81
[2023-01-25] MEDS: CITALOPRAM HYDROBROMIDE 20 MG TABLET PO SCH (12:05)
[2023-01-25 16:45] VITALS: BP 133/84
[2023-01-25 21:58] VITALS: BP 140/83
[2023-01-25] MEDS: ZOLPIDEM TARTRATE 10 MG TABLET PO PRN (22:38)
[2023-01-25] MEDS: QUEtiapine FUMARATE 300 MG TABLET PO SCH (22:38)
[2023-01-26] MEDS: CITALOPRAM HYDROBROMIDE 20 MG TABLET PO SCH (09:25)
[2023-01-26 16:07] VITALS: BP 147/97
[2023-01-26] MEDS: QUEtiapine FUMARATE 300 MG TABLET PO SCH (21:21)
[2023-01-26] MEDS: HALOPERIDOL 5 MG TABLET PO PRN (21:45)
[2023-01-26] MEDS: LORazepam 2 MG TABLET PO PRN (21:46)
[2023-01-26 22:44] VITALS: BP 138/81
[2023-01-26] MEDS: ZOLPIDEM TARTRATE 10 MG TABLET PO PRN (23:33)
[2023-01-27] MEDS: CITALOPRAM HYDROBROMIDE 20 MG TABLET PO SCH (08:39)
[2023-01-27 09:04] VITALS: BP 134/61
[2023-01-27 16:45] VITALS: BP 115/77
[2023-01-27] MEDS: LORazepam 2 MG TABLET PO PRN (19:32)
[2023-01-27] MEDS: HALOPERIDOL 5 MG TABLET PO PRN (19:42)
[2023-01-27 20:46] VITALS: BP 137/78
[2023-01-27] MEDS: QUEtiapine FUMARATE 300 MG TABLET PO SCH (21:08)
[2023-01-27] MEDS: ZOLPIDEM TARTRATE 10 MG TABLET PO PRN (22:24)
[2023-01-28] MEDS: LORazepam 2 MG TABLET PO PRN ×2 (01:14→19:38)
[2023-01-28] MEDS: HALOPERIDOL 5 MG TABLET PO PRN ×2 (01:14→19:38)
[2023-01-28] MEDS: CITALOPRAM HYDROBROMIDE 20 MG TABLET PO SCH (08:50)
[2023-01-28 10:47] VITALS: BP 139/83
[2023-01-28 16:39] VITALS: BP 145/93
[2023-01-28] MEDS: QUEtiapine FUMARATE 300 MG TABLET PO SCH (20:07)
[2023-01-28 20:24] VITALS: BP 140/82
[2023-01-28] MEDS: ZOLPIDEM TARTRATE 10 MG TABLET PO PRN (21:34)
[2023-01-29] MEDS: HALOPERIDOL 5 MG TABLET PO PRN (05:57)
[2023-01-29] MEDS: LORazepam 2 MG TABLET PO PRN (05:57)
[2023-01-29] MEDS: CITALOPRAM HYDROBROMIDE 20 MG TABLET PO SCH (10:06)
[2023-01-29] MEDS: VERAPAMIL HCL 240 MG ER TABLET PO SCH (15:19)
[2023-01-29 16:00] VITALS: BP 141/99
[2023-01-29 20:15] VITALS: BP 139/80
[2023-01-29] MEDS: QUEtiapine FUMARATE 300 MG TABLET PO SCH (20:55)
[2023-01-29] MEDS: ZOLPIDEM TARTRATE 10 MG TABLET PO PRN (21:55)
[2023-01-30 07:57] LABS: COVID AG,FIA SOURCE NASAL SWAB
[2023-01-30 08:00] VITALS: BP 134/66
[2023-01-30] MEDS: VERAPAMIL HCL 240 MG ER TABLET PO SCH (09:04)
[2023-01-30] MEDS: CITALOPRAM HYDROBROMIDE 20 MG TABLET PO SCH (09:04)
[2023-01-30 16:26] VITALS: BP 130/80
[2023-01-30] MEDS: LORazepam 2 MG TABLET PO PRN ×3 (16:59→21:15)
[2023-01-30] MEDS: HALOPERIDOL 5 MG TABLET PO PRN ×3 (16:59→21:15)
[2023-01-30 21:24] VITALS: BP 132/82
[2023-01-30] MEDS: QUEtiapine FUMARATE 300 MG TABLET PO SCH (21:27)
[2023-01-30] MEDS: ZOLPIDEM TARTRATE 10 MG TABLET PO PRN (21:27)
[2023-01-31 11:21] VITALS: BP 125/67
[2023-01-31] MEDS: VERAPAMIL HCL 240 MG ER TABLET PO SCH (11:22)
[2023-01-31] MEDS: CITALOPRAM HYDROBROMIDE 20 MG TABLET PO SCH (11:23)
[2023-01-31 16:20] VITALS: BP 124/56
[2023-01-31] MEDS: LORazepam 2 MG TABLET PO PRN (19:45)
[2023-01-31] MEDS: HALOPERIDOL 5 MG TABLET PO PRN (19:45)
[2023-01-31 20:48] VITALS: BP 135/84
[2023-01-31] MEDS: QUEtiapine FUMARATE 300 MG TABLET PO SCH (20:58)
[2023-01-31] MEDS: ZOLPIDEM TARTRATE 10 MG TABLET PO PRN (20:58)
[2023-02-01 08:00] VITALS: BP 115/64
[2023-02-01] MEDS: VERAPAMIL HCL 240 MG ER TABLET PO SCH (09:29)
[2023-02-01] MEDS: CITALOPRAM HYDROBROMIDE 20 MG TABLET PO SCH (09:30)
[2023-02-01 16:10] VITALS: BP 133/79
[2023-02-01] MEDS: LORazepam 2 MG TABLET PO PRN (16:12)
[2023-02-01] MEDS: HALOPERIDOL 5 MG TABLET PO PRN (16:12)
[2023-02-01] MEDS: QUEtiapine FUMARATE 300 MG TABLET PO SCH (20:28)
[2023-02-01 21:38] VITALS: BP 151/72
[2023-02-01] MEDS: ZOLPIDEM TARTRATE 10 MG TABLET PO PRN (21:54)
[2023-02-02] MEDS: VERAPAMIL HCL 240 MG ER TABLET PO SCH (09:39)
[2023-02-02] MEDS: CITALOPRAM HYDROBROMIDE 20 MG TABLET PO SCH (09:39)
[2023-02-02 09:54] VITALS: BP 122/72
[2023-02-02] MEDS: LORazepam 1 MG TABLET PO PRN (19:57)
[2023-02-02] MEDS: HALOPERIDOL 5 MG TABLET PO PRN (19:57)
[2023-02-02] MEDS: QUEtiapine FUMARATE 300 MG TABLET PO SCH (21:02)
[2023-02-02] MEDS: ZOLPIDEM TARTRATE 10 MG TABLET PO PRN (21:02)
[2023-02-02] MEDS ORDERED: BENZOCAINE/MENTHOL LOZENGE PO PRN (21:30)
[2023-02-02] MEDS ORDERED: ALBUTEROL SULFATE HFA 90 MCG/PUFF 8 GM INHALER IH PRN (21:30)
[2023-02-02] MEDS ORDERED: PETROLATUM,WHITE 28 GM JELLY TP PRN (21:30)
[2023-02-02] MEDS ORDERED: MAGNESIUM HYDROXIDE SUSPENSION 30 ML UDCUP PO PRN (21:30)
[2023-02-02] MEDS ORDERED: ONDANSETRON HCL 4 MG TABLET PO PRN (21:30)
[2023-02-02] MEDS ORDERED: DOCUSATE SODIUM 100 MG CAPSULE PO PRN (21:30)
[2023-02-02] MEDS ORDERED: MAG HYDROX/AL HYDROX/SIMETH ES 30 ML SUSPENSION UDCUP PO PRN (21:30)
[2023-02-02] MEDS ORDERED: CloNIDine HCL 0.1 MG TABLET PO PRN (21:30)
[2023-02-02] MEDS ORDERED: LOPERAMIDE HCL 2 MG CAPSULE PO PRN (21:30)
[2023-02-02] MEDS ORDERED: BACITRACIN 28 GM OINTMENT TP PRN (21:30)
[2023-02-02] MEDS ORDERED: OMEPRAZOLE 20 MG CAPSULE PO PRN (21:30)
[2023-02-02 21:49] VITALS: BP 150/86
[2023-02-02 23:15] VITALS: BP 158/91
[2023-02-02] MEDS: IBUPROFEN 600 MG TABLET PO PRN (23:31)
[2023-02-03] MEDS: VERAPAMIL HCL 240 MG ER TABLET PO SCH (13:42)
[2023-02-03] MEDS: CITALOPRAM HYDROBROMIDE 20 MG TABLET PO SCH (13:43)
[2023-02-03] MEDS: LORazepam 1 MG TABLET PO PRN (15:51)
[2023-02-03] MEDS: HALOPERIDOL 5 MG TABLET PO PRN (15:52)
[2023-02-03 16:17] VITALS: BP 131/76
[2023-02-03] MEDS: QUEtiapine FUMARATE 300 MG TABLET PO SCH (20:21)
[2023-02-03 20:23] VITALS: BP 140/89
[2023-02-03] MEDS: ZOLPIDEM TARTRATE 10 MG TABLET PO PRN (22:02)
[2023-02-03 23:00] VITALS: BP 136/78
[2023-02-03] MEDS: IBUPROFEN 600 MG TABLET PO PRN (23:04)
[2023-02-04] MEDS: CITALOPRAM HYDROBROMIDE 20 MG TABLET PO SCH (09:00)
[2023-02-04] MEDS: VERAPAMIL HCL 240 MG ER TABLET PO SCH (14:29)
[2023-02-04] MEDS ORDERED: VERA240T96 PO (16:14)
== END 2023-02-04 17:16 | disposition home or self-care (01) | DRG 750 ==
LOC: EMS 18:51 → 3EI 01-25 02:07
PROVIDERS: ADMIT Psychiatry & Neurology Psychiatry; ATTEND Psychiatry & Neurology Psychiatry
DX: F25.1 Schizoaffective disorder, depressive type (principal); R45.851 Suicidal ideations; K74.60 Unspecified cirrhosis of liver; F10.10 Alcohol abuse, uncomplicated; F31.9 Bipolar disorder, unspecified; I10 Essential (primary) hypertension; J44.9 Chronic obstructive pulmonary disease, unspecified; M54.9 Dorsalgia, unspecified; K21.9 Gastro-esophageal reflux disease without esophagitis; F41.9 Anxiety disorder, unspecified; K59.00 Constipation, unspecified; B19.20 Unspecified viral hepatitis C without hepatic coma; Z20.822 Contact with and (suspected) exposure to COVID-19; G47.00 Insomnia, unspecified; Y90.9 Presence of alcohol in blood, level not specified; E66.9 Obesity, unspecified; Z72.0 Tobacco use; Z88.1 Allergy status to other antibiotic agents; Z91.012 Allergy to eggs; Z91.011 Allergy to milk products; Z88.5 Allergy status to narcotic agent; Z91.013 Allergy to seafood; Z68.39 Body mass index [BMI] 39.0-39.9, adult
CPT/HCPCS: 80053; 80307; 85025; 87081; 99285; G0480

== ENCOUNTER 2023-03-19 17:46 | Inpatient (IN) | payer MEDICARE, MEDICAID ==
[~2023-03-19] VITALS: Ht 165.1 cm; Wt 108.0 kg
[2023-03-20] MEDS ORDERED: DiphenhydrAMINE HCL 25 MG CAPSULE PO ONE (00:15)
[2023-03-20] MEDS ORDERED: LORazepam 2 MG TABLET PO ONE (00:15)
[2023-03-20] MEDS ORDERED: HALOPERIDOL 5 MG TABLET PO ONE (00:15)
[2023-03-20 00:27] LABS: BASOPHILS % (AUTO) 1.3 % (0.0-2.0); EOSINOPHILS % (AUTO) 2.4 % (1.0-6.0); HEMATOCRIT 36.9 % (36-46); HEMOGLOBIN 12.2 g/dL (12.0-16.0); LYMPHOCYTES # (AUTO) 3.5 K/uL (1.0-4.8); LYMPHOCYTES % (AUTO) 44.7 % (22.0-44.0); MEAN CORPUSCULAR HEMOGLOBIN 27.3 pg (26.0-34.0); MEAN CORPUSCULAR VOLUME 83 fL (80-100); MONOCYTES # (AUTO) 0.6 K/uL (0.1-1.0); MONOCYTES % (AUTO) 7.6 % (2.0-9.0); NEUTROPHILS # (AUTO) 3.4 K/uL (1.8-7.7); PLATELET COUNT (AUTO) 316 K/uL (150-450); RED BLOOD CELL COUNT(AUTO) 4.46 MIL/uL (4.00-5.20)
[2023-03-20 00:45] LABS: ALANINE AMINOTRANSFERASE 17 U/L (12-78); ALBUMIN 3.5 g/dL (3.4-5.0); ALKALINE PHOSPHATASE 113 U/L (46-116); ANION GAP 12 mmol/L (8-16); ASPARTATE AMINOTRANSFERASE 22 U/L (15-37); BILIRUBIN,TOTAL 0.5 mg/dL (0.1-1.0); CALCIUM, TOTAL 8.6 mg/dL (8.8-10.5); CARBON DIOXIDE 22 mmol/L (22-29); CHLORIDE 105 mmol/L (98-107); CREATININE 0.75 mg/dL (0.60-1.30); GLOMERULAR FILTR. RATE CALC > 60 mL/min (>60); GLUCOSE,RANDOM 104 mg/dL (70-110); SODIUM SERUM 139 mmol/L (136-145); TOTAL PROTEIN, SERUM 8.2 g/dL (6.4-8.2)
[2023-03-20 00:47] LABS: POTASSIUM 2.8 mmol/L (3.5-5.1)
[2023-03-20] MEDS ORDERED: POTASSIUM CHLORIDE 20 MEQ ER TABLET PO ONE ×2 (01:00→16:15)
[2023-03-20 01:12] LABS: COVID AG,FIA SOURCE NASAL SWAB
[2023-03-20] MEDS: ZOLPIDEM TARTRATE 10 MG TABLET PO PRN ×2 (02:23→20:59)
[2023-03-20 07:18] VITALS: BP 133/69
[2023-03-20 07:26] VITALS: BP 133/69
[2023-03-20 13:10] VITALS: BP 133/69
[2023-03-20 16:06] VITALS: BP 158/88
[2023-03-20] MEDS: LORazepam 2 MG TABLET PO PRN (21:00)
[2023-03-20] MEDS: QUEtiapine FUMARATE 300 MG TABLET PO SCH (21:36)
[2023-03-20 22:58] VITALS: BP 150/91
[2023-03-21] MEDS: VERAPAMIL HCL 240 MG ER TABLET PO SCH (08:47)
[2023-03-21] MEDS: CITALOPRAM HYDROBROMIDE 20 MG TABLET PO SCH (08:47)
[2023-03-21 09:04] VITALS: BP 135/71
[2023-03-21] MEDS: LORazepam 2 MG TABLET PO PRN (20:05)
[2023-03-21] MEDS: HALOPERIDOL 5 MG TABLET PO PRN (20:05)
[2023-03-21 21:18] VITALS: BP 113/80
[2023-03-21] MEDS: ZOLPIDEM TARTRATE 10 MG TABLET PO PRN (21:56)
[2023-03-21] MEDS: QUEtiapine FUMARATE 300 MG TABLET PO SCH (21:56)
[2023-03-22] MEDS: CITALOPRAM HYDROBROMIDE 20 MG TABLET PO SCH (08:53)
[2023-03-22] MEDS: VERAPAMIL HCL 240 MG ER TABLET PO SCH (08:53)
[2023-03-22 08:58] LABS: ANION GAP 8 mmol/L (8-16); CALCIUM, TOTAL 8.7 mg/dL (8.8-10.5); CARBON DIOXIDE 25 mmol/L (22-29); CHLORIDE 107 mmol/L (98-107); CHOL/HDL RATIO 4.9 (3.9-5.7); CHOLESTEROL 171 mg/dL (131-200); CREATININE 0.65 mg/dL (0.60-1.30); GLOMERULAR FILTR. RATE CALC > 60 mL/min (>60); GLUCOSE,RANDOM 88 mg/dL (70-110); HDL CHOLESTEROL 35 mg/dL (40-60); LDL CHOL (CALC.) 117 mg/dL (0-130); POTASSIUM 3.9 mmol/L (3.5-5.1); SODIUM SERUM 140 mmol/L (136-145); THYROID STIMULATING HORMONE 1.67 uIU/mL (0.36-3.74); TRIGLYCERIDES 93 mg/dL (15-150)
[2023-03-22 09:45] VITALS: BP 130/77
[2023-03-22 16:26] VITALS: BP 109/55
[2023-03-22] MEDS: HALOPERIDOL 5 MG TABLET PO PRN (18:10)
[2023-03-22] MEDS: QUEtiapine FUMARATE 300 MG TABLET PO SCH (21:22)
[2023-03-22] MEDS: LORazepam 2 MG TABLET PO PRN (21:25)
[2023-03-22] MEDS: ZOLPIDEM TARTRATE 10 MG TABLET PO PRN (21:25)
[2023-03-22 21:47] VITALS: BP 134/85
[2023-03-23 11:21] VITALS: BP 107/71
[2023-03-23] MEDS: VERAPAMIL HCL 240 MG ER TABLET PO SCH (11:32)
[2023-03-23] MEDS: CITALOPRAM HYDROBROMIDE 20 MG TABLET PO SCH (11:33)
[2023-03-23 20:41] VITALS: BP 141/77
[2023-03-23] MEDS: LORazepam 2 MG TABLET PO PRN (21:29)
[2023-03-23] MEDS: ZOLPIDEM TARTRATE 10 MG TABLET PO PRN (21:29)
[2023-03-23] MEDS: QUEtiapine FUMARATE 300 MG TABLET PO SCH (21:29)
[2023-03-24 08:30] VITALS: BP 117/67
[2023-03-24] MEDS: VERAPAMIL HCL 240 MG ER TABLET PO SCH (08:58)
[2023-03-24] MEDS: CITALOPRAM HYDROBROMIDE 20 MG TABLET PO SCH (08:58)
[2023-03-24 16:17] VITALS: BP 110/62
[2023-03-24] MEDS: QUEtiapine FUMARATE 300 MG TABLET PO SCH (20:50)
[2023-03-24 21:15] VITALS: BP 124/72
[2023-03-24] MEDS: ZOLPIDEM TARTRATE 10 MG TABLET PO PRN (21:29)
[2023-03-24] MEDS: LORazepam 2 MG TABLET PO PRN (22:08)
[2023-03-25 08:45] VITALS: BP 120/70
[2023-03-25] MEDS: CITALOPRAM HYDROBROMIDE 20 MG TABLET PO SCH (09:00)
[2023-03-25] MEDS: VERAPAMIL HCL 240 MG ER TABLET PO SCH (09:00)
[2023-03-25 21:33] VITALS: BP 134/85
[2023-03-25] MEDS: QUEtiapine FUMARATE 100 MG TABLET PO SCH (21:41)
[2023-03-25] MEDS: ZOLPIDEM TARTRATE 10 MG TABLET PO PRN (21:41)
[2023-03-25] MEDS: HALOPERIDOL 5 MG TABLET PO PRN (21:41)
[2023-03-26] MEDS: CITALOPRAM HYDROBROMIDE 20 MG TABLET PO SCH (08:59)
[2023-03-26] MEDS: VERAPAMIL HCL 240 MG ER TABLET PO SCH (08:59)
[2023-03-26] MEDS: HALOPERIDOL 5 MG TABLET PO PRN ×2 (17:01→21:25)
[2023-03-26 17:29] LABS: COVID AG,FIA SOURCE NASAL SWAB
[2023-03-26 17:42] VITALS: BP 105/61
[2023-03-26 20:47] VITALS: BP 123/73
[2023-03-26] MEDS: ZOLPIDEM TARTRATE 10 MG TABLET PO PRN (21:25)
[2023-03-26] MEDS: QUEtiapine FUMARATE 100 MG TABLET PO SCH (21:25)
[2023-03-27 09:30] VITALS: BP 133/73
[2023-03-27] MEDS: CITALOPRAM HYDROBROMIDE 20 MG TABLET PO SCH (09:37)
[2023-03-27] MEDS: VERAPAMIL HCL 240 MG ER TABLET PO SCH (09:37)
[2023-03-27 21:29] VITALS: BP 135/84
[2023-03-27] MEDS: QUEtiapine FUMARATE 100 MG TABLET PO SCH (21:51)
[2023-03-27] MEDS: ZOLPIDEM TARTRATE 10 MG TABLET PO PRN (21:52)
[2023-03-27] MEDS: HALOPERIDOL 5 MG TABLET PO PRN (21:52)
[2023-03-28] MEDS: CITALOPRAM HYDROBROMIDE 20 MG TABLET PO SCH (08:34)
[2023-03-28] MEDS: VERAPAMIL HCL 240 MG ER TABLET PO SCH (08:34)
[2023-03-28 10:50] VITALS: BP 139/87
[2023-03-28] MEDS: QUEtiapine FUMARATE 100 MG TABLET PO SCH (21:28)
[2023-03-28 21:51] VITALS: BP 153/80
[2023-03-28] MEDS: HALOPERIDOL 5 MG TABLET PO PRN (22:44)
[2023-03-28] MEDS: ZOLPIDEM TARTRATE 10 MG TABLET PO PRN (22:44)
[2023-03-29] MEDS: CITALOPRAM HYDROBROMIDE 20 MG TABLET PO SCH (09:08)
[2023-03-29] MEDS: VERAPAMIL HCL 240 MG ER TABLET PO SCH (09:08)
[2023-03-29 09:36] VITALS: BP 116/61
[2023-03-29 21:09] VITALS: BP 140/83
[2023-03-29] MEDS: QUEtiapine FUMARATE 100 MG TABLET PO SCH (22:10)
[2023-03-29] MEDS: ZOLPIDEM TARTRATE 10 MG TABLET PO PRN (22:10)
[2023-03-29] MEDS: HALOPERIDOL 5 MG TABLET PO PRN (22:11)
[2023-03-30] MEDS: HALOPERIDOL 5 MG TABLET PO PRN (03:30)
[2023-03-30 04:02] VITALS: BP 147/94
[2023-03-30] MEDS ORDERED: DOCUSATE SODIUM 100 MG CAPSULE PO PRN (06:45)
[2023-03-30] MEDS ORDERED: CloNIDine HCL 0.1 MG TABLET PO PRN (06:45)
[2023-03-30] MEDS ORDERED: MAG HYDROX/AL HYDROX/SIMETH ES 30 ML SUSPENSION UDCUP PO PRN (06:45)
[2023-03-30] MEDS ORDERED: OMEPRAZOLE 20 MG CAPSULE PO PRN (06:45)
[2023-03-30] MEDS ORDERED: PETROLATUM,WHITE 28 GM JELLY TP PRN (06:45)
[2023-03-30] MEDS ORDERED: ONDANSETRON HCL 4 MG TABLET PO PRN (06:45)
[2023-03-30] MEDS ORDERED: ALBUTEROL SULFATE HFA 90 MCG/PUFF 8 GM INHALER IH PRN (06:45)
[2023-03-30] MEDS ORDERED: BACITRACIN 28 GM OINTMENT TP PRN (06:45)
[2023-03-30] MEDS ORDERED: LOPERAMIDE HCL 2 MG CAPSULE PO PRN (06:45)
[2023-03-30] MEDS ORDERED: MAGNESIUM HYDROXIDE SUSPENSION 30 ML UDCUP PO PRN (06:45)
[2023-03-30 09:44] VITALS: BP 116/62
[2023-03-30] MEDS: VERAPAMIL HCL 240 MG ER TABLET PO SCH (09:49)
[2023-03-30] MEDS: CITALOPRAM HYDROBROMIDE 20 MG TABLET PO SCH (09:50)
[2023-03-30] MEDS: QUEtiapine FUMARATE 100 MG TABLET PO SCH (21:25)
[2023-03-30] MEDS: ZOLPIDEM TARTRATE 10 MG TABLET PO PRN (22:18)
[2023-03-31 08:27] VITALS: BP_SYST 136; BP_SYST 139; BP_DIAS 70
[2023-03-31] MEDS: VERAPAMIL HCL 240 MG ER TABLET PO SCH (09:03)
[2023-03-31] MEDS: CITALOPRAM HYDROBROMIDE 20 MG TABLET PO SCH (09:04)
[2023-03-31] MEDS: HALOPERIDOL 5 MG TABLET PO PRN (17:20)
[2023-03-31] MEDS: ZOLPIDEM TARTRATE 10 MG TABLET PO PRN (21:56)
[2023-03-31] MEDS: QUEtiapine FUMARATE 100 MG TABLET PO SCH (21:57)
[2023-03-31 22:14] VITALS: BP 130/78
[2023-04-01 08:15] VITALS: BP 132/76
[2023-04-01] MEDS: CITALOPRAM HYDROBROMIDE 20 MG TABLET PO SCH (10:50)
[2023-04-01] MEDS: VERAPAMIL HCL 240 MG ER TABLET PO SCH (10:50)
[2023-04-01] MEDS: ZOLPIDEM TARTRATE 10 MG TABLET PO PRN (21:42)
[2023-04-01] MEDS: QUEtiapine FUMARATE 100 MG TABLET PO SCH (21:42)
[2023-04-01 22:38] VITALS: BP 140/93
[2023-04-02 02:45] LABS: APPEARANCE,URINE CLEAR (CLEAR); BILIRUBIN,URINE NEGATIVE (NEGATIVE); GLUCOSE, URINE (UA) NEGATIVE (NEGATIVE); KETONES,URINE NEGATIVE (NEGATIVE); LEUKOCYTE ESTERASE ,URINE LARGE (NEGATIVE); NITRATE,URINE NEGATIVE (NEGATIVE); OCCULT BLOOD,URINE NEGATIVE (NEGATIVE); PROTEIN,URINE TRACE mg/dL (NEGATIVE); SPECIFIC GRAVITIY, URINE 1.015 (1.003-1.030); UROBILINOGEN,URINE <=1.0 mg/dL (<=1.0)
[2023-04-02 03:00] LABS: BACTERIA,URINE Rare /HPF (None Seen); RBC,URINE None Seen /HPF (0-2); SQUAMOUS EPITHELIAL CELL,UR Few /LPF (None Seen)
[2023-04-02 07:00] LABS: BASOPHILS % (AUTO) 1.2 % (0.0-2.0); EOSINOPHILS % (AUTO) 3.5 % (1.0-6.0); HEMATOCRIT 36.8 % (36-46); HEMOGLOBIN 12.3 g/dL (12.0-16.0); LYMPHOCYTES # (AUTO) 3.7 K/uL (1.0-4.8); LYMPHOCYTES % (AUTO) 49.6 % (22.0-44.0); MEAN CORPUSCULAR HEMOGLOBIN 27.9 pg (26.0-34.0); MEAN CORPUSCULAR HGB CONC 33.3 G/dL (31.0-37.0); MEAN CORPUSCULAR VOLUME 84 fL (80-100); MONOCYTES # (AUTO) 0.7 K/uL (0.1-1.0); MONOCYTES % (AUTO) 9.3 % (2.0-9.0); NEUTROPHILS # (AUTO) 2.7 K/uL (1.8-7.7); NEUTROPHILS % (AUTO) 36.4 % (40.0-70.0); PLATELET COUNT (AUTO) 274 K/uL (150-450)
[2023-04-02 07:19] LABS: ALANINE AMINOTRANSFERASE 21 U/L (12-78); ALBUMIN 3.4 g/dL (3.4-5.0); ALKALINE PHOSPHATASE 102 U/L (46-116); ANION GAP 9 mmol/L (8-16); ASPARTATE AMINOTRANSFERASE 19 U/L (15-37); BILIRUBIN,TOTAL 0.2 mg/dL (0.1-1.0); CALCIUM, TOTAL 9.5 mg/dL (8.8-10.5); CARBON DIOXIDE 25 mmol/L (22-29); CHLORIDE 103 mmol/L (98-107); CREATININE 0.66 mg/dL (0.60-1.30); GLOMERULAR FILTR. RATE CALC > 60 mL/min (>60); GLUCOSE,RANDOM 99 mg/dL (70-110); PHOSPHORUS 3.5 mg/dL (2.5-4.9); POTASSIUM 3.5 mmol/L (3.5-5.1); SODIUM SERUM 137 mmol/L (136-145)
[2023-04-02 08:03] VITALS: BP 149/89
[2023-04-02] MEDS: VERAPAMIL HCL 240 MG ER TABLET PO SCH (08:26)
[2023-04-02] MEDS ORDERED: CITALOPRAM HYDROBROMIDE 20 MG TABLET PO SCH (09:00)
[2023-04-02] MEDS ORDERED: QUET100T34 PO (10:08)
[2023-04-02] MEDS ORDERED: CITA-144 PO (10:08)
== END 2023-04-02 17:52 | disposition home or self-care (01) | DRG 750 ==
LOC: EMS 17:51 → 3EI 03-20 00:31
PROVIDERS: ADMIT Psychiatry & Neurology Psychiatry; ATTEND Psychiatry & Neurology Psychiatry
DX: F25.9 Schizoaffective disorder, unspecified (principal); R45.851 Suicidal ideations; K74.60 Unspecified cirrhosis of liver; Z20.822 Contact with and (suspected) exposure to COVID-19; E87.6 Hypokalemia; F31.9 Bipolar disorder, unspecified; I10 Essential (primary) hypertension; F41.9 Anxiety disorder, unspecified; K21.9 Gastro-esophageal reflux disease without esophagitis; J44.9 Chronic obstructive pulmonary disease, unspecified; K75.89 Other specified inflammatory liver diseases; B19.20 Unspecified viral hepatitis C without hepatic coma; G47.00 Insomnia, unspecified; G47.9 Sleep disorder, unspecified; F10.10 Alcohol abuse, uncomplicated; K59.00 Constipation, unspecified; E66.9 Obesity, unspecified; Z72.0 Tobacco use; Z79.899 Other long term (current) drug therapy; Z88.8 Allergy status to other drugs, medicaments and biological substances; Z88.6 Allergy status to analgesic agent; Z91.012 Allergy to eggs; Z91.011 Allergy to milk products; Z88.5 Allergy status to narcotic agent; Z91.013 Allergy to seafood; Z68.39 Body mass index [BMI] 39.0-39.9, adult
CPT/HCPCS: 80048; 80053; 80061; 81001; 83735; 84100; 84132; 84443; 85025; 87086; 87186; 99285; G0480; Q0162

== ENCOUNTER 2023-05-17 12:57 | Emergency (ER) | payer MEDICARE, OTHER ==
[~2023-05-17] VITALS: Ht 160 cm; Wt 108.8 kg
[~2023-05-17 12:57] MED LIST changes: -QUET300T19 PO; +QUET300T2 PO
[2023-05-17 13:25] VITALS: TEMP 98.1
[2023-05-17 13:37] LABS: BASOPHILS % (AUTO) 0.8 % (0.0-2.0); EOSINOPHILS % (AUTO) 1.3 % (1.0-6.0); HEMATOCRIT 38.6 % (36-46); HEMOGLOBIN 12.8 g/dL (12.0-16.0); LYMPHOCYTES # (AUTO) 2.7 K/uL (1.0-4.8); LYMPHOCYTES % (AUTO) 36.7 % (22.0-44.0); MEAN CORPUSCULAR HEMOGLOBIN 27.4 pg (26.0-34.0); MEAN CORPUSCULAR HGB CONC 33.1 G/dL (31.0-37.0); MEAN CORPUSCULAR VOLUME 83 fL (80-100); MONOCYTES # (AUTO) 0.6 K/uL (0.1-1.0); MONOCYTES % (AUTO) 8.8 % (2.0-9.0); NEUTROPHILS # (AUTO) 3.8 K/uL (1.8-7.7); NEUTROPHILS % (AUTO) 52.4 % (40.0-70.0); PLATELET COUNT (AUTO) 307 K/uL (150-450); RED BLOOD CELL COUNT(AUTO) 4.65 MIL/uL (4.00-5.20); RED CELL DISTRIBUTION WIDTH 15.8 % (11.5-14.5)
[2023-05-17 13:39] LABS: COVID AG,FIA SOURCE NASOPHARYNGEAL
[2023-05-17 13:49] LABS: ANION GAP 14 mmol/L (8-16); CARBON DIOXIDE 24 mmol/L (22-29); CHLORIDE 104 mmol/L (98-107); CREATININE 0.61 mg/dL (0.60-1.30); GLOMERULAR FILTR. RATE CALC > 60 mL/min (>60); GLUCOSE,RANDOM 108 mg/dL (70-110); POTASSIUM 3.4 mmol/L (3.5-5.1); SODIUM SERUM 142 mmol/L (136-145)
[2023-05-17 13:55] LABS: ALANINE AMINOTRANSFERASE 31 U/L (12-78); ALBUMIN 3.6 g/dL (3.4-5.0); ALKALINE PHOSPHATASE 118 U/L (46-116); ASPARTATE AMINOTRANSFERASE 30 U/L (15-37); BILIRUBIN,TOTAL 0.2 mg/dL (0.1-1.0); TOTAL PROTEIN, SERUM 8.4 g/dL (6.4-8.2)
[2023-05-17] MEDS ORDERED: LORazepam 1 MG TABLET PO ONE (14:00)
[2023-05-17 14:26] VITALS: BP 149/91; PULSE 77; RESP 20
== END 2023-05-17 14:37 | disposition home or self-care (01) ==
LOC: EMS 12:57
DX: F41.9 Anxiety disorder, unspecified (principal); F31.9 Bipolar disorder, unspecified; I10 Essential (primary) hypertension; F20.9 Schizophrenia, unspecified; K74.60 Unspecified cirrhosis of liver; F17.210 Nicotine dependence, cigarettes, uncomplicated; Z91.013 Allergy to seafood; Z91.011 Allergy to milk products; Z88.6 Allergy status to analgesic agent; Z88.5 Allergy status to narcotic agent; Z91.012 Allergy to eggs; Z88.1 Allergy status to other antibiotic agents; Z88.8 Allergy status to other drugs, medicaments and biological substances; Z20.822 Contact with and (suspected) exposure to COVID-19
CPT/HCPCS: 99283; 87426; 80053; 85025; 36415; G0480

== ENCOUNTER 2023-06-29 19:15 | Emergency (ER) | payer MEDICARE, MEDICAID ==
[~2023-06-29] VITALS: Ht 165.1 cm; Wt 100.0 kg
[2023-06-29 21:05] LABS: BASOPHILS % (AUTO) 1.2 % (0.0-2.0); EOSINOPHILS % (AUTO) 4.3 % (1.0-6.0); HEMATOCRIT 40.5 % (36-46); HEMOGLOBIN 13.4 g/dL (12.0-16.0); LYMPHOCYTES # (AUTO) 3.1 K/uL (1.0-4.8); LYMPHOCYTES % (AUTO) 46.8 % (22.0-44.0); MEAN CORPUSCULAR HEMOGLOBIN 27.4 pg (26.0-34.0); MEAN CORPUSCULAR HGB CONC 33.1 G/dL (31.0-37.0); MEAN CORPUSCULAR VOLUME 83 fL (80-100); MONOCYTES # (AUTO) 0.4 K/uL (0.1-1.0); MONOCYTES % (AUTO) 6.5 % (2.0-9.0); NEUTROPHILS # (AUTO) 2.7 K/uL (1.8-7.7); NEUTROPHILS % (AUTO) 41.2 % (40.0-70.0); PLATELET COUNT (AUTO) 305 K/uL (150-450); RED CELL DISTRIBUTION WIDTH 16.4 % (11.5-14.5)
[2023-06-29 21:15] LABS: ANION GAP 7 mmol/L (8-16); CALCIUM, TOTAL 8.9 mg/dL (8.8-10.5); CARBON DIOXIDE 26 mmol/L (22-29); CHLORIDE 103 mmol/L (98-107); CREATININE 0.71 mg/dL (0.60-1.30); GLOMERULAR FILTR. RATE CALC > 60 mL/min (>60); GLUCOSE,RANDOM 92 mg/dL (70-110); POTASSIUM 3.5 mmol/L (3.5-5.1); SODIUM SERUM 136 mmol/L (136-145)
[2023-06-29 21:22] LABS: ALANINE AMINOTRANSFERASE 28 U/L (12-78); ALBUMIN 3.4 g/dL (3.4-5.0); ALKALINE PHOSPHATASE 127 U/L (46-116); ASPARTATE AMINOTRANSFERASE 33 U/L (15-37); BILIRUBIN,TOTAL 0.5 mg/dL (0.1-1.0); TOTAL PROTEIN, SERUM 8.2 g/dL (6.4-8.2)
[2023-06-29] MEDS: LORazepam 2 MG TABLET PO ONE (21:45)
[2023-06-30 00:19] LABS: AMPHET/METH SCREEN,URINE NEGATIVE (NEGATIVE); BARBITURATE SCREEN, URINE NEGATIVE (NEGATIVE); BENZODIAZEPINES SCREEN,URINE NEGATIVE (NEGATIVE); CANNABINOID SCREEN,URINE NEGATIVE (NEGATIVE); COCAINE SCREEN,URINE NEGATIVE (NEGATIVE); METHADONE SCREEN, URINE NEGATIVE (NEGATIVE); OPIATE SCREEN,URINE NEGATIVE (NEGATIVE); PHENCYCLIDINE SCREEN,URINE NEGATIVE (NEGATIVE)
[2023-06-30] MEDS: LORazepam 2 MG TABLET PO ONE (00:27)
[2023-06-30 00:30] VITALS: TEMP 97.3
[2023-06-30] MEDS ORDERED: ZOLPIDEM TARTRATE 5 MG TABLET PO ONE (02:30)
[2023-06-30] MEDS ORDERED: QUEtiapine FUMARATE 100 MG TABLET PO ONE (02:45)
[2023-06-30 02:49] LABS: COVID AG,FIA SOURCE NASOPHARYNGEAL
[2023-06-30] MEDS ORDERED: ZOLPIDEM TARTRATE 10 MG TABLET PO PRN (03:15)
[2023-06-30] MEDS ORDERED: HALOPERIDOL 5 MG TABLET PO PRN (03:15)
[2023-06-30] MEDS ORDERED: LORazepam 2 MG TABLET PO PRN (03:15)
[2023-06-30 14:49] LABS: APPEARANCE,URINE CLEAR (CLEAR); BILIRUBIN,URINE NEGATIVE (NEGATIVE); GLUCOSE, URINE (UA) NEGATIVE (NEGATIVE); KETONES,URINE NEGATIVE (NEGATIVE); LEUKOCYTE ESTERASE ,URINE MODERATE (NEGATIVE); NITRATE,URINE NEGATIVE (NEGATIVE); OCCULT BLOOD,URINE NEGATIVE (NEGATIVE); PH,URINE 6.5 (5.0-8.0); PROTEIN,URINE TRACE mg/dL (NEGATIVE); SPECIFIC GRAVITIY, URINE 1.018 (1.003-1.030); UROBILINOGEN,URINE <=1.0 mg/dL (<=1.0)
[2023-06-30 15:16] LABS: SQUAMOUS EPITHELIAL CELL,UR Few /LPF (None Seen)
[2023-06-30 15:18] LABS: RBC,URINE None Seen /HPF (0-2)
[2023-06-30 15:19] LABS: BACTERIA,URINE Rare /HPF (None Seen)
[2023-07-01 16:30] VITALS: BP 125/81; PULSE 88; RESP 20
== END 2023-07-01 16:30 | disposition admitted as inpatient to this hospital (09) ==
LOC: EMS 19:16 → UNDOADMIN 07-01 15:25 → B2S 07-01 15:25 → EMS 07-01 16:30
DX: F41.9 Anxiety disorder, unspecified (principal); F25.0 Schizoaffective disorder, bipolar type; R45.851 Suicidal ideations; I10 Essential (primary) hypertension; F17.210 Nicotine dependence, cigarettes, uncomplicated; Z91.013 Allergy to seafood; Z91.011 Allergy to milk products; Z88.6 Allergy status to analgesic agent; Z88.5 Allergy status to narcotic agent; Z91.012 Allergy to eggs; Z88.1 Allergy status to other antibiotic agents; Z88.8 Allergy status to other drugs, medicaments and biological substances; Z20.822 Contact with and (suspected) exposure to COVID-19
CPT/HCPCS: 99285; 87426; 80053; 81001; 85025; 36415; 87086; 87186; 80307; G0480

== ENCOUNTER 2023-07-08 11:01 | Emergency (ER) | payer MEDICARE, OTHER ==
[~2023-07-08] VITALS: Ht 160 cm; Wt 104.5 kg
[2023-07-08] MEDS ORDERED: GuaiFENesin/D-METHORPHAN [SUGAR-FREE] 200-20MG/10 ML SYRUP UDCUP PO ONE (12:15)
[2023-07-08] MEDS ORDERED: IBUPROFEN 600 MG TABLET PO ONE (12:15)
[2023-07-08] MEDS ORDERED: ALBUTEROL SULFATE HFA 90 MCG/PUFF 8 GM INHALER IH ONE (12:15)
[2023-07-08 13:15] VITALS: PULSE 84; RESP 18; O2SAT 96
[2023-07-08 13:24] VITALS: PULSE 84; RESP 18; O2SAT 96
[2023-07-08] MEDS ORDERED: IBUP-1554 PO (13:27)
[2023-07-08] MEDS ORDERED: GUAIFDM PO (13:27)
[2023-07-08] MEDS ORDERED: DOXY-354 PO (13:27)
[2023-07-08 14:42] VITALS: BP 116/84; PULSE 74; RESP 16; TEMP 98
== END 2023-07-08 15:10 | disposition home or self-care (01) ==
LOC: EMS 11:03
DX: J40 Bronchitis, not specified as acute or chronic (principal); F25.0 Schizoaffective disorder, bipolar type; J18.9 Pneumonia, unspecified organism; F41.9 Anxiety disorder, unspecified; J44.9 Chronic obstructive pulmonary disease, unspecified; I10 Essential (primary) hypertension; Z91.013 Allergy to seafood; Z91.011 Allergy to milk products; Z88.6 Allergy status to analgesic agent; Z88.5 Allergy status to narcotic agent; Z91.012 Allergy to eggs; Z88.1 Allergy status to other antibiotic agents; Z88.8 Allergy status to other drugs, medicaments and biological substances
CPT/HCPCS: 99283; 71045; 94640; J3535

== ENCOUNTER 2023-07-13 14:05 | Emergency (ER) | payer MEDICARE, OTHER ==
[~2023-07-13] VITALS: Ht 167.6 cm; Wt 102.0 kg
[~2023-07-13 14:05] MED LIST changes: +DOXY-354 PO; +GUAIFDM PO; +IBUP-1554 PO
[2023-07-13 14:22] VITALS: BP 132/76; PULSE 90; RESP 16; TEMP 98.4
[2023-07-13 15:34] LABS: BASOPHILS % (AUTO) 0.8 % (0.0-2.0); EOSINOPHILS % (AUTO) 1.5 % (1.0-6.0); HEMOGLOBIN 14.5 g/dL (12.0-16.0); LYMPHOCYTES # (AUTO) 3.5 K/uL (1.0-4.8); MEAN CORPUSCULAR HEMOGLOBIN 27.3 pg (26.0-34.0); MEAN CORPUSCULAR HGB CONC 32.9 G/dL (31.0-37.0); MEAN CORPUSCULAR VOLUME 83 fL (80-100); MONOCYTES # (AUTO) 0.5 K/uL (0.1-1.0); MONOCYTES % (AUTO) 5.3 % (2.0-9.0); NEUTROPHILS # (AUTO) 5.1 K/uL (1.8-7.7); NEUTROPHILS % (AUTO) 54.4 % (40.0-70.0); PLATELET COUNT (AUTO) 212 K/uL (150-450); RED BLOOD CELL COUNT(AUTO) 5.31 MIL/uL (4.00-5.20); RED CELL DISTRIBUTION WIDTH 16.9 % (11.5-14.5); WHITE BLOOD COUNT (AUTO) 9.3 K/uL (4.5-11.0)
[2023-07-13 15:53] LABS: TROPONIN I-HIGH SENSITIVITY 8 ng/L (<51)
[2023-07-13 16:09] LABS: ALCOHOL, BLOOD (SERUM) 8 mg/dL (0-10)
[2023-07-13 16:11] LABS: ANION GAP 13 mmol/L (8-16); CARBON DIOXIDE 24 mmol/L (22-29); CHLORIDE 101 mmol/L (98-107); GLOMERULAR FILTR. RATE CALC > 60 mL/min (>60); GLUCOSE,RANDOM 86 mg/dL (70-110); POTASSIUM 3.1 mmol/L (3.5-5.1); SODIUM SERUM 138 mmol/L (136-145); UREA NITROGEN, BLOOD 8 mg/dL (7-18)
[2023-07-13 16:17] LABS: ALANINE AMINOTRANSFERASE 11 U/L (12-78); ALBUMIN 3.6 g/dL (3.4-5.0); ALKALINE PHOSPHATASE 123 U/L (46-116); ASPARTATE AMINOTRANSFERASE 24 U/L (15-37); BILIRUBIN,TOTAL 0.4 mg/dL (0.1-1.0); TOTAL PROTEIN, SERUM 8.5 g/dL (6.4-8.2)
[2023-07-13] MEDS ORDERED: QUEtiapine FUMARATE 100 MG TABLET PO ONE (22:30)
[2023-07-13] MEDS ORDERED: ZOLPIDEM TARTRATE 10 MG TABLET PO ONE (22:30)
[2023-07-13 22:49] LABS: COVID AG,FIA SOURCE NASAL SWAB
[2023-07-13 23:24] LABS: SARS-COV2 (COVID) ANTIGEN,FIA Negative (Negative)
[2023-07-14] MEDS ORDERED: POTASSIUM CHLORIDE 20 MEQ ER TABLET PO ONE
[2023-07-18] MEDS ORDERED: QUET300T2 PO (13:47)
== END 2023-07-14 01:38 | disposition home or self-care (01) ==
LOC: EMS 14:07
DX: F20.9 Schizophrenia, unspecified (principal); F41.9 Anxiety disorder, unspecified; F31.9 Bipolar disorder, unspecified; J44.9 Chronic obstructive pulmonary disease, unspecified; I10 Essential (primary) hypertension; F17.210 Nicotine dependence, cigarettes, uncomplicated; Z20.822 Contact with and (suspected) exposure to COVID-19
CPT/HCPCS: 99284; 87426; 80053; 84484; 85025; 36415; 93005; G0480

== ENCOUNTER 2023-08-06 14:54 | Inpatient (IN) | payer MEDICARE, MEDICAID ==
[~2023-08-06] VITALS: Ht 167.6 cm; Wt 90.7 kg
[~2023-08-06 14:54] MED LIST changes: -CITA-144 PO; -DOXY-354 PO; -GUAIFDM PO; -IBUP-1554 PO
[2023-08-06] MEDS ORDERED: CITA-144 PO (15:23)
[2023-08-06] MEDS ORDERED: ZOLP-162 PO (15:23)
[2023-08-06 16:39] LABS: BASOPHILS % (AUTO) 1.9 % (0.0-2.0); EOSINOPHILS % (AUTO) 1.8 % (1.0-6.0); HEMATOCRIT 40.5 % (36-46); HEMOGLOBIN 13.4 g/dL (12.0-16.0); LYMPHOCYTES # (AUTO) 3.4 K/uL (1.0-4.8); LYMPHOCYTES % (AUTO) 45.4 % (22.0-44.0); MEAN CORPUSCULAR HEMOGLOBIN 27.5 pg (26.0-34.0); MEAN CORPUSCULAR HGB CONC 33.2 G/dL (31.0-37.0); MEAN CORPUSCULAR VOLUME 83 fL (80-100); MONOCYTES # (AUTO) 0.6 K/uL (0.1-1.0); NEUTROPHILS # (AUTO) 3.2 K/uL (1.8-7.7); NEUTROPHILS % (AUTO) 42.9 % (40.0-70.0); PLATELET COUNT (AUTO) 311 K/uL (150-450); RED BLOOD CELL COUNT(AUTO) 4.87 MIL/uL (4.00-5.20); RED CELL DISTRIBUTION WIDTH 16.3 % (11.5-14.5); WHITE BLOOD COUNT (AUTO) 7.4 K/uL (4.5-11.0)
[2023-08-06 17:08] LABS: LACTIC ACID 1.9 mmol/L (0.4-2.0); TROPONIN I-HIGH SENSITIVITY 13 ng/L (<51)
[2023-08-06 17:21] LABS: ANION GAP 14 mmol/L (8-16); CALCIUM, TOTAL 9.8 mg/dL (8.8-10.5); CARBON DIOXIDE 28 mmol/L (22-29); CHLORIDE 103 mmol/L (98-107); GLOMERULAR FILTR. RATE CALC > 60 mL/min (>60); GLUCOSE,RANDOM 109 mg/dL (70-110); POTASSIUM 3.1 mmol/L (3.5-5.1); SODIUM SERUM 145 mmol/L (136-145); UREA NITROGEN, BLOOD 9 mg/dL (7-18)
[2023-08-06 17:27] LABS: ALANINE AMINOTRANSFERASE 21 U/L (12-78); ALBUMIN 3.6 g/dL (3.4-5.0); ALKALINE PHOSPHATASE 105 U/L (46-116); ASPARTATE AMINOTRANSFERASE 23 U/L (15-37); BILIRUBIN,TOTAL 0.4 mg/dL (0.1-1.0); LIPASE 31 U/L (16-77); TOTAL PROTEIN, SERUM 8.3 g/dL (6.4-8.2)
[2023-08-06 17:40] LABS: ALCOHOL, BLOOD (SERUM) < 3 mg/dL (0-10)
[2023-08-06 18:03] LABS: COVID AG,FIA SOURCE NASAL SWAB
[2023-08-06 18:25] LABS: SARS-COV2 (COVID) ANTIGEN,FIA Negative (Negative)
[2023-08-06] MEDS ORDERED: ZOLPIDEM TARTRATE 10 MG TABLET PO ONE (19:45)
[2023-08-06] MEDS ORDERED: POTASSIUM CHLORIDE 10% 40 MEQ/30 ML LIQUID UDCUP PO ONE (19:45)
[2023-08-06] MEDS ORDERED: QUEtiapine FUMARATE 100 MG TABLET PO ONE (19:45)
[2023-08-07 01:10] VITALS: BP 128/71; PULSE 85; RESP 18; TEMP 97.8; O2SAT 96
[2023-08-07] MEDS: LORazepam 2 MG TABLET PO PRN ×3 (01:33→21:16)
[2023-08-07] MEDS: HALOPERIDOL 5 MG TABLET PO PRN ×3 (01:33→21:16)
[2023-08-07] MEDS ORDERED: PNEUMOCOCCAL VACCINE POLYVALENT 0.5 ML SYRINGE [PPSV23] IM. ONE (02:00)
[2023-08-07 08:17] VITALS: BP 135/77; PULSE 76; RESP 17; TEMP 97.7; O2SAT 97
[2023-08-07] MEDS: VERAPAMIL HCL 240 MG ER TABLET PO SCH (16:09)
[2023-08-07] MEDS ORDERED: ALBUTEROL SULFATE HFA 90 MCG/PUFF 8 GM INHALER IH PRN (19:45)
[2023-08-07] MEDS ORDERED: BENZOCAINE/MENTHOL LOZENGE PO PRN (19:45)
[2023-08-07] MEDS ORDERED: MAGNESIUM HYDROXIDE SUSPENSION 30 ML UDCUP PO PRN (19:45)
[2023-08-07] MEDS ORDERED: OMEPRAZOLE 20 MG CAPSULE PO PRN (19:45)
[2023-08-07] MEDS ORDERED: BACITRACIN 28 GM OINTMENT TP PRN (19:45)
[2023-08-07] MEDS ORDERED: PETROLATUM,WHITE 28 GM JELLY TP PRN (19:45)
[2023-08-07] MEDS ORDERED: POTASSIUM CHLORIDE 20 MEQ ER TABLET PO ONE (19:45)
[2023-08-07] MEDS ORDERED: MAG HYDROX/AL HYDROX/SIMETH ES 30 ML SUSPENSION UDCUP PO PRN (19:45)
[2023-08-07] MEDS ORDERED: DOCUSATE SODIUM 100 MG CAPSULE PO PRN (19:45)
[2023-08-07 20:00] VITALS: BP 137/79; PULSE 82; RESP 17; TEMP 97.7; O2SAT 96
[2023-08-07] MEDS: ZOLPIDEM TARTRATE 10 MG TABLET PO PRN (21:16)
[2023-08-07] MEDS: QUEtiapine FUMARATE 300 MG TABLET PO SCH (21:16)
[2023-08-08 08:53] VITALS: BP 113/61; PULSE 83; RESP 16; TEMP 97.6; O2SAT 96
[2023-08-08] MEDS: CITALOPRAM HYDROBROMIDE 20 MG TABLET PO SCH (10:12)
[2023-08-08] MEDS: VERAPAMIL HCL 240 MG ER TABLET PO SCH (10:13)
[2023-08-08] MEDS: HALOPERIDOL 5 MG TABLET PO PRN (14:00)
[2023-08-08] MEDS: LORazepam 2 MG TABLET PO PRN ×2 (14:00→21:02)
[2023-08-08 20:10] VITALS: BP 131/80; PULSE 91; RESP 18; TEMP 97.6
[2023-08-08] MEDS: ZOLPIDEM TARTRATE 10 MG TABLET PO PRN (21:02)
[2023-08-08] MEDS: QUEtiapine FUMARATE 300 MG TABLET PO SCH (21:03)
[2023-08-08 21:10] VITALS: BP 131/80; PULSE 91; RESP 18; TEMP 97.6; O2SAT 93
[2023-08-09] MEDS: CITALOPRAM HYDROBROMIDE 20 MG TABLET PO SCH (08:41)
[2023-08-09] MEDS: VERAPAMIL HCL 240 MG ER TABLET PO SCH (08:42)
[2023-08-09 09:07] VITALS: BP 120/66; PULSE 74; RESP 18; TEMP 97.9; O2SAT 95
[2023-08-09 20:38] VITALS: RESP 18
[2023-08-09] MEDS: ZOLPIDEM TARTRATE 10 MG TABLET PO PRN (21:06)
[2023-08-09] MEDS: LORazepam 2 MG TABLET PO PRN (21:06)
[2023-08-09] MEDS: QUEtiapine FUMARATE 300 MG TABLET PO SCH (21:07)
[2023-08-10] MEDS: VERAPAMIL HCL 240 MG ER TABLET PO SCH (08:28)
[2023-08-10] MEDS: CITALOPRAM HYDROBROMIDE 20 MG TABLET PO SCH (08:28)
[2023-08-10 09:01] VITALS: BP 124/76; PULSE 74; RESP 18; TEMP 97.4; O2SAT 100
[2023-08-10 18:19] VITALS: RESP 18
[2023-08-10] MEDS: IBUPROFEN 400 MG TABLET PO PRN (18:19)
[2023-08-10 19:19] VITALS: RESP 17
[2023-08-10] MEDS: LORazepam 2 MG TABLET PO PRN (19:48)
[2023-08-10 20:00] VITALS: BP 141/91; PULSE 82; RESP 18; TEMP 97.8; O2SAT 97
[2023-08-10] MEDS: QUEtiapine FUMARATE 300 MG TABLET PO SCH (20:44)
[2023-08-10] MEDS: ZOLPIDEM TARTRATE 10 MG TABLET PO PRN (21:43)
[2023-08-11 00:45] VITALS: BP 134/86; PULSE 80; RESP 18
[2023-08-11] MEDS: HALOPERIDOL 5 MG TABLET PO PRN (00:51)
[2023-08-11] MEDS: LORazepam 2 MG TABLET PO PRN ×2 (00:51→21:25)
[2023-08-11 08:42] VITALS: BP 130/94; PULSE 75; RESP 18; TEMP 97.9; O2SAT 94
[2023-08-11] MEDS: CITALOPRAM HYDROBROMIDE 20 MG TABLET PO SCH (09:23)
[2023-08-11] MEDS: VERAPAMIL HCL 240 MG ER TABLET PO SCH (09:24)
[2023-08-11 18:00] VITALS: RESP 18; O2SAT 96
[2023-08-11] MEDS: IBUPROFEN 400 MG TABLET PO PRN (18:00)
[2023-08-11 19:00] VITALS: RESP 18; O2SAT 96
[2023-08-11] MEDS: QUEtiapine FUMARATE 300 MG TABLET PO SCH (21:25)
[2023-08-11] MEDS: ZOLPIDEM TARTRATE 10 MG TABLET PO PRN (21:26)
[2023-08-12 01:58] VITALS: BP 111/58; PULSE 78; RESP 17; TEMP 98.3; O2SAT 98
[2023-08-12] MEDS: CITALOPRAM HYDROBROMIDE 20 MG TABLET PO SCH (08:35)
[2023-08-12] MEDS: LORazepam 2 MG TABLET PO PRN (08:35)
[2023-08-12] MEDS: VERAPAMIL HCL 240 MG ER TABLET PO SCH (08:35)
[2023-08-12 13:04] VITALS: BP 119/61; PULSE 77; RESP 19; TEMP 97; O2SAT 99
[2023-08-12 20:27] VITALS: BP 129/63; PULSE 82; RESP 18; TEMP 97.7; O2SAT 97
[2023-08-12] MEDS: ZOLPIDEM TARTRATE 10 MG TABLET PO PRN (20:32)
[2023-08-12] MEDS: QUEtiapine FUMARATE 300 MG TABLET PO SCH (20:32)
[2023-08-12] MEDS: IBUPROFEN 400 MG TABLET PO PRN (22:30)
[2023-08-13 08:45] VITALS: BP 122/63; PULSE 66; TEMP 97.5; O2SAT 19
[2023-08-13] MEDS: VERAPAMIL HCL 240 MG ER TABLET PO SCH (09:33)
[2023-08-13] MEDS: CITALOPRAM HYDROBROMIDE 20 MG TABLET PO SCH (09:33)
[2023-08-13 20:22] VITALS: BP 125/74; PULSE 69; RESP 18; TEMP 97.7
[2023-08-13] MEDS: LORazepam 2 MG TABLET PO PRN (21:38)
[2023-08-13] MEDS: ZOLPIDEM TARTRATE 10 MG TABLET PO PRN (21:38)
[2023-08-13] MEDS: QUEtiapine FUMARATE 300 MG TABLET PO SCH (21:41)
[2023-08-14 08:23] VITALS: BP 128/78; PULSE 70; RESP 18; TEMP 97.6; O2SAT 98
[2023-08-14] MEDS: VERAPAMIL HCL 240 MG ER TABLET PO SCH (08:56)
[2023-08-14] MEDS: CITALOPRAM HYDROBROMIDE 20 MG TABLET PO SCH (08:56)
[2023-08-14] MEDS: LORazepam 2 MG TABLET PO PRN ×2 (16:12→20:51)
[2023-08-14] MEDS: HALOPERIDOL 5 MG TABLET PO PRN (17:10)
[2023-08-14 20:22] VITALS: BP 108/73; PULSE 70; RESP 18; TEMP 98.3; O2SAT 96
[2023-08-14] MEDS: QUEtiapine FUMARATE 300 MG TABLET PO SCH (20:51)
[2023-08-14] MEDS: ZOLPIDEM TARTRATE 10 MG TABLET PO PRN (22:02)
[2023-08-15 08:25] VITALS: BP 120/71; PULSE 66; RESP 18; TEMP 97.8; O2SAT 96
[2023-08-15] MEDS: VERAPAMIL HCL 240 MG ER TABLET PO SCH (08:52)
[2023-08-15] MEDS: CITALOPRAM HYDROBROMIDE 20 MG TABLET PO SCH (08:52)
== END 2023-08-15 14:10 | disposition home or self-care (01) | DRG 750 ==
LOC: EMS 15:00 → B2X 08-07 00:04 → B2S 08-08 11:50
PROVIDERS: ADMIT Psychiatry & Neurology Psychiatry; ATTEND Psychiatry & Neurology Psychiatry
DX: F25.1 Schizoaffective disorder, depressive type (principal); R45.851 Suicidal ideations; E66.9 Obesity, unspecified; E87.6 Hypokalemia; K59.00 Constipation, unspecified; K21.9 Gastro-esophageal reflux disease without esophagitis; J44.9 Chronic obstructive pulmonary disease, unspecified; I10 Essential (primary) hypertension; F41.9 Anxiety disorder, unspecified; B19.20 Unspecified viral hepatitis C without hepatic coma; G47.00 Insomnia, unspecified; F43.10 Post-traumatic stress disorder, unspecified; Z20.822 Contact with and (suspected) exposure to COVID-19; Z72.0 Tobacco use; Z68.32 Body mass index [BMI] 32.0-32.9, adult; Z88.5 Allergy status to narcotic agent; Z88.8 Allergy status to other drugs, medicaments and biological substances; Z91.011 Allergy to milk products
CPT/HCPCS: 80053; 83605; 83690; 84132; 84484; 85025; 87081; 99285; G0480

== ENCOUNTER 2023-08-25 19:22 | Inpatient (IN) | payer MEDICARE, MEDICAID ==
[~2023-08-25] VITALS: Ht 165.1 cm; Wt 106.8 kg
[~2023-08-25 19:22] MED LIST changes: +CITA-144 PO
[2023-08-25 23:00] LABS: BASOPHILS % (AUTO) 0.6 % (0.0-2.0); EOSINOPHILS % (AUTO) 3.8 % (1.0-6.0); HEMATOCRIT 38.6 % (36-46); HEMOGLOBIN 12.7 g/dL (12.0-16.0); LYMPHOCYTES # (AUTO) 3.3 K/uL (1.0-4.8); LYMPHOCYTES % (AUTO) 50.2 % (22.0-44.0); MEAN CORPUSCULAR HEMOGLOBIN 27.6 pg (26.0-34.0); MEAN CORPUSCULAR HGB CONC 32.8 G/dL (31.0-37.0); MEAN CORPUSCULAR VOLUME 84 fL (80-100); MONOCYTES # (AUTO) 0.5 K/uL (0.1-1.0); MONOCYTES % (AUTO) 7.7 % (2.0-9.0); NEUTROPHILS # (AUTO) 2.5 K/uL (1.8-7.7); NEUTROPHILS % (AUTO) 37.7 % (40.0-70.0); PLATELET COUNT (AUTO) 289 K/uL (150-450); RED BLOOD CELL COUNT(AUTO) 4.59 MIL/uL (4.00-5.20); RED CELL DISTRIBUTION WIDTH 16.7 % (11.5-14.5); WHITE BLOOD COUNT (AUTO) 6.5 K/uL (4.5-11.0)
[2023-08-25] MEDS ORDERED: QUEtiapine FUMARATE 100 MG TABLET PO ONE (23:00)
[2023-08-25 23:08] LABS: COVID AG,FIA SOURCE NASAL SWAB
[2023-08-25 23:09] LABS: ANION GAP 10 mmol/L (8-16); CALCIUM, TOTAL 9.6 mg/dL (8.8-10.5); CARBON DIOXIDE 27 mmol/L (22-29); CHLORIDE 104 mmol/L (98-107); CREATININE 0.89 mg/dL (0.60-1.30); GLOMERULAR FILTR. RATE CALC > 60 mL/min (>60); GLUCOSE,RANDOM 110 mg/dL (70-110); POTASSIUM 3.1 mmol/L (3.5-5.1); SODIUM SERUM 141 mmol/L (136-145); UREA NITROGEN, BLOOD 11 mg/dL (7-18)
[2023-08-25 23:14] LABS: ALANINE AMINOTRANSFERASE 19 U/L (12-78); ALBUMIN 3.3 g/dL (3.4-5.0); ALKALINE PHOSPHATASE 98 U/L (46-116); ASPARTATE AMINOTRANSFERASE 18 U/L (15-37); BILIRUBIN,TOTAL 0.2 mg/dL (0.1-1.0); TOTAL PROTEIN, SERUM 8.1 g/dL (6.4-8.2)
[2023-08-25 23:15] LABS: ALCOHOL, BLOOD (SERUM) < 3 mg/dL (0-10)
[2023-08-25 23:26] LABS: SARS-COV2 (COVID) ANTIGEN,FIA Negative (Negative)
[2023-08-25] MEDS ORDERED: POTASSIUM CHLORIDE 20 MEQ ER TABLET PO ONE (23:30)
[2023-08-26] MEDS: ZOLPIDEM TARTRATE 10 MG TABLET PO PRN ×2 (01:06→23:25)
[2023-08-26 11:31] LABS: APPEARANCE,URINE CLEAR (CLEAR); BILIRUBIN,URINE NEGATIVE (NEGATIVE); COLOR,URINE COLORLESS (YELLOW); GLUCOSE, URINE (UA) NEGATIVE (NEGATIVE); KETONES,URINE NEGATIVE (NEGATIVE); LEUKOCYTE ESTERASE ,URINE TRACE (NEGATIVE); NITRATE,URINE NEGATIVE (NEGATIVE); OCCULT BLOOD,URINE NEGATIVE (NEGATIVE); PROTEIN,URINE NEGATIVE (NEGATIVE); SPECIFIC GRAVITIY, URINE 1.011 (1.003-1.030); UROBILINOGEN,URINE <=1.0 mg/dL (<=1.0)
[2023-08-26 11:57] LABS: ALCOHOL, URINE DRUG SCREEN NEGATIVE (NEGATIVE); AMPHET/METH SCREEN,URINE NEGATIVE (NEGATIVE); BARBITURATE SCREEN, URINE NEGATIVE (NEGATIVE); BENZODIAZEPINES SCREEN,URINE NEGATIVE (NEGATIVE); CANNABINOID SCREEN,URINE NEGATIVE (NEGATIVE); COCAINE SCREEN,URINE NEGATIVE (NEGATIVE); METHADONE SCREEN, URINE NEGATIVE (NEGATIVE); OPIATE SCREEN,URINE NEGATIVE (NEGATIVE); PHENCYCLIDINE SCREEN,URINE NEGATIVE (NEGATIVE)
[2023-08-26 12:27] LABS: RBC,URINE None Seen /HPF (0-2)
[2023-08-26 12:28] LABS: BACTERIA,URINE None Seen /HPF (None Seen); SQUAMOUS EPITHELIAL CELL,UR Few /LPF (None Seen)
[2023-08-26 16:30] VITALS: BP 143/65; PULSE 74; RESP 17; TEMP 97.6
[2023-08-26] MEDS ORDERED: PETROLATUM,WHITE 28 GM JELLY TP PRN (19:45)
[2023-08-26] MEDS ORDERED: DOCUSATE SODIUM 100 MG CAPSULE PO PRN (19:45)
[2023-08-26] MEDS ORDERED: BACITRACIN 28 GM OINTMENT TP PRN (19:45)
[2023-08-26] MEDS ORDERED: OMEPRAZOLE 20 MG CAPSULE PO PRN (19:45)
[2023-08-26] MEDS ORDERED: BENZOCAINE/MENTHOL LOZENGE PO PRN (19:45)
[2023-08-26] MEDS ORDERED: ALBUTEROL SULFATE HFA 90 MCG/PUFF 8 GM INHALER IH PRN (19:45)
[2023-08-26] MEDS ORDERED: MAG HYDROX/ALUMINUM HYD/SIMETH ES 30 ML SUSPENSION UDCUP PO PRN (19:45)
[2023-08-26] MEDS ORDERED: MAGNESIUM HYDROXIDE SUSPENSION 30 ML UDCUP PO PRN (19:45)
[2023-08-26] MEDS ORDERED: PNEUMOCOCCAL VACCINE POLYVALENT 0.5 ML SYRINGE [PPSV23] IM. ONE (19:45)
[2023-08-26] MEDS: QUEtiapine FUMARATE 300 MG TABLET PO SCH (22:40)
[2023-08-26 22:43] VITALS: BP 136/80; PULSE 77; RESP 18; TEMP 96.8
[2023-08-26] MEDS: LORazepam 2 MG TABLET PO PRN (23:25)
[2023-08-27] MEDS: VERAPAMIL HCL 240 MG ER TABLET PO SCH (09:00)
[2023-08-27] MEDS: CITALOPRAM HYDROBROMIDE 20 MG TABLET PO SCH (09:00)
[2023-08-27 12:55] VITALS: RESP 18
[2023-08-27] MEDS: LORazepam 2 MG TABLET PO PRN (21:23)
[2023-08-27] MEDS: QUEtiapine FUMARATE 300 MG TABLET PO SCH (21:23)
[2023-08-27] MEDS: ZOLPIDEM TARTRATE 10 MG TABLET PO PRN (21:23)
[2023-08-27 22:07] VITALS: BP 152/83; PULSE 77; RESP 20; TEMP 97.5
[2023-08-28 08:00] VITALS: BP 143/75; PULSE 82; RESP 20; TEMP 98
[2023-08-28] MEDS: CITALOPRAM HYDROBROMIDE 20 MG TABLET PO SCH (09:00)
[2023-08-28] MEDS: VERAPAMIL HCL 240 MG ER TABLET PO SCH (09:00)
[2023-08-28] MEDS: QUEtiapine FUMARATE 300 MG TABLET PO SCH (21:20)
[2023-08-28] MEDS: HALOPERIDOL 5 MG TABLET PO PRN (21:25)
[2023-08-28] MEDS: LORazepam 2 MG TABLET PO PRN (21:25)
[2023-08-28 21:30] VITALS: BP 138/76; PULSE 76; RESP 18; TEMP 97.5
[2023-08-28] MEDS: ZOLPIDEM TARTRATE 10 MG TABLET PO PRN (21:56)
[2023-08-29] MEDS: CITALOPRAM HYDROBROMIDE 20 MG TABLET PO SCH (09:00)
[2023-08-29 09:21] VITALS: RESP 16
[2023-08-29 17:13] VITALS: BP 140/72; PULSE 83
[2023-08-29] MEDS: VERAPAMIL HCL 240 MG ER TABLET PO SCH (17:15)
[2023-08-29] MEDS: LORazepam 2 MG TABLET PO PRN (19:45)
[2023-08-29] MEDS: HALOPERIDOL 5 MG TABLET PO PRN (19:45)
[2023-08-29] MEDS: QUEtiapine FUMARATE 300 MG TABLET PO SCH (21:35)
[2023-08-29] MEDS: ZOLPIDEM TARTRATE 10 MG TABLET PO PRN (21:35)
[2023-08-29 23:04] VITALS: BP 133/73; PULSE 82; RESP 18; TEMP 97.6
[2023-08-30 02:03] LABS: COVID AG,FIA SOURCE NASAL SWAB
[2023-08-30 03:01] LABS: SARS-COV2 (COVID) ANTIGEN,FIA Negative (Negative)
[2023-08-30] MEDS: CITALOPRAM HYDROBROMIDE 20 MG TABLET PO SCH (09:00)
[2023-08-30 10:48] VITALS: RESP 17
[2023-08-30 11:46] VITALS: BP 117/84; PULSE 71
[2023-08-30] MEDS: VERAPAMIL HCL 240 MG ER TABLET PO SCH (11:48)
== END 2023-08-30 12:15 | disposition home or self-care (01) | DRG 750 ==
LOC: EMS 19:23 → 3EI 08-26 15:58 → EMS 08-26 16:43
PROVIDERS: ADMIT Psychiatry & Neurology Psychiatry; ATTEND Psychiatry & Neurology Psychiatry
DX: F25.1 Schizoaffective disorder, depressive type (principal); R45.851 Suicidal ideations; K74.60 Unspecified cirrhosis of liver; F43.10 Post-traumatic stress disorder, unspecified; E66.9 Obesity, unspecified; G47.00 Insomnia, unspecified; F41.9 Anxiety disorder, unspecified; I10 Essential (primary) hypertension; J44.9 Chronic obstructive pulmonary disease, unspecified; B19.20 Unspecified viral hepatitis C without hepatic coma; K59.00 Constipation, unspecified; K21.9 Gastro-esophageal reflux disease without esophagitis; Z20.822 Contact with and (suspected) exposure to COVID-19; E87.6 Hypokalemia; Z88.6 Allergy status to analgesic agent; Z88.8 Allergy status to other drugs, medicaments and biological substances; Z88.1 Allergy status to other antibiotic agents; Z91.011 Allergy to milk products; Z91.013 Allergy to seafood; Z88.5 Allergy status to narcotic agent; Z68.39 Body mass index [BMI] 39.0-39.9, adult; Z72.0 Tobacco use; Z91.012 Allergy to eggs; Z79.899 Other long term (current) drug therapy
CPT/HCPCS: 80053; 80307; 81001; 84132; 85025; 87081; 99285; G0480

== ENCOUNTER 2023-11-06 14:38 | Inpatient (IN) | payer MEDICARE, MEDICAID ==
[~2023-11-06] VITALS: Ht 165.1 cm; Wt 109.0 kg
[2023-11-06 15:24] LABS: BASOPHILS % (AUTO) 1.2 % (0.0-2.0); EOSINOPHILS % (AUTO) 4.1 % (1.0-6.0); HEMATOCRIT 36.9 % (36-46); HEMOGLOBIN 12.3 g/dL (12.0-16.0); LYMPHOCYTES # (AUTO) 2.3 K/uL (1.0-4.8); LYMPHOCYTES % (AUTO) 36.1 % (22.0-44.0); MEAN CORPUSCULAR HEMOGLOBIN 28.2 pg (26.0-34.0); MEAN CORPUSCULAR HGB CONC 33.2 G/dL (31.0-37.0); MEAN CORPUSCULAR VOLUME 85 fL (80-100); MONOCYTES # (AUTO) 0.5 K/uL (0.1-1.0); MONOCYTES % (AUTO) 8.4 % (2.0-9.0); NEUTROPHILS # (AUTO) 3.2 K/uL (1.8-7.7); NEUTROPHILS % (AUTO) 50.2 % (40.0-70.0); PLATELET COUNT (AUTO) 284 K/uL (150-450); RED BLOOD CELL COUNT(AUTO) 4.35 MIL/uL (4.00-5.20); RED CELL DISTRIBUTION WIDTH 15.9 % (11.5-14.5); WHITE BLOOD COUNT (AUTO) 6.3 K/uL (4.5-11.0)
[2023-11-06 15:33] LABS: ANION GAP 12 mmol/L (8-16); CARBON DIOXIDE 25 mmol/L (22-29); CHLORIDE 110 mmol/L (98-107); CREATININE 0.72 mg/dL (0.60-1.30); GLOMERULAR FILTR. RATE CALC > 60 mL/min (>60); GLUCOSE,RANDOM 121 mg/dL (70-110); SODIUM SERUM 147 mmol/L (136-145); UREA NITROGEN, BLOOD 7 mg/dL (7-18)
[2023-11-06 15:40] LABS: ALANINE AMINOTRANSFERASE 19 U/L (12-78); ALBUMIN 3.2 g/dL (3.4-5.0); ALKALINE PHOSPHATASE 97 U/L (46-116); ASPARTATE AMINOTRANSFERASE 21 U/L (15-37); BILIRUBIN,TOTAL 0.2 mg/dL (0.1-1.0); TOTAL PROTEIN, SERUM 7.7 g/dL (6.4-8.2)
[2023-11-06 15:41] LABS: ALCOHOL, BLOOD (SERUM) < 3 mg/dL (0-10)
[2023-11-06 16:59] LABS: COVID AG,FIA SOURCE NASAL SWAB
[2023-11-06 17:17] LABS: SARS-COV2 (COVID) ANTIGEN,FIA Negative (Negative)
[2023-11-06 19:16] LABS: ALCOHOL, URINE DRUG SCREEN NEGATIVE (NEGATIVE); AMPHET/METH SCREEN,URINE NEGATIVE (NEGATIVE); BARBITURATE SCREEN, URINE NEGATIVE (NEGATIVE); BENZODIAZEPINES SCREEN,URINE NEGATIVE (NEGATIVE); CANNABINOID SCREEN,URINE NEGATIVE (NEGATIVE); COCAINE SCREEN,URINE NEGATIVE (NEGATIVE); METHADONE SCREEN, URINE NEGATIVE (NEGATIVE); OPIATE SCREEN,URINE NEGATIVE (NEGATIVE); PHENCYCLIDINE SCREEN,URINE NEGATIVE (NEGATIVE)
[2023-11-06 19:18] LABS: PH,URINE DRUG SCREEN 7.5 (5.0-8.0)
[2023-11-06] MEDS: ZOLPIDEM TARTRATE 10 MG TABLET PO PRN (20:03)
[2023-11-06] MEDS ORDERED: POTASSIUM CHLORIDE 20 MEQ ER TABLET PO ONE (21:00)
[2023-11-06] MEDS: HALOPERIDOL 5 MG TABLET PO PRN (21:39)
[2023-11-06] MEDS: LORazepam 2 MG TABLET PO PRN (21:39)
[2023-11-06 22:53] VITALS: BP 166/90; PULSE 87; RESP 20; TEMP 97.1
[2023-11-07] MEDS ORDERED: CloNIDine HCL 0.1 MG TABLET PO PRN (07:00)
[2023-11-07] MEDS ORDERED: BENZOCAINE/MENTHOL LOZENGE PO PRN (07:00)
[2023-11-07] MEDS ORDERED: IBUPROFEN 600 MG TABLET PO PRN (07:00)
[2023-11-07] MEDS ORDERED: MAG HYDROX/ALUMINUM HYD/SIMETH ES 30 ML SUSPENSION UDCUP PO PRN (07:00)
[2023-11-07] MEDS ORDERED: ONDANSETRON HCL 4 MG TABLET PO PRN (07:00)
[2023-11-07] MEDS ORDERED: MAGNESIUM HYDROXIDE SUSPENSION 30 ML UDCUP PO PRN (07:00)
[2023-11-07] MEDS ORDERED: ALBUTEROL SULFATE HFA 90 MCG/PUFF 8 GM INHALER IH PRN (07:00)
[2023-11-07] MEDS ORDERED: DOCUSATE SODIUM 100 MG CAPSULE PO PRN (07:00)
[2023-11-07] MEDS ORDERED: PETROLATUM,WHITE 28 GM JELLY TP PRN (07:00)
[2023-11-07] MEDS ORDERED: LOPERAMIDE HCL 2 MG CAPSULE PO PRN (07:00)
[2023-11-07] MEDS ORDERED: BACITRACIN 28 GM OINTMENT TP PRN (07:00)
[2023-11-07] MEDS ORDERED: OMEPRAZOLE 20 MG CAPSULE PO PRN (07:00)
[2023-11-07] MEDS: VERAPAMIL HCL 240 MG ER TABLET PO SCH (09:27)
[2023-11-07 10:32] VITALS: BP 123/87; PULSE 85; RESP 18; TEMP 96.8
[2023-11-07] MEDS: LORazepam 2 MG TABLET PO PRN (20:15)
[2023-11-07] MEDS: HALOPERIDOL 5 MG TABLET PO PRN (20:15)
[2023-11-07 21:07] VITALS: BP 158/86; PULSE 78; RESP 19; TEMP 97.4
[2023-11-07] MEDS: ZOLPIDEM TARTRATE 10 MG TABLET PO PRN (21:37)
[2023-11-08] MEDS: LORazepam 2 MG TABLET PO PRN (02:08)
[2023-11-08 08:22] LABS: CHOL/HDL RATIO 4.2 (3.9-5.7); FREE T4 (FREE THYROXINE) 0.76 ng/dL (0.76-1.46); THYROID STIMULATING HORMONE 1.79 uIU/mL (0.36-3.74)
[2023-11-08] MEDS: VERAPAMIL HCL 240 MG ER TABLET PO SCH (09:05)
[2023-11-08] MEDS: CITALOPRAM HYDROBROMIDE 20 MG TABLET PO SCH ×2 (10:45→11:02)
[2023-11-08 21:23] VITALS: BP 124/75; PULSE 82; RESP 18; TEMP 98.2
[2023-11-08 21:24] VITALS: BP 124/75; PULSE 82; RESP 18; TEMP 98.2
[2023-11-08] MEDS: ZOLPIDEM TARTRATE 10 MG TABLET PO PRN (21:29)
[2023-11-08] MEDS: QUEtiapine FUMARATE 300 MG TABLET PO SCH (21:29)
[2023-11-08 22:01] VITALS: BP 124/75; PULSE 85; RESP 18; TEMP 98.2
[2023-11-09] MEDS: CITALOPRAM HYDROBROMIDE 20 MG TABLET PO SCH (09:00)
[2023-11-09] MEDS: VERAPAMIL HCL 240 MG ER TABLET PO SCH (09:39)
[2023-11-09 13:02] VITALS: RESP 18
[2023-11-09] MEDS: QUEtiapine FUMARATE 300 MG TABLET PO SCH (21:18)
[2023-11-09] MEDS: ZOLPIDEM TARTRATE 10 MG TABLET PO PRN (21:42)
[2023-11-09 22:22] VITALS: BP 136/80; PULSE 84; RESP 18; TEMP 97.2
[2023-11-10] MEDS: CITALOPRAM HYDROBROMIDE 20 MG TABLET PO SCH ×2 (09:00→09:23)
[2023-11-10] MEDS: VERAPAMIL HCL 240 MG ER TABLET PO SCH (09:23)
[2023-11-10 10:01] VITALS: BP 133/83; PULSE 74; RESP 19; TEMP 97.4
[2023-11-10] MEDS: LORazepam 2 MG TABLET PO PRN (15:43)
[2023-11-10] MEDS: HALOPERIDOL 5 MG TABLET PO PRN (15:43)
[2023-11-10 20:39] VITALS: BP 134/77; PULSE 78; RESP 18; TEMP 97.5
[2023-11-10] MEDS: QUEtiapine FUMARATE 300 MG TABLET PO SCH (21:36)
[2023-11-10] MEDS: ZOLPIDEM TARTRATE 10 MG TABLET PO PRN (21:57)
[2023-11-11 08:00] VITALS: TEMP 97
[2023-11-11] MEDS: VERAPAMIL HCL 240 MG ER TABLET PO SCH (09:00)
[2023-11-11] MEDS: CITALOPRAM HYDROBROMIDE 20 MG TABLET PO SCH (09:00)
[2023-11-11] MEDS: QUEtiapine FUMARATE 300 MG TABLET PO SCH (21:09)
[2023-11-11] MEDS: ZOLPIDEM TARTRATE 10 MG TABLET PO PRN (21:09)
[2023-11-11 21:22] VITALS: BP 142/79; PULSE 94; RESP 18; TEMP 97.6
[2023-11-12] MEDS: LORazepam 2 MG TABLET PO PRN (01:13)
[2023-11-12] MEDS: HALOPERIDOL 5 MG TABLET PO PRN (01:13)
[2023-11-12 14:31] VITALS: BP 124/97; PULSE 62; RESP 18; TEMP 97.2
== END 2023-11-12 13:00 | disposition home or self-care (01) | DRG 750 ==
LOC: EMS 14:38 → 3EI 18:18
PROVIDERS: ADMIT Psychiatry & Neurology Psychiatry; ATTEND Psychiatry & Neurology Psychiatry
DX: F25.9 Schizoaffective disorder, unspecified (principal); R45.851 Suicidal ideations; K74.60 Unspecified cirrhosis of liver; K75.9 Inflammatory liver disease, unspecified; F32.9 Major depressive disorder, single episode, unspecified; I10 Essential (primary) hypertension; J44.89 Other specified chronic obstructive pulmonary disease; K59.00 Constipation, unspecified; K21.9 Gastro-esophageal reflux disease without esophagitis; Z20.822 Contact with and (suspected) exposure to COVID-19; F43.10 Post-traumatic stress disorder, unspecified; G47.00 Insomnia, unspecified; E66.01 Morbid (severe) obesity due to excess calories; F10.10 Alcohol abuse, uncomplicated; Z88.6 Allergy status to analgesic agent; Z88.5 Allergy status to narcotic agent; Z91.013 Allergy to seafood; Z88.8 Allergy status to other drugs, medicaments and biological substances; Z91.09 Other allergy status, other than to drugs and biological substances; Z87.891 Personal history of nicotine dependence; Z68.41 Body mass index [BMI] 40.0-44.9, adult
CPT/HCPCS: 80053; 80061; 80307; 83036; 84439; 84443; 85025; 87081; 99285; G0480

== ENCOUNTER 2024-02-01 11:05 | Inpatient (IN) | payer MEDICARE, MEDICAID ==
[~2024-02-01] VITALS: Ht 165.1 cm; Wt 105.3 kg
[~2024-02-01 11:05] MED LIST changes: +MELA5TAB21 PO; +PROP10TA73 PO; -QUET300T2 PO
[2024-02-01 12:31] LABS: EOSINOPHILS % (AUTO) 1.1 % (1.0-6.0); HEMATOCRIT 40.9 % (36-46); HEMOGLOBIN 13.9 g/dL (12.0-16.0); LYMPHOCYTES # (AUTO) 3.5 K/uL (1.0-4.8); MEAN CORPUSCULAR HEMOGLOBIN 28.2 pg (26.0-34.0); MEAN CORPUSCULAR HGB CONC 33.9 G/dL (31.0-37.0); MEAN CORPUSCULAR VOLUME 83 fL (80-100); MONOCYTES # (AUTO) 0.6 K/uL (0.1-1.0); MONOCYTES % (AUTO) 7.2 % (2.0-9.0); NEUTROPHILS # (AUTO) 3.5 K/uL (1.8-7.7); NEUTROPHILS % (AUTO) 44.7 % (40.0-70.0); PLATELET COUNT (AUTO) 279 K/uL (150-450); RED BLOOD CELL COUNT(AUTO) 4.92 MIL/uL (4.00-5.20); RED CELL DISTRIBUTION WIDTH 16.3 % (11.5-14.5); WHITE BLOOD COUNT (AUTO) 7.8 K/uL (4.5-11.0)
[2024-02-01 12:45] LABS: ANION GAP 10 mmol/L (8-16); CALCIUM, TOTAL 9.1 mg/dL (8.8-10.5); CARBON DIOXIDE 25 mmol/L (22-29); CHLORIDE 105 mmol/L (98-107); CREATININE 0.58 mg/dL (0.60-1.30); GLOMERULAR FILTR. RATE CALC > 60 mL/min (>60); GLUCOSE,RANDOM 103 mg/dL (70-110); POTASSIUM 3.2 mmol/L (3.5-5.1); SODIUM SERUM 140 mmol/L (136-145); UREA NITROGEN, BLOOD 6 mg/dL (7-18)
[2024-02-01 12:50] LABS: ALANINE AMINOTRANSFERASE 22 U/L (12-78); ALBUMIN 3.5 g/dL (3.4-5.0); ALKALINE PHOSPHATASE 94 U/L (46-116); ASPARTATE AMINOTRANSFERASE 24 U/L (15-37); BILIRUBIN,TOTAL 0.6 mg/dL (0.1-1.0); TOTAL PROTEIN, SERUM 8.6 g/dL (6.4-8.2)
[2024-02-01 12:58] LABS: ALCOHOL, BLOOD (SERUM) < 3 mg/dL (0-10)
[2024-02-01] MEDS: HALOPERIDOL 5 MG TABLET PO ONE (13:39)
[2024-02-01] MEDS: BENZTROPINE MESYLATE 2 MG TABLET PO ONE (13:39)
[2024-02-01] MEDS: LORazepam 2 MG/ML VIAL IM ONE (13:40)
[2024-02-01 17:40] LABS: COVID AG,FIA SOURCE NASAL SWAB
[2024-02-01] MEDS: HALOPERIDOL 5 MG TABLET PO PRN (17:44)
[2024-02-01] MEDS: HydrOXYzine PAMOATE 25 MG CAPSULE PO ONE (17:55)
[2024-02-01 18:01] LABS: SARS-COV2 (COVID) ANTIGEN,FIA Negative (Negative)
[2024-02-02] MEDS: ZOLPIDEM TARTRATE 10 MG TABLET PO PRN (02:38)
[2024-02-02] MEDS: POTASSIUM CHLORIDE 20 MEQ ER TABLET PO ONE ×2 (02:38→06:17)
[2024-02-02] MEDS ORDERED: MAG HYDROX/ALUMINUM HYD/SIMETH ES 30 ML SUSPENSION UDCUP PO PRN (06:00)
[2024-02-02] MEDS ORDERED: ONDANSETRON HCL 4 MG TABLET PO PRN (06:00)
[2024-02-02] MEDS ORDERED: PETROLATUM,WHITE 28 GM JELLY TP PRN (06:00)
[2024-02-02] MEDS ORDERED: ALBUTEROL SULFATE HFA 90 MCG/PUFF 8 GM INHALER IH PRN (06:00)
[2024-02-02] MEDS ORDERED: BACITRACIN 28 GM OINTMENT TP PRN (06:00)
[2024-02-02] MEDS ORDERED: DOCUSATE SODIUM 100 MG CAPSULE PO PRN (06:00)
[2024-02-02] MEDS ORDERED: MAGNESIUM HYDROXIDE SUSPENSION 30 ML UDCUP PO PRN (06:00)
[2024-02-02] MEDS ORDERED: BENZOCAINE/MENTHOL LOZENGE PO PRN (06:00)
[2024-02-02 08:16] VITALS: BP 127/73; PULSE 70; RESP 18; TEMP 97.3
[2024-02-02] MEDS: PROPRANOLOL HCL 10 MG TABLET PO SCH (08:21)
[2024-02-02] MEDS: VERAPAMIL HCL 240 MG ER TABLET PO SCH (08:21)
[2024-02-02 08:47] VITALS: BP 127/73; PULSE 70; RESP 18; TEMP 97.3; O2SAT 99
[2024-02-02] MEDS: LORazepam 2 MG TABLET PO PRN (12:52)
[2024-02-02 16:44] VITALS: BP 135/93
[2024-02-02 20:32] VITALS: BP 125/67; PULSE 82; RESP 18; TEMP 98.2; O2SAT 97
[2024-02-02] MEDS: MELATONIN 5 MG TABLET PO SCH (20:58)
[2024-02-03 08:47] VITALS: BP 129/77; PULSE 79; RESP 20; TEMP 98.4; O2SAT 98
[2024-02-03 10:00] VITALS: BP 146/75; PULSE 74; RESP 18; TEMP 97.1; O2SAT 100
[2024-02-03 20:14] VITALS: BP 120/75; PULSE 64; RESP 16; TEMP 97.4; O2SAT 100
[2024-02-03] MEDS: QUEtiapine FUMARATE 200 MG TABLET PO SCH (20:32)
[2024-02-04 08:04] VITALS: BP 113/57; PULSE 66; RESP 16; TEMP 97.4; O2SAT 96
[2024-02-04 08:55] LABS: HEMOGLOBIN A1C 5.4 % (3.8-5.6)
[2024-02-04 09:11] LABS: CHOL/HDL RATIO 3.5 (3.9-5.7); FREE T4 (FREE THYROXINE) 0.83 ng/dL (0.76-1.46); POTASSIUM 3.4 mmol/L (3.5-5.1); THYROID STIMULATING HORMONE 1.08 uIU/mL (0.36-3.74)
[2024-02-04] MEDS: CITALOPRAM HYDROBROMIDE 20 MG TABLET PO SCH (10:07)
[2024-02-04] MEDS: POTASSIUM CHLORIDE 20 MEQ ER TABLET PO ONE (14:06)
[2024-02-04 20:05] VITALS: BP 105/57; PULSE 69; RESP 18; TEMP 97.4; O2SAT 96
[2024-02-05 01:33] VITALS: BP 101/71; PULSE 85; RESP 18; TEMP 97.1; O2SAT 97
[2024-02-05 08:29] VITALS: RESP 18
[2024-02-05 09:55] VITALS: BP 140/85; PULSE 71; RESP 18; TEMP 97.4; O2SAT 96
[2024-02-05 16:47] VITALS: BP 118/68; PULSE 76; RESP 18; TEMP 98.2; O2SAT 98
[2024-02-05 20:28] VITALS: BP 114/66; PULSE 67; RESP 18; TEMP 97.4; O2SAT 100
[2024-02-05] MEDS: OMEPRAZOLE 20 MG CAPSULE PO PRN (20:50)
[2024-02-06 10:59] VITALS: BP 126/74; PULSE 78; RESP 16; TEMP 98; O2SAT 98
[2024-02-06 20:30] VITALS: BP 141/68; PULSE 67; RESP 18; TEMP 97.2
[2024-02-07 09:33] VITALS: BP 122/70; PULSE 80; RESP 18; TEMP 97.9; O2SAT 100
[2024-02-07] MEDS: PNEUMOCOCCAL VACCINE POLYVALENT 0.5 ML SYRINGE [PPSV23] IM. ONE (12:15)
[2024-02-07 16:03] VITALS: BP 130/68; RESP 18; O2SAT 100
[2024-02-07 20:59] VITALS: BP 108/70; PULSE 68; RESP 18; TEMP 97.4; O2SAT 97
[2024-02-08 08:29] VITALS: BP 123/77; PULSE 75; RESP 17; TEMP 97.8; O2SAT 99
[2024-02-08 16:03] VITALS: BP 134/75; RESP 18; O2SAT 99
[2024-02-08 20:37] VITALS: BP 129/77; PULSE 74; RESP 16; TEMP 98
[2024-02-08] MEDS: IBUPROFEN 600 MG TABLET PO PRN (20:40)
[2024-02-09 08:45] VITALS: BP 111/64; PULSE 74; RESP 17; TEMP 97.3; O2SAT 96
[2024-02-09 14:32] VITALS: RESP 18; O2SAT 96
[2024-02-09 15:32] VITALS: RESP 17; O2SAT 96
[2024-02-09 16:12] VITALS: BP 120/71
[2024-02-09 21:04] VITALS: BP 120/75; PULSE 60; RESP 18; TEMP 97.4; O2SAT 98
[2024-02-10 09:39] VITALS: BP 123/76; PULSE 68; RESP 16; TEMP 97.6; O2SAT 97
[2024-02-10] MEDS ORDERED: QUET200T PO (14:26)
== END 2024-02-10 16:20 | disposition home or self-care (01) | DRG 750 ==
LOC: EMS 11:23 → B2S 02-02 00:32
PROVIDERS: ADMIT Psychiatry & Neurology Psychiatry; ATTEND Psychiatry & Neurology Psychiatry
DX: F25.9 Schizoaffective disorder, unspecified (principal); R45.851 Suicidal ideations; B19.20 Unspecified viral hepatitis C without hepatic coma; E87.6 Hypokalemia; F41.0 Panic disorder [episodic paroxysmal anxiety]; I10 Essential (primary) hypertension; G47.00 Insomnia, unspecified; K21.9 Gastro-esophageal reflux disease without esophagitis; E66.9 Obesity, unspecified; Z20.822 Contact with and (suspected) exposure to COVID-19; F41.9 Anxiety disorder, unspecified; F19.10 Other psychoactive substance abuse, uncomplicated; K59.00 Constipation, unspecified; Z68.38 Body mass index [BMI] 38.0-38.9, adult; J44.9 Chronic obstructive pulmonary disease, unspecified; F10.10 Alcohol abuse, uncomplicated; Z72.0 Tobacco use; Z88.8 Allergy status to other drugs, medicaments and biological substances; Z88.6 Allergy status to analgesic agent; Z88.1 Allergy status to other antibiotic agents; Z91.011 Allergy to milk products; Z88.5 Allergy status to narcotic agent; Z91.013 Allergy to seafood
CPT/HCPCS: 80053; 80061; 83036; 84132; 84439; 84443; 85025; 87081; 99285; G0480; J2060; Q9967

== ENCOUNTER 2024-02-26 04:23 | Emergency (ER) | payer MEDICARE, OTHER ==
[~2024-02-26] VITALS: Ht 167.6 cm; Wt 107.0 kg
[~2024-02-26 04:23] MED LIST changes: +QUET200T PO
[2024-02-26 04:41] VITALS: BP 165/73; PULSE 65; RESP 22; TEMP 98.2
[2024-02-26] MEDS: ONDANSETRON HCL 4 MG TABLET PO ONE (04:49)
[2024-02-26] MEDS: MELATONIN 3 MG TABLET PO ONE (04:49)
[2024-02-26 04:58] LABS: BASOPHILS % (AUTO) 0.6 % (0.0-2.0); EOSINOPHILS % (AUTO) 0.8 % (1.0-6.0); HEMATOCRIT 41.6 % (36-46); HEMOGLOBIN 13.9 g/dL (12.0-16.0); LYMPHOCYTES # (AUTO) 2.3 K/uL (1.0-4.8); LYMPHOCYTES % (AUTO) 29.3 % (22.0-44.0); MEAN CORPUSCULAR HEMOGLOBIN 27.9 pg (26.0-34.0); MEAN CORPUSCULAR HGB CONC 33.5 G/dL (31.0-37.0); MEAN CORPUSCULAR VOLUME 83 fL (80-100); MONOCYTES # (AUTO) 0.8 K/uL (0.1-1.0); MONOCYTES % (AUTO) 10.2 % (2.0-9.0); NEUTROPHILS # (AUTO) 4.7 K/uL (1.8-7.7); NEUTROPHILS % (AUTO) 59.1 % (40.0-70.0); PLATELET COUNT (AUTO) 303 K/uL (150-450); WHITE BLOOD COUNT (AUTO) 7.9 K/uL (4.5-11.0)
[2024-02-26 05:06] LABS: ANION GAP 11 mmol/L (8-16); CARBON DIOXIDE 25 mmol/L (22-29); CHLORIDE 101 mmol/L (98-107); CREATININE 0.59 mg/dL (0.60-1.30); GLOMERULAR FILTR. RATE CALC > 60 mL/min (>60); GLUCOSE,RANDOM 110 mg/dL (70-110); SODIUM SERUM 137 mmol/L (136-145); UREA NITROGEN, BLOOD 3 mg/dL (7-18)
[2024-02-26 05:11] LABS: ALANINE AMINOTRANSFERASE 52 U/L (12-78); ALBUMIN 3.2 g/dL (3.4-5.0); ALKALINE PHOSPHATASE 138 U/L (46-116); ASPARTATE AMINOTRANSFERASE 60 U/L (15-37); BILIRUBIN,TOTAL 0.8 mg/dL (0.1-1.0); TOTAL PROTEIN, SERUM 8.2 g/dL (6.4-8.2)
[2024-02-26] MEDS: ZOLPIDEM TARTRATE 5 MG TABLET PO ONE (05:35)
[2024-02-26] MEDS: POTASSIUM CHLORIDE 20 MEQ ER TABLET PO ONE (05:35)
[2024-02-26 05:52] LABS: APPEARANCE,URINE CLEAR (CLEAR); BILIRUBIN,URINE NEGATIVE (NEGATIVE); COLOR,URINE LIGHT YELLOW (YELLOW); GLUCOSE, URINE (UA) NEGATIVE (NEGATIVE); KETONES,URINE NEGATIVE (NEGATIVE); LEUKOCYTE ESTERASE ,URINE NEGATIVE (NEGATIVE); NITRATE,URINE NEGATIVE (NEGATIVE); OCCULT BLOOD,URINE NEGATIVE (NEGATIVE); PROTEIN,URINE NEGATIVE (NEGATIVE); SPECIFIC GRAVITIY, URINE 1.005 (1.003-1.030); UROBILINOGEN,URINE <=1.0 mg/dL (<=1.0)
== END 2024-02-26 06:43 | disposition home or self-care (01) ==
LOC: EMS 04:24
DX: E87.6 Hypokalemia (principal); G47.00 Insomnia, unspecified; R19.7 Diarrhea, unspecified; J45.909 Unspecified asthma, uncomplicated; I10 Essential (primary) hypertension; F20.9 Schizophrenia, unspecified; Z87.891 Personal history of nicotine dependence; Z91.013 Allergy to seafood; Z88.1 Allergy status to other antibiotic agents; Z91.011 Allergy to milk products; Z88.6 Allergy status to analgesic agent; Z88.5 Allergy status to narcotic agent; Z91.012 Allergy to eggs; Z88.8 Allergy status to other drugs, medicaments and biological substances
CPT/HCPCS: 99283; 80053; 81003; 85025; 36415; Q0162

== ENCOUNTER 2024-05-05 14:57 | Inpatient (IN) | payer MEDICARE, MEDICAID ==
[~2024-05-05] VITALS: Ht 165.1 cm; Wt 105.7 kg
[~2024-05-05 14:57] MED LIST changes: +GABA-1181 PO; -MELA5TAB21 PO; +PROP10TA72 PO; -PROP10TA73 PO; -QUET200T PO; +QUET300T19 PO
[2024-05-05 15:57] LABS: BASOPHILS % (AUTO) 1.1 % (0.0-2.0); EOSINOPHILS % (AUTO) 3.1 % (1.0-6.0); HEMATOCRIT 39.3 % (36-46); HEMOGLOBIN 12.8 g/dL (12.0-16.0); LYMPHOCYTES # (AUTO) 3.6 K/uL (1.0-4.8); LYMPHOCYTES % (AUTO) 45.1 % (22.0-44.0); MEAN CORPUSCULAR HEMOGLOBIN 27.7 pg (26.0-34.0); MEAN CORPUSCULAR HGB CONC 32.5 G/dL (31.0-37.0); MEAN CORPUSCULAR VOLUME 85 fL (80-100); MONOCYTES # (AUTO) 0.8 K/uL (0.1-1.0); MONOCYTES % (AUTO) 10.4 % (2.0-9.0); NEUTROPHILS # (AUTO) 3.2 K/uL (1.8-7.7); NEUTROPHILS % (AUTO) 40.3 % (40.0-70.0); PLATELET COUNT (AUTO) 270 K/uL (150-450); RED BLOOD CELL COUNT(AUTO) 4.61 MIL/uL (4.00-5.20); RED CELL DISTRIBUTION WIDTH 15.1 % (11.5-14.5); WHITE BLOOD COUNT (AUTO) 7.9 K/uL (4.5-11.0)
[2024-05-05 16:11] LABS: ANION GAP 7 mmol/L (8-16); CALCIUM, TOTAL 9.7 mg/dL (8.8-10.5); CARBON DIOXIDE 30 mmol/L (22-29); CHLORIDE 103 mmol/L (98-107); CREATININE 0.73 mg/dL (0.60-1.30); GLOMERULAR FILTR. RATE CALC > 60 mL/min (>60); GLUCOSE,RANDOM 110 mg/dL (70-110); POTASSIUM 3.1 mmol/L (3.5-5.1); SODIUM SERUM 140 mmol/L (136-145); UREA NITROGEN, BLOOD 5 mg/dL (7-18)
[2024-05-05 16:12] LABS: ALCOHOL, BLOOD (SERUM) < 3 mg/dL (0-10)
[2024-05-05 16:20] LABS: TROPONIN I-HIGH SENSITIVITY 10 ng/L (<51)
[2024-05-05 19:48] LABS: COVID AG,FIA SOURCE NASAL SWAB
[2024-05-05 20:08] LABS: SARS-COV2 (COVID) ANTIGEN,FIA Negative (Negative)
[2024-05-05] MEDS: POTASSIUM CHLORIDE 20 MEQ ER TABLET PO ONE (22:13)
[2024-05-06 02:24] VITALS: BP 162/105; PULSE 70; RESP 18; TEMP 97.5; O2SAT 97
[2024-05-06] MEDS: ZOLPIDEM TARTRATE 10 MG TABLET PO PRN (02:56)
[2024-05-06] MEDS: HALOPERIDOL 5 MG TABLET PO PRN (03:50)
[2024-05-06] MEDS: LORazepam 2 MG TABLET PO PRN (03:50)
[2024-05-06] MEDS ORDERED: PNEUMOCOCCAL VACCINE POLYVALENT 0.5 ML SYRINGE [PPSV23] IM. ONE (04:45)
[2024-05-06 05:22] VITALS: BP 140/78; PULSE 80; RESP 18; TEMP 97.1; O2SAT 98
[2024-05-06] MEDS ORDERED: DOCUSATE SODIUM 100 MG CAPSULE PO PRN (08:00)
[2024-05-06] MEDS ORDERED: CloNIDine HCL 0.1 MG TABLET PO PRN (08:00)
[2024-05-06] MEDS ORDERED: ONDANSETRON HCL 4 MG TABLET PO PRN (08:00)
[2024-05-06] MEDS ORDERED: MAGNESIUM HYDROXIDE SUSPENSION 30 ML UDCUP PO PRN (08:00)
[2024-05-06] MEDS ORDERED: ALBUTEROL SULFATE HFA 90 MCG/PUFF 8 GM INHALER IH PRN (08:00)
[2024-05-06] MEDS ORDERED: BACITRACIN 28 GM OINTMENT TP PRN (08:00)
[2024-05-06] MEDS ORDERED: BENZOCAINE/MENTHOL LOZENGE PO PRN (08:00)
[2024-05-06] MEDS ORDERED: PETROLATUM,WHITE 28 GM JELLY TP PRN (08:00)
[2024-05-06 08:53] VITALS: BP 155/94; PULSE 82; RESP 18; TEMP 97.7; O2SAT 92
[2024-05-06] MEDS: PROPRANOLOL HCL 10 MG TABLET PO SCH (11:51)
[2024-05-06] MEDS: VERAPAMIL HCL 240 MG ER TABLET PO SCH (14:33)
[2024-05-06 16:34] VITALS: BP 142/80; PULSE 84; RESP 18; TEMP 97.9
[2024-05-06 20:08] VITALS: BP 154/86; PULSE 68; RESP 16; TEMP 97; O2SAT 96
[2024-05-06] MEDS: QUEtiapine FUMARATE 300 MG TABLET PO SCH (22:06)
[2024-05-07 08:07] VITALS: BP 121/62; PULSE 65; RESP 17; TEMP 98; O2SAT 97
[2024-05-07] MEDS: CITALOPRAM HYDROBROMIDE 20 MG TABLET PO SCH (09:36)
[2024-05-07] MEDS: MAG HYDROX/ALUMINUM HYD/SIMETH ES 30 ML SUSPENSION UDCUP PO PRN (16:50)
[2024-05-07 17:15] VITALS: BP 110/60; RESP 17; O2SAT 97
[2024-05-07] MEDS: OMEPRAZOLE 20 MG CAPSULE PO PRN (19:03)
[2024-05-07] MEDS: LOPERAMIDE HCL 2 MG CAPSULE PO PRN (20:18)
[2024-05-07 20:22] VITALS: BP 109/56; PULSE 65; RESP 17; TEMP 98.2; O2SAT 96
[2024-05-08 08:37] VITALS: RESP 16
[2024-05-08 13:52] VITALS: BP 109/74; PULSE 73; RESP 16; TEMP 97.8; O2SAT 100
[2024-05-08] MEDS: IBUPROFEN 600 MG TABLET PO PRN (19:16)
[2024-05-08 20:24] VITALS: BP 108/60; PULSE 68; RESP 17; TEMP 97.6; O2SAT 95
[2024-05-09 08:16] LABS: BASOPHILS % (AUTO) 0.7 % (0.0-2.0); EOSINOPHILS % (AUTO) 5.8 % (1.0-6.0); HEMOGLOBIN 12.4 g/dL (12.0-16.0); LYMPHOCYTES # (AUTO) 3.3 K/uL (1.0-4.8); MEAN CORPUSCULAR HEMOGLOBIN 28.2 pg (26.0-34.0); MEAN CORPUSCULAR HGB CONC 32.8 G/dL (31.0-37.0); MEAN CORPUSCULAR VOLUME 86 fL (80-100); MONOCYTES # (AUTO) 0.6 K/uL (0.1-1.0); MONOCYTES % (AUTO) 9.9 % (2.0-9.0); NEUTROPHILS # (AUTO) 1.8 K/uL (1.8-7.7); NEUTROPHILS % (AUTO) 29.6 % (40.0-70.0); PLATELET COUNT (AUTO) 242 K/uL (150-450); RED BLOOD CELL COUNT(AUTO) 4.41 MIL/uL (4.00-5.20); RED CELL DISTRIBUTION WIDTH 15.2 % (11.5-14.5)
[2024-05-09 08:34] LABS: ANION GAP 6 mmol/L (8-16); BILIRUBIN,TOTAL 0.3 mg/dL (0.1-1.0); CALCIUM, TOTAL 8.7 mg/dL (8.8-10.5); CARBON DIOXIDE 30 mmol/L (22-29); CHLORIDE 105 mmol/L (98-107); GLOMERULAR FILTR. RATE CALC > 60 mL/min (>60); GLUCOSE,RANDOM 80 mg/dL (70-110); POTASSIUM 3.2 mmol/L (3.5-5.1); SODIUM SERUM 141 mmol/L (136-145); UREA NITROGEN, BLOOD 9 mg/dL (7-18)
[2024-05-09 08:35] LABS: ALANINE AMINOTRANSFERASE 22 U/L (12-78); ALBUMIN 2.9 g/dL (3.4-5.0); ALKALINE PHOSPHATASE 72 U/L (46-116); ASPARTATE AMINOTRANSFERASE 18 U/L (15-37); CHOL/HDL RATIO 4.5 (3.9-5.7); CHOLESTEROL 143 mg/dL (131-200); FREE T4 (FREE THYROXINE) 0.62 ng/dL (0.76-1.46); HDL CHOLESTEROL 32 mg/dL (40-60); LDL CHOL (CALC.) 96 mg/dL (0-130); THYROID STIMULATING HORMONE 1.22 uIU/mL (0.36-3.74); TOTAL PROTEIN, SERUM 7.1 g/dL (6.4-8.2); TRIGLYCERIDES 77 mg/dL (15-150)
[2024-05-09 10:00] VITALS: BP 118/69; PULSE 65; RESP 18; TEMP 98; O2SAT 92
[2024-05-09 13:32] VITALS: RESP 18
[2024-05-09] MEDS: POTASSIUM CHLORIDE 20 MEQ ER TABLET PO ONE (13:54)
[2024-05-09 14:32] VITALS: RESP 17
[2024-05-09 20:21] VITALS: BP 122/73; PULSE 65; RESP 18; TEMP 97.8; O2SAT 95
[2024-05-10 08:08] VITALS: BP 136/50; PULSE 58; RESP 17; TEMP 97; O2SAT 95
[2024-05-10 16:43] VITALS: BP 141/87; PULSE 62
[2024-05-10 20:11] VITALS: BP 139/87; PULSE 64; RESP 18; TEMP 97.5; O2SAT 97
[2024-05-11 10:59] VITALS: BP 133/74; PULSE 73; RESP 18; TEMP 97.8; O2SAT 96
== END 2024-05-11 17:17 | disposition home or self-care (01) | DRG 750 ==
LOC: EMS 14:57 → B2S 21:58
PROVIDERS: ADMIT Psychiatry & Neurology Psychiatry; ATTEND Psychiatry & Neurology Psychiatry
DX: F25.1 Schizoaffective disorder, depressive type (principal); R45.851 Suicidal ideations; K74.60 Unspecified cirrhosis of liver; B19.20 Unspecified viral hepatitis C without hepatic coma; E87.6 Hypokalemia; F41.9 Anxiety disorder, unspecified; Z20.822 Contact with and (suspected) exposure to COVID-19; I10 Essential (primary) hypertension; K21.9 Gastro-esophageal reflux disease without esophagitis; F43.10 Post-traumatic stress disorder, unspecified; J44.9 Chronic obstructive pulmonary disease, unspecified; E66.9 Obesity, unspecified; Y90.9 Presence of alcohol in blood, level not specified; F10.10 Alcohol abuse, uncomplicated; K59.00 Constipation, unspecified; Z68.38 Body mass index [BMI] 38.0-38.9, adult; Z72.0 Tobacco use; Z88.8 Allergy status to other drugs, medicaments and biological substances; Z88.6 Allergy status to analgesic agent; Z91.012 Allergy to eggs; Z91.011 Allergy to milk products; Z88.5 Allergy status to narcotic agent; Z91.013 Allergy to seafood
CPT/HCPCS: 80048; 80053; 80061; 84132; 84484; 85025; 99285; G0480

== ENCOUNTER 2024-06-23 15:55 | Inpatient (IN) | payer MEDICARE, OTHER ==
[~2024-06-23] VITALS: Ht 165.1 cm; Wt 104.4 kg
[~2024-06-23 15:55] MED LIST changes: -GABA-1181 PO
[2024-06-23] MEDS ORDERED: ONDANSETRON HCL 4 MG/2 ML VIAL IVP ONE (16:30)
[2024-06-23] MEDS: ONDANSETRON HCL 4 MG TABLET PO ONE (16:43)
[2024-06-23 16:46] LABS: BASOPHILS % (AUTO) 0.8 % (0.0-2.0); EOSINOPHILS % (AUTO) 2.2 % (1.0-6.0); HEMATOCRIT 41.3 % (36-46); HEMOGLOBIN 13.6 g/dL (12.0-16.0); LYMPHOCYTES # (AUTO) 3.2 K/uL (1.0-4.8); LYMPHOCYTES % (AUTO) 42.6 % (22.0-44.0); MEAN CORPUSCULAR HEMOGLOBIN 27.7 pg (26.0-34.0); MEAN CORPUSCULAR HGB CONC 32.8 G/dL (31.0-37.0); MEAN CORPUSCULAR VOLUME 84 fL (80-100); MONOCYTES # (AUTO) 0.7 K/uL (0.1-1.0); NEUTROPHILS # (AUTO) 3.5 K/uL (1.8-7.7); NEUTROPHILS % (AUTO) 45.4 % (40.0-70.0); PLATELET COUNT (AUTO) 266 K/uL (150-450); RED BLOOD CELL COUNT(AUTO) 4.91 MIL/uL (4.00-5.20); RED CELL DISTRIBUTION WIDTH 16.3 % (11.5-14.5); WHITE BLOOD COUNT (AUTO) 7.6 K/uL (4.5-11.0)
[2024-06-23 17:16] LABS: ANION GAP 13 mmol/L (8-16); CALCIUM, TOTAL 8.9 mg/dL (8.8-10.5); CARBON DIOXIDE 26 mmol/L (22-29); CHLORIDE 103 mmol/L (98-107); CREATININE 0.85 mg/dL (0.60-1.30); GLOMERULAR FILTR. RATE CALC > 60 mL/min (>60); GLUCOSE,RANDOM 93 mg/dL (70-110); POTASSIUM 3.2 mmol/L (3.5-5.1); SODIUM SERUM 142 mmol/L (136-145); UREA NITROGEN, BLOOD 8 mg/dL (7-18)
[2024-06-23 17:20] LABS: ALANINE AMINOTRANSFERASE 21 U/L (12-78); ALBUMIN 3.3 g/dL (3.4-5.0); ALKALINE PHOSPHATASE 108 U/L (46-116); ASPARTATE AMINOTRANSFERASE 25 U/L (15-37); BILIRUBIN,TOTAL 0.5 mg/dL (0.1-1.0)
[2024-06-23 17:22] LABS: TROPONIN I-HIGH SENSITIVITY 14 ng/L (<51)
[2024-06-23] MEDS: POTASSIUM CHLORIDE 10% 40 MEQ/30 ML LIQUID UDCUP PO ONE (22:14)
[2024-06-23] MEDS ORDERED: POTASSIUM CHL 10 MEQ/WATER 50 ML IV PRN (23:00)
[2024-06-23] MEDS ORDERED: BISMUTH SUBSALICYLATE 525 MG/30 ML SUSPENSION UDCUP PO PRN (23:00)
[2024-06-23] MEDS ORDERED: POTASSIUM CHLORIDE 20 MEQ ER TABLET PO PRN (23:00)
[2024-06-23] MEDS: SODIUM CHLORIDE 0.9% 1,000 ML IV ONE (23:00)
[2024-06-23] MEDS: HEPARIN SODIUM,PORCINE 5,000 UNITS/ML VIAL SQ SCH (23:20)
[2024-06-23 23:22] LABS: COVID AG,FIA SOURCE NASAL SWAB
[2024-06-23 23:39] LABS: SARS-COV2 (COVID) ANTIGEN,FIA Negative (Negative)
[2024-06-24 00:56] VITALS: BP 137/76; PULSE 76; RESP 20; TEMP 98.3
[2024-06-24] MEDS: ZOLPIDEM TARTRATE 5 MG TABLET PO PRN (01:27)
[2024-06-24 03:26] VITALS: BP 136/92; PULSE 79; RESP 20; TEMP 97.8
[2024-06-24 07:31] LABS: APPEARANCE,URINE CLEAR (CLEAR); BILIRUBIN,URINE NEGATIVE (NEGATIVE); COLOR,URINE LIGHT YELLOW (YELLOW); GLUCOSE, URINE (UA) NEGATIVE (NEGATIVE); KETONES,URINE NEGATIVE (NEGATIVE); LEUKOCYTE ESTERASE ,URINE LARGE (NEGATIVE); NITRATE,URINE NEGATIVE (NEGATIVE); OCCULT BLOOD,URINE NEGATIVE (NEGATIVE); PROTEIN,URINE NEGATIVE (NEGATIVE); UROBILINOGEN,URINE <=1.0 mg/dL (<=1.0)
[2024-06-24 07:39] LABS: ALCOHOL, URINE DRUG SCREEN NEGATIVE (NEGATIVE); AMPHET/METH SCREEN,URINE NEGATIVE (NEGATIVE); BENZODIAZEPINES SCREEN,URINE NEGATIVE (NEGATIVE); CANNABINOID SCREEN,URINE NEGATIVE (NEGATIVE); COCAINE SCREEN,URINE NEGATIVE (NEGATIVE); METHADONE SCREEN, URINE NEGATIVE (NEGATIVE); OPIATE SCREEN,URINE NEGATIVE (NEGATIVE); PHENCYCLIDINE SCREEN,URINE NEGATIVE (NEGATIVE)
[2024-06-24 07:48] LABS: BARBITURATE SCREEN, URINE NEGATIVE (NEGATIVE)
[2024-06-24 08:52] LABS: RBC,URINE None Seen /HPF (0-2)
[2024-06-24 08:53] LABS: BACTERIA,URINE Few /HPF (None Seen); SQUAMOUS EPITHELIAL CELL,UR Few /LPF (None Seen)
[2024-06-24] MEDS: FAMOTIDINE 20 MG TABLET PO SCH (09:00)
[2024-06-24 09:22] VITALS: BP 142/90; PULSE 81; RESP 20; TEMP 97.5
[2024-06-24 16:30] VITALS: BP 152/65; PULSE 95; RESP 19; TEMP 98
[2024-06-24] MEDS: VERAPAMIL HCL 240 MG ER TABLET PO SCH (16:58)
[2024-06-24] MEDS: GABAPENTIN 300 MG CAPSULE PO SCH (17:01)
[2024-06-24] MEDS ORDERED: ZOLPIDEM TARTRATE 10 MG TABLET PO PRN (17:30)
[2024-06-24 18:37] VITALS: BP 137/71; PULSE 77
[2024-06-24 19:32] VITALS: BP 138/81; PULSE 81; RESP 20; TEMP 98.3
[2024-06-24] MEDS: QUEtiapine FUMARATE 300 MG TABLET PO SCH (20:16)
[2024-06-24] MEDS: PROPRANOLOL HCL 10 MG TABLET PO SCH (20:17)
[2024-06-25] MEDS: ZOLPIDEM TARTRATE 5 MG TABLET PO PRN (00:30)
[2024-06-25 04:55] VITALS: BP 110/64; PULSE 72; RESP 20; TEMP 98.4
[2024-06-25 08:31] VITALS: BP 105/66; PULSE 68; RESP 18; TEMP 98.3
[2024-06-25] MEDS: CITALOPRAM HYDROBROMIDE 20 MG TABLET PO SCH (08:58)
[2024-06-25 17:01] VITALS: BP 164/86; PULSE 78; RESP 20; TEMP 98.5
[2024-06-25 17:38] LABS: ANION GAP 8 mmol/L (8-16); CALCIUM, TOTAL 8.3 mg/dL (8.8-10.5); CARBON DIOXIDE 28 mmol/L (22-29); CHLORIDE 105 mmol/L (98-107); GLOMERULAR FILTR. RATE CALC > 60 mL/min (>60); GLUCOSE,RANDOM 91 mg/dL (70-110); POTASSIUM 3.6 mmol/L (3.5-5.1); SODIUM SERUM 141 mmol/L (136-145); UREA NITROGEN, BLOOD 10 mg/dL (7-18)
[2024-06-25 20:24] VITALS: BP 102/67; PULSE 81; RESP 18; TEMP 98.4
[2024-06-26 06:02] VITALS: BP 128/72; PULSE 64; RESP 18; TEMP 98
[2024-06-26 08:00] VITALS: BP 113/58; PULSE 66; RESP 17; TEMP 98
[2024-06-26 11:37] LABS: BASOPHILS % (AUTO) 0.8 % (0.0-2.0); EOSINOPHILS % (AUTO) 3.8 % (1.0-6.0); HEMATOCRIT 41.4 % (36-46); HEMOGLOBIN 13.3 g/dL (12.0-16.0); MEAN CORPUSCULAR HEMOGLOBIN 27.5 pg (26.0-34.0); MEAN CORPUSCULAR HGB CONC 32.1 G/dL (31.0-37.0); MEAN CORPUSCULAR VOLUME 86 fL (80-100); MONOCYTES # (AUTO) 0.6 K/uL (0.1-1.0); MONOCYTES % (AUTO) 9.6 % (2.0-9.0); NEUTROPHILS # (AUTO) 2.3 K/uL (1.8-7.7); NEUTROPHILS % (AUTO) 36.8 % (40.0-70.0); PLATELET COUNT (AUTO) 221 K/uL (150-450); RED BLOOD CELL COUNT(AUTO) 4.84 MIL/uL (4.00-5.20); RED CELL DISTRIBUTION WIDTH 16.9 % (11.5-14.5); WHITE BLOOD COUNT (AUTO) 6.1 K/uL (4.5-11.0)
[2024-06-26 15:30] VITALS: BP 137/86; PULSE 69; RESP 16; TEMP 98.7
[2024-06-26 20:56] VITALS: BP 139/75; PULSE 70; RESP 20; TEMP 98.2
[2024-06-27 06:39] VITALS: BP 143/76; PULSE 72; RESP 18; TEMP 98.4
[2024-06-27 08:31] VITALS: BP 126/73; PULSE 64; RESP 20; TEMP 98.2
[2024-06-27 13:51] LABS: EOSINOPHILS % (AUTO) 3.2 % (1.0-6.0); HEMATOCRIT 41.6 % (36-46); HEMOGLOBIN 13.7 g/dL (12.0-16.0); LYMPHOCYTES # (AUTO) 2.2 K/uL (1.0-4.8); LYMPHOCYTES % (AUTO) 37.7 % (22.0-44.0); MEAN CORPUSCULAR HEMOGLOBIN 28.1 pg (26.0-34.0); MEAN CORPUSCULAR HGB CONC 33.1 G/dL (31.0-37.0); MEAN CORPUSCULAR VOLUME 85 fL (80-100); MONOCYTES # (AUTO) 0.4 K/uL (0.1-1.0); MONOCYTES % (AUTO) 7.5 % (2.0-9.0); NEUTROPHILS % (AUTO) 50.6 % (40.0-70.0); PLATELET COUNT (AUTO) 250 K/uL (150-450); RED BLOOD CELL COUNT(AUTO) 4.89 MIL/uL (4.00-5.20); RED CELL DISTRIBUTION WIDTH 16.9 % (11.5-14.5); WHITE BLOOD COUNT (AUTO) 5.9 K/uL (4.5-11.0)
[2024-06-27 15:25] VITALS: BP 146/86; PULSE 71; RESP 18; TEMP 98.5
[2024-06-27] MEDS ORDERED: ZOLP-280 PO (17:45)
[2024-06-27] MEDS ORDERED: GABA-1181 PO (17:45)
== END 2024-06-27 18:55 | disposition home or self-care (01) | DRG 425 ==
LOC: EMS 15:57 → EDBEDREQ 22:25 → EDBEDREQSVC 22:25 → EDH 22:55 → 4E 06-24 00:19
PROVIDERS: ADMIT Internal Medicine; ATTEND Internal Medicine
DX: E87.6 Hypokalemia (principal); F25.9 Schizoaffective disorder, unspecified; R45.851 Suicidal ideations; K74.60 Unspecified cirrhosis of liver; G62.9 Polyneuropathy, unspecified; I10 Essential (primary) hypertension; R19.7 Diarrhea, unspecified; F31.9 Bipolar disorder, unspecified; F43.10 Post-traumatic stress disorder, unspecified; J45.909 Unspecified asthma, uncomplicated; Z20.822 Contact with and (suspected) exposure to COVID-19; Z88.6 Allergy status to analgesic agent; Z88.8 Allergy status to other drugs, medicaments and biological substances; Z88.1 Allergy status to other antibiotic agents; Z91.011 Allergy to milk products; Z91.012 Allergy to eggs; Z88.5 Allergy status to narcotic agent; Z91.013 Allergy to seafood; Z79.899 Other long term (current) drug therapy
CPT/HCPCS: 80048; 80053; 80307; 81001; 84132; 84484; 85025; 87086; 87186; 99285; G0378; J1644; J2405

== ENCOUNTER 2024-06-29 08:55 | Inpatient (IN) | payer MEDICARE, MEDICAID ==
[~2024-06-29] VITALS: Ht 165.1 cm; Wt 103.0 kg
[~2024-06-29 08:55] MED LIST changes: +GABA-1181 PO
[2024-06-29 10:09] LABS: BASOPHILS % (AUTO) 1.5 % (0.0-2.0); EOSINOPHILS % (AUTO) 0.7 % (1.0-6.0); HEMATOCRIT 43.7 % (36-46); HEMOGLOBIN 14.7 g/dL (12.0-16.0); LYMPHOCYTES # (AUTO) 3.9 K/uL (1.0-4.8); LYMPHOCYTES % (AUTO) 46.5 % (22.0-44.0); MEAN CORPUSCULAR HEMOGLOBIN 28.4 pg (26.0-34.0); MEAN CORPUSCULAR HGB CONC 33.7 G/dL (31.0-37.0); MEAN CORPUSCULAR VOLUME 84 fL (80-100); MONOCYTES # (AUTO) 0.5 K/uL (0.1-1.0); MONOCYTES % (AUTO) 6.2 % (2.0-9.0); NEUTROPHILS # (AUTO) 3.7 K/uL (1.8-7.7); NEUTROPHILS % (AUTO) 45.1 % (40.0-70.0); PLATELET COUNT (AUTO) 281 K/uL (150-450); RED BLOOD CELL COUNT(AUTO) 5.19 MIL/uL (4.00-5.20); RED CELL DISTRIBUTION WIDTH 16.7 % (11.5-14.5); WHITE BLOOD COUNT (AUTO) 8.3 K/uL (4.5-11.0)
[2024-06-29 10:19] LABS: ANION GAP 13 mmol/L (8-16); CALCIUM, TOTAL 9.5 mg/dL (8.8-10.5); CARBON DIOXIDE 21 mmol/L (22-29); CHLORIDE 102 mmol/L (98-107); CREATININE 0.75 mg/dL (0.60-1.30); GLOMERULAR FILTR. RATE CALC > 60 mL/min (>60); GLUCOSE,RANDOM 98 mg/dL (70-110); POTASSIUM 3.5 mmol/L (3.5-5.1); SODIUM SERUM 136 mmol/L (136-145); UREA NITROGEN, BLOOD 6 mg/dL (7-18)
[2024-06-29 10:41] VITALS: O2SAT 99
[2024-06-29 10:45] LABS: ALCOHOL, BLOOD (SERUM) < 3 mg/dL (0-10)
[2024-06-29] MEDS: LORazepam 2 MG TABLET PO PRN (13:07)
[2024-06-29] MEDS: HALOPERIDOL 5 MG TABLET PO PRN (13:07)
[2024-06-29 13:19] LABS: COVID AG,FIA SOURCE NASAL SWAB
[2024-06-29 13:59] LABS: SARS-COV2 (COVID) ANTIGEN,FIA Negative (Negative)
[2024-06-29] MEDS ORDERED: PNEUMOCOCCAL VACCINE POLYVALENT 0.5 ML SYRINGE [PPSV23] IM. ONE (17:30)
[2024-06-29] MEDS: ZOLPIDEM TARTRATE 10 MG TABLET PO PRN (20:44)
[2024-06-29] MEDS ORDERED: PETROLATUM,WHITE 28 GM JELLY TP PRN (20:45)
[2024-06-29] MEDS ORDERED: ALBUTEROL SULFATE HFA 90 MCG/PUFF 8 GM INHALER IH PRN (20:45)
[2024-06-29] MEDS ORDERED: LOPERAMIDE HCL 2 MG CAPSULE PO PRN (20:45)
[2024-06-29] MEDS ORDERED: CloNIDine HCL 0.1 MG TABLET PO PRN (20:45)
[2024-06-29] MEDS ORDERED: MAGNESIUM HYDROXIDE SUSPENSION 30 ML UDCUP PO PRN (20:45)
[2024-06-29] MEDS ORDERED: ONDANSETRON HCL 4 MG TABLET PO PRN (20:45)
[2024-06-29] MEDS ORDERED: DOCUSATE SODIUM 100 MG CAPSULE PO PRN (20:45)
[2024-06-29] MEDS ORDERED: OMEPRAZOLE 20 MG CAPSULE PO PRN (20:45)
[2024-06-29] MEDS ORDERED: BACITRACIN 28 GM OINTMENT TP PRN (20:45)
[2024-06-29] MEDS ORDERED: MAG HYDROX/ALUMINUM HYD/SIMETH ES 30 ML SUSPENSION UDCUP PO PRN (20:45)
[2024-06-29] MEDS ORDERED: BENZOCAINE/MENTHOL LOZENGE PO PRN (20:45)
[2024-06-29 20:53] VITALS: BP 120/58; PULSE 67; RESP 18; TEMP 96.3; O2SAT 97
[2024-06-30 08:50] VITALS: BP 116/68; PULSE 75; RESP 17; TEMP 97; O2SAT 97
[2024-06-30] MEDS: PROPRANOLOL HCL 10 MG TABLET PO SCH (10:15)
[2024-06-30] MEDS: VERAPAMIL HCL 240 MG ER TABLET PO SCH (10:15)
[2024-06-30 10:49] VITALS: RESP 17
[2024-06-30] MEDS: IBUPROFEN 600 MG TABLET PO PRN (10:49)
[2024-06-30 11:49] VITALS: RESP 17
[2024-06-30] MEDS: QUEtiapine FUMARATE 200 MG TABLET PO SCH (20:20)
[2024-06-30 21:10] VITALS: BP 138/70; PULSE 79; RESP 18; TEMP 97; O2SAT 99
[2024-07-01 10:00] VITALS: BP 132/71; PULSE 77; RESP 17; TEMP 96.7; O2SAT 99
[2024-07-01 14:44] VITALS: BP 110/64; RESP 17
[2024-07-01 16:29] VITALS: RESP 18; O2SAT 99
[2024-07-01 17:29] VITALS: RESP 18
[2024-07-01 20:42] VITALS: BP 109/56; PULSE 73; RESP 16; TEMP 97; O2SAT 92
[2024-07-02 09:59] VITALS: BP 137/74; PULSE 74; RESP 18; TEMP 97; O2SAT 96
[2024-07-02 20:40] VITALS: BP 128/60; PULSE 83; RESP 22; TEMP 98; O2SAT 99
[2024-07-03] MEDS ORDERED: QUET200T PO (07:36)
[2024-07-03 09:36] VITALS: BP 130/69; PULSE 75; RESP 15; TEMP 97.5; O2SAT 96
== END 2024-07-03 11:54 | disposition home or self-care (01) | DRG 750 ==
LOC: EMS 08:55 → B2S 12:23
PROVIDERS: ADMIT Psychiatry & Neurology Psychiatry; ATTEND Psychiatry & Neurology Psychiatry
DX: F25.1 Schizoaffective disorder, depressive type (principal); R45.851 Suicidal ideations; Z91.148 Patient's other noncompliance with medication regimen for other reason; F10.10 Alcohol abuse, uncomplicated; I10 Essential (primary) hypertension; Z20.822 Contact with and (suspected) exposure to COVID-19; K21.9 Gastro-esophageal reflux disease without esophagitis; M54.9 Dorsalgia, unspecified; F41.9 Anxiety disorder, unspecified; J44.9 Chronic obstructive pulmonary disease, unspecified; F43.10 Post-traumatic stress disorder, unspecified; Z72.0 Tobacco use; Z88.8 Allergy status to other drugs, medicaments and biological substances; Z88.6 Allergy status to analgesic agent; Z88.1 Allergy status to other antibiotic agents; Z91.012 Allergy to eggs; Z91.011 Allergy to milk products; Z88.5 Allergy status to narcotic agent; Z91.013 Allergy to seafood; K59.00 Constipation, unspecified; G47.00 Insomnia, unspecified
CPT/HCPCS: 80048; 85025; 99285; G0480

== ENCOUNTER 2024-07-13 22:39 | Inpatient (IN) | payer MEDICARE, MEDICAID ==
[~2024-07-13] VITALS: Ht 162.6 cm; Wt 105.1 kg
[~2024-07-13 22:39] MED LIST changes: -CITA-144 PO; -GABA-1181 PO; +QUET200T PO; -QUET300T19 PO
[2024-07-13 22:50] VITALS: O2SAT 94
[2024-07-13] MEDS: ZOLPIDEM TARTRATE 10 MG TABLET PO ONE (23:43)
[2024-07-13] MEDS: QUEtiapine FUMARATE 100 MG TABLET PO ONE (23:43)
[2024-07-13 23:54] LABS: COVID AG,FIA SOURCE NASAL SWAB
[2024-07-14 00:02] LABS: HEMATOCRIT 41.5 % (36-46); HEMOGLOBIN 13.5 g/dL (12.0-16.0); MEAN CORPUSCULAR HEMOGLOBIN 28.1 pg (26.0-34.0); MEAN CORPUSCULAR HGB CONC 32.5 G/dL (31.0-37.0); MEAN CORPUSCULAR VOLUME 86 fL (80-100); PLATELET COUNT (AUTO) 308 K/uL (150-450); RED CELL DISTRIBUTION WIDTH 16.9 % (11.5-14.5); WHITE BLOOD COUNT (AUTO) 7.8 K/uL (4.5-11.0)
[2024-07-14 00:17] LABS: ANION GAP 14 mmol/L (8-16); CALCIUM, TOTAL 9.7 mg/dL (8.8-10.5); CARBON DIOXIDE 25 mmol/L (22-29); CHLORIDE 101 mmol/L (98-107); CREATININE 0.85 mg/dL (0.60-1.30); GLOMERULAR FILTR. RATE CALC > 60 mL/min (>60); GLUCOSE,RANDOM 97 mg/dL (70-110); SODIUM SERUM 139 mmol/L (136-145); UREA NITROGEN, BLOOD 10 mg/dL (7-18)
[2024-07-14 00:18] LABS: ALCOHOL, BLOOD (SERUM) 88 mg/dL (0-10)
[2024-07-14 00:22] LABS: BAND NEUTROPHILS % (MANUAL) 0 % (0-5)
[2024-07-14 00:24] LABS: LYMPHOCYTES % (MANUAL) 69 % (22-44); MONOCYTES % (MANUAL) 5 % (2-9); SEGMENTED NEUTROPHILS % 26 % (40-70); TOTAL CELLS COUNTED 100
[2024-07-14 00:29] LABS: SARS-COV2 (COVID) ANTIGEN,FIA Negative (Negative)
[2024-07-14] MEDS: POTASSIUM CHLORIDE 20 MEQ ER TABLET PO ONE (00:45)
[2024-07-14 01:30] VITALS: BP 120/68; PULSE 104; RESP 18; TEMP 98; O2SAT 95
[2024-07-14] MEDS ORDERED: MAGNESIUM HYDROXIDE SUSPENSION 30 ML UDCUP PO PRN (07:00)
[2024-07-14] MEDS ORDERED: BENZOCAINE/MENTHOL LOZENGE PO PRN (07:00)
[2024-07-14] MEDS ORDERED: ONDANSETRON 4 MG TABLET PO PRN (07:00)
[2024-07-14] MEDS ORDERED: BACITRACIN 28 GM OINTMENT TP PRN (07:00)
[2024-07-14] MEDS ORDERED: ACETAMINOPHEN 325 MG TABLET PO PRN (07:00)
[2024-07-14] MEDS ORDERED: LOPERAMIDE HCL 2 MG CAPSULE PO PRN (07:00)
[2024-07-14] MEDS ORDERED: IBUPROFEN 600 MG TABLET PO PRN (07:00)
[2024-07-14] MEDS ORDERED: ALBUTEROL SULFATE HFA 90 MCG/PUFF 8 GM INHALER IH PRN (07:00)
[2024-07-14] MEDS ORDERED: CloNIDine HCL 0.1 MG TABLET PO PRN (07:00)
[2024-07-14 08:00] VITALS: BP 115/63; PULSE 91; RESP 18; TEMP 98; O2SAT 96
[2024-07-14] MEDS: VERAPAMIL HCL 240 MG ER TABLET PO SCH (10:14)
[2024-07-14] MEDS: PROPRANOLOL HCL 10 MG TABLET PO SCH (10:15)
[2024-07-14] MEDS: MAG HYDROX/ALUMINUM HYD/SIMETH ES 30 ML SUSPENSION UDCUP PO PRN (13:11)
[2024-07-14] MEDS: OMEPRAZOLE 20 MG CAPSULE PO PRN (16:46)
[2024-07-14] MEDS ORDERED: QUEtiapine FUMARATE 100 MG TABLET PO PRN (17:15)
[2024-07-14] MEDS: LORazepam 2 MG TABLET PO PRN (18:18)
[2024-07-14] MEDS: HALOPERIDOL 5 MG TABLET PO PRN (18:18)
[2024-07-14 20:47] VITALS: BP 122/73; PULSE 73; RESP 18; TEMP 97.4; O2SAT 98
[2024-07-14] MEDS: QUEtiapine FUMARATE 200 MG TABLET PO SCH (23:26)
[2024-07-14] MEDS: ZOLPIDEM TARTRATE 10 MG TABLET PO PRN (23:27)
[2024-07-15] MEDS: THIAMINE 100 MG TABLET PO SCH (10:23)
[2024-07-15] MEDS: FOLIC ACID 1 MG TABLET PO SCH (10:23)
[2024-07-15] MEDS: MULTIVITAMINS WITH MINERALS, THERAPEUTIC TABLET PO SCH (10:23)
[2024-07-15] MEDS: DULoxetine HCL 20 MG CAPSULE PO SCH (10:24)
[2024-07-15 11:29] VITALS: BP 129/70; PULSE 76; RESP 17; TEMP 97.3; O2SAT 98
[2024-07-15 20:32] VITALS: BP 128/77; PULSE 70; RESP 18; TEMP 98.1; O2SAT 96
[2024-07-15] MEDS: QUEtiapine FUMARATE 300 MG TABLET PO SCH (21:49)
[2024-07-16] MEDS: DULoxetine HCL 30 MG CAPSULE PO SCH (08:14)
[2024-07-16 09:43] VITALS: BP 127/75; PULSE 78; RESP 18; TEMP 97.5; O2SAT 99
[2024-07-16] MEDS: DOCUSATE SODIUM 100 MG CAPSULE PO PRN (11:49)
[2024-07-16 16:06] VITALS: BP 123/78; PULSE 87; RESP 19; TEMP 98; O2SAT 98
[2024-07-16 20:30] VITALS: BP 113/56; PULSE 76; RESP 18; TEMP 98.3; O2SAT 95
[2024-07-17 13:46] VITALS: PULSE 68
[2024-07-17 20:27] VITALS: BP 138/74; PULSE 69; RESP 18; O2SAT 98
[2024-07-17] MEDS: ETHYL ALCOHOL 62% ANTISEPTIC NASAL SANITIZER 0.6 ML AMPUL NASAL SCH (21:11)
[2024-07-18 09:37] VITALS: BP 117/63; PULSE 96; RESP 17; TEMP 97.2; O2SAT 96
[2024-07-18 20:30] VITALS: BP 148/83; PULSE 70; RESP 18; TEMP 97.6; O2SAT 96
[2024-07-19 09:30] VITALS: BP 128/71; PULSE 70; RESP 18; O2SAT 98
[2024-07-19 21:15] VITALS: RESP 18
[2024-07-20 08:56] VITALS: BP 124/62; PULSE 63; RESP 17; TEMP 98.1; O2SAT 100
[2024-07-20] MEDS ORDERED: QUET300T2 PO (11:49)
[2024-07-20] MEDS ORDERED: DULO-114 PO (11:50)
[2024-07-20] MEDS: PETROLATUM,WHITE 28 GM JELLY TP PRN (15:55)
== END 2024-07-20 18:33 | disposition home or self-care (01) | DRG 750 ==
LOC: EMS 22:39 → EDBEDREQSVC 07-14 00:31 → 3EI 07-14 00:52
PROVIDERS: ADMIT Psychiatry & Neurology Psychiatry; ATTEND Psychiatry & Neurology Psychiatry
PROC: GZHZZZZ Group Psychotherapy (ICD-10-PCS; principal; 2024-07-15)
PROC: GZ58ZZZ Individual Psychotherapy, Cognitive-Behavioral (ICD-10-PCS; 2024-07-15)
DX: F25.0 Schizoaffective disorder, bipolar type (principal); G93.41 Metabolic encephalopathy; R45.851 Suicidal ideations; E87.6 Hypokalemia; F10.129 Alcohol abuse with intoxication, unspecified; I10 Essential (primary) hypertension; Z20.822 Contact with and (suspected) exposure to COVID-19; J44.89 Other specified chronic obstructive pulmonary disease; K21.9 Gastro-esophageal reflux disease without esophagitis; G47.00 Insomnia, unspecified; F17.200 Nicotine dependence, unspecified, uncomplicated; Z88.8 Allergy status to other drugs, medicaments and biological substances; Z88.6 Allergy status to analgesic agent; Z91.012 Allergy to eggs; Z91.011 Allergy to milk products; Z88.5 Allergy status to narcotic agent; Z91.013 Allergy to seafood; E66.01 Morbid (severe) obesity due to excess calories; Z68.39 Body mass index [BMI] 39.0-39.9, adult; F41.9 Anxiety disorder, unspecified; B18.2 Chronic viral hepatitis C
CPT/HCPCS: 80048; 84132; 85025; 87081; 99285; G0480

== ENCOUNTER 2024-08-17 14:21 | Inpatient (IN) | payer MEDICARE, MEDICAID ==
[~2024-08-17] VITALS: Ht 162.6 cm; Wt 106.0 kg
[~2024-08-17 14:21] MED LIST changes: +DULO-114 PO; -QUET200T PO; +QUET300T2 PO
[2024-08-17 17:43] LABS: EOSINOPHILS % (AUTO) 1.7 % (1.0-6.0); HEMATOCRIT 42.2 % (36-46); HEMOGLOBIN 13.7 g/dL (12.0-16.0); LYMPHOCYTES # (AUTO) 2.9 K/uL (1.0-4.8); LYMPHOCYTES % (AUTO) 39.8 % (22.0-44.0); MEAN CORPUSCULAR HEMOGLOBIN 27.8 pg (26.0-34.0); MEAN CORPUSCULAR HGB CONC 32.5 G/dL (31.0-37.0); MEAN CORPUSCULAR VOLUME 85 fL (80-100); MONOCYTES # (AUTO) 0.6 K/uL (0.1-1.0); MONOCYTES % (AUTO) 8.1 % (2.0-9.0); NEUTROPHILS # (AUTO) 3.6 K/uL (1.8-7.7); NEUTROPHILS % (AUTO) 49.4 % (40.0-70.0); PLATELET COUNT (AUTO) 318 K/uL (150-450); RED BLOOD CELL COUNT(AUTO) 4.94 MIL/uL (4.00-5.20); RED CELL DISTRIBUTION WIDTH 16.1 % (11.5-14.5); WHITE BLOOD COUNT (AUTO) 7.3 K/uL (4.5-11.0)
[2024-08-17 17:53] LABS: ALCOHOL, BLOOD (SERUM) 66 mg/dL (0-10); ANION GAP 14 mmol/L (8-16); CALCIUM, TOTAL 9.3 mg/dL (8.8-10.5); CARBON DIOXIDE 25 mmol/L (22-29); CHLORIDE 101 mmol/L (98-107); CREATININE 0.72 mg/dL (0.60-1.30); GLOMERULAR FILTR. RATE CALC > 60 mL/min (>60); GLUCOSE,RANDOM 87 mg/dL (70-110); SODIUM SERUM 140 mmol/L (136-145); UREA NITROGEN, BLOOD 6 mg/dL (7-18)
[2024-08-17 18:29] LABS: ALCOHOL, URINE DRUG SCREEN POSITIVE (NEGATIVE); AMPHET/METH SCREEN,URINE NEGATIVE (NEGATIVE); BARBITURATE SCREEN, URINE NEGATIVE (NEGATIVE); BENZODIAZEPINES SCREEN,URINE NEGATIVE (NEGATIVE); CANNABINOID SCREEN,URINE NEGATIVE (NEGATIVE); COCAINE SCREEN,URINE NEGATIVE (NEGATIVE); METHADONE SCREEN, URINE NEGATIVE (NEGATIVE); OPIATE SCREEN,URINE NEGATIVE (NEGATIVE); PHENCYCLIDINE SCREEN,URINE NEGATIVE (NEGATIVE)
[2024-08-17 18:56] LABS: COVID AG,FIA SOURCE NASAL SWAB
[2024-08-17 19:22] LABS: SARS-COV2 (COVID) ANTIGEN,FIA Negative (Negative)
[2024-08-17] MEDS: QUEtiapine FUMARATE 100 MG TABLET PO ONE (20:29)
[2024-08-17] MEDS: ZOLPIDEM TARTRATE 10 MG TABLET PO ONE (21:15)
[2024-08-18] MEDS: POTASSIUM CHLORIDE 20 MEQ ER TABLET PO ONE (00:13)
[2024-08-18 01:48] VITALS: BP 126/76; PULSE 100; RESP 19; TEMP 97.9; O2SAT 99
[2024-08-18 11:25] VITALS: RESP 18
[2024-08-18] MEDS: LORazepam 2 MG TABLET PO PRN (15:41)
[2024-08-18] MEDS: HALOPERIDOL 5 MG TABLET PO PRN (15:41)
[2024-08-18] MEDS: QUEtiapine FUMARATE 300 MG TABLET PO SCH (21:53)
[2024-08-18] MEDS ORDERED: ACETAMINOPHEN 325 MG TABLET PO PRN (22:15)
[2024-08-18] MEDS ORDERED: DOCUSATE SODIUM 100 MG CAPSULE PO PRN (22:15)
[2024-08-18] MEDS ORDERED: PETROLATUM,WHITE 28 GM JELLY TP PRN (22:15)
[2024-08-18] MEDS ORDERED: BACITRACIN 28 GM OINTMENT TP PRN (22:15)
[2024-08-18] MEDS ORDERED: BENZOCAINE/MENTHOL LOZENGE PO PRN (22:15)
[2024-08-18] MEDS ORDERED: MAGNESIUM HYDROXIDE SUSPENSION 30 ML UDCUP PO PRN (22:15)
[2024-08-18] MEDS ORDERED: ALBUTEROL SULFATE HFA 90 MCG/PUFF 8 GM INHALER IH PRN (22:15)
[2024-08-18] MEDS ORDERED: ONDANSETRON 4 MG TABLET PO PRN (22:15)
[2024-08-18] MEDS ORDERED: CloNIDine HCL 0.1 MG TABLET PO PRN (22:15)
[2024-08-18] MEDS ORDERED: LOPERAMIDE HCL 2 MG CAPSULE PO PRN (22:15)
[2024-08-18 22:40] VITALS: RESP 18; TEMP 98.2
[2024-08-18] MEDS: ZOLPIDEM TARTRATE 10 MG TABLET PO PRN (23:07)
[2024-08-18] MEDS: MAG HYDROX/ALUMINUM HYD/SIMETH ES 30 ML SUSPENSION UDCUP PO PRN (23:33)
[2024-08-19 09:00] VITALS: BP 115/69; PULSE 91; RESP 18
[2024-08-19] MEDS: DULoxetine HCL 30 MG CAPSULE PO SCH (09:00)
[2024-08-19] MEDS: VERAPAMIL HCL 240 MG ER TABLET PO SCH (09:05)
[2024-08-19] MEDS: PROPRANOLOL HCL 10 MG TABLET PO SCH (09:06)
[2024-08-19 10:20] LABS: ANION GAP 8 mmol/L (8-16); CALCIUM, TOTAL 8.8 mg/dL (8.8-10.5); CARBON DIOXIDE 28 mmol/L (22-29); CHLORIDE 105 mmol/L (98-107); CHOL/HDL RATIO 3.3 (3.9-5.7); CHOLESTEROL 162 mg/dL (131-200); CREATININE 0.68 mg/dL (0.60-1.30); GLOMERULAR FILTR. RATE CALC > 60 mL/min (>60); GLUCOSE,RANDOM 94 mg/dL (70-110); HDL CHOLESTEROL 49 mg/dL (40-60); LDL CHOL (CALC.) 95 mg/dL (0-130); POTASSIUM 3.7 mmol/L (3.5-5.1); SODIUM SERUM 141 mmol/L (136-145); TRIGLYCERIDES 88 mg/dL (15-150); UREA NITROGEN, BLOOD 7 mg/dL (7-18)
[2024-08-19] MEDS: IBUPROFEN 600 MG TABLET PO PRN (15:13)
[2024-08-19 15:14] VITALS: BP 160/100; PULSE 80; RESP 17
[2024-08-19 16:14] VITALS: RESP 18
[2024-08-19 16:49] VITALS: RESP 18
[2024-08-19 21:47] VITALS: BP 139/85; PULSE 78; RESP 18; TEMP 97.6
[2024-08-20 11:11] VITALS: BP 147/72; PULSE 82; RESP 18; TEMP 98.2
[2024-08-20] MEDS: OMEPRAZOLE 20 MG CAPSULE PO PRN (11:15)
[2024-08-20 20:29] VITALS: BP 147/92; PULSE 74; RESP 19; TEMP 98.1; O2SAT 97
[2024-08-21 20:30] VITALS: BP 142/79; PULSE 71; RESP 18; TEMP 97.1; O2SAT 98
[2024-08-22 09:35] VITALS: RESP 18; TEMP 98
[2024-08-22 21:49] VITALS: BP 106/60; PULSE 76; RESP 18; TEMP 98; O2SAT 98
[2024-08-23 10:01] VITALS: BP 110/70; PULSE 97; RESP 18; TEMP 97.7; O2SAT 97
[2024-08-23 21:12] VITALS: BP 151/90; PULSE 98; RESP 18; TEMP 97.9; O2SAT 96
[2024-08-24 08:00] VITALS: BP 119/60; PULSE 68; RESP 18; TEMP 97.5; O2SAT 98
[2024-08-24 17:11] VITALS: BP 168/88; PULSE 88; RESP 18; O2SAT 98
[2024-08-24 18:03] VITALS: RESP 18
[2024-08-24] MEDS: DiphenhydrAMINE HCL 25 MG CAPSULE PO PRN (18:34)
[2024-08-24 20:40] VITALS: BP 161/86; PULSE 64; RESP 18; TEMP 97.7; O2SAT 97
[2024-08-25 08:51] VITALS: BP 104/52; PULSE 71; RESP 17; TEMP 97.8; O2SAT 95
[2024-08-25 22:43] VITALS: BP 156/72; PULSE 65; RESP 18; TEMP 98.1; O2SAT 98
[2024-08-26 09:00] VITALS: BP 121/69; PULSE 63; RESP 18; TEMP 96.9
[2024-08-26 22:13] VITALS: BP 123/70; PULSE 84; RESP 18; TEMP 97.7; O2SAT 99
[2024-08-27 09:52] VITALS: BP 127/78; PULSE 77; RESP 18; TEMP 98.2; O2SAT 97
[2024-08-27 21:00] VITALS: BP 127/65; PULSE 71; RESP 20; TEMP 97.1; O2SAT 97
[2024-08-28 09:00] VITALS: BP 124/61; PULSE 68; RESP 18; TEMP 97.9
[2024-08-28 21:56] VITALS: BP 137/64; PULSE 71; RESP 18; TEMP 97.2; O2SAT 97
[2024-08-29 09:01] VITALS: BP 99/51; PULSE 71; RESP 17; O2SAT 95
[2024-08-29 09:35] VITALS: BP 113/66; PULSE 77; RESP 18; O2SAT 97
[2024-08-29 16:58] VITALS: BP 120/85; PULSE 89; RESP 18; O2SAT 98
[2024-08-29 20:41] VITALS: BP 142/75; PULSE 73; RESP 18; TEMP 98.1; O2SAT 100
[2024-08-30 08:00] VITALS: BP 107/62; PULSE 74; RESP 12; TEMP 98.1; O2SAT 96
[2024-08-30 16:38] VITALS: BP 135/83; PULSE 75
[2024-08-30 23:06] VITALS: BP 142/75; PULSE 74; TEMP 97
[2024-08-31 09:31] VITALS: BP 108/59; PULSE 67; RESP 19; TEMP 98; O2SAT 96
== END 2024-08-31 12:05 | disposition home or self-care (01) | DRG 750 ==
LOC: EMS 14:21 → 3EI 08-18 00:34
PROVIDERS: ADMIT Psychiatry & Neurology Psychiatry; ATTEND Psychiatry & Neurology Psychiatry
DX: F25.9 Schizoaffective disorder, unspecified (principal); R45.851 Suicidal ideations; B19.20 Unspecified viral hepatitis C without hepatic coma; E87.6 Hypokalemia; I10 Essential (primary) hypertension; J44.89 Other specified chronic obstructive pulmonary disease; K21.9 Gastro-esophageal reflux disease without esophagitis; F43.10 Post-traumatic stress disorder, unspecified; Z20.822 Contact with and (suspected) exposure to COVID-19; F41.9 Anxiety disorder, unspecified; G47.00 Insomnia, unspecified; F31.9 Bipolar disorder, unspecified; K59.00 Constipation, unspecified; F10.10 Alcohol abuse, uncomplicated; Z72.0 Tobacco use; Z88.8 Allergy status to other drugs, medicaments and biological substances; Z91.012 Allergy to eggs; Z88.5 Allergy status to narcotic agent; Z91.013 Allergy to seafood; E66.01 Morbid (severe) obesity due to excess calories; Z68.41 Body mass index [BMI] 40.0-44.9, adult
CPT/HCPCS: 80048; 80061; 80307; 83036; 85025; 99285; G0480

== ENCOUNTER 2024-09-07 11:20 | Inpatient (IN) | payer MEDICARE, MEDICAID ==
[~2024-09-07] VITALS: Ht 165.1 cm; Wt 108.0 kg
[2024-09-07 11:31] VITALS: O2SAT 94
[2024-09-07 12:14] LABS: COVID AG,FIA SOURCE NASAL SWAB
[2024-09-07 12:16] LABS: BASOPHILS % (AUTO) 0.9 % (0.0-2.0); EOSINOPHILS % (AUTO) 3.2 % (1.0-6.0); HEMATOCRIT 40.3 % (36-46); HEMOGLOBIN 13.2 g/dL (12.0-16.0); LYMPHOCYTES # (AUTO) 3.2 K/uL (1.0-4.8); MEAN CORPUSCULAR HEMOGLOBIN 28.2 pg (26.0-34.0); MEAN CORPUSCULAR HGB CONC 32.9 G/dL (31.0-37.0); MEAN CORPUSCULAR VOLUME 86 fL (80-100); MONOCYTES # (AUTO) 0.5 K/uL (0.1-1.0); MONOCYTES % (AUTO) 6.6 % (2.0-9.0); NEUTROPHILS % (AUTO) 43.3 % (40.0-70.0); PLATELET COUNT (AUTO) 294 K/uL (150-450); RED CELL DISTRIBUTION WIDTH 15.6 % (11.5-14.5); WHITE BLOOD COUNT (AUTO) 6.9 K/uL (4.5-11.0)
[2024-09-07 12:26] LABS: ANION GAP 11 mmol/L (8-16); CALCIUM, TOTAL 9.1 mg/dL (8.8-10.5); CARBON DIOXIDE 24 mmol/L (22-29); CHLORIDE 105 mmol/L (98-107); GLOMERULAR FILTR. RATE CALC > 60 mL/min (>60); GLUCOSE,RANDOM 99 mg/dL (70-110); POTASSIUM 3.6 mmol/L (3.5-5.1); SODIUM SERUM 140 mmol/L (136-145); UREA NITROGEN, BLOOD 10 mg/dL (7-18)
[2024-09-07 12:36] LABS: SARS-COV2 (COVID) ANTIGEN,FIA Negative (Negative)
[2024-09-07 13:14] LABS: ALCOHOL, BLOOD (SERUM) < 3 mg/dL (0-10)
[2024-09-07] MEDS: ZOLPIDEM TARTRATE 10 MG TABLET PO ONE (21:42)
[2024-09-08] MEDS: LORazepam 2 MG TABLET PO PRN (03:20)
[2024-09-08] MEDS: HALOPERIDOL 5 MG TABLET PO PRN (03:21)
[2024-09-08 08:45] VITALS: BP 126/72; PULSE 79; RESP 16; TEMP 97.6; O2SAT 98
[2024-09-08 09:00] VITALS: BP 126/72; PULSE 79; RESP 16; TEMP 97.6; O2SAT 98
[2024-09-08] MEDS: MAG HYDROX/ALUMINUM HYD/SIMETH 30 ML SUSPENSION UDCUP PO PRN (10:41)
[2024-09-08 20:17] VITALS: BP 157/88; PULSE 93; RESP 18; TEMP 97.8
[2024-09-08] MEDS: QUEtiapine FUMARATE 300 MG TABLET PO SCH (20:30)
[2024-09-08] MEDS: ZOLPIDEM TARTRATE 10 MG TABLET PO PRN (21:48)
[2024-09-08 22:36] VITALS: RESP 18
[2024-09-09 08:15] VITALS: BP 126/64; PULSE 89; RESP 17
[2024-09-09] MEDS: CITALOPRAM HYDROBROMIDE 20 MG TABLET PO SCH (08:15)
[2024-09-09] MEDS: VERAPAMIL HCL 240 MG ER TABLET PO SCH (08:15)
[2024-09-09 09:10] VITALS: BP 100/60; PULSE 68; RESP 16; TEMP 96; O2SAT 95
[2024-09-09 09:22] LABS: HEMOGLOBIN A1C 4.8 % (3.8-5.6)
[2024-09-09 09:23] LABS: CHOL/HDL RATIO 3.4 (3.9-5.7); FREE T4 (FREE THYROXINE) 0.59 ng/dL (0.76-1.46); THYROID STIMULATING HORMONE 1.06 uIU/mL (0.36-3.74)
[2024-09-09] MEDS: IBUPROFEN 200 MG TABLET PO PRN (17:00)
[2024-09-09 22:32] VITALS: BP 139/75; PULSE 87; RESP 17; TEMP 97.4
[2024-09-10] MEDS ORDERED: OMEPRAZOLE 20 MG CAPSULE PO PRN (01:00)
[2024-09-10] MEDS ORDERED: ONDANSETRON 4 MG TABLET PO PRN (01:00)
[2024-09-10] MEDS ORDERED: CloNIDine HCL 0.1 MG TABLET PO PRN (01:00)
[2024-09-10] MEDS ORDERED: PETROLATUM,WHITE 28 GM JELLY TP PRN (01:00)
[2024-09-10] MEDS ORDERED: LOPERAMIDE HCL 2 MG CAPSULE PO PRN (01:00)
[2024-09-10] MEDS ORDERED: MAG HYDROX/ALUMINUM HYD/SIMETH ES 30 ML SUSPENSION UDCUP PO PRN (01:00)
[2024-09-10] MEDS ORDERED: BENZOCAINE/MENTHOL LOZENGE PO PRN (01:00)
[2024-09-10] MEDS ORDERED: ALBUTEROL SULFATE HFA 90 MCG/PUFF 8 GM INHALER IH PRN (01:00)
[2024-09-10] MEDS ORDERED: BACITRACIN 28 GM OINTMENT TP PRN (01:00)
[2024-09-10] MEDS ORDERED: DOCUSATE SODIUM 100 MG CAPSULE PO PRN (01:00)
[2024-09-10] MEDS ORDERED: MAGNESIUM HYDROXIDE SUSPENSION 30 ML UDCUP PO PRN (01:00)
[2024-09-10 08:05] VITALS: BP 130/69; PULSE 79; RESP 16; TEMP 98; O2SAT 96
[2024-09-10 22:42] VITALS: BP 163/88; RESP 19; TEMP 97.6; O2SAT 98
[2024-09-11 08:24] VITALS: BP 116/65; PULSE 84; RESP 16; TEMP 97; O2SAT 95
== END 2024-09-11 15:44 | disposition home or self-care (01) | DRG 750 ==
LOC: EMS 11:20 → B3A 09-08 00:40
PROVIDERS: ADMIT Psychiatry & Neurology Psychiatry; ATTEND Psychiatry & Neurology Psychiatry
DX: F25.9 Schizoaffective disorder, unspecified (principal); R45.851 Suicidal ideations; K74.60 Unspecified cirrhosis of liver; B19.20 Unspecified viral hepatitis C without hepatic coma; F32.9 Major depressive disorder, single episode, unspecified; Z20.822 Contact with and (suspected) exposure to COVID-19; F41.9 Anxiety disorder, unspecified; I10 Essential (primary) hypertension; K21.9 Gastro-esophageal reflux disease without esophagitis; K59.00 Constipation, unspecified; F10.10 Alcohol abuse, uncomplicated; F43.10 Post-traumatic stress disorder, unspecified; E66.9 Obesity, unspecified; J44.9 Chronic obstructive pulmonary disease, unspecified; Z68.39 Body mass index [BMI] 39.0-39.9, adult; Z72.0 Tobacco use
CPT/HCPCS: 80048; 80061; 83036; 84439; 84443; 85025; 87081; 99285; G0480

== ENCOUNTER → 2024-09-19 | Emergency (ER) | payer MEDICARE, MEDICAID ==
[~2024-09-19] VITALS: Ht 165.1 cm; Wt 104.5 kg
[~2024-09-19] MED LIST changes: +LIDO700A15 TP; +ZOLP-280 PO
[2024-09-19 15:11] VITALS: BP 143/75; PULSE 87; RESP 16; TEMP 97.6; O2SAT 93
[2024-09-19] MEDS: TraMADol HCL 50 MG TABLET PO ONE (16:21)
== END | disposition still patient (30) ==
LOC: EMS 13:42
DX: M54.50 Low back pain, unspecified (principal); J45.909 Unspecified asthma, uncomplicated; I10 Essential (primary) hypertension; F20.9 Schizophrenia, unspecified; Z87.891 Personal history of nicotine dependence; Z86.19 Personal history of other infectious and parasitic diseases; Z88.1 Allergy status to other antibiotic agents; Z88.5 Allergy status to narcotic agent; Z88.6 Allergy status to analgesic agent; Z91.011 Allergy to milk products; Z91.013 Allergy to seafood
CPT/HCPCS: 72131; 99284

== ENCOUNTER 2024-10-07 08:12 | Inpatient (IN) | payer MEDICARE, MEDICAID ==
[~2024-10-07] VITALS: Ht 165.1 cm; Wt 106.0 kg
[2024-10-07 09:38] LABS: EOSINOPHILS % (AUTO) 0.3 % (1.0-6.0); HEMATOCRIT 41.7 % (36-46); HEMOGLOBIN 13.8 g/dL (12.0-16.0); LYMPHOCYTES # (AUTO) 2.1 K/uL (1.0-4.8); LYMPHOCYTES % (AUTO) 28.3 % (22.0-44.0); MEAN CORPUSCULAR HEMOGLOBIN 28.4 pg (26.0-34.0); MEAN CORPUSCULAR HGB CONC 33.2 G/dL (31.0-37.0); MEAN CORPUSCULAR VOLUME 86 fL (80-100); MONOCYTES # (AUTO) 0.6 K/uL (0.1-1.0); MONOCYTES % (AUTO) 7.7 % (2.0-9.0); NEUTROPHILS # (AUTO) 4.7 K/uL (1.8-7.7); NEUTROPHILS % (AUTO) 62.7 % (40.0-70.0); PLATELET COUNT (AUTO) 285 K/uL (150-450); RED BLOOD CELL COUNT(AUTO) 4.86 MIL/uL (4.00-5.20); RED CELL DISTRIBUTION WIDTH 16.3 % (11.5-14.5); WHITE BLOOD COUNT (AUTO) 7.4 K/uL (4.5-11.0)
[2024-10-07 10:25] LABS: ANION GAP 11 mmol/L (8-16); CALCIUM, TOTAL 8.7 mg/dL (8.8-10.5); CARBON DIOXIDE 26 mmol/L (22-29); CHLORIDE 102 mmol/L (98-107); CREATININE 0.65 mg/dL (0.60-1.30); GLOMERULAR FILTR. RATE CALC > 60 mL/min (>60); GLUCOSE,RANDOM 86 mg/dL (70-110); POTASSIUM 3.6 mmol/L (3.5-5.1); SODIUM SERUM 139 mmol/L (136-145); UREA NITROGEN, BLOOD 6 mg/dL (7-18)
[2024-10-07 10:32] LABS: ALANINE AMINOTRANSFERASE 29 U/L (12-78); ALBUMIN 3.4 g/dL (3.4-5.0); ALKALINE PHOSPHATASE 111 U/L (46-116); ASPARTATE AMINOTRANSFERASE 31 U/L (15-37); BILIRUBIN,TOTAL 0.6 mg/dL (0.1-1.0); TOTAL PROTEIN, SERUM 8.4 g/dL (6.4-8.2)
[2024-10-07] MEDS: POTASSIUM CHLORIDE 20 MEQ ER TABLET PO ONE (10:37)
[2024-10-07 11:35] LABS: COVID AG,FIA SOURCE NASAL SWAB
[2024-10-07 12:00] VITALS: O2SAT 98
[2024-10-07] MEDS: LORazepam 2 MG TABLET PO PRN (12:08)
[2024-10-07] MEDS: HALOPERIDOL 5 MG TABLET PO PRN (12:08)
[2024-10-07 12:10] LABS: SARS-COV2 (COVID) ANTIGEN,FIA Negative (Negative)
[2024-10-07 14:11] VITALS: BP 181/73; PULSE 93; RESP 18; TEMP 97.4; O2SAT 95
[2024-10-07] MEDS ORDERED: MAGNESIUM HYDROXIDE SUSPENSION 30 ML UDCUP PO PRN (16:45)
[2024-10-07] MEDS ORDERED: LOPERAMIDE HCL 2 MG CAPSULE PO PRN (16:45)
[2024-10-07] MEDS ORDERED: BACITRACIN 28 GM OINTMENT TP PRN (16:45)
[2024-10-07] MEDS ORDERED: CloNIDine HCL 0.1 MG TABLET PO PRN (16:45)
[2024-10-07] MEDS ORDERED: PETROLATUM,WHITE 28 GM JELLY TP PRN (16:45)
[2024-10-07] MEDS ORDERED: OMEPRAZOLE 20 MG CAPSULE PO PRN (16:45)
[2024-10-07] MEDS ORDERED: DOCUSATE SODIUM 100 MG CAPSULE PO PRN (16:45)
[2024-10-07] MEDS ORDERED: ALBUTEROL SULFATE HFA 90 MCG/PUFF 8 GM INHALER IH PRN (16:45)
[2024-10-07] MEDS ORDERED: ACETAMINOPHEN 325 MG TABLET PO PRN (16:45)
[2024-10-07] MEDS ORDERED: VERAPAMIL HCL 120 MG ER TABLET PO SCH (16:45)
[2024-10-07] MEDS ORDERED: ONDANSETRON 4 MG TABLET PO PRN (16:45)
[2024-10-07] MEDS ORDERED: BENZOCAINE/MENTHOL LOZENGE PO PRN (16:45)
[2024-10-07] MEDS: DiphenhydrAMINE HCL 25 MG CAPSULE PO SCH (17:41)
[2024-10-07] MEDS: MAG HYDROX/ALUMINUM HYD/SIMETH ES 30 ML SUSPENSION UDCUP PO PRN (20:07)
[2024-10-07 20:11] VITALS: BP 161/79; PULSE 98; RESP 16; TEMP 98.3; O2SAT 94
[2024-10-07] MEDS: VERAPAMIL HCL 240 MG ER TABLET PO SCH (21:43)
[2024-10-07] MEDS: QUEtiapine FUMARATE 300 MG TABLET PO SCH (21:44)
[2024-10-07] MEDS: ZOLPIDEM TARTRATE 10 MG TABLET PO PRN (22:12)
[2024-10-08 08:12] VITALS: BP 154/76; PULSE 79; RESP 18; TEMP 97.6; O2SAT 96
[2024-10-08] MEDS: CITALOPRAM HYDROBROMIDE 20 MG TABLET PO SCH (09:21)
[2024-10-08 09:22] LABS: HEMOGLOBIN A1C 4.9 % (3.8-5.6)
[2024-10-08 09:30] LABS: CHOL/HDL RATIO 3.6 (3.9-5.7)
[2024-10-08 14:59] VITALS: BP 115/65; PULSE 90; RESP 18; TEMP 98
[2024-10-09 07:15] VITALS: BP 155/85; PULSE 87; RESP 18
[2024-10-09 08:18] VITALS: RESP 16
[2024-10-09 13:30] VITALS: BP 105/60; PULSE 74; RESP 18; TEMP 98
[2024-10-09 20:15] VITALS: BP 148/83; PULSE 73; RESP 18; TEMP 97.9; O2SAT 96
[2024-10-10 08:25] VITALS: BP 126/60; PULSE 74; RESP 17; TEMP 96.8; O2SAT 95
[2024-10-10] MEDS: ZOLPIDEM TARTRATE 10 MG TABLET PO PRN (20:09)
[2024-10-10 20:14] VITALS: BP 146/80; PULSE 79; RESP 19; TEMP 97.7; O2SAT 96
[2024-10-11 08:08] VITALS: BP 129/73; PULSE 84; RESP 16; TEMP 97.9; O2SAT 97
[2024-10-11 20:18] VITALS: BP 165/87; PULSE 74; RESP 17; TEMP 97.4; O2SAT 96
[2024-10-12 08:09] VITALS: BP 130/79; PULSE 82; RESP 16; TEMP 97; O2SAT 96
[2024-10-12 20:10] VITALS: BP 116/59; PULSE 79; RESP 16; TEMP 97.7; O2SAT 97
[2024-10-13 08:30] VITALS: BP 113/60; PULSE 80; RESP 18; TEMP 97; O2SAT 97
[2024-10-13 20:00] VITALS: BP 146/66; PULSE 84; RESP 16; TEMP 97.5; O2SAT 95
[2024-10-14 08:17] VITALS: BP 102/60; PULSE 73; RESP 17; TEMP 96.6; O2SAT 95
[2024-10-14 18:03] VITALS: BP 147/86; PULSE 78; RESP 18
[2024-10-14] MEDS: IBUPROFEN 600 MG TABLET PO PRN (18:03)
[2024-10-14 19:03] VITALS: RESP 16
[2024-10-14 20:43] VITALS: BP 136/68; PULSE 76; RESP 18; TEMP 97.6; O2SAT 96
[2024-10-15 08:40] VITALS: BP 112/60; PULSE 73; RESP 17; TEMP 96.4; O2SAT 97
[2024-10-15 20:07] VITALS: BP 154/84; PULSE 93; RESP 18; TEMP 97.9; O2SAT 97
[2024-10-16 11:35] VITALS: BP 144/82; PULSE 76; RESP 17; TEMP 96.6; O2SAT 96
[2024-10-16 20:37] VITALS: BP 124/73; PULSE 84; RESP 18; TEMP 97.4; O2SAT 97
[2024-10-17 08:05] VITALS: BP 131/80; PULSE 78; RESP 17; TEMP 97.5; O2SAT 96
[2024-10-17] MEDS: LIDOCAINE 5% TRANSDERMAL PATCH TD SCH (16:09)
[2024-10-17 20:16] VITALS: BP 141/75; PULSE 74; RESP 19; TEMP 97.8; O2SAT 95
[2024-10-18 08:30] VITALS: BP 115/63; PULSE 84; RESP 18; TEMP 97.6; O2SAT 98
[2024-10-18] MEDS ORDERED: CITA-144 PO (08:55)
== END 2024-10-18 17:49 | disposition home or self-care (01) | DRG 750 ==
LOC: EMS 08:12 → B3A 14:20
PROVIDERS: ADMIT Psychiatry & Neurology Psychiatry; ATTEND Psychiatry & Neurology Psychiatry
DX: F25.0 Schizoaffective disorder, bipolar type (principal); R45.851 Suicidal ideations; K74.60 Unspecified cirrhosis of liver; S16.1XXA Strain of muscle, fascia and tendon at neck level, initial encounter; F32.A Depression, unspecified; F41.9 Anxiety disorder, unspecified; F43.10 Post-traumatic stress disorder, unspecified; I10 Essential (primary) hypertension; Z20.822 Contact with and (suspected) exposure to COVID-19; J44.89 Other specified chronic obstructive pulmonary disease; K21.9 Gastro-esophageal reflux disease without esophagitis; G47.00 Insomnia, unspecified; B19.20 Unspecified viral hepatitis C without hepatic coma; E66.01 Morbid (severe) obesity due to excess calories; K59.00 Constipation, unspecified; Z60.8 Other problems related to social environment; Z87.891 Personal history of nicotine dependence; Z88.8 Allergy status to other drugs, medicaments and biological substances; Z91.011 Allergy to milk products; Z91.013 Allergy to seafood; W18.39XA Other fall on same level, initial encounter; Y93.89 Activity, other specified; Y92.098 Other place in other non-institutional residence as the place of occurrence of the external cause; Y99.8 Other external cause status; Z68.38 Body mass index [BMI] 38.0-38.9, adult
CPT/HCPCS: 70450; 72125; 80048; 80061; 80076; 83036; 85025; 93005; 99285; G0480

== ENCOUNTER 2024-11-22 11:16 | Emergency (ER) | payer MEDICARE, OTHER ==
[~2024-11-22] VITALS: Ht 165.1 cm; Wt 90.9 kg
[~2024-11-22 11:16] MED LIST changes: +CITA-144 PO; -DULO-114 PO; -LIDO700A15 TP; -PROP10TA72 PO; -ZOLP-280 PO
[2024-11-22 11:36] VITALS: TEMP 97.4
[2024-11-22 13:10] LABS: HEMATOCRIT 41.9 % (36-46); HEMOGLOBIN 13.6 g/dL (12.0-16.0); MEAN CORPUSCULAR HEMOGLOBIN 27.6 pg (26.0-34.0); MEAN CORPUSCULAR HGB CONC 32.5 G/dL (31.0-37.0); MEAN CORPUSCULAR VOLUME 85 fL (80-100); RED BLOOD CELL COUNT(AUTO) 4.93 MIL/uL (4.00-5.20); RED CELL DISTRIBUTION WIDTH 15.6 % (11.5-14.5); WHITE BLOOD COUNT (AUTO) 11.2 K/uL (4.5-11.0)
[2024-11-22 13:11] LABS: BASOPHILS % (AUTO) 0.7 % (0.0-2.0); EOSINOPHILS % (AUTO) 0.4 % (1.0-6.0); LYMPHOCYTES # (AUTO) 2.6 K/uL (1.0-4.8); LYMPHOCYTES % (AUTO) 23.6 % (22.0-44.0); MONOCYTES # (AUTO) 0.7 K/uL (0.1-1.0); MONOCYTES % (AUTO) 6.2 % (2.0-9.0); NEUTROPHILS # (AUTO) 7.7 K/uL (1.8-7.7); NEUTROPHILS % (AUTO) 69.1 % (40.0-70.0); PLATELET COUNT (AUTO) 369 K/uL (150-450)
[2024-11-22 13:25] LABS: ANION GAP 13 mmol/L (8-16); CALCIUM, TOTAL 8.8 mg/dL (8.8-10.5); CARBON DIOXIDE 26 mmol/L (22-29); CHLORIDE 102 mmol/L (98-107); CREATININE 0.79 mg/dL (0.60-1.30); GLOMERULAR FILTR. RATE CALC > 60 mL/min (>60); GLUCOSE,RANDOM 93 mg/dL (70-110); POTASSIUM 3.6 mmol/L (3.5-5.1); SODIUM SERUM 141 mmol/L (136-145); UREA NITROGEN, BLOOD 6 mg/dL (7-18)
[2024-11-22 13:49] LABS: ALCOHOL, BLOOD (SERUM) < 3 mg/dL (0-10)
[2024-11-22] MEDS ORDERED: ZOLP-162 PO ×2 (14:12→16:57)
[2024-11-22] MEDS: HALOPERIDOL 5 MG TABLET PO ONE (14:22)
[2024-11-22] MEDS: LORazepam 1 MG TABLET PO ONE ×2 (14:22→16:02)
[2024-11-22] MEDS: TraMADol HCL 50 MG TABLET PO ONE (16:02)
[2024-11-22 16:24] LABS: COVID AG,FIA SOURCE NASAL SWAB
[2024-11-22 16:44] LABS: SARS-COV2 (COVID) ANTIGEN,FIA Negative (Negative)
[2024-11-22] MEDS ORDERED: TRAM50TA5 PO (16:47)
[2024-11-22 17:00] VITALS: BP 132/65; PULSE 78; RESP 18; O2SAT 96
== END 2024-11-22 18:18 | disposition home or self-care (01) ==
LOC: EDUNIT# 11:16 → EMS 11:18
DX: F32.A Depression, unspecified (principal); E66.9 Obesity, unspecified; F20.9 Schizophrenia, unspecified; I10 Essential (primary) hypertension; J45.909 Unspecified asthma, uncomplicated; K74.60 Unspecified cirrhosis of liver; Z87.891 Personal history of nicotine dependence; Z88.1 Allergy status to other antibiotic agents; Z88.5 Allergy status to narcotic agent; Z88.6 Allergy status to analgesic agent; Z20.822 Contact with and (suspected) exposure to COVID-19
CPT/HCPCS: 99284; 87426; 80048; 85025; 36415; 73562; G0480

== ENCOUNTER 2025-02-22 11:26 | Emergency (ER) | payer MEDICARE, OTHER ==
[~2025-02-22] VITALS: Ht 165.1 cm; Wt 95.5 kg
[~2025-02-22 11:26] MED LIST changes: -VERA240T96 PO
[2025-02-22 11:44] VITALS: TEMP 98.3
[2025-02-22] MEDS: KETOROLAC TROMETHAMINE 30 MG/ML VIAL IM ONE (15:28)
[2025-02-22 16:06] VITALS: BP 138/82; PULSE 71; RESP 16; O2SAT 97
== END 2025-02-22 20:47 | disposition home or self-care (01) ==
LOC: EMS 11:27
DX: S83.92XA Sprain of unspecified site of left knee, initial encounter (principal); F25.0 Schizoaffective disorder, bipolar type; J45.909 Unspecified asthma, uncomplicated; I10 Essential (primary) hypertension; Z88.1 Allergy status to other antibiotic agents; Z88.5 Allergy status to narcotic agent; Z88.6 Allergy status to analgesic agent; Z86.19 Personal history of other infectious and parasitic diseases; W01.0XXA Fall on same level from slipping, tripping and stumbling without subsequent striking against object, initial encounter; Y93.89 Activity, other specified; Y92.89 Other specified places as the place of occurrence of the external cause; Y99.8 Other external cause status
CPT/HCPCS: 99283; 73562; 96372; J1885

== ENCOUNTER 2025-03-15 06:16 | Emergency (ER) | payer MEDICARE, OTHER ==
[~2025-03-15] VITALS: Ht 167.6 cm; Wt 102.3 kg
[2025-03-15 06:17] VITALS: TEMP 98.1
[2025-03-15] MEDS ORDERED: ZOLP-685 PO (06:50)
[2025-03-15] MEDS ORDERED: VERA240T95 PO (06:50)
[2025-03-15] MEDS ORDERED: ZOLP-162 PO (07:07)
[2025-03-15 07:39] VITALS: BP 133/78; PULSE 78; RESP 20; O2SAT 98
== END 2025-03-15 07:53 | disposition home or self-care (01) ==
LOC: EMS 06:16
DX: G47.00 Insomnia, unspecified (principal); F41.9 Anxiety disorder, unspecified; I10 Essential (primary) hypertension; J45.909 Unspecified asthma, uncomplicated; K74.60 Unspecified cirrhosis of liver; Z88.1 Allergy status to other antibiotic agents; Z88.5 Allergy status to narcotic agent; Z88.6 Allergy status to analgesic agent; Z91.011 Allergy to milk products; Z86.19 Personal history of other infectious and parasitic diseases; Z79.899 Other long term (current) drug therapy
CPT/HCPCS: 99283; Z7502

== ENCOUNTER 2025-04-20 22:55 | Inpatient (IN) | payer MEDICARE, MEDICAID ==
[~2025-04-20] VITALS: Ht 165.1 cm; Wt 108.7 kg
[~2025-04-20 22:55] MED LIST changes: -CITA-144 PO; +VERA240T95 PO
[2025-04-21 02:23] LABS: BASOPHILS % (AUTO) 0.6 % (0.0-2.0); EOSINOPHILS % (AUTO) 2.4 % (1.0-6.0); HEMATOCRIT 42.1 % (36-46); HEMOGLOBIN 13.9 g/dL (12.0-16.0); LYMPHOCYTES # (AUTO) 3.3 K/uL (1.0-4.8); LYMPHOCYTES % (AUTO) 46.5 % (22.0-44.0); MEAN CORPUSCULAR HEMOGLOBIN 27.3 pg (26.0-34.0); MEAN CORPUSCULAR HGB CONC 32.9 G/dL (31.0-37.0); MEAN CORPUSCULAR VOLUME 83 fL (80-100); MONOCYTES # (AUTO) 0.7 K/uL (0.1-1.0); MONOCYTES % (AUTO) 9.8 % (2.0-9.0); NEUTROPHILS # (AUTO) 2.9 K/uL (1.8-7.7); NEUTROPHILS % (AUTO) 40.7 % (40.0-70.0); PLATELET COUNT (AUTO) 277 K/uL (150-450); RED BLOOD CELL COUNT(AUTO) 5.08 MIL/uL (4.00-5.20); RED CELL DISTRIBUTION WIDTH 15.9 % (11.5-14.5)
[2025-04-21 02:32] LABS: ANION GAP 6 mmol/L (8-16); CALCIUM, TOTAL 10.3 mg/dL (8.8-10.5); CARBON DIOXIDE 30 mmol/L (22-29); CHLORIDE 104 mmol/L (98-107); CREATININE 0.68 mg/dL (0.60-1.30); GLOMERULAR FILTR. RATE CALC > 60 mL/min (>60); GLUCOSE,RANDOM 100 mg/dL (70-110); POTASSIUM 3.2 mmol/L (3.5-5.1); SODIUM SERUM 140 mmol/L (136-145); UREA NITROGEN, BLOOD 8 mg/dL (7-18)
[2025-04-21] MEDS: ZOLPIDEM TARTRATE 10 MG TABLET PO ONE (02:37)
[2025-04-21 03:50] LABS: COVID AG,FIA SOURCE NASAL SWAB
[2025-04-21 04:11] LABS: SARS-COV2 (COVID) ANTIGEN,FIA Negative (Negative)
[2025-04-21] MEDS: POTASSIUM CHLORIDE 20 MEQ ER TABLET PO ONE ×2 (05:34→10:35)
[2025-04-21 07:51] VITALS: O2SAT 98
[2025-04-21 09:15] VITALS: BP 158/88; PULSE 88; RESP 18; TEMP 97.3; O2SAT 98
[2025-04-21] MEDS ORDERED: ONDANSETRON 4 MG TABLET PO PRN (09:15)
[2025-04-21] MEDS ORDERED: IBUPROFEN 600 MG TABLET PO PRN (09:15)
[2025-04-21] MEDS ORDERED: ALBUTEROL SULFATE HFA 90 MCG/PUFF 8 GM INHALER IH PRN (09:15)
[2025-04-21] MEDS ORDERED: DOCUSATE SODIUM 100 MG CAPSULE PO PRN (09:15)
[2025-04-21] MEDS ORDERED: CloNIDine HCL 0.1 MG TABLET PO PRN (09:15)
[2025-04-21] MEDS ORDERED: LOPERAMIDE HCL 2 MG CAPSULE PO PRN (09:15)
[2025-04-21] MEDS ORDERED: MAGNESIUM HYDROXIDE SUSPENSION 30 ML UDCUP PO PRN (09:15)
[2025-04-21] MEDS ORDERED: BENZOCAINE/MENTHOL [CEPACOL] LOZENGE PO PRN (09:15)
[2025-04-21] MEDS ORDERED: BACITRACIN 28 GM OINTMENT TP PRN (09:15)
[2025-04-21] MEDS ORDERED: OMEPRAZOLE 20 MG CAPSULE PO PRN (09:15)
[2025-04-21] MEDS ORDERED: PETROLATUM,WHITE 28 GM JELLY TP PRN (09:15)
[2025-04-21] MEDS: haloperidoL 5 MG TABLET PO PRN (10:36)
[2025-04-21] MEDS: VERAPAMIL HCL 240 MG ER TABLET PO SCH (10:36)
[2025-04-21] MEDS: LORazepam 2 MG TABLET PO PRN (10:36)
[2025-04-21 12:21] LABS: CHOL/HDL RATIO 2.9 (3.9-5.7); FREE T4 (FREE THYROXINE) 0.74 ng/dL (0.76-1.46); THYROID STIMULATING HORMONE 1.12 uIU/mL (0.36-3.74)
[2025-04-21 20:12] VITALS: BP 133/81; PULSE 94; RESP 18; TEMP 97.5; O2SAT 97
[2025-04-21] MEDS: ZOLPIDEM TARTRATE 10 MG TABLET PO PRN (20:33)
[2025-04-22 13:06] VITALS: BP 146/78; PULSE 86; RESP 18; TEMP 97.4; O2SAT 98
[2025-04-22] MEDS: QUEtiapine FUMARATE 300 MG TABLET PO SCH (20:28)
[2025-04-22 21:45] VITALS: BP 143/87; PULSE 79; RESP 18; TEMP 97.9; O2SAT 99
[2025-04-23 08:20] VITALS: RESP 18
[2025-04-23 10:22] VITALS: BP 113/81; PULSE 90; RESP 18; TEMP 97.6; O2SAT 97
[2025-04-23 20:37] VITALS: RESP 17
[2025-04-24 08:09] VITALS: BP 124/81; PULSE 98; RESP 17; TEMP 97.7
[2025-04-24 17:50] VITALS: BP 130/85; RESP 17
[2025-04-24 21:14] VITALS: BP 143/84; PULSE 76; RESP 16; TEMP 97.8
[2025-04-25 09:49] VITALS: BP 140/90; PULSE 92; RESP 17; TEMP 97.8
[2025-04-25 21:14] VITALS: BP 140/85; PULSE 83; RESP 20; TEMP 98.8; O2SAT 96
[2025-04-26 08:00] VITALS: BP 110/66; PULSE 80; RESP 16; TEMP 97.2; O2SAT 100
[2025-04-26] MEDS: MAG HYDROX/ALUMINUM HYD/SIMETH ES 30 ML SUSPENSION UDCUP PO PRN (21:09)
[2025-04-26 21:26] VITALS: BP 121/74; PULSE 80; RESP 17; TEMP 97.9; O2SAT 99
[2025-04-27 09:00] VITALS: BP 107/60; PULSE 86; RESP 17; TEMP 98.1; O2SAT 95
[2025-04-27 18:16] VITALS: BP 124/82; PULSE 89
[2025-04-27 20:39] VITALS: BP 125/80; PULSE 85; RESP 18; TEMP 97.5; O2SAT 97
[2025-04-28 08:53] VITALS: BP 125/74; PULSE 82; RESP 18; TEMP 97.8; O2SAT 95
[2025-04-28 20:58] VITALS: RESP 17
[2025-04-29 08:36] VITALS: BP 103/61; PULSE 82; RESP 17; TEMP 97.7; O2SAT 98
[2025-04-29 09:42] VITALS: BP 133/84; PULSE 73; RESP 17; TEMP 97.6; O2SAT 98
[2025-04-29] MEDS ORDERED: VERA240T96 PO (12:45)
== END 2025-04-29 12:47 | disposition home or self-care (01) | DRG 885 ==
LOC: EMS 22:55 → B2S 04-21 08:47 → B2X 04-26 18:46
PROVIDERS: ADMIT Psychiatry & Neurology Psychiatry; ATTEND Psychiatry & Neurology Psychiatry
DX: F25.9 Schizoaffective disorder, unspecified (principal); R45.851 Suicidal ideations; E66.9 Obesity, unspecified; I10 Essential (primary) hypertension; Z20.822 Contact with and (suspected) exposure to COVID-19; F32.9 Major depressive disorder, single episode, unspecified; J44.89 Other specified chronic obstructive pulmonary disease; K59.00 Constipation, unspecified; K21.9 Gastro-esophageal reflux disease without esophagitis; G47.00 Insomnia, unspecified; B19.20 Unspecified viral hepatitis C without hepatic coma; E87.6 Hypokalemia; F41.9 Anxiety disorder, unspecified; F43.10 Post-traumatic stress disorder, unspecified; K74.60 Unspecified cirrhosis of liver; Z68.39 Body mass index [BMI] 39.0-39.9, adult
CPT/HCPCS: 80048; 80061; 83036; 84132; 84439; 84443; 85025; 99285; G0480

== ENCOUNTER 2025-06-25 16:04 | Inpatient (IN) | payer MEDICARE, MEDICAID ==
[~2025-06-25] VITALS: Ht 165.1 cm; Wt 109.8 kg
[~2025-06-25 16:04] MED LIST changes: -VERA240T95 PO; +VERA240T96 PO
[2025-06-25 16:32] LABS: PLATELET COUNT (AUTO) 328 K/uL (150-450); RED BLOOD CELL COUNT(AUTO) 4.90 MIL/uL (4.00-5.20); RED CELL DISTRIBUTION WIDTH 16.1 % (11.5-14.5); WHITE BLOOD COUNT (AUTO) 8.4 K/uL (4.5-11.0)
[2025-06-25 16:40] LABS: CALCIUM, TOTAL 9.9 mg/dL (8.8-10.5); CREATININE 0.67 mg/dL (0.60-1.30); GLOMERULAR FILTR. RATE CALC > 60 mL/min (>60); GLUCOSE,RANDOM 86 mg/dL (70-110); SODIUM SERUM 138 mmol/L (136-145); UREA NITROGEN, BLOOD 7 mg/dL (7-18)
[2025-06-25 16:48] LABS: ALCOHOL, BLOOD (SERUM) 52.0 mg/dL (0-10)
[2025-06-25 17:10] LABS: COVID AG,FIA SOURCE NASAL SWAB
[2025-06-25 17:58] LABS: SARS-COV2 (COVID) ANTIGEN,FIA Negative (Negative)
[2025-06-25 21:01] VITALS: O2SAT 96
[2025-06-25] MEDS ORDERED: ACETAMINOPHEN 325 MG TABLET PO PRN (22:00)
[2025-06-25] MEDS ORDERED: MAGNESIUM HYDROXIDE SUSPENSION 30 ML UDCUP PO PRN (22:00)
[2025-06-25] MEDS ORDERED: BACITRACIN 28 GM OINTMENT TP PRN (22:00)
[2025-06-25] MEDS ORDERED: PETROLATUM,WHITE 28 GM JELLY TP PRN (22:00)
[2025-06-25] MEDS ORDERED: BENZOCAINE/MENTHOL [CEPACOL] LOZENGE PO PRN (22:00)
[2025-06-25] MEDS ORDERED: OMEPRAZOLE 20 MG CAPSULE PO PRN (22:00)
[2025-06-25] MEDS ORDERED: DOCUSATE SODIUM 100 MG CAPSULE PO PRN (22:00)
[2025-06-25] MEDS ORDERED: LOPERAMIDE HCL 2 MG CAPSULE PO PRN (22:00)
[2025-06-25] MEDS ORDERED: ONDANSETRON 4 MG TABLET PO PRN (22:00)
[2025-06-25] MEDS ORDERED: ALBUTEROL SULFATE HFA 90 MCG/PUFF 8 GM INHALER IH PRN (22:00)
[2025-06-25 22:05] VITALS: BP 144/73; PULSE 83; RESP 18; TEMP 98.4; O2SAT 96
[2025-06-25] MEDS: ZOLPIDEM TARTRATE 10 MG TABLET PO PRN (22:19)
[2025-06-25] MEDS: IBUPROFEN 600 MG TABLET PO PRN (22:19)
[2025-06-25 23:19] VITALS: RESP 18
[2025-06-26 06:39] LABS: CHOL/HDL RATIO 2.9 (3.9-5.7); LDL CHOL (CALC.) 69.0 mg/dL (0-130)
[2025-06-26] MEDS: VERAPAMIL HCL 240 MG ER TABLET PO SCH (09:00)
[2025-06-26 09:01] VITALS: BP 117/58; PULSE 68; RESP 18; TEMP 98.3; O2SAT 96
[2025-06-26] MEDS: PNEUMOCOCCAL VACCINE POLYVALENT 0.5 ML SYRINGE [PPSV23] IM. ONE (09:16)
[2025-06-26 20:08] VITALS: BP 152/83; PULSE 92; RESP 18; TEMP 98.2; O2SAT 97
[2025-06-27 08:38] VITALS: BP 124/69; PULSE 75; RESP 18; TEMP 97.9; O2SAT 95
[2025-06-27 13:19] VITALS: RESP 17
[2025-06-27 14:19] VITALS: RESP 16
[2025-06-27 19:19] VITALS: RESP 17
[2025-06-27 20:11] VITALS: BP 121/86; PULSE 86; RESP 18; TEMP 98.6; O2SAT 97
[2025-06-27 20:19] VITALS: RESP 16
[2025-06-27] MEDS: MAG HYDROX/ALUMINUM HYD/SIMETH ES 30 ML SUSPENSION UDCUP PO PRN (22:40)
[2025-06-28 08:20] VITALS: BP 129/74; PULSE 70; RESP 18; TEMP 98.5; O2SAT 95
[2025-06-28 20:28] VITALS: BP 134/80; PULSE 86; RESP 18; TEMP 98.6; O2SAT 88
[2025-06-29 08:20] VITALS: BP 118/60; PULSE 76; RESP 19; TEMP 97.7; O2SAT 97
[2025-06-29 13:09] VITALS: BP 128/80; PULSE 80; RESP 17; O2SAT 99
[2025-06-29 13:21] VITALS: BP 118/83; PULSE 81; RESP 18; O2SAT 96
[2025-06-29 14:09] VITALS: RESP 18; O2SAT 99
[2025-06-29 20:19] VITALS: BP 140/72; PULSE 72; RESP 18; TEMP 98.1; O2SAT 95
[2025-06-30 08:17] VITALS: BP 138/60; PULSE 74; RESP 18; TEMP 98.3; O2SAT 95
[2025-06-30 13:25] VITALS: BP 135/75; PULSE 78; RESP 18; TEMP 98.2; O2SAT 98
[2025-06-30 14:25] VITALS: BP 140/67; PULSE 72; RESP 18; TEMP 98.3; O2SAT 98
[2025-06-30 20:10] VITALS: BP 134/75; PULSE 75; RESP 18; TEMP 98.1; O2SAT 97
[2025-07-01 00:49] VITALS: BP 120/70; PULSE 75; RESP 18; O2SAT 98
[2025-07-01 08:07] VITALS: BP 125/65; PULSE 77; RESP 17; TEMP 97.3; O2SAT 95
[2025-07-01 14:49] VITALS: RESP 17
[2025-07-01 15:49] VITALS: RESP 16
[2025-07-01 20:17] VITALS: BP 127/74; PULSE 73; RESP 16; TEMP 97.9; O2SAT 98
[2025-07-02 08:03] VITALS: BP 126/65; PULSE 75; RESP 17; TEMP 99.1; O2SAT 97
[2025-07-02 08:51] VITALS: RESP 17
[2025-07-02 09:51] VITALS: RESP 16
[2025-07-02 20:10] VITALS: BP 118/71; PULSE 76; RESP 17; TEMP 98.2; O2SAT 96
[2025-07-03 09:00] VITALS: BP 125/81; PULSE 75; RESP 16; TEMP 97.6; O2SAT 98
[2025-07-03 11:43] VITALS: BP 113/63; PULSE 79; RESP 16; TEMP 98; O2SAT 98
[2025-07-03 12:43] VITALS: RESP 18
[2025-07-03 20:20] VITALS: BP 125/84; PULSE 72; RESP 17; TEMP 98.6; O2SAT 97
[2025-07-04 08:09] VITALS: BP 110/61; PULSE 66; RESP 17; TEMP 98.4; O2SAT 96
[2025-07-04 20:01] VITALS: BP 130/80; PULSE 76; RESP 18; TEMP 98.3; O2SAT 96
[2025-07-04 20:57] VITALS: RESP 18
[2025-07-05 08:09] VITALS: BP 130/83; PULSE 67; RESP 17; TEMP 98.4; O2SAT 99
[2025-07-05 16:38] VITALS: BP 132/78; PULSE 72; RESP 18
[2025-07-05 17:48] VITALS: RESP 18
[2025-07-05 20:22] VITALS: BP 130/80; PULSE 78; RESP 18; TEMP 97.7; O2SAT 98
[2025-07-06 08:12] VITALS: BP 125/65; PULSE 68; RESP 17; TEMP 98.3; O2SAT 100
[2025-07-06 16:00] VITALS: RESP 17
[2025-07-06 17:00] VITALS: RESP 17
[2025-07-06 20:04] VITALS: BP 119/76; PULSE 80; RESP 17; TEMP 97.7; O2SAT 97
[2025-07-07 09:30] VITALS: RESP 18
[2025-07-07] MEDS ORDERED: BUSP5TAB20 PO (12:01)
== END 2025-07-07 16:00 | disposition home or self-care (01) | DRG 885 ==
LOC: EMS 16:04 → B2X 21:20
PROVIDERS: ADMIT Psychiatry & Neurology Psychiatry; ATTEND Psychiatry & Neurology Psychiatry
DX: F25.1 Schizoaffective disorder, depressive type (principal); R45.851 Suicidal ideations; Z68.41 Body mass index [BMI] 40.0-44.9, adult; E66.9 Obesity, unspecified; F10.129 Alcohol abuse with intoxication, unspecified; F41.9 Anxiety disorder, unspecified; F43.10 Post-traumatic stress disorder, unspecified; G47.00 Insomnia, unspecified; I10 Essential (primary) hypertension; J44.89 Other specified chronic obstructive pulmonary disease; K21.9 Gastro-esophageal reflux disease without esophagitis; K59.00 Constipation, unspecified; B19.20 Unspecified viral hepatitis C without hepatic coma; Y90.9 Presence of alcohol in blood, level not specified; Z20.822 Contact with and (suspected) exposure to COVID-19; Z72.0 Tobacco use
CPT/HCPCS: 80048; 80061; 83036; 85025; 87081; 99285; G0480

== ENCOUNTER 2025-07-14 08:59 | Inpatient (IN) | payer MEDICARE, MEDICAID ==
[~2025-07-14] VITALS: Ht 165.1 cm; Wt 107.5 kg
[~2025-07-14 08:59] MED LIST changes: +BUSP5TAB20 PO
[2025-07-14 10:30] VITALS: BP 149/90; PULSE 93; RESP 19; TEMP 98.2; O2SAT 98
[2025-07-14 11:51] LABS: GLUCOMETER DEV NAME(LOC) POC.BV; POC SARS-COV2 AG, FIA NEGATIVE (NEGATIVE)
[2025-07-14 18:45] VITALS: BP 154/92; PULSE 93; RESP 18; TEMP 97; O2SAT 97
[2025-07-14] MEDS: VERAPAMIL HCL 240 MG ER TABLET PO SCH (19:52)
[2025-07-14 19:55] VITALS: BP 178/93; PULSE 83; RESP 18; O2SAT 98
[2025-07-14 20:20] VITALS: BP 171/99; PULSE 70; RESP 18; TEMP 98.2; O2SAT 100
[2025-07-14] MEDS: ZOLPIDEM TARTRATE 10 MG TABLET PO PRN (21:35)
[2025-07-15] MEDS: DOCUSATE SODIUM 100 MG CAPSULE PO PRN (07:30)
[2025-07-15] MEDS: IBUPROFEN 600 MG TABLET PO PRN (07:30)
[2025-07-15] MEDS ORDERED: BACITRACIN 28 GM OINTMENT TP PRN (08:30)
[2025-07-15] MEDS ORDERED: ALBUTEROL SULFATE HFA 90 MCG/PUFF 8 GM INHALER IH PRN (08:30)
[2025-07-15] MEDS ORDERED: BENZOCAINE/MENTHOL [CEPACOL] LOZENGE PO PRN (08:30)
[2025-07-15] MEDS ORDERED: OMEPRAZOLE 20 MG CAPSULE PO PRN (08:30)
[2025-07-15] MEDS ORDERED: LOPERAMIDE HCL 2 MG CAPSULE PO PRN (08:30)
[2025-07-15] MEDS ORDERED: PETROLATUM,WHITE 28 GM JELLY TP PRN (08:30)
[2025-07-15] MEDS ORDERED: ONDANSETRON 4 MG TABLET PO PRN (08:30)
[2025-07-15 08:39] VITALS: BP 133/75; PULSE 76; RESP 16; TEMP 97.6; O2SAT 96
[2025-07-15] MEDS: MAGNESIUM HYDROXIDE SUSPENSION 30 ML UDCUP PO PRN (10:58)
[2025-07-15] MEDS: DOCUSATE SODIUM 100 MG CAPSULE PO SCH (18:18)
[2025-07-15 21:24] VITALS: BP 132/85; PULSE 91; RESP 17; TEMP 97.6; O2SAT 96
[2025-07-15] MEDS: MAG HYDROX/ALUMINUM HYD/SIMETH ES 30 ML SUSPENSION UDCUP PO PRN (21:38)
[2025-07-16 12:50] VITALS: BP 140/85; PULSE 69; RESP 16; O2SAT 98
[2025-07-16 20:17] VITALS: BP 126/76; PULSE 82; RESP 17; TEMP 97.8; O2SAT 96
[2025-07-17 09:09] VITALS: RESP 18
[2025-07-17 20:10] VITALS: BP 127/84; PULSE 86; RESP 18; TEMP 97.8; O2SAT 97
[2025-07-17 20:26] VITALS: BP 153/82; PULSE 89; RESP 17; TEMP 97.3; O2SAT 97
[2025-07-17 21:10] VITALS: RESP 18
[2025-07-17 21:16] VITALS: RESP 18; O2SAT 97
[2025-07-18 08:25] VITALS: BP 117/63; PULSE 82; RESP 16; TEMP 97.8; O2SAT 96
[2025-07-18 18:49] VITALS: BP 125/81; PULSE 73; RESP 18
[2025-07-18 19:49] VITALS: RESP 18
[2025-07-18 20:28] VITALS: BP 120/64; PULSE 71; RESP 17; TEMP 99.1; O2SAT 97
[2025-07-19 08:38] VITALS: BP 124/66; PULSE 83; RESP 18; TEMP 98.2; O2SAT 98
[2025-07-19 20:32] VITALS: BP 136/91; PULSE 81; RESP 17; TEMP 98; O2SAT 96
[2025-07-19 20:41] VITALS: BP_SYST 130; BP_SYST 136; BP_DIAS 75; BP_DIAS 78; PULSE 80; PULSE 81; RESP 17; RESP 18; TEMP 97; TEMP 97.4; O2SAT 96; O2SAT 97
[2025-07-20 08:43] VITALS: BP 135/69; PULSE 83; RESP 19; TEMP 98; O2SAT 98
[2025-07-20 14:11] VITALS: BP 134/81; PULSE 94; RESP 18
[2025-07-20 15:11] VITALS: RESP 18
[2025-07-20 20:28] VITALS: BP 119/84; PULSE 82; RESP 18; TEMP 98.2; O2SAT 98
[2025-07-21 08:51] VITALS: BP 128/67; PULSE 83; RESP 19; TEMP 98.4; O2SAT 97
[2025-07-21 20:13] VITALS: BP 116/76; PULSE 88; RESP 18; TEMP 98.4; O2SAT 96
[2025-07-21 22:32] VITALS: RESP 18
[2025-07-21 23:29] VITALS: RESP 18
[2025-07-22] MEDS ORDERED: DOCU-385 PO (08:10)
[2025-07-22 08:25] VITALS: BP 116/60; PULSE 82; RESP 17; TEMP 98.4; O2SAT 95
== END 2025-07-22 11:53 | disposition home or self-care (01) | DRG 885 ==
LOC: B3A 16:59 → B2X 07-15 09:10
PROVIDERS: ADMIT Psychiatry & Neurology Psychiatry; ATTEND Psychiatry & Neurology Psychiatry
DX: F20.9 Schizophrenia, unspecified (principal); R45.851 Suicidal ideations; Z20.822 Contact with and (suspected) exposure to COVID-19; E66.9 Obesity, unspecified; Z68.39 Body mass index [BMI] 39.0-39.9, adult; I10 Essential (primary) hypertension; F32.A Depression, unspecified; F41.9 Anxiety disorder, unspecified; K21.9 Gastro-esophageal reflux disease without esophagitis; J44.9 Chronic obstructive pulmonary disease, unspecified; K59.00 Constipation, unspecified; G47.00 Insomnia, unspecified; B19.20 Unspecified viral hepatitis C without hepatic coma; M79.601 Pain in right arm; Z79.899 Other long term (current) drug therapy; Z72.0 Tobacco use; Z88.1 Allergy status to other antibiotic agents; Z88.8 Allergy status to other drugs, medicaments and biological substances
CPT/HCPCS: Z7610

== ENCOUNTER 2025-07-16 07:35 | Emergency (ER) | payer MEDICARE, OTHER ==
[~2025-07-16] VITALS: Ht 165.1 cm; Wt 107.7 kg
[2025-07-16 08:14] LABS: PLATELET COUNT (AUTO) 269 K/uL (150-450); RED BLOOD CELL COUNT(AUTO) 4.42 MIL/uL (4.00-5.20); RED CELL DISTRIBUTION WIDTH 15.4 % (11.5-14.5); WHITE BLOOD COUNT (AUTO) 7.1 K/uL (4.5-11.0)
[2025-07-16 08:24] LABS: CALCIUM, TOTAL 8.7 mg/dL (8.8-10.5); CREATININE 0.92 mg/dL (0.60-1.30); GLOMERULAR FILTR. RATE CALC > 60 mL/min (>60); GLUCOSE,RANDOM 91 mg/dL (70-110); SODIUM SERUM 140 mmol/L (136-145); UREA NITROGEN, BLOOD 14 mg/dL (7-18)
[2025-07-16 08:32] LABS: ASPARTATE AMINOTRANSFERASE 26.0 U/L (15-37); TOTAL PROTEIN, SERUM 7.5 g/dL (6.4-8.2)
[2025-07-16 08:40] LABS: TROPONIN I-HIGH SENSITIVITY 8 ng/L (<51)
[2025-07-16 10:35] VITALS: TEMP 98.4
[2025-07-16 11:38] VITALS: BP 141/88; PULSE 96; RESP 16; O2SAT 98
== END 2025-07-16 11:59 ==
LOC: EMS 07:35
DX: K59.00 Constipation, unspecified (principal); F41.9 Anxiety disorder, unspecified; I10 Essential (primary) hypertension; J45.909 Unspecified asthma, uncomplicated; F20.9 Schizophrenia, unspecified; F31.9 Bipolar disorder, unspecified; K74.60 Unspecified cirrhosis of liver; Z86.19 Personal history of other infectious and parasitic diseases; Z88.1 Allergy status to other antibiotic agents; Z88.5 Allergy status to narcotic agent; Z88.6 Allergy status to analgesic agent; Z91.011 Allergy to milk products; Z91.013 Allergy to seafood; Z79.899 Other long term (current) drug therapy
CPT/HCPCS: 80048; 82248; 83690; 84484; 85025; 93005; 99284

== ENCOUNTER 2025-08-16 12:18 | Inpatient (IN) | payer MEDICARE, MEDICAID ==
[~2025-08-16] VITALS: Ht 165.1 cm; Wt 113.6 kg
[~2025-08-16 12:18] MED LIST changes: -BUSP5TAB20 PO; +DOCU-385 PO
[2025-08-16 13:25] LABS: PLATELET COUNT (AUTO) 288 K/uL (150-450); RED BLOOD CELL COUNT(AUTO) 4.25 MIL/uL (4.00-5.20); RED CELL DISTRIBUTION WIDTH 15.6 % (11.5-14.5); WHITE BLOOD COUNT (AUTO) 6.0 K/uL (4.5-11.0)
[2025-08-16 13:31] LABS: CALCIUM, TOTAL 8.8 mg/dL (8.8-10.5); CREATININE 0.60 mg/dL (0.60-1.30); GLOMERULAR FILTR. RATE CALC > 60 mL/min (>60); GLUCOSE,RANDOM 90 mg/dL (70-110); SODIUM SERUM 140 mmol/L (136-145); UREA NITROGEN, BLOOD 12 mg/dL (7-18)
[2025-08-16 13:35] LABS: ALCOHOL, BLOOD (SERUM) < 3 mg/dL (0-10)
[2025-08-16 13:40] LABS: COVID AG,FIA SOURCE NASAL SWAB
[2025-08-16 14:30] LABS: SARS-COV2 (COVID) ANTIGEN,FIA Negative (Negative)
[2025-08-16 18:46] VITALS: BP 188/94; PULSE 89; RESP 17; TEMP 97.5; O2SAT 96
[2025-08-16] MEDS: IBUPROFEN 600 MG TABLET PO PRN (19:26)
[2025-08-16] MEDS ORDERED: PETROLATUM,WHITE 28 GM JELLY TP PRN (19:30)
[2025-08-16] MEDS ORDERED: ALBUTEROL SULFATE HFA 90 MCG/PUFF 8 GM INHALER IH PRN (19:30)
[2025-08-16] MEDS ORDERED: ONDANSETRON 4 MG TABLET PO PRN (19:30)
[2025-08-16] MEDS ORDERED: MAG HYDROX/ALUMINUM HYD/SIMETH ES 30 ML SUSPENSION UDCUP PO PRN (19:30)
[2025-08-16] MEDS ORDERED: BACITRACIN 28 GM OINTMENT TP PRN (19:30)
[2025-08-16] MEDS ORDERED: LOPERAMIDE HCL 2 MG CAPSULE PO PRN (19:30)
[2025-08-16] MEDS ORDERED: BENZOCAINE/MENTHOL [CEPACOL] LOZENGE PO PRN (19:30)
[2025-08-16] MEDS ORDERED: MAGNESIUM HYDROXIDE SUSPENSION 30 ML UDCUP PO PRN (19:30)
[2025-08-16] MEDS ORDERED: DOCUSATE SODIUM 100 MG CAPSULE PO PRN (19:30)
[2025-08-16] MEDS ORDERED: OMEPRAZOLE 20 MG CAPSULE PO PRN (19:30)
[2025-08-16] MEDS: INFLUENZA VIRUS VACCINE TVS (6MO+) 2025-26/PF 45 MCG/0.5 ML SYRINGE IM. ONE (20:15)
[2025-08-16] MEDS: ZOLPIDEM TARTRATE 10 MG TABLET PO PRN (20:44)
[2025-08-16 20:57] VITALS: BP 182/92; PULSE 75; RESP 18; TEMP 97.1; O2SAT 99
[2025-08-16 21:00] VITALS: RESP 18
[2025-08-16 22:21] VITALS: BP 162/89; PULSE 92; RESP 18
[2025-08-17 08:45] VITALS: BP 137/69; PULSE 82; RESP 19; TEMP 97.9; O2SAT 96
[2025-08-17] MEDS: VERAPAMIL HCL 240 MG ER TABLET PO SCH (09:54)
[2025-08-17 13:45] VITALS: BP 134/74; PULSE 90; RESP 16; TEMP 98; O2SAT 98
[2025-08-17 20:13] VITALS: BP 139/74; PULSE 88; RESP 18; TEMP 98.1; O2SAT 98
[2025-08-18 08:10] VITALS: BP 137/70; PULSE 77; RESP 18; TEMP 98; O2SAT 95
[2025-08-18 16:43] VITALS: BP 149/82; PULSE 87; RESP 18
[2025-08-18 17:43] VITALS: RESP 18
[2025-08-18] MEDS ORDERED: PHENYLEPHRINE/SHK LV/MIN OIL/PET 57 GM OINTMENT TP PRN (18:00)
[2025-08-18 20:49] VITALS: BP 141/77; PULSE 88; RESP 16; TEMP 98.8
[2025-08-19 08:54] LABS: PLATELET COUNT (AUTO) 326 K/uL (150-450); RED BLOOD CELL COUNT(AUTO) 4.29 MIL/uL (4.00-5.20); RED CELL DISTRIBUTION WIDTH 15.6 % (11.5-14.5); WHITE BLOOD COUNT (AUTO) 5.0 K/uL (4.5-11.0)
[2025-08-19 09:08] VITALS: RESP 16
[2025-08-19 09:32] LABS: ASPARTATE AMINOTRANSFERASE 22 U/L (15-37); CALCIUM, TOTAL 8.6 mg/dL (8.8-10.5); CREATININE 0.53 mg/dL (0.60-1.30); GLOMERULAR FILTR. RATE CALC > 60 mL/min (>60); GLUCOSE,RANDOM 83 mg/dL (70-110); SODIUM SERUM 142 mmol/L (136-145); TOTAL PROTEIN, SERUM 7.2 g/dL (6.4-8.2); UREA NITROGEN, BLOOD 9 mg/dL (7-18)
[2025-08-19 09:56] LABS: CHOL/HDL RATIO 3.7 (3.9-5.7); LDL CHOL (CALC.) 100 mg/dL (0-130)
[2025-08-19 10:43] VITALS: BP 137/80; PULSE 88; RESP 18; TEMP 98.5
[2025-08-19 11:43] VITALS: RESP 18
[2025-08-19 20:05] VITALS: RESP 18
[2025-08-19 20:15] VITALS: BP 166/79; PULSE 84; RESP 20; TEMP 98.1; O2SAT 98
[2025-08-20 08:46] VITALS: BP 146/74; PULSE 77; RESP 18; TEMP 98.1; O2SAT 95
[2025-08-20 20:38] VITALS: BP 152/81; PULSE 77; RESP 19; TEMP 98; O2SAT 98
[2025-08-21 00:04] VITALS: RESP 18
[2025-08-21 08:33] VITALS: BP 144/88; PULSE 75; RESP 18; TEMP 97.5; O2SAT 96
[2025-08-21] MEDS ORDERED: LEVO25TA9 PO (10:35)
== END 2025-08-21 12:42 | disposition home or self-care (01) | DRG 885 ==
LOC: EMS 12:27 → B2X 16:59
PROVIDERS: ADMIT Psychiatry & Neurology Psychiatry; ATTEND Psychiatry & Neurology Psychiatry
DX: F25.9 Schizoaffective disorder, unspecified (principal); J44.89 Other specified chronic obstructive pulmonary disease; Z68.41 Body mass index [BMI] 40.0-44.9, adult; R45.851 Suicidal ideations; F31.9 Bipolar disorder, unspecified; I10 Essential (primary) hypertension; F41.9 Anxiety disorder, unspecified; K21.9 Gastro-esophageal reflux disease without esophagitis; B19.20 Unspecified viral hepatitis C without hepatic coma; M13.0 Polyarthritis, unspecified; K59.00 Constipation, unspecified; G47.00 Insomnia, unspecified; E66.9 Obesity, unspecified; F10.10 Alcohol abuse, uncomplicated; Y90.0 Blood alcohol level of less than 20 mg/100 ml; F43.10 Post-traumatic stress disorder, unspecified; K74.60 Unspecified cirrhosis of liver; Z20.822 Contact with and (suspected) exposure to COVID-19; Z72.0 Tobacco use; Z91.51 Personal history of suicidal behavior; Z79.899 Other long term (current) drug therapy
CPT/HCPCS: 80048; 80053; 80061; 83036; 83880; 84436; 84439; 84443; 85025; 99285; G0480

== ENCOUNTER 2025-09-01 18:42 | Inpatient (IN) | payer MEDICARE, MEDICAID ==
[~2025-09-01] VITALS: Ht 162.6 cm; Wt 109.0 kg
[~2025-09-01 18:42] MED LIST changes: -DOCU-385 PO; +LEVO25TA9 PO
[2025-09-01 19:54] VITALS: O2SAT 96
[2025-09-01 20:09] LABS: PLATELET COUNT (AUTO) 296 K/uL (150-450); RED BLOOD CELL COUNT(AUTO) 5.13 MIL/uL (4.00-5.20); RED CELL DISTRIBUTION WIDTH 16.6 % (11.5-14.5); WHITE BLOOD COUNT (AUTO) 7.9 K/uL (4.5-11.0)
[2025-09-01 21:25] LABS: CREATININE 0.62 mg/dL (0.60-1.30); GLUCOSE,RANDOM 89 mg/dL (70-110); SODIUM SERUM 141 mmol/L (136-145); UREA NITROGEN, BLOOD 8 mg/dL (7-18)
[2025-09-01 21:26] LABS: CALCIUM, TOTAL 9.3 mg/dL (8.8-10.5); GLOMERULAR FILTR. RATE CALC > 60 mL/min (>60)
[2025-09-01] MEDS: ZOLPIDEM TARTRATE 5 MG TABLET PO ONE (23:21)
[2025-09-02] MEDS: ZOLPIDEM TARTRATE 5 MG TABLET PO ONE (00:27)
[2025-09-02 00:58] LABS: COVID AG,FIA SOURCE NASAL SWAB
[2025-09-02 01:02] LABS: SARS-COV2 (COVID) ANTIGEN,FIA Negative (Negative)
[2025-09-02] MEDS ORDERED: MAG HYDROX/ALUMINUM HYD/SIMETH ES 30 ML SUSPENSION UDCUP ONE (02:14)
[2025-09-02] MEDS: MAG HYDROX/ALUMINUM HYD/SIMETH 30 ML SUSPENSION UDCUP PO ONE (02:19)
[2025-09-02 02:58] VITALS: BP 128/84; PULSE 91; RESP 18; TEMP 97.7; O2SAT 100
[2025-09-02] MEDS ORDERED: PNEUMOCOCCAL VACCINE POLYVALENT 0.5 ML SYRINGE [PPSV23] IM. ONE (06:00)
[2025-09-02] MEDS ORDERED: ONDANSETRON 4 MG TABLET PO PRN (06:45)
[2025-09-02] MEDS ORDERED: LOPERAMIDE HCL 2 MG CAPSULE PO PRN (06:45)
[2025-09-02] MEDS ORDERED: MAGNESIUM HYDROXIDE SUSPENSION 30 ML UDCUP PO PRN (06:45)
[2025-09-02] MEDS ORDERED: BACITRACIN 28 GM OINTMENT TP PRN (06:45)
[2025-09-02] MEDS ORDERED: ALBUTEROL SULFATE HFA 90 MCG/PUFF 8 GM INHALER IH PRN (06:45)
[2025-09-02] MEDS ORDERED: DOCUSATE SODIUM 100 MG CAPSULE PO PRN (06:45)
[2025-09-02] MEDS ORDERED: PETROLATUM,WHITE 28 GM JELLY TP PRN (06:45)
[2025-09-02] MEDS ORDERED: BENZOCAINE/MENTHOL [CEPACOL] LOZENGE PO PRN (06:45)
[2025-09-02] MEDS ORDERED: OMEPRAZOLE 20 MG CAPSULE PO PRN (06:45)
[2025-09-02 09:40] VITALS: BP 144/88; PULSE 89; RESP 18; TEMP 98.8; O2SAT 100
[2025-09-02] MEDS: VERAPAMIL HCL 240 MG ER TABLET PO SCH (09:40)
[2025-09-02 16:52] VITALS: BP 135/90; PULSE 84; RESP 18; O2SAT 97
[2025-09-02 20:10] VITALS: BP 145/77; PULSE 85; RESP 18; TEMP 97.7; O2SAT 98
[2025-09-02] MEDS: IBUPROFEN 600 MG TABLET PO PRN (20:46)
[2025-09-02] MEDS: ZOLPIDEM TARTRATE 10 MG TABLET PO PRN (20:46)
[2025-09-03 10:10] VITALS: BP 140/75; PULSE 86; RESP 17; TEMP 96.3; O2SAT 96
[2025-09-03 20:00] VITALS: BP 128/79; PULSE 82; RESP 17; TEMP 98.3; O2SAT 99
[2025-09-04] MEDS: MAG HYDROX/ALUMINUM HYD/SIMETH ES 30 ML SUSPENSION UDCUP PO PRN (00:15)
[2025-09-04 20:30] VITALS: BP 127/86; PULSE 77; RESP 17; TEMP 98; O2SAT 98
[2025-09-05 01:04] VITALS: BP 133/83; PULSE 89; RESP 18; TEMP 98.2; O2SAT 97
[2025-09-05 16:08] VITALS: RESP 16
[2025-09-05 20:00] VITALS: BP 126/72; PULSE 85; RESP 17; TEMP 97.7; O2SAT 99
[2025-09-05 20:34] VITALS: BP 126/72; PULSE 85; RESP 16; TEMP 97.7; O2SAT 99
[2025-09-05 21:34] VITALS: RESP 16
[2025-09-06 17:52] VITALS: BP 145/89; PULSE 89; RESP 18; TEMP 98
[2025-09-06 20:08] VITALS: BP 144/82; PULSE 86; RESP 18; TEMP 98.4
[2025-09-07 12:13] VITALS: BP 114/75; PULSE 85; RESP 18; TEMP 97.8
[2025-09-07 20:05] VITALS: BP 140/80; PULSE 86; RESP 18; TEMP 98.9; O2SAT 99
[2025-09-07 20:33] VITALS: BP 148/80; PULSE 86; RESP 18; TEMP 99; O2SAT 99
[2025-09-08 09:17] VITALS: BP 132/57; PULSE 83; RESP 18; TEMP 98.1; O2SAT 96
== END 2025-09-08 11:52 | disposition home or self-care (01) | DRG 885 ==
LOC: EMS 18:45 → B2X 09-02 01:20
PROVIDERS: ADMIT Psychiatry & Neurology Psychiatry; ATTEND Psychiatry & Neurology Psychiatry
DX: F25.9 Schizoaffective disorder, unspecified (principal); J44.89 Other specified chronic obstructive pulmonary disease; Z68.41 Body mass index [BMI] 40.0-44.9, adult; R45.851 Suicidal ideations; I10 Essential (primary) hypertension; F41.9 Anxiety disorder, unspecified; B19.20 Unspecified viral hepatitis C without hepatic coma; K21.9 Gastro-esophageal reflux disease without esophagitis; E66.9 Obesity, unspecified; K59.00 Constipation, unspecified; G47.00 Insomnia, unspecified; Z20.822 Contact with and (suspected) exposure to COVID-19; F10.10 Alcohol abuse, uncomplicated; Y90.0 Blood alcohol level of less than 20 mg/100 ml; F43.10 Post-traumatic stress disorder, unspecified; K74.60 Unspecified cirrhosis of liver; Z91.013 Allergy to seafood; Z88.6 Allergy status to analgesic agent; Z88.8 Allergy status to other drugs, medicaments and biological substances; Z72.0 Tobacco use; Z91.148 Patient's other noncompliance with medication regimen for other reason; Z79.899 Other long term (current) drug therapy
CPT/HCPCS: 80048; 85025; 87081; 99285; G0480

== ENCOUNTER 2025-09-18 05:54 | Inpatient (IN) | payer MEDICARE, MEDICAID ==
[~2025-09-18] VITALS: Ht 162.6 cm; Wt 113.4 kg
[~2025-09-18 05:54] MED LIST changes: -LEVO25TA9 PO
[2025-09-18 06:51] LABS: PLATELET COUNT (AUTO) 277 K/uL (150-450); RED BLOOD CELL COUNT(AUTO) 4.62 MIL/uL (4.00-5.20); RED CELL DISTRIBUTION WIDTH 16.7 % (11.5-14.5); WHITE BLOOD COUNT (AUTO) 6.0 K/uL (4.5-11.0)
[2025-09-18 06:59] LABS: CALCIUM, TOTAL 8.7 mg/dL (8.8-10.5); CREATININE 0.60 mg/dL (0.60-1.30); GLOMERULAR FILTR. RATE CALC > 60 mL/min (>60); GLUCOSE,RANDOM 88 mg/dL (70-110); SODIUM SERUM 136 mmol/L (136-145); UREA NITROGEN, BLOOD 4 mg/dL (7-18)
[2025-09-18 07:38] LABS: COVID AG,FIA SOURCE NASAL SWAB
[2025-09-18 07:43] VITALS: O2SAT 99
[2025-09-18 07:57] LABS: SARS-COV2 (COVID) ANTIGEN,FIA Negative (Negative)
[2025-09-18 12:00] VITALS: RESP 16
[2025-09-18] MEDS ORDERED: ONDANSETRON 4 MG TABLET PO PRN (14:30)
[2025-09-18] MEDS ORDERED: BACITRACIN 28 GM OINTMENT TP PRN (14:30)
[2025-09-18] MEDS ORDERED: OMEPRAZOLE 20 MG CAPSULE PO PRN (14:30)
[2025-09-18] MEDS ORDERED: LOPERAMIDE HCL 2 MG CAPSULE PO PRN (14:30)
[2025-09-18] MEDS ORDERED: BENZOCAINE/MENTHOL [CEPACOL] LOZENGE PO PRN (14:30)
[2025-09-18] MEDS ORDERED: ALBUTEROL SULFATE HFA 90 MCG/PUFF 8 GM INHALER IH PRN (14:30)
[2025-09-18] MEDS ORDERED: DOCUSATE SODIUM 100 MG CAPSULE PO PRN (14:30)
[2025-09-18] MEDS ORDERED: MAG HYDROX/ALUMINUM HYD/SIMETH ES 30 ML SUSPENSION UDCUP PO PRN (14:30)
[2025-09-18] MEDS ORDERED: PETROLATUM,WHITE 28 GM JELLY TP PRN (14:30)
[2025-09-18] MEDS: MAGNESIUM HYDROXIDE SUSPENSION 30 ML UDCUP PO PRN (17:37)
[2025-09-18 20:33] VITALS: RESP 18
[2025-09-18] MEDS: ZOLPIDEM TARTRATE 10 MG TABLET PO PRN (20:35)
[2025-09-19 08:21] VITALS: BP 143/82; PULSE 90; RESP 17; TEMP 97.8; O2SAT 98
[2025-09-19] MEDS: VERAPAMIL HCL 240 MG ER TABLET PO SCH (08:28)
[2025-09-19 20:02] VITALS: BP 133/83; PULSE 96; RESP 18; TEMP 98.4; O2SAT 97
[2025-09-20] MEDS: CITALOPRAM HYDROBROMIDE 20 MG TABLET PO SCH (08:24)
[2025-09-20] MEDS ORDERED: DICLOFENAC SODIUM 1% 100 GM GEL [2GM] TP PRN (08:45)
[2025-09-20 09:20] VITALS: RESP 18
[2025-09-20] MEDS: IBUPROFEN 600 MG TABLET PO PRN (09:33)
[2025-09-20 10:20] VITALS: RESP 18
[2025-09-20 10:44] VITALS: BP 90/68; PULSE 68; RESP 18; TEMP 97.4; O2SAT 98
[2025-09-20] MEDS: ZOLPIDEM TARTRATE 10 MG TABLET PO PRN (20:06)
[2025-09-20 20:07] VITALS: BP 141/78; PULSE 89; RESP 18; TEMP 98.4; O2SAT 100
[2025-09-21 00:38] VITALS: BP 124/60; PULSE 89; RESP 18; TEMP 98.1; O2SAT 100
[2025-09-21 01:29] VITALS: RESP 18
[2025-09-21 09:32] VITALS: RESP 16
[2025-09-21 20:05] VITALS: BP 140/86; PULSE 86; RESP 18; TEMP 98.1; O2SAT 98
[2025-09-22 10:03] VITALS: BP 122/60; PULSE 81; RESP 18; TEMP 98.3; O2SAT 98
[2025-09-22 22:16] VITALS: BP 152/72; PULSE 82; RESP 16; TEMP 98.6; O2SAT 98
[2025-09-23 08:00] VITALS: RESP 16
[2025-09-23] MEDS ORDERED: CITA-144 PO (15:03)
== END 2025-09-23 17:38 | disposition home or self-care (01) | DRG 885 ==
LOC: EMS 05:56 → B2X 09:19
PROVIDERS: ADMIT Psychiatry & Neurology Psychiatry; ATTEND Psychiatry & Neurology Psychiatry
DX: F25.9 Schizoaffective disorder, unspecified (principal); J44.89 Other specified chronic obstructive pulmonary disease; R45.851 Suicidal ideations; K74.60 Unspecified cirrhosis of liver; I10 Essential (primary) hypertension; E66.9 Obesity, unspecified; F10.10 Alcohol abuse, uncomplicated; Z68.41 Body mass index [BMI] 40.0-44.9, adult; K21.9 Gastro-esophageal reflux disease without esophagitis; F41.9 Anxiety disorder, unspecified; Z20.822 Contact with and (suspected) exposure to COVID-19; F43.10 Post-traumatic stress disorder, unspecified; K59.00 Constipation, unspecified; G47.00 Insomnia, unspecified; Z91.0110 Allergy to milk products, unspecified; Z72.0 Tobacco use; Z88.6 Allergy status to analgesic agent; Z88.8 Allergy status to other drugs, medicaments and biological substances; Z91.013 Allergy to seafood; Z79.899 Other long term (current) drug therapy
CPT/HCPCS: 80048; 85025; 99285; G0480

== ENCOUNTER 2025-10-01 16:29 | Inpatient (IN) | payer MEDICARE, MEDICAID ==
[~2025-10-01] VITALS: Ht 165.1 cm; Wt 109.0 kg
[~2025-10-01 16:29] MED LIST changes: +CITA-144 PO
[2025-10-01 18:29] LABS: PLATELET COUNT (AUTO) 254 K/uL (150-450); RED BLOOD CELL COUNT(AUTO) 5.01 MIL/uL (4.00-5.20); RED CELL DISTRIBUTION WIDTH 16.6 % (11.5-14.5); WHITE BLOOD COUNT (AUTO) 7.4 K/uL (4.5-11.0)
[2025-10-01 18:36] LABS: CALCIUM, TOTAL 9.4 mg/dL (8.8-10.5); CREATININE 0.65 mg/dL (0.60-1.30); GLOMERULAR FILTR. RATE CALC > 60 mL/min (>60); GLUCOSE,RANDOM 104 mg/dL (70-110); SODIUM SERUM 141 mmol/L (136-145); UREA NITROGEN, BLOOD 7 mg/dL (7-18)
[2025-10-01 19:15] LABS: COVID AG,FIA SOURCE NASAL SWAB
[2025-10-01 19:40] LABS: SARS-COV2 (COVID) ANTIGEN,FIA Negative (Negative)
[2025-10-01] MEDS: ZOLPIDEM TARTRATE 10 MG TABLET PO ONE (20:16)
[2025-10-01 21:15] VITALS: O2SAT 99
[2025-10-01 23:44] VITALS: BP 145/93; PULSE 93; RESP 16; TEMP 98.3; O2SAT 95
[2025-10-02] MEDS ORDERED: MAGNESIUM HYDROXIDE SUSPENSION 30 ML UDCUP PO PRN (06:45)
[2025-10-02] MEDS ORDERED: OMEPRAZOLE 20 MG CAPSULE PO PRN (06:45)
[2025-10-02] MEDS ORDERED: BACITRACIN 28 GM OINTMENT TP PRN (06:45)
[2025-10-02] MEDS ORDERED: ALBUTEROL SULFATE HFA 90 MCG/PUFF 8 GM INHALER IH PRN (06:45)
[2025-10-02] MEDS ORDERED: PETROLATUM,WHITE 28 GM JELLY TP PRN (06:45)
[2025-10-02] MEDS ORDERED: DOCUSATE SODIUM 100 MG CAPSULE PO PRN (06:45)
[2025-10-02] MEDS ORDERED: ONDANSETRON 4 MG TABLET PO PRN (06:45)
[2025-10-02] MEDS ORDERED: LOPERAMIDE HCL 2 MG CAPSULE PO PRN (06:45)
[2025-10-02] MEDS ORDERED: BENZOCAINE/MENTHOL [CEPACOL] LOZENGE PO PRN (06:45)
[2025-10-02] MEDS: VERAPAMIL HCL 240 MG ER TABLET PO SCH (09:39)
[2025-10-02 10:33] VITALS: BP 135/87; PULSE 97; RESP 16; TEMP 98.2; O2SAT 99
[2025-10-02 20:09] VITALS: BP 149/82; PULSE 83; RESP 17; TEMP 97.8; O2SAT 98
[2025-10-02] MEDS: ZOLPIDEM TARTRATE 10 MG TABLET PO PRN (20:30)
[2025-10-03 09:24] VITALS: RESP 18; O2SAT 99
[2025-10-03] MEDS: IBUPROFEN 600 MG TABLET PO PRN (09:24)
[2025-10-03 09:56] VITALS: RESP 18
[2025-10-03 10:24] VITALS: RESP 17
[2025-10-03 20:06] VITALS: BP 143/82; PULSE 87; RESP 17; TEMP 98; O2SAT 100
[2025-10-03] MEDS: MAG HYDROX/ALUMINUM HYD/SIMETH ES 30 ML SUSPENSION UDCUP PO PRN (23:51)
[2025-10-04 08:12] VITALS: RESP 17
[2025-10-04 13:00] VITALS: BP 101/47; PULSE 88; RESP 17; TEMP 98.7; O2SAT 0
[2025-10-04 20:30] VITALS: BP 148/89; PULSE 85; RESP 18; TEMP 98.6
[2025-10-05 08:37] VITALS: BP 122/68; PULSE 82; RESP 19; TEMP 98; O2SAT 96
[2025-10-05 20:08] VITALS: BP 126/73; PULSE 68; RESP 17; TEMP 97.8; O2SAT 96
[2025-10-06 20:06] VITALS: BP 139/79; PULSE 81; RESP 18; TEMP 97.8; O2SAT 97
[2025-10-07 08:07] VITALS: RESP 17
[2025-10-07 20:11] VITALS: BP 119/72; PULSE 87; RESP 17; TEMP 98; O2SAT 98
[2025-10-08 08:13] VITALS: RESP 17
[2025-10-08 10:49] VITALS: BP 123/65; PULSE 78; RESP 18; TEMP 98; O2SAT 98
[2025-10-08 20:11] VITALS: BP 123/60; PULSE 95; RESP 18; TEMP 97.6; O2SAT 97
[2025-10-09 10:14] VITALS: BP 129/87; PULSE 86; RESP 18; TEMP 97.8; O2SAT 96
[2025-10-09 11:14] VITALS: RESP 17
[2025-10-09 21:15] VITALS: BP 140/81; PULSE 83; RESP 18; TEMP 97
== END 2025-10-10 16:33 | disposition home or self-care (01) | DRG 885 ==
LOC: EMS 16:34 → B2X 21:12
PROVIDERS: ADMIT Psychiatry & Neurology Psychiatry; ATTEND Psychiatry & Neurology Psychiatry
DX: F25.0 Schizoaffective disorder, bipolar type (principal); J44.89 Other specified chronic obstructive pulmonary disease; R45.851 Suicidal ideations; I10 Essential (primary) hypertension; E66.9 Obesity, unspecified; B18.2 Chronic viral hepatitis C; Z68.41 Body mass index [BMI] 40.0-44.9, adult; K21.9 Gastro-esophageal reflux disease without esophagitis; F41.9 Anxiety disorder, unspecified; Z72.0 Tobacco use; G47.00 Insomnia, unspecified; K59.00 Constipation, unspecified
CPT/HCPCS: 80048; 85025; 87081; 99285; G0480